=== PATIENT | female | born 1965 | race Caucasian/White ===

== ENCOUNTER → 2019-10-03 16:51 | Outpatient (CLI) | payer OTHER, SELFPAY ==
--- NOTE | ~2019-10-03 | XR_ITS ---
EXAMINATION: XR abdomen/kub 1V EXAM DATE: 10/03/2019 17:05 INDICATION: Gross hematuria. TECHNIQUE: Frontal projection(s) of the abdomen for interpretation. Comparison is made to prior exami nation from 02/15/2016. Correlation was made with CT abdomen pelvis 09/21/2019. FINDINGS: There is expected amount of colonic stool and gas. No small bowel dilation, nonobstructiv e bowel gas pattern. There are no suspicious calcifications identified. There is no organomegaly suspected. The bones are unremarkable. Essure closure devices. IMPRESSION: Unremarkable abdomen x-ray exam. Reviewed, dictated and finalized at location A. 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
== END ==
PROVIDERS: PCP Urology; Visit Provider Nurse Practitioner Adult Health
DX: R31.0 Gross hematuria (principal)
CPT/HCPCS: 74018

== ENCOUNTER 2019-11-07 00:13 | Day surgery (SDC) | payer OTHER, SELFPAY ==
[2019-11-04 08:44] VITALS: BMI 29.2
[2019-11-07 08:34] VITALS: BP 136/94; PULSE 68; RESP 16; TEMP 36.4; O2SAT 68
[2019-11-07] MEDS: LACTATED RINGERS 1,000 ML 150 ML IV CONT (08:44)
--- NOTE | 2019-11-07 09:09 | WPDANESEPPF ---
Anes - Initial Pre Proc Eval Procedure: Operation Date: 11/07/19 09:30 Proposed Procedures p Screening Colonoscopy - Kodi Andres MD Date/Time: 11/07/19 09:09 Surgeon: Kodi Andres MD Pre Op Diagnosis: Neoplasm Screening Patient Data Age: 54 Gender: F Height: 5 ft 3 in Weight: 76.5 kg Last Vital Signs Temp 97.6 F 11/07/19 08:34 Pulse 68 11/07/19 08:34 Resp 16 11/07/19 08:34 BP 136/94 H 11/07/19 08:34 Pulse Ox 68 L 11/07/19 08:34 Allergies Allergy/AdvReac Type Severity Reaction Status Date / Time No Known Allergies Allergy Verified 11/07/19 08:31 Home Medications Medication Instructions Recorded Confirmed Type atorvastatin 10 mg PO DAILY 09/22/19 11/07/19 History bupropion HCl 150 mg PO DAILY 09/22/19 11/04/19 History lkultbnhvc-vffnsqxcaaizn-iqmj 1 tablet PO DIRECTED PRN 09/22/19 11/07/19 History estradiol 1 mg PO DAILY 09/22/19 11/04/19 History hydrochlorothiazide 25 mg PO DAILY 09/22/19 11/04/19 History calcium carbonate [Calcium 500] 500 mg PO DAILY 11/04/19 11/04/19 History cholecalciferol (vitamin D3) 4,000 unit PO DAILY 11/04/19 11/04/19 History [Vitamin D3] magnesium 30 mg PO DAILY 11/04/19 11/04/19 History vitamin B complex-folic acid [B 1 tablet PO DAILY 11/04/19 11/07/19 History Complex 1 (with folic acid)] Patient hx anesthesia problems: none Family hx anesthesia problems: none [facility] Past Medical History Medical History (Updated 09/23/19 @ 09:02 by Sen Patton MD) Hyperlipidemia Hypertension Migraine KIRK (obstructive sleep apnea) Anes - Eval Final PreProcedure Day of Procedure 11/07/19 09:09 Patient weight: normal Heart: regular rate and rhythm Lungs: clear to auscultation Airway: Mallampati scale class II Neurological: alert and oriented Last oral intake: >/= 8 hours ASA classification: III Emergent: no Anesthetic plan: proceed Anesthesia type and monitoring: general GIVS and standard monitoring Informed Consent: The patient's anesthetic plan and its attendant risks and benefits were discussed with the patient/family/POA. Questions were solicited and answers provided to the satisfaction of the patient/family/POA.
--- NOTE | 2019-11-07 09:41 | P.CONGI_ITS ---
Assessment and Plan Assessment and plan (1) Encounter for screening for colorectal malignant neoplasm: Code(s): Z12.11 - Encounter for screening for malignant neoplasm of colon; Z12.12 - Encounter for screening for malignant neoplasm of rectum Status: Acute Assessment and Plan: Colonoscopy will be performed. GI Consult Note Consult date/time: 11/07/19 09:41 HPI: Carole Quiles is a 54 year old female Seen in evaluation at the request of Dr. Erich Jennings. Patient presents for neoplasia screening colonoscopy. Her current weight appetite bowel movements are normal. She denies abdominal pain. She denies blood in her stools. Her weight is remains stable. Past medical history is significant for hypertension and kidney stones. Family history is significant her father with with myocardial infarction. There is no history of colon or rectal disease within the family. [facility] Past Medical History Medical History Hyperlipidemia Hypertension Migraine KIRK (obstructive sleep apnea) Meds Home Medications and Allergies Home Medications Medication Instructions Recorded Confirmed Type atorvastatin 10 mg PO DAILY 09/22/19 11/07/19 History bupropion HCl 150 mg PO DAILY 09/22/19 11/04/19 History fpgyrzynlw-gadaixhzvzkxo-eqoq 1 tablet PO DIRECTED PRN 09/22/19 11/07/19 History estradiol 1 mg PO DAILY 09/22/19 11/04/19 History hydrochlorothiazide 25 mg PO DAILY 09/22/19 11/04/19 History calcium carbonate [Calcium 500] 500 mg PO DAILY 11/04/19 11/04/19 History cholecalciferol (vitamin D3) 4,000 unit PO DAILY 11/04/19 11/04/19 History [Vitamin D3] magnesium 30 mg PO DAILY 11/04/19 11/04/19 History vitamin B complex-folic acid [B 1 tablet PO DAILY 11/04/19 11/07/19 History Complex 1 (with folic acid)] Allergies Allergy/AdvReac Type Severity Reaction Status Date / Time No Known Allergies Allergy Verified 11/07/19 08:31 Vital Signs Vital Signs - 24 hr 11/07/19 08:34 Temperature 36.4 C Pulse Rate 68 Respiratory Rate 16 Blood Pressure 136/94 H Pulse Oximetry 68 L Exam Narrative: Exam Narrative: Physical exam reveals her to be alert. Vital signs stable. HEENT exam unremarkable. Lungs are clear to auscultation and percussion. Heart is without murmur or extra sounds. Abdominal exam bowel sounds are present soft nontender with no hepatosplenomegaly. Digital external rectal exam normal.
[2019-11-07 09:45] VITALS: BP 118/74; PULSE 72; RESP 16; O2SAT 98
[2019-11-07 09:55] VITALS: BP 116/64; PULSE 64; RESP 16; O2SAT 100
[2019-11-07 09:59] VITALS: BP 147/93; PULSE 67; RESP 16; O2SAT 99
== END 2019-11-07 10:10 | disposition home or self-care (01) ==
PROVIDERS: PCP Family Medicine Adolescent Medicine; Visit Provider Internal Medicine Gastroenterology
PROC: 0DJD8ZZ Inspection of Lower Intestinal Tract, Via Natural or Artificial Opening Endoscopic (ICD-10-PCS; CPT 45378; principal; 2019-11-07 09:30)
DX: Z12.11 Encounter for screening for malignant neoplasm of colon (principal); K57.30 Diverticulosis of large intestine without perforation or abscess without bleeding; K64.8 Other hemorrhoids; I10 Essential (primary) hypertension; E78.5 Hyperlipidemia, unspecified; G47.33 Obstructive sleep apnea (adult) (pediatric)
CPT/HCPCS: 45378; J2704; J7120

== ENCOUNTER → 2020-10-23 15:36 | Outpatient (CLI) | payer OTHER, SELFPAY ==
--- NOTE | ~2020-10-23 | MM_ITS ---
EXAMINATION: MM screening [facility] BI w [place] HISTORY: Screening mammogram TECHNIQUE: Craniocaudal and mediolateral oblique 3-D tomosynthesis images were obtained and synthetic 2-D images were generated. CAD analysis was submitted and interpreted. COMPARISON: 09/17/2019, 09/03/2018, 08/20/2017 BREAST PARENCHYMAL COMPOSITION: The breasts are almost entirely fatty. FINDINGS: There is no evidence of suspicious mass, calcification, or architectural distortion to sugg est malignancy in either breast. There has been no suspicious interval change. IMPRESSION: 1. No mammographic evidence of malignancy. 2. Recommend routine screening mammography in one year. BI-RADS Category 1: Negative Reviewed, dictated and finalized at location A. POLISHER
== END ==
PROVIDERS: PCP Family Medicine Adolescent Medicine; Visit Provider Advanced Practice Midwife
DX: Z12.31 Encounter for screening mammogram for malignant neoplasm of breast (principal)
CPT/HCPCS: 77063; 77067

== ENCOUNTER → 2021-10-25 15:53 | Outpatient (CLI) | payer OTHER, SELFPAY ==
--- NOTE | ~2021-10-25 | MM_ITS ---
EXAMINATION: MM screening [facility] w [place] HISTORY: Screening mammogram TECHNIQUE: Craniocaudal and mediolateral oblique 3-D tomosynthesis images were obtained and synthetic 2-D images were generated. CAD analysis was submitted and interpreted. COMPARISON: October 23, 2020, September 17, 2019 bilateral screening mammogram examinations 09/03/2018 bilateral diagnostic mammogram 08/20/2017 bilateral screening mammogram BREAST PARENCHYMAL COMPOSITION: The breasts are almost entirely fatty. FINDINGS: There is a 7.5 mm circumscribed low-density opacity in the posterior upper central left ange ast slightly medial to the mid sagittal plane. There is suggestion of a radiolucent hilus. This mass has been present on serial mammograms and is likely a benign intramammary lymph node. There is no mahesh dence of suspicious mass, calcification, or architectural distortion to suggest malignancy in either breast. There has been no suspicious interval change. IMPRESSION: 1. Benign finding; no mammographic evidence of malignancy 2. Recommend routine screening mammography in one year. BI-RADS Category 2: Benign finding(s). Reviewed, dictated and finalized at location A. 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
== END ==
PROVIDERS: PCP Family Medicine Adolescent Medicine; Visit Provider Nurse Practitioner Obstetrics & Gynecology
DX: Z12.31 Encounter for screening mammogram for malignant neoplasm of breast (principal)
CPT/HCPCS: 77063; 77067

== ENCOUNTER 2022-11-04 00:59 | Day surgery (SDC) | payer OTHER, SELFPAY ==
[2022-10-24 14:42] VITALS: BMI 27.8
--- NOTE | 2022-10-24 14:50 | PC.NURSE ---
Report to the Outpatient Waiting Room, entrance under the green pavilion located off [facility], at time 0900 on date 11/04/22. Planned Procedure Time: 1100. Time changes happen often and if your time is changed the preop area will call you the afternoon before. - You and your visitor will be asked to self-screen and do not enter if you have any COVID symptoms. - Only one visitor is requested with a max of two and NO children visitors are allowed at this time. - The patient visitor may be requested to leave or wait in car when not with patient due to distancing restrictions. - A mask is optional within the hospital at this time. Patients may have clear liquids (water, carbonated beverages, clear teas, apple juice) until 3 hours prior to surgery with a maximum of 20 ounces. - No food from midnight until time of surgery Take the following medications with a SIP of water the morning of surgery: NONE DO NOT STOP ANY OF YOUR OTHER PRESCRIPTION MEDICATIONS PRIOR TO SURGERY EXCEPT THE FOLLOWING Medications to discontinue per physician: VITAMINS/SUPPLEMENTS Date to take last dose: 10/31/22 Please no make-up, nail zimbabwean, hairspray, perfume, deodorant, or body powder the day of surgery. No jewelry (including any body piercings) or valuables the day of surgery, leave them at home. Please take a shower or bath the night before, or the morning of, surgery with an antibacterial soap. Wear comfortable, loose fitting clothing. - Jewelry must be removed prior to entering the operating room. Rings and piercings that are not removed may be cut off. - The hospital will not accept responsibility for valuables. - Please leave all valuables, including medications, at home the day of surgery. If you are going home after surgery, a licensed dedicated regional driver must drive you home. - NO public transportation without another adult if you receive anesthesia. - We recommend that an adult stay with you for 24 hours following discharge. - We also recommend that you do not drive, make important decision, drink alcoholic beverages, or take any drugs that were not prescribed by your health care provider for at least 24 hours after your discharge time. Follow any additional instructions given to you from your surgeon. If you or anyone in your household have experienced Covid symptoms in the past week, please notify your surgeon or the nurse liaison at the phone number below for possible testing. Telephone instructions given to PT - LYNNE LEWIS and asked if any additional questions and then verbalized understanding. Patient advised to call surgeon office or pre surgery nurse liaison [phone] if any additional questions.
--- NOTE | 2022-11-03 14:45 | WPDANESEPPF ---
Anes - Initial Pre Proc Eval Procedure: Operation Date: 11/04/22 11:00 Proposed Procedures p Hysteroscopy, Possible Biopsy of Endometrium and/or Polypectomy - Olesya Neville MD Date/Time: 11/03/22 14:45 Surgeon: Olesya Neville MD Pre Op Diagnosis: post menopausal bleeding Patient Data Age: 57 Gender: F Height: 1.61 m Weight: 72.6 kg Allergies Allergy/AdvReac Type Severity Reaction Status Date / Time No Known Allergies Allergy Verified 11/04/22 10:11 Home Medications Medication Instructions Recorded Confirmed Type estradiol 1 mg tablet 1 mg PO DAILY 09/22/19 10/24/22 History calcium carbonate 500 mg calcium 500 mg PO DAILY 11/04/19 10/24/22 History (1,250 mg) tablet (Calcium 500) cholecalciferol (vitamin D3) 100 4,000 unit PO DAILY 11/04/19 10/24/22 History mcg (4,000 unit) capsule (Vitamin D3) magnesium 30 mg tablet 30 mg PO DAILY 11/04/19 10/24/22 History vitamin B complex-folic acid 0.4 1 tablet PO DAILY 11/04/19 10/24/22 History mg tablet (B Complex 1 (with folic acid)) atorvastatin 10 mg tablet 10 mg PO DAILY #90 tabs 10/11/21 10/24/22 Rx nitrofurantoin macrocrystal 50 mg 50 mg PO DAILY PRN UTI 12/13/21 10/24/22 History capsule progesterone micronized 100 mg 100 mg PO DAILY 12/13/21 10/24/22 History capsule candesartan 16 mg tablet 16 mg PO DAILY #90 tabs 01/21/22 10/24/22 Rx naproxen 500 mg tablet 500 mg PO BID #180 tabs 08/11/22 10/24/22 Rx phentermine 37.5 mg tablet 37.5 mg PO DAILY #90 tabs 08/26/22 10/24/22 Rx multivitamin 1 tablet PO DAILY 10/24/22 10/24/22 History Patient hx anesthesia problems: none Family hx anesthesia problems: none Results Review: All pre-operative results and documents have been reviewed as part of the pre-operative evaluation. [facility] Past Medical History Medical History (Updated 11/03/22 @ 14:46 by Genaro Blevins MD) BMI 27.0-27.9,adult BMI 28.0-28.9,adult Encounter for preventive health examination Encounter for routine adult health examination without abnormal findings Frequent UTI Hypertension Migraine Normal colonoscopy 11/17 Repeat 11/27 KIRK (obstructive sleep apnea) Pure hypercholesterolemia, unspecified Surgical History Surgical History History of lithotripsy 2020 right renal calculus History of suburethral sling procedure 2013 Family History Family History Father Acute myocardial infarction Social History Social History Years smoked: 10 Smoking status: Former smoker Tobacco type: cigarettes Second hand tobacco smoke exposure: No Smoking end date: 08/31/12 Alcohol intake: current Drinks per week: 4 Substance use: never Substance use type: does not use Lack of Transportation: No Lack of Food: Never True Current Housing: I Have Housing Concerned About Future Housing: No Difficulty Paying Gas/Electric Bills: No Difficulty Paying for Meds: No Currently Unemployed: No Education: Master's Degree or Higher Difficulty w/ Childcare or Family Care: No Living arrangements: with family Occupation/Education: occupation Gender identity (if verbalized by the patient): Female Sexual Orientation (if Verbalized by the Patient): Straight or Heterosexual Spiritual care concerns: No Agree to blood products: Yes Anes - Eval Final PreProcedure Day of Procedure 11/03/22 14:45 Patient weight: overweight Heart: regular rate and rhythm Lungs: clear to auscultation Airway: Mallampati scale class II Neurological: alert and oriented Last oral intake: >/= 8 hours ASA classification: II Emergent: no Anesthetic plan: proceed Anesthesia type and monitoring: general GIVS and standard monitoring Results Review: All pre-operative results and documents have been reviewed as part of the pre-operative evaluation.
[2022-11-04] MEDS: ACETAMINOPHEN 500 MG TABLET 1000 MG PO (10:13)
[2022-11-04 10:18] VITALS: BP 155/90; PULSE 81; RESP 16; TEMP 36.6; O2SAT 100
[2022-11-04] MEDS: LACTATED RINGERS 1,000 ML 30 ML IV CONT (10:31)
--- NOTE | 2022-11-04 11:04 | WPDHPUPDATE1 ---
History and Physical Update Update Date/Time: 11/04/22 11:04 History and Physical has been reviewed, including an updated exam of the patient. There are NO changes in the patient's condition. Risks, benefits, and alternatives have been discussed and questions answered. Patient agrees to proceed with procedure.
--- NOTE | 2022-11-04 11:04 | PM.IMHP ---
H&P: HPI History of Present Illness Date/Time: 11/04/22 11:04 Chief Complaint: postmenopausal bleed Narrative: this patient is a 57-year-old female with postmenopausal bleeding and possible endometrial lesion. We agreed to perform hysteroscopy D&C. She understands the risks, benefits. She understands injuries may occur that resulted in hospitalization, more surgery and severe illness. She understands there is risk of hemorrhage infection. She denies any nausea, vomiting, fever, chills. She denies any chest pain or shortness of breath. Review of Systems Review of Systems: All systems reviewed & are unremarkable except as noted in HPI and below Constitutional: Constitutional: Denies chills, Denies fatigue, Denies fever(s) and Denies weakness Eyes: Eyes: Denies blurry vision, Denies change in vision, Denies loss of peripheral vision, Denies loss of vision, Denies other visual disturbances and Denies eye pain ENT: Denies vertigo, Denies dizziness, Denies hearing loss, Denies mouth pain, Denies nasal obstruction, Denies neck mass and Denies neck pain Cardiovascular: Cardiovascular: Denies chest pain, Denies diaphoresis, Denies syncope, Denies leg edema and Denies dyspnea Respiratory: Respiratory: Denies chest congestion, Denies cough, Denies hemoptysis, Denies dyspnea and Denies wheezing Gastrointestinal: Gastrointestinal: Denies abdominal pain, Denies constipation, Denies diarrhea, Denies nausea and Denies vomiting Genitourinary: Genitourinary: Denies hematuria, Denies change in libido, Denies nocturia, Denies genital lesions, Denies flank pain and Denies urinary urgency Musculoskeletal: Musculoskeletal: Denies abnormal gait, Denies back pain, Denies myalgias, Denies arthralgias, Denies joint swelling, Denies muscle weakness and Denies neck pain Integumentary/Breasts: Skin/Breast: Denies swelling, Denies breast pain, Denies breast mass, Denies dry skin, Denies nipple discharge, Denies unusual bruising and Denies jaundice Neurologic: Denies Neuro-related abnormal movements, Denies Abnormal speech present, Denies abnormal gait, Denies behavioral changes, Denies confusion, Denies vertigo, Denies dizziness, Denies syncope, Denies loss of vision, Denies memory loss, Denies convulsions and Denies weakness Psychiatric: Psychiatric: Denies abnormal sleep pattern, Denies behavioral changes, Denies change in libido, Denies confusion, Denies depression, Denies anhedonia and Denies memory loss Endocrine: Endocrine: Reports no additional endocrine complaints, Denies change in libido and Denies fatigue Hematologic/Lymphatic: Hematologic/Lymphatic: Reports no additional hematologic/lymphatic complaints Allergic/Immunologic: Allergic/Immunologic: Reports no additional allergic/immunologic complaints and Denies wheezing [facility] Past Medical History Medical History (Updated 11/04/22 @ 11:06 by Olesya Neville MD) BMI 27.0-27.9,adult BMI 28.0-28.9,adult Encounter for preventive health examination Encounter for routine adult health examination without abnormal findings Frequent UTI Hypertension Migraine Normal colonoscopy 11/17 Repeat 11/27 KIRK (obstructive sleep apnea) Pure hypercholesterolemia, unspecified Surgical History Surgical History History of lithotripsy 2020 right renal calculus History of suburethral sling procedure 2013 Family History Family History Father Acute myocardial infarction Social History Social History Years smoked: 10 Smoking status: Former smoker Tobacco type: cigarettes Second hand tobacco smoke exposure: No Smoking end date: 08/31/12 Alcohol intake: current Drinks per week: 4 Substance use: never Substance use type: does not use Lack of Transportation: No Lack of Food: Never True Current Housing: I Have Housing C
[2022-11-04] MEDS: LIDOCAINE HCL 1% LOCAL INJ 20 ML VIAL 10 ML INFILTRATE (11:24)
[2022-11-04] MEDS: KETOROLAC 30 MG/ML VIAL (*BKC) IV PUSH (11:27)
[2022-11-04 11:42] VITALS: BP 113/78; PULSE 73; RESP 16; O2SAT 99
--- NOTE | 2022-11-04 11:50 | W.PM.PROC2 ---
Procedure Note - Detailed Date of Procedure 11/04/22 Pre-op Diagnosis post menopausal bleeding Post-op Diagnosis Same Procedure Performed Hysteroscopy D&C Surgeon Olesya Neville MD Anesthesia MAC Indications abnormal uterine bleeding Findings Normal endometrial cavity, thin endometrium, normal-appearing endocervical canal with some possible polypoid tissue observed distally, normal vulva , vagina and cervix. Description of Procedure the patient was taken the operating room. She was prepped and draped in the dorsal lithotomy position after induction of mac anesthesia. A speculum was placed in the vagina. The cervix was grasped with a tenaculum. The cervix was dilated about 1 cm. The hysteroscope was inserted. The intrauterine cavity and endocervix were evaluated. Hysteroscope was withdrawn. A medium-size curette was used to curettage all the surfaces were within the endometrial cavity. the sample was collected on Telfa and sent to pathology. The hysteroscope was reinserted and the above findings were noted. Patient tolerated the procedure well. The speculum and tenaculum were removed. She was taken recovery room in stable condition. Sponge lap and needle counts were correct x2. Estimated Blood Loss 40 Drains No Packing No Pathology Yes Complications No immediate complications Condition Stable Disposition PACU
[2022-11-04 12:00] VITALS: BP 113/78; PULSE 66; RESP 16
[2022-11-04 12:15] VITALS: BP 118/79; PULSE 65; RESP 16
[2022-11-04 12:45] VITALS: BP 138/69; PULSE 62; RESP 16
== END 2022-11-04 12:40 | disposition home or self-care (01) ==
PROVIDERS: PCP Internal Medicine; Visit Provider Obstetrics & Gynecology
PROC: 0U5B8ZZ Destruction of Endometrium, Via Natural or Artificial Opening Endoscopic (ICD-10-PCS; CPT 58563; principal; 2022-11-04 11:00)
DX: N95.0 Postmenopausal bleeding (principal); I10 Essential (primary) hypertension; E78.00 Pure hypercholesterolemia, unspecified; G47.33 Obstructive sleep apnea (adult) (pediatric); Z87.891 Personal history of nicotine dependence
CPT/HCPCS: 58558; 88305; A9270; J1885; J2250; J2704; J3010; J7120

== ENCOUNTER → 2022-11-26 16:03 | Outpatient (CLI) | payer OTHER, SELFPAY ==
--- NOTE | ~2022-11-26 | MM_ITS ---
EXAMINATION: MM screening [facility] BI w [place] HISTORY: Screening TECHNIQUE: Craniocaudal and mediolateral oblique 3-D tomosynthesis images were obtained and synthetic 2-D images were generated. CAD analysis was submitted and interpreted. COMPARISON: Comparison to multiple prior studies sequentially, with oldest reviewed study dated 07/31. BREAST PARENCHYMAL COMPOSITION: There are scattered areas of fibroglandular density. FINDINGS: There is no evidence of suspicious mass, calcification, or architectural distortion to sugg est malignancy in either breast. There has been no suspicious interval change. IMPRESSION: 1. No mammographic evidence of malignancy. 2. Recommend routine screening mammography in one year. BI-RADS Category 1: Negative Reviewed, dictated and finalized at location A.
== END ==
PROVIDERS: PCP Internal Medicine; Visit Provider Nurse Practitioner Obstetrics & Gynecology
DX: Z12.31 Encounter for screening mammogram for malignant neoplasm of breast (principal)
CPT/HCPCS: 77063; 77067

== ENCOUNTER 2023-12-26 09:45 | Outpatient (CLI) | payer OTHER, SELFPAY ==
--- NOTE | ~2023-12-26 | MM_ITS ---
EXAMINATION: MM screening [facility] w [place] HISTORY: Screening mammogram TECHNIQUE: Craniocaudal and mediolateral oblique 3-D tomosynthesis images were obtained and synthetic 2-D images were generated. CAD analysis was submitted and interpreted. COMPARISON: 11/26/2022, 10/25/2021 bilateral screening mammogram examinations BREAST PARENCHYMAL COMPOSITION: There are scattered areas of fibroglandular density. FINDINGS: There is no evidence of suspicious mass, calcification, or architectural distortion to sugg est malignancy in either breast. There has been no suspicious interval change. IMPRESSION: 1. No mammographic evidence of malignancy. 2. Recommend routine screening mammography in one year. BI-RADS Category 1: Negative Reviewed, dictated and finalized at location A.
== END 2023-12-26 09:46 ==
LOC: MICIMG 09:46
PROVIDERS: PCP Nurse Practitioner Obstetrics & Gynecology; Visit Provider Nurse Practitioner Obstetrics & Gynecology
DX: Z12.31 Encounter for screening mammogram for malignant neoplasm of breast (principal)
CPT/HCPCS: 77063; 77067

== ENCOUNTER 2024-07-06 12:01 | Outpatient (CLI) | payer OTHER, SELFPAY ==
--- NOTE | ~2024-07-06 | XR_ITS ---
XR cervical spine 4-5V Ordering provider: Keegan Miranda MD History: . M54.2 - Cervicalgia . Comparison: None. FINDINGS: VERTEBRAL BODIES: Normal height and alignment. No visible fracture or subluxation. The dens is intact . DISK SPACES: Narrowing of the disc C4-C5, C5-C6 and C6-C7. Multilevel facet joint disease. Multilevel uncovertebral joint osteoarthritic changes. PARASPINOUS SOFT TISSUES: No prevertebral soft tissue swelling. IMPRESSION: No acute osseous abnormality cervical spine. Reviewed, dictated and finalized at location A. 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
== END 2024-07-06 12:02 | disposition home or self-care (01) ==
LOC: ANHIMG 12:06
PROVIDERS: PCP Nurse Practitioner Obstetrics & Gynecology; Visit Provider Internal Medicine
DX: M54.2 Cervicalgia (principal)
CPT/HCPCS: 72050

== ENCOUNTER 2024-09-05 12:45 | Outpatient (CLI) | payer OTHER, SELFPAY ==
--- NOTE | 2024-09-05 13:53 | ECG_ITS ---
Test Date: 2024-09-05 14:02:59 Measurements Intervals [place] Rate: 72 P: 36 WY: 117 QRS: -13 QRSD: 97 T: 6 QT: 380 QTc: 418 Interpretive Statements SINUS RHYTHM WITH SHORT W[place] INTERVAL INCOMPLETE RIGHT BUNDLE BRANCH BLOCK WARNING: DATA QUALITY MAY AFFECT INTERPRETATION No previous ECG available for comparison Electronically Signed On 09-07-2024 17:02:10 EXCHANGE CONSULTANT by Adilia Cobos M.D.
[2024-09-05 14:15] LABS: Basophils Absolute Auto 0.1 K/mm3 (0.0-0.1); Basophils Percent Auto 0.7 % (0.2-1.2); Eosinophils Absolute Auto 0.1 K/mm3 (0-0.3); Eosinophils Percent Auto 1.2 % (0-4.4); Hematocrit 36.1 % (37.0-47.0); Hemoglobin 11.9 g/dL (12.0-15.0); Immature Granulocyte Absolute 0.02 K/mm3 (0.00-0.031); Immature Granulocyte Percent A 0.3 % (0-0.5); Lymphocytes Absolute Auto 2.04 K/mm3 (0.9-3.2); Lymphocytes Percent Auto 27.9 % (18.3-44.2); Mean Platelet Volume 9.3 fl (7.4-10.4); Monocytes Absolute Auto 0.6 K/mm3 (0.1-0.6); Monocytes Percent Auto 8.2 % (2.6-8.5); Neutrophils Absolute Auto 4.5 K/mm3 (1.3-6.7); Neutrophils Percent Auto 61.7 % (45.5-73.1); Platelet Count Result 338 k/mm3 (150-375); Red Blood Count 3.84 M/mm3 (4.2-5.4); Red Cell Distribution Width 13.2 % (11.5-14.5); White Blood Count 7.3 K/mm3 (4.5-10.0)
[2024-09-05 14:24] LABS: Alanine Aminotransferase 23 U/L (6-35); Albumin Level 4.5 g/dL (3.5-5.1); Alkaline Phosphatase 63 U/L (38-126); Anion Gap 6 mmol/L (4-12); Aspartate Amino Transferase 30 U/L (14-36); Bilirubin,Total 0.5 mg/dL (0.2-1.3); Blood Urea Nitrogen 16 mg/dL (7-17); Calcium 9.5 mg/dL (8.4-10.2); Carbon Dioxide 28 mmol/L (22-30); Chloride 104 mmol/L (98-107); Estimated Glomerular Filt Rate > 60; Glucose 90 mg/dL (65-110); Potassium 4.1 mmol/L (3.4-5.0); Sodium 138 mmol/L (137-145)
[2024-09-05 14:28] LABS: INR 0.9; Prothrombin Time 12.6 Seconds (11.1-14.7)
[2024-09-05 14:29] LABS: Partial Thromboplastin Time 26.3 Seconds (22.3-36.8)
== END 2024-09-05 12:46 | disposition home or self-care (01) ==
PROVIDERS: PCP Internal Medicine; Visit Provider Urology
DX: Z01.818 Encounter for other preprocedural examination (principal); I12.9 Hypertensive chronic kidney disease with stage 1 through stage 4 chronic kidney disease, or unspecified chronic kidney disease; N18.4 Chronic kidney disease, stage 4 (severe)
CPT/HCPCS: 36415; 80053; 85025; 85610; 85730; 86850; 86900; 86901; 93005

== ENCOUNTER 2024-09-12 00:17 | Day surgery (SDC) | payer OTHER, SELFPAY ==
[2024-09-05 12:54] VITALS: BMI 23.5
--- NOTE | 2024-09-05 13:16 | PC.NURSE ---
Report to the Outpatient Waiting Room, entrance under the green pavilion located off [facility], at time _6AM on date _09/12/24 . Planned Procedure Time: _7:30 AM .? Time changes happen often and if your time is changed the preop area will call you the afternoon before. - You and your visitor will be asked to self-screen and do not enter if you have any COVID symptoms. Please call surgeon if you need to reschedule. - A mask is optional within the hospital at this time. Patients may have clear liquids (water, carbonated beverages, clear teas, apple juice) until 3 hours prior to surgery(4:30 AM)with a maximum of 20 ounces. - No food from midnight until time of surgery and no smoking. This includes no chewing gum, candy or mints. - Infants may have breast milk until 4 hours before surgery, formula 6 hours prior to surgery. - Children will be allowed to drink immediately following surgery.? If applicable, please bring a bottle or sippy cup to assist with drinking. Juice, water, soda, and popsicles are readily available.? For infants on formula, please bring formula the day of surgery.? Pacifiers are allowed. Take only the following medications with a SIP of water on the morning of surgery: ____NONE DO NOT STOP ANY OF YOUR OTHER PRESCRIPTION MEDICATIONS PRIOR TO SURGERY EXCEPT THE FOLLOWING Medications to discontinue per physician _PT STATES HOLD NAPROXEN AND ALL VITAMINS AND SUPPLEMENTS 7 DAYS PRE OP PER DR PEREZ LAST DOSE 09/04/24. HOLD SEMAGLUTIDE 10 DAYS PRE OP PER ANESTHESIA LAST DOSE 09/01/24 Please no make-up, nail v[place] citizen, hairspray, perfume, deodorant, or body powder the day of surgery.? No jewelry (including any body piercings) or valuables the day of surgery, leave them at home.? Please take a shower or bath the night before, or the morning of, surgery with an antibacterial soap.? Wear comfortable, loose fitting clothing.? Children are encouraged to wear pajamas. - Jewelry must be removed prior to entering the operating room.? Rings and piercings that are not removed may be cut off. - The hospital will not accept responsibility for valuables.? - Please leave all valuables, including medications, at home the day of surgery. If you are going home after surgery, a licensed o[employer] hazmat company driver must drive you home.? - NO public transportation without another adult if you receive anesthesia. - We recommend that an adult stay with you for 24 hours following discharge. - We also recommend that you do not drive, make important decision, drink alcoholic beverages, or take any drugs that were not prescribed by your health care provider for at least 24 hours after your discharge time. Follow any additional instructions given to you from your surgeon. VERBAL AND WRITTEN instructions given to ___PATIENT AND SPOUSE ADALBERTO and asked if any additional questions and then verbalized understanding. Patient advised to call surgeon office or pre surgery nurse liaison [phone] if any additional questions.
[2024-09-05 13:41] VITALS: BP 116/85; PULSE 75; RESP 18; TEMP 37; O2SAT 100
--- NOTE | 2024-09-08 16:13 | P.HP_ITS ---
H&P: HPI History of Present Illness Date/Time: 09/08/24 16:13 Chief Complaint: Uterine prolapse Narrative: 58 year female admitted for robotic supracervical hysterectomy salpingo- oophorectomy secondary to uterine prolapse. She has been seeing Dr. Streeter she will also undergo sacral colpopexy. She has had a previous sling and would like to have this taken care of by him as well. Risks and benefits reviewed in full details. She had all questions answered and asked to proceed Review of Systems Review of Systems: All systems reviewed & are unremarkable except as noted in HPI and below Constitutional: Constitutional: Denies chills, Denies fatigue, Denies fever(s) and Denies weakness Eyes: Eyes: Denies blurry vision, Denies change in vision, Denies loss of peripheral vision, Denies loss of vision, Denies other visual disturbances and Denies eye pain ENT: Denies vertigo, Denies dizziness, Denies hearing loss, Denies mouth pain, Denies nasal obstruction, Denies neck mass and Denies neck pain Cardiovascular: Cardiovascular: Denies chest pain, Denies diaphoresis, Denies syncope, Denies leg edema and Denies dyspnea Respiratory: Respiratory: Denies chest congestion, Denies cough, Denies hemoptysis, Denies dyspnea and Denies wheezing Gastrointestinal: Gastrointestinal: Denies abdominal pain, Denies constipation, Denies diarrhea, Denies nausea and Denies vomiting Genitourinary: Genitourinary: Denies hematuria, Denies change in libido, Denies nocturia, Denies genital lesions, Denies flank pain and Denies urinary urgency Musculoskeletal: Musculoskeletal: Denies abnormal gait, Denies back pain, Denies myalgias, Denies arthralgias, Denies joint swelling, Denies muscle weakness and Denies neck pain Integumentary/Breasts: Skin/Breast: Denies swelling, Denies breast pain, Denies breast mass, Denies dry skin, Denies nipple discharge, Denies unusual bruising and Denies jaundice Neurologic: Denies Neuro-related abnormal movements, Denies Abnormal speech present, Denies abnormal gait, Denies behavioral changes, Denies confusion, Denies vertigo, Denies dizziness, Denies syncope, Denies loss of vision, Denies memory loss, Denies convulsions and Denies weakness Psychiatric: Psychiatric: Denies abnormal sleep pattern, Denies behavioral changes, Denies change in libido, Denies confusion, Denies depression, Denies anhedonia and Denies memory loss Endocrine: Endocrine: Reports no additional endocrine complaints, Denies change in libido and Denies fatigue Hematologic/Lymphatic: Hematologic/Lymphatic: Reports no additional hematologic/lymphatic complaints Allergic/Immunologic: Allergic/Immunologic: Reports no additional allergic/immunologic complaints and Denies wheezing PMFSH Past Medical History Medical History Neck Pain FHx: lung cancer BMI 23.0-23.9, adult Pre-diabetes Encounter for routine adult health examination with abnormal findings Post menopausal problems Right wrist pain BMI 26.0-26.9,adult Encounter for routine adult health examination without abnormal findings Frequent UTI Encounter for preventive health examination BMI 28.0-28.9,adult BMI 27.0-27.9,adult Hypersomnia Normal colonoscopy 11/17 Repeat 11/27 Pure hypercholesterolemia, unspecified Migraine KIRK (obstructive sleep apnea) Hypertension Surgical History Surgical History History of suburethral sling procedure 2014 History of lithotripsy 2020 right renal calculus Family History Family History Father Acute myocardial infarction Social History Social History Years smoked: 10 Smoking status: Former smoker Tobacco type: cigarettes Second hand tobacco smoke exposure: No Smoking end date: 08/31/17 Alcohol intake: current Drinks per week: 4 Alcohol use details: WINE Substance use: never Substance use type: does not use Lack of Transportation: No Lack of Food: Never True Current Housing: I Have Housing Concerned About Future Housing: No Difficulty Paying Gas/Electric Bills: No Difficulty Paying for Meds: No Currently Unemployed: No Education: Master's Degree or Higher Difficulty w/ Childcare or Family Care: No Living arrangements: with family Occupation/Education: occupation Gender identity (if verbalized by the patient): Female Sexual Orientation (if Verbalized by the Patient): Straight or Heterosexual Spiritual care concerns: No Agree to blood products: Yes Meds Home Medications and Allergies Home Medications ?Medication ?Instructions ?Recorded ?Confirmed ?Type calcium carbonate (Calcium 500) 500 mg PO DAILY 11/04/19 09/05/24 History cholecalciferol (vitamin D3) 100 4,000 unit PO DAILY 11/04/19 09/05/24 History mcg (4,000 unit) capsule (Vitamin D3) magnesium 30 mg tablet 30 mg PO DAILY 11/04/19 09/05/24 History atorvastatin 10 mg tablet 10 mg PO DAILY #90 tabs 10/11/21 09/05/24 Rx multivitamin 1 tablet PO DAILY 10/24/22 09/05/24 History candesartan 8 mg tablet 4 mg PO DAILY 03/21/24 09/05/24 History semaglutide (weight loss) 1 mg/0.5 1 mg (0.5 mL) subcut WEEKLY #2 mL 05/31/24 09/05/24 Rx mL subcutaneous pen injector (Sandrine) cyclobenzaprine 10 mg tablet 10 mg PO TID PRN muscle spasm #30 07/06/24 09/05/24 Rx tabs tramadol 50 mg tablet 50 mg PO Q6H PRN neck pain #50 tabs 07/06/24 09/05/24 Rx naproxen 500 mg tablet See Rx Instructions .Route 08/01/24 09/05/24 Rx .COMPLEX #180 tabs atorvastatin 20 mg tablet 20 mg PO QPM 09/05/24 09/05/24 History candesartan 16 mg tablet 16 mg PO DAILY 09/05/24 09/05/24 History Allergies Allergy/AdvReac Type Severity Reaction Status Date / Time No Known Allergies Allergy Verified 09/05/24 12:54 Exam Const: General: cooperative, healthy appearing and comfortable Nutritional Appearance: average body habitus Orientation/consciousness: oriented to person, oriented to place and oriented to time Resp: Effort & Inspection: normal respiratory effort Cardio: Rate: regular rate Rhythm: regular rhythm Heart sounds: S1 normal heart sound present and S2 normal heart sound present GI: Inspection: normal to inspection : External Female Exam: normal external appearance Speculum Exam - Vagina: normal appearance of the vagina Speculum Exam - Cervix: normal appearance of the cervix (Second-degree prolapse) Bimanual exam- vagina & uterus: Uterine tenderness Bimanual Exam- Adnexa, other: normal adnexae Assessment and Plan Assessment and plan (1) Uterine prolapse: Code(s): N81.4 - Uterovaginal prolapse, unspecified Status: Acute Plan Proceed with robotic supracervical hysterectomy bilateral salpingo-oophorectomy
--- NOTE | 2024-09-09 10:34 | PM.IMHP ---
H&P: HPI History of Present Illness Date/Time: 09/09/24 10:34 Chief Complaint: uterine prolapse Narrative: symptomatic pelvic organ prolapse. A previous sling procedure. No stress incontinence Review of Systems Review of Systems: All systems reviewed & are unremarkable except as noted in HPI and below PMFSH Past Medical History Medical History Neck Pain FHx: lung cancer BMI 23.0-23.9, adult Pre-diabetes Encounter for routine adult health examination with abnormal findings Post menopausal problems Right wrist pain BMI 26.0-26.9,adult Encounter for routine adult health examination without abnormal findings Frequent UTI Encounter for preventive health examination BMI 28.0-28.9,adult BMI 27.0-27.9,adult Hypersomnia Normal colonoscopy 11/17 Repeat 11/27 Pure hypercholesterolemia, unspecified Migraine KIRK (obstructive sleep apnea) Hypertension Surgical History Surgical History History of suburethral sling procedure 2013 History of lithotripsy 2020 right renal calculus Family History Family History Father Acute myocardial infarction Social History Social History Years smoked: 10 Smoking status: Former smoker Tobacco type: cigarettes Second hand tobacco smoke exposure: No Smoking end date: 08/31/17 Alcohol intake: current Drinks per week: 4 Alcohol use details: WINE Substance use: never Substance use type: does not use Lack of Transportation: No Lack of Food: Never True Current Housing: I Have Housing Concerned About Future Housing: No Difficulty Paying Gas/Electric Bills: No Difficulty Paying for Meds: No Currently Unemployed: No Education: Master's Degree or Higher Difficulty w/ Childcare or Family Care: No Living arrangements: with family Occupation/Education: occupation Gender identity (if verbalized by the patient): Female Sexual Orientation (if Verbalized by the Patient): Straight or Heterosexual Spiritual care concerns: No Agree to blood products: Yes Meds Home Medications and Allergies Home Medications ?Medication ?Instructions ?Recorded ?Confirmed ?Type calcium carbonate (Calcium 500) 500 mg PO DAILY 11/04/19 09/05/24 History cholecalciferol (vitamin D3) 100 4,000 unit PO DAILY 11/04/19 09/05/24 History mcg (4,000 unit) capsule (Vitamin D3) magnesium 30 mg tablet 30 mg PO DAILY 11/04/19 09/05/24 History atorvastatin 10 mg tablet 10 mg PO DAILY #90 tabs 10/11/21 09/05/24 Rx multivitamin 1 tablet PO DAILY 10/24/22 09/05/24 History candesartan 8 mg tablet 4 mg PO DAILY 03/21/24 09/05/24 History semaglutide (weight loss) 1 mg/0.5 1 mg (0.5 mL) subcut WEEKLY #2 mL 05/31/24 09/05/24 Rx mL subcutaneous pen injector (Sandrine) cyclobenzaprine 10 mg tablet 10 mg PO TID PRN muscle spasm #30 07/06/24 09/05/24 Rx tabs tramadol 50 mg tablet 50 mg PO Q6H PRN neck pain #50 tabs 07/06/24 09/05/24 Rx naproxen 500 mg tablet See Rx Instructions .Route 08/01/24 09/05/24 Rx .COMPLEX #180 tabs atorvastatin 20 mg tablet 20 mg PO QPM 09/05/24 09/05/24 History candesartan 16 mg tablet 16 mg PO DAILY 09/05/24 09/05/24 History Allergies Allergy/AdvReac Type Severity Reaction Status Date / Time No Known Allergies Allergy Verified 09/05/24 12:54 Exam Narrative: apex at +4 Assessment and Plan Assessment and plan (1) Uterine prolapse: Code(s): N81.4 - Uterovaginal prolapse, unspecified Status: Acute Assessment and Plan: plan for robotic sacral colpopexy
[2024-09-12] VITALS (15 sets, daily range): BP systolic 90–113; BP diastolic 54–79; PULSE 58–80; RESP 10–20; TEMP 36.1–37.3; O2SAT 94–100
[2024-09-12] MEDS: LACTATED RINGERS 1,000 ML 30 ML IV CONT ×3 (06:25→11:12)
[2024-09-12] MEDS: ACETAMINOPHEN 500 MG TABLET 1000 MG PO (06:30)
[2024-09-12] MEDS: KETOROLAC 15 MG/ML VIAL (*BKC) IV PUSH ×3 (06:30→20:22)
--- NOTE | 2024-09-12 06:55 | WPDHPUPDATE1 ---
History and Physical Update Update Date/Time: 09/12/24 06:55 History and Physical has been reviewed, including an updated exam of the patient. There are NO changes in the patient's condition. Risks, benefits, and alternatives have been discussed and questions answered. Patient agrees to proceed with procedure.
--- NOTE | 2024-09-12 07:13 | P.PNAN_ITS ---
Anes - Initial Pre Proc Eval Procedure: Operation Date: 09/12/24 07:30 Proposed Procedures p Robotic Sacrocolpopexy, Urethral Sling - Pollo Streeter MD s Robotic Assisted Supracervical Hysterectomy with Bilateral Salpingo Oophorectomy - Hebert Tabor MD Date/Time: 09/12/24 07:13 Surgeon: Pollo Streeter MD Pre Op Diagnosis: uterine prolapse, cystocele Patient Data Age: 58 Gender: F Height: 1.63 m Weight: 62 kg Last Vital Signs Temp 96.9 F L 09/12/24 06:12 Pulse 70 09/12/24 06:12 Resp 16 09/12/24 06:12 BP 110/79 09/12/24 06:12 Pulse Ox 100 09/12/24 06:12 O2 Del Method Room Air 09/12/24 06:12 Allergies Allergy/AdvReac Type Severity Reaction Status Date / Time No Known Allergies Allergy Verified 09/12/24 06:34 Home Medications ?Medication ?Instructions ?Recorded ?Confirmed ?Type calcium carbonate (Calcium 500) 500 mg PO DAILY 11/04/19 09/12/24 History cholecalciferol (vitamin D3) 100 4,000 unit PO DAILY 11/04/19 09/12/24 History mcg (4,000 unit) capsule (Vitamin D3) magnesium 30 mg tablet 30 mg PO DAILY 11/04/19 09/12/24 History multivitamin 1 tablet PO DAILY 10/24/22 09/12/24 History semaglutide (weight loss) 1 mg/0.5 1 mg (0.5 mL) subcut WEEKLY #2 mL 05/31/24 09/12/24 Rx mL subcutaneous pen injector (Wegovy) cyclobenzaprine 10 mg tablet 10 mg PO TID PRN muscle spasm #30 07/06/24 09/05/24 Rx tabs naproxen 500 mg tablet See Rx Instructions .Route 08/01/24 09/12/24 Rx .COMPLEX #180 tabs atorvastatin 20 mg tablet 20 mg PO QPM 09/05/24 09/12/24 History candesartan 16 mg tablet 16 mg PO DAILY 09/05/24 09/12/24 History Patient hx anesthesia problems: none Family hx anesthesia problems: none Results Review: All pre-operative results and documents have been reviewed as part of the pre- operative evaluation. PMFSH Past Medical History Medical History Neck Pain FHx: lung cancer BMI 23.0-23.9, adult Pre-diabetes Encounter for routine adult health examination with abnormal findings Post menopausal problems Right wrist pain BMI 26.0-26.9,adult Encounter for routine adult health examination without abnormal findings Frequent UTI Encounter for preventive health examination BMI 28.0-28.9,adult BMI 27.0-27.9,adult Hypersomnia Normal colonoscopy 11/17 Repeat 11/27 Pure hypercholesterolemia, unspecified Migraine KIRK (obstructive sleep apnea) Hypertension Surgical History Surgical History History of suburethral sling procedure 2013 History of lithotripsy 2020 right renal calculus Family History Family History Father Acute myocardial infarction Social History Social History Years smoked: 10 Smoking status: Former smoker Tobacco type: cigarettes Second hand tobacco smoke exposure: No Smoking end date: 08/31/12 Alcohol intake: current Drinks per week: 4 Substance use: never Substance use type: does not use Lack of Transportation: No Lack of Food: Never True Current Housing: I Have Housing Concerned About Future Housing: No Difficulty Paying Gas/Electric Bills: No Difficulty Paying for Meds: No Currently Unemployed: No Education: Master's Degree or Higher Difficulty w/ Childcare or Family Care: No Living arrangements: with family Occupation/Education: occupation Gender identity (if verbalized by the patient): Female Sexual Orientation (if Verbalized by the Patient): Straight or Heterosexual Spiritual care concerns: No Agree to blood products: Yes Anes - Eval Final PreProcedure Day of Procedure 09/12/24 07:13 Patient weight: normal Heart: regular rate and rhythm Lungs: clear to auscultation Airway: Mallampati scale class II and special considerations (Upper perm bridge. ) Neurological: alert and oriented Last oral intake: >/= 8 hours ASA classification: III Emergent: no Anesthetic plan: proceed Anesthesia type and monitoring: general ETT and standard monitoring Results Review: All pre-operative results and documents have been reviewed as part of the pre- operative evaluation. HTN, hyperplipidemia, KIRK but no longer on CPAP since wt loss. Informed Consent: The patient's anesthetic plan and its attendant risks and benefits were discussed with the patient/family/POA. Questions were solicited and answers provided to the satisfaction of the patient/family/POA.
--- NOTE | 2024-09-12 07:14 | WPDHPUPDATE1 ---
History and Physical Update Update Date/Time: 09/12/24 07:14 History and Physical has been reviewed, including an updated exam of the patient. There are NO changes in the patient's condition. Risks, benefits, and alternatives have been discussed and questions answered. Patient agrees to proceed with procedure.
[2024-09-12] MEDS: ceFAZolin 2 GM/D5W 50 ML 2 GM/50 ML BAG IVPB (07:29)
[2024-09-12] MEDS: metroNIDAZOLE 500 MG/ISO 100ML 500 MG/100 ML BAG 100 MG IVPB ×2 (07:42→15:37)
[2024-09-12] MEDS: BUPIVACAINE/EPINEPHRINE 0.5% 30 ML VIAL INFILTRATE (07:55)
--- NOTE | 2024-09-12 08:24 | P.OP_ITS ---
Procedure Note - Detailed Date of Procedure 09/12/24 Pre-op Diagnosis uterine prolapse, cystocele Post-op Diagnosis Same Procedure Performed Robotic supracervical hysterectomy bilateral salpingo-oophorectomy Surgeon Hebert Tabor MD Anesthesia General Indications 58-year-old female with uterine prolapse admitted for supracervical hysterectomy bilateral salpingo-oophorectomy with sacral colpopexy by Dr. Ruiz Findings Small uterus prolapsed. Small ovaries and tubes. Description of Procedure Patient is prepped draped sterile placed in dorsal lithotomy position. Under excellent general trach anesthesia weighted speculum placed in posterior fornix vagina. Anterior lip of the cervix grasped with single-tooth tenaculum. The Sood's cannula inserted attached single-tooth to be used later for uterine a blation. Next the 16 Hebrew catheter was placed in the bladder drained clear urine. The weighted speculum was removed and the gloves were changed. Dr. Streeter proceeded to dock the robot. Please see his operative report. Attention was turned to senior genetic counselor. The left round ligament was grasped, burned, cut. Anterior bladder flap was formed sharply dissecting the peritoneum and pushing the bladder caudally away from the cervix uterus the opposite round ligament was clamped, burned, cut. Next the left infundibulopelvic structure was skeletonized to remove left ovary tube. This was clamped, burned, cut and brought to level of previous cut round ligament. In similar fashion removing the right ovary, infundibulopelvic structure was skeletonized clamped burned cut and brought to level of previously cut round ligament. The cardinal broad ligaments on left scant serous skeletonized clamping burning cutting until the large uterine vessels could be seen on the left these were large and tortuous and individually clamped, burned, cut. In similar fashion on the right the cardinal broad ligaments were serially skeletonized clamping burning cutting and bringing these level of the uterine vessels. These were individually clamped, burned,. Blanching of the uterus was noted the supracervical incision made this was placed in Endo-Catch blood loss was 5cc to this point Dr. Ruiz took over there please see his operative report. There were no complications to this point Estimated Blood Loss 5 Drains No Packing No Pathology Yes Complications No immediate complications Condition Stable Disposition PACU
--- NOTE | 2024-09-12 08:27 | PM.DS ---
DS: Admitting Diagnosis Discharge Date 09/13/24 Admitting Diagnosis Uterine prolapse DS: Discharge Diagnosis Discharge Diagnosis (1) Uterine prolapse: Code(s): N81.4 - Uterovaginal prolapse, unspecified Status: Acute DS: Summary Hospital Course Reason for hospitalization: Patient was admitted for supracervical Hyst bilateral salpingo-oophorectomy and sacral colpopexy Hospital Course: Patient's hospital course unremarkable. She remained afebrile. She was up, voiding without difficulty, eating regular diet, ambulating, and generally without complaints. Time Spent with Patient Time attestation: Total time spent providing and/or coordinating discharge services: Exam Const: General: cooperative, healthy appearing and comfortable Nutritional Appearance: average body habitus Orientation/consciousness: oriented to person, oriented to place and oriented to time HENMT: Head: normal to inspection Resp: Effort & Inspection: normal respiratory effort Cardio: Rate: regular rate Rhythm: regular rhythm Heart sounds: S1 normal heart sound present and S2 normal heart sound present GI: Inspection: normal to inspection and incision (Clean dry and intact) Discharge Plan Discharge Patient Disposition: Home, Self-Care Discharge Instructions: No lifting >20lb, exercise for 6 weeks No tub bath or pool for 2 weeks no [place] 6 weeks Patient Language: [place] Stand Alone Forms: General Discharge Instructions Follow-up/Referrals: Pollo Streeter MD [Physician] - (6 weeks) Discharge Medications: New hydrocodone-acetaminophen 5-325 mg tablet 1 tablet PO Q6H PRN (Reason: pain) Qty: 20 0RF docusate sodium [Colace] 100 mg capsule 100 mg PO BID Qty: 40 0RF Continued cyclobenzaprine 10 mg tablet 10 mg PO TID PRN (Reason: muscle spasm) Qty: 30 0RF calcium carbonate [Calcium 500] 500 mg calcium (1,250 mg) Tablet 500 mg PO DAILY Vitamin D3 4,000 unit Capsule 4,000 unit PO DAILY candesartan 16 mg tablet 16 mg PO DAILY atorvastatin 20 mg tablet 20 mg PO QPM No Action magnesium 30 mg Tablet 30 mg PO DAILY multivitamin Tablet 1 tablet PO DAILY Wegovy 1 mg/0.5 mL pen injector 1 mg subcut WEEKLY Qty: 2 4RF Rx Instructions: Please D/C the Wegovy 2.4. Thank you naproxen 500 mg tablet See Rx Instructions .ROUTE .COMPLEX Qty: 180 1RF Dose Instruction: TAKE 1 TABLET TWICE A DAY Rx Instructions: TAKE 1 TABLET TWICE A DAY
--- NOTE | 2024-09-12 09:53 | W.PM.PROC2 ---
Procedure Note - Detailed Date of Procedure 09/12/24 Pre-op Diagnosis uterine prolapse, cystocele Post-op Diagnosis Same Procedure Performed Robotic assisted laparoscopic sacral colpopexy Cystoscopy Surgeon Pollo Streeter MD Anesthesia General Indications This is a woman with uterine prolapse. she has no stress incontinence by history or urodynamics. She has had a previous stress incontinence procedure. She desires surgical correction. She is here for the above. She understands risks of bleeding, infection, diskitis, damage to surrounding organs, bowel injury, bowel obstruction, mesh related complications including exposure and extrusion, postoperative voiding dysfunction including incontinence and retention, need for ancillary procedures, dyspareunia, recurrence of prolapse, and other perioperative intraoperative postoperative complications. She agrees to proceed. Findings See below Description of Procedure She was correctly identified. Informed consent obtained. She from the operating room. She was given general anesthesia. She was given appropriate perioperative antibiotics. She was placed a low lithotomy position. Pressure points were padded. A time-out performed. I marked out the skin 3 fingerbreadths cephalad to the umbilicus. I anesthetized the skin. I incised the skin. I dissected down to the fascia. I grasped the fascia with Gregory clamps. I entered the fascia sharply in a Hinton type technique. I placed sutures for later fascial closure. I placed a midline trocar. I examined the abdomen. There is no sign of any injury. Under direct vision I placed 2 additional trocars in the right upper quadrant and 2 additional trocars the left upper quadrant. She was placed in steep Trendelenburg. The robot was docked. Her transportation director completed their portion of the procedure. Please see that operative report for details. I then sat at the console. The Sizer in the vagina created plane on the anterior and posterior vaginal wall. I took great care not to injure the vagina, bladder, or rectum. I introduced the mesh into the abdomen. I sewed the anterior leaflet of mesh on the anterior vaginal wall. I sewed the posterior leaflet of mesh on the posterior vaginal wall. This was done with several sutures of 2 0 [place]-Sp. I reflected the colon laterally. I opened the posterior peritoneum over the sacral promontory. I carried this into the cul-de-sac. I freed up the edges for later retroperitonealization. I located the anterior longitudinal ligament the sacrum. I cleaned off all fatty tissues. I then tensioned my mesh appropriately. I did a vaginal exam the bedside. I assured prolapse reduction without undue tension. I then sewed the proximal leaflet of mesh onto the anterior longitudinal ligament of the sacrum with 4 sutures of 2 0 [place]-Sp. I then used a 2 0 Monocryl to completely and meticulously retroperitonealized all mesh. I allowed the colon to go back to its normal anatomic location. There is no sign of any impingement. The specimen was then removed. All ports removed. Fascia was tied down. Skin was closed with Monocryl and surgical glue. I then performed cystoscopy. There was no tumors or surgical artifact. Both ureters were seen to excrete clear yellow urine. There is no surgical artifact in the bladder or urethra. I cut the excess sling material. Close incision with glue. She was awakened and transferred to PACU in stable condition. Implants Sacral colpopexy mesh Estimated Blood Loss 5 Packing No Pathology None sent Complications No immediate complications Condition Stable Disposition PACU
[2024-09-12] MEDS: fentaNYL CITRATE INJ (*CRX) 100 MCG/2 ML VIAL 25 MCG IV PUSH ×5 (10:24→11:17)
--- NOTE | 2024-09-12 11:38 | PC.NURSE ---
This patient, Carole Quiles, was received from PACU on 09/12/24 at 1138. Patient/family oriented to unit policies and routines.
[2024-09-12] MEDS: KCL 20 MEQ/D5/0.45% SOD CHL 1,000 ML 100 ML IV CONT ×2 (11:59→23:03)
[2024-09-12] MEDS: DOCUSATE SODIUM 100 MG CAPSULE PO (14:55)
[2024-09-12] MEDS: ceFAZolin 1 GM/NS 50 ML 1 GM/50 ML BAG IVPB ×2 (14:56→23:02)
[2024-09-12] MEDS: SIMETHICONE 80 MG TAB.CHEW PO ×2 (15:37→20:22)
[2024-09-12] MEDS: HYDROcodone/acetaminophen (*CRX) 5-325 MG TABLET 1 TAB PO ×2 (15:46→23:03)
[2024-09-12] MEDS: ATORVASTATIN 20 MG TABLET PO (18:40)
[2024-09-13] MEDS: metroNIDAZOLE 500 MG/ISO 100ML 500 MG/100 ML BAG 100 MG IVPB ×2 (00:29→08:19)
[2024-09-13 00:30] VITALS: BP 100/58
[2024-09-13] MEDS: KETOROLAC 15 MG/ML VIAL (*BKC) IV PUSH (03:55)
--- NOTE | 2024-09-13 07:08 | P.PNOB_ITS ---
BRAKE REPAIR SUPERVISOR - A/P Assessment and plan (1) Uterine prolapse: Code(s): N81.4 - Uterovaginal prolapse, unspecified Status: Acute Plan home Postoperative Procedures: Procedures Operation Date: 09/12/24 07:30 Actual Procedure Side Surgeon p Robotic Sacrocolpopexy Pollo Streeter MD s Robotic Assisted Supracervical Hysterectomy with Bilateral Salpingo Oophorectomy Bilateral Hebert Tabor MD Time Spent With Patient Time: Total time spent is greater than 50% in coordination of care (as documented) at patient's floor/unit and/or counseling patient: Time with patient: less than 15 minutes BRAKE REPAIR SUPERVISOR- PN:Subj Post-Op Subjective Date/time seen: 09/13/24 07:08 Subjective: patient reports feeling better, patient has no complaints, patient desires discharge, pain is well controlled and patient is tolerating oral intake Exam Const: General: cooperative, healthy appearing and comfortable Nutritional Appearance: average body habitus Orientation/consciousness: oriented to person, oriented to place and oriented to time Resp: Effort & Inspection: normal respiratory effort Cardio: Rate: regular rate Rhythm: regular rhythm Heart sounds: S1 normal heart sound present and S2 normal heart sound present GI: Inspection: normal to inspection and incision (cdi) BRAKE REPAIR SUPERVISOR - PN: Obj Data Vital Signs Vital Signs: Vital Signs - 24 hr 09/12/24 09:58 09/12/24 10:10 09/12/24 10:13 Temperature 96.9 F L Pulse Rate 58 L 70 73 Respiratory Rate 14 10 L 10 L Blood Pressure 106/68 107/73 107/73 Pulse Oximetry 100 100 100 Oxygen Delivery Simple Face Mask Simple Face Mask Simple Face Mask Oxygen Flow Rate 8 8 8 09/12/24 10:25 09/12/24 10:34 09/12/24 10:40 Temperature Pulse Rate 60 72 Respiratory Rate 12 10 L Blood Pressure 113/66 97/69 L Pulse Oximetry 100 100 98 Oxygen Delivery Simple Face Mask Room Air Room Air Oxygen Flow Rate 8 09/12/24 10:55 09/12/24 11:10 09/12/24 11:25 Temperature Pulse Rate 60 65 65 Respiratory Rate 10 L 14 12 Blood Pressure 105/76 101/71 97/70 L Pulse Oximetry 94 97 94 Oxygen Delivery Room Air Room Air Room Air Oxygen Flow Rate 09/12/24 11:45 09/12/24 15:45 09/12/24 18:50 Temperature 99.1 F 99.0 F 98.4 F Pulse Rate 69 76 77 Respiratory Rate 16 16 20 Blood Pressure 109/72 101/72 90/61 L Pulse Oximetry 97 98 97 Oxygen Delivery Oxygen Flow Rate 09/12/24 18:50 09/12/24 19:00 09/12/24 23:04 Temperature 98.0 F Pulse Rate 80 Respiratory Rate 20 Blood Pressure 107/75 90/54 L Pulse Oximetry 98 Oxygen Delivery Room Air Oxygen Flow Rate 09/12/24 23:04 09/13/24 00:30 09/13/24 03:56 Temperature Pulse Rate Respiratory Rate Blood Pressure 100/58 L Pulse Oximetry Oxygen Delivery Room Air Room Air Oxygen Flow Rate Intake/Output Intake/Output: Intake & Output 09/10/24 09/11/24 09/12/24 09/13/24 23:59 23:59 23:59 23:59 Intake Total 2550 Output Total 1480 725 Balance 1070 -725 Meds/Results Medications: Active Medications Generic Name Dose Route Start Last Admin Trade Name Freq PRN Reason Stop Dose Admin Acetaminophen 650 mg 09/12/24 11:33 Acetaminophen 325 Mg Tablet PO Q4H PRN Mild Pain (1-3) or Fever Hydrocodone Bitart/Acetaminophen 1 tab 09/12/24 11:33 09/12/24 23:03 Hydrocodone/Acetaminophen (*Crx) 5-325 Mg Tablet PO 1 tab Q4H PRN Administration Pain Rated 4-5 Atorvastatin Calcium 20 mg 09/12/24 18:00 09/12/24 18:40 Atorvastatin 20 Mg Tablet PO 20 mg QPM FREYA Administration Candesartan Cilexetil 16 mg 09/12/24 11:33 09/12/24 12:34 Candesartan Cilexetil 16 Mg Tablet PO Not Given DAILY FREYA Cephalexin HCl 500 mg 09/13/24 13:00 Cephalexin 500 Mg Capsule PO QID FREYA Cyclobenzaprine HCl 10 mg 09/12/24 11:33 Cyclobenzaprine Hcl 10 Mg Tablet PO TID PRN muscle spasm Diphenhydramine HCl 25 mg 09/12/24 11:33 Diphenhydramine Hcl Inj 50 Mg/Ml Vial IV PUSH Q6H PRN Itching Docusate Sodium 100 mg 09/12/24 11:33 09/12/24 14:55 Docusate Sodium 100 Mg Capsule PO 100 mg DAILY FREYA Administration Enoxaparin Sodium 30 mg 09/13/24 09:00 Enoxaparin 30 Mg/0.3 Ml Syringe SUB-Q DAILY FREYA Potassium Chloride/Dextrose/Sod Cl 1,000 mls @ 100 mls/hr 09/12/24 11:33 09/12/24 23:03 Kcl 20 Meq/D5/0.45% Sod Chl IV CONT 100 mls/hr .Q10H FREYA Administration Cefazolin Sodium 1 gm in 50 mls @ 100 mls/hr 09/12/24 15:00 09/12/24 23:02 Ancef 1 Gm/Ns 50 Ml IVPB 09/13/24 07:29 100 mls/hr Q8H FREYA Administration Metronidazole 500 mg in 100 mls @ 100 mls/hr 09/12/24 16:00 09/13/24 00:29 Flagyl 500 Mg/Iso Soln 100 Ml IVPB 100 mls/hr Q8H FREYA Administration Ketorolac Tromethamine 15 mg 09/12/24 11:33 09/13/24 03:55 Ketorolac 15 Mg/Ml Vial (*Bkc) IV PUSH 15 mg Q8H PRN Administration Pain Rated 5 or Less Morphine Sulfate 2 mg 09/12/24 11:33 Morphine Sulfate (*Crx) 2 Mg/Ml Inj IV PUSH Q2H PRN Pain Rated 6 or Greater Ondansetron HCl 4 mg 09/12/24 11:33 Ondansetron Inj 4 Mg/2 Ml Vial IV PUSH Q6H PRN Nausea And Vomiting Simethicone 80 mg 09/12/24 15:14 09/12/24 20:22 Simethicone 80 Mg Tab.Chew PO 80 mg Q2HR PRN Administration Gas Discomfort Zolpidem Tartrate 5 mg 09/12/24 11:33 Zolpidem Tartrate (*Crx) 5 Mg Tablet PO HS PRN Insomnia
[2024-09-13] MEDS: ceFAZolin 1 GM/NS 50 ML 1 GM/50 ML BAG IVPB (07:10)
--- NOTE | 2024-09-13 07:51 | WPDANESPN ---
Anes - Prog Note Post-Op Date/Time: 09/13/24 07:51 Cardiovascular status: normal Respiratory status: normal Airway patency: baseline Mental status: baseline Post-Op hydration status: normal Vital Signs: Last Vital Signs Temp 36.7 C 09/12/24 23:04 Pulse 80 09/12/24 23:04 Resp 20 09/12/24 23:04 BP 100/58 L 09/13/24 00:30 Pulse Ox 98 09/12/24 23:04 O2 Del Method Room Air 09/13/24 03:56 O2 Flow Rate 8 09/12/24 10:25 Pain Score (VAS): 2/10 I/O: Intake & Output 09/12/24 09/12/24 09/13/24 15:59 23:59 07:59 Intake Total 1200 1250 Output Total 880 600 725 Balance 320 650 -725 Post-procedural complaints: none Patient Feedback: Patient satisfied with anesthetic care.
[2024-09-13 07:55] VITALS: BP 97/69; PULSE 68; RESP 18; TEMP 37.2; O2SAT 97
[2024-09-13] MEDS: DOCUSATE SODIUM 100 MG CAPSULE PO (08:18)
[2024-09-13] MEDS: HYDROcodone/acetaminophen (*CRX) 5-325 MG TABLET 1 TAB PO (08:18)
[2024-09-13] MEDS: ENOXAPARIN 30 MG/0.3 ML SYRINGE SUB-Q (08:19)
--- OUTSIDE RECORDS SUMMARY | 2024-09-19 01:44 | XMS_ITS | Clinical Summary ---
Author Organization [facility] Address [address] [place] [address]. [place], [place] [id number] [place], [place] [id number] Care Team Providers Care Road Sign Installer Name Role Phone Keegan Miranda MD Primary Care Provider [phone] Social History Tobacco Use Types Packs/Day Years Used Date Smoking Tobacco: Never Assessed Comments Unknown Sex and Gender Information Value Date Recorded Sex Assigned at Not on file Legal Sex Female 6:50 PM CDT Gender Identity Not on file Sexual Orientation Not on file Plan of Treatment Health Maintenance Due Date Last Done Comments Colorectal Cancer Screening Colonoscopy (10 Years) 1967 Annual Physical 1970 Hepatitis C 1985 DTaP, Tdap and Td Vaccines ( 1 - Tdap) 1986 Hepatitis B Vaccines (1 of 3 - 19+ 3-dose series) 1986 Cervical Cancer Screening Pa p with HPV Testing (Age 30 to 64) Every 5 Years 1997 Mammogram Screening 2007 Zoster Vaccines (1 of 2) 2017 COVID-19 Vaccine (2023-2 5 season) 2024 10/25/2020, 10/05/2020 Influenza Adult (#1) 2024 Cervical Cancer Screening Pa p Smear (Age 30 to 64) Every 3 Years 09/30/2026 09/30/2023 Cervical Cancer Screening wi th HPV 09/30/2026 Meningococcal Vaccine Aged Out No rashi selwyn eligible based on patient's age to complete this topic Pneumococcal Vaccine: Pediatrics (0 to 5 Years) and At-Risk Patients (6 to 64 Years) Aged Out No longer eligible b ased on patient's age to complete this topic RSV Immunizations Under 20 Months Aged Out No longer eligible b ased on patient's age to complete this topic Insurance Care Teams Road Sign Installer Relationship Specialty Start Date End Date Keegan Miranda MD [address] [place] [address] PCP - General INTERNAL MEDICINE 02/19/24
--- OUTSIDE RECORDS SUMMARY | 2024-09-19 01:44 | XMS_ITS | Encounter Summary ---
Author Organization [facility] Address [address] [place] [address]. [place], [place] [id number] [place] [id number] Care Team Providers Care Political Scientist Name Role Phone Keegan Tineo MD Primary Care Provider [phone] Reason for Referral * Imaging (Routine) - Closed Specialty Diagnoses / Procedures Referred By Aryac t Referred To Contact RADIOLOGY Diagnoses Essential (primary) hypertension Abnormal finding of blood chemistry, unspecified Family history of malignant neoplasm of trachea, bronchus and lung Procedures CT HEART DIAG CALCIUM SCORE Keegan Tineo MD [address] [place] [address] Phone: tel: fax: Referral ID Status Reason Start Date Expiration Date Visits Re quested Visits Authorized [id number] Closed 02/08/2024 02/08/2025 1 1 Reason for Visit * Imaging (Routine) - Closed Specialty Diagnoses / Procedures Referred By Contac t Referred To Contact RADIOLOGY Diagnoses Essential (primary) hypertension Abnormal finding of blood chemistry, unspecified Family history of malignant neoplasm of trachea, bronchus and lung Procedures CT HEART DIAG CALCIUM SCORE Keegan Tineo MD [address] [place] [address] Phone: tel: fax: Referral ID Status Reason Start Date Expiration Date Visits Re quested Visits Authorized [id number] Closed 02/08/2024 02/08/2025 1 1 Encounter Details Date Type Department Care Team (Latest Contact Info) Description 02/19/2024 11:21 AM CDT - 02/19/2024 11:59 PM CDT Hospital Encounter [facility] [address] [place] [address] Keegan Tineo MD [address] [place] [address] Discharge Disposition: Home or Self Care (Routine Discharge) Social History Tobacco Use Types Packs/Day Years Used Date Smoking Tobacco: Never Assessed Comments Unknown Sex and Gender Information Value Date Recorded Sex Assigned at Not on file Legal Sex Female 6:50 PM CDT Gender Identity Not on file Sexual Orientation Not on file documented as of this encounter Plan of Treatment Not on file documented as of this encounter Procedures Procedure Name Priority Date/Time Associated Diagnosis Comments CT HEART DIAG CALCIUM SCORE Routine 02/19/2024 11:39 AM CDT Essential (primary) hypertension Abnormal finding of blood chemistry, unspecified Family history of malignant neoplasm of trachea, bronchus and lung documented in this encounter Results * CT HEART DIAG CALCIUM SCORE (02/19/2024 11:39 AM CDT) Anatomical Region Laterality Modality Computed Tomogra phy 02/19/2024 4:55 PM CDT Impressions 02/19/2024 4:55 PM CDT IMPRESSION: Total Cardiac Calcium Score: 0 - a negative examination. ??No identifiable plaque. ??This implies a very low, generally less than 5% risk of coronary artery disease. Ordered By: KEEGAN TINEO Interpreted By: Arya Strickland, 02/19/2024 4:55 PM Narrative 02/19/2024 4:55 PM CDT EXAMINATION: CT HEART DIAG CALCIUM SCORE INDICATIONS: Essential (primary) hypertension, Abnormal finding of blood chemistry, unspecified, Family history of malignant neoplasm of trachea, bronchus and lung TECHNIQUE: ??Multislice helical CT images of the proximal coronary arteries with a computer generated calcification score. Automated exposure control was utilized for dose reduction. FINDINGS: Calcium scoring: Right Coronary: 0 ? Left Main: 0 ? Left Anterior Descendin ?Left Circumflex: 0 ? Total Score: 0 ? Extra coronary findings: Heart size is normal. No pericardial effusion. The aorta is normal in caliber. The central airways are patent without endobronchial lesion. No mediastinal or bulky hilar adenopathy. The visualized lungs are clear without consolidation, effusion, or suspicious pulmonary nodule. No suspicious visceral lesion, adenopathy, or ascites within visualized upper abdomen. No acute or aggressive osseous abnormality. Calcium score guidelines: Total Score* Calcium Plaque [place] ??*Risk ?*Probability of significant CAD 0 ?No Plaque ?Very Low ? Very unlikely 1-10 ?Minimal Plaque ? Low ?Unlikely 11-100 ?Mild Plaque ?Moderate ? Low likelihood of significant ? stenosis <50% ? 101-400 ? Moderate Plaque ?Moderately High ?Moderate likelihood of ? significant stenosis (>50%) Over 400 ?Extensive Plaque ? High ?High likelihood of ?significant stenosis (>50%) The amount of coronary artery calcification correlates with the severity of coronary atherosclerosis and the probability of future significant event. Calcification is not site specific for stenosis and does not identify non-calcified atherosclerotic plaque, but rather indicates the extent of atherosclerosis in the coronary arteries overall. The score may be used as an indicator for risk factor modification or additional cardiac testing. Significant change in calcium score over time may be indicative of subsequent disease development or useful as a benchmark to assess preventative programs. Procedure Note Arya Strickland MD - 02/19/2024 EXAMINATION: CT HEART DIAG CALCIUM SCORE INDICATIONS: Essential (primary) hypertension, Abnormal finding of bloodchemistry, unspecified, Family history of malignant neoplasm of trachea,bronchus and lung TECHNIQUE: Multislice helical CT images of the proximal coronary arterieswith a computer generated calcification score. Automated exposure controlwas utilized for dose reduction. FINDINGS: Calcium scoring: Right Coronary: 0 Left Main: 0 Left Anterior Descendin Left Circumflex: 0 Total Score: 0 Extra coronary findings: Heart size is normal. No pericardial effusion. The aorta is normal in caliber. The central airways are patent without endobronchial lesion. No mediastinal or bulky hilar adenopathy. The visualized lungs are clear without consolidation, effusion, orsuspicious pulmonary nodule. No suspicious visceral lesion, adenopathy, or ascites within visualizedupper abdomen. No acute or aggressive osseous abnormality. Calcium score guidelines: Total Score* Calcium Plaque [place] *Risk *Probability ofsignificant CAD 0 No Plaque Very LowVery unlikely 1-10 Minimal Plaque LowUnlikely 11-100 Mild Plaque ModerateLow likelihood of significant stenosis <50% 101-400 Moderate Plaque Moderately HighModerate likelihood of significant stenosis (>50%) Over 400 Extensive Plaque HighHigh likelihood of significant stenosis (>50%) The amount of coronary artery calcification correlates with the severityof coronary atherosclerosis and the probability of future significantevent. Calcification is not site specific for stenosis and does not identify non- calcifiedatherosclerotic plaque, but rather indicates the extent of atherosclerosisin the coronary arteries overall. The score may be used as an indicator for risk factor modification oradditional cardiac testing. Significant change in calcium score over timemay be indicative of subsequent disease development or useful as a benchmark to assess preventativeprograms. IMPRESSION: Total Cardiac Calcium Score: 0 - a negative examination. No identifiableplaque. This implies a very low, generally less than 5% risk of coronaryartery disease. Ordered By: KEEGAN TINEO Interpreted By: Arya Strickland, 02/19/2024 4:55 PM Keegan Tineo MD CT Final Result documented in this encounter Visit Diagnoses Diagnosis Essential (primary) hypertension Unspecified essential hypertension Abnormal finding of blood chemistry, unspecified Family history of malignant neoplasm of trachea, bronchus and lung Family history of malignant neoplasm of trachea, bronchus, and lung documented in this encounter Care Teams Political Scientist Relationship Specialty Start Date End Date Keegan Tineo MD [address] [place] [id number] PCP - General INTERNAL MEDICINE 02/19/24 documented as of this encounter
--- OUTSIDE RECORDS SUMMARY | 2024-09-19 01:44 | XMS_ITS | Data Portability ---
Author Organization [facility] Street Address [address] [place] [address] [place] [address] Care Team Providers Care Slagger Name Role Phone NYASIA GAMINO Primary Care Provider LEONIDES TINEO Primary Care Provider Assessment Encounter Date Assessment Date Assessment LastModified by Organization Details LastModified Time 09/29/2023 09/29/2023 Annual gynecological exam performed. Patient will come back in a year unless there are new symptoms. [email or web address] Not available 09/29/2023 18:14:16 Plan of Treatment Reminders Order Date Submit Date Provider Last Modified By Organization Details Last Modified Time Details Appointments None recorded. Lab None recorded. Referral None recorded. Procedures None recorded. Surgeries None recorded. Imaging MAMMO, screening, bilateral [email or web address] [facility], [address], [place], [address], 17:39:02 Medication Orders None recorded. Patient TargetsNo targets recorded. Patient InstructionsNo instructions recorded. Reason for Referral None Reported. Results Created Date Observation Date Name Description Value Unit Range Abnormal Flag Note LastModifiedBy Organization Detail LastModifiedTime 10/07/19 23 10/07/2022 FSH, LH, ESTRA DIOL estradiol 49.6 pg/mL This assay was perfo rmed using [employer] ratio n reage nts and test kits. Value s obtai daryl with other assay metho ds or kits canno t be used inter person eably . Femal e Estra diol Range s: Folli cular phase 12.4- 233 pg/mL Ovula tion phase 41.0- 398 pg/mL Lutea l phase 22.3- 341 pg/mL Postm enopa usal< 5-138 pg/mL Healt hy Pregn ant Women 1st Trime ster1 54-32 43 pg/mL 2nd Trime ster1 561-2 1280 pg/mL 3rd Trime ster8 525-> 90065 pg/mL Not Available [facility] (Lab) [address] [facility], [place], [address], 10/08/2022 04:01:40 10/07/19 23 10/07/2022 FSH, LH, ESTRA DIOL FSH 45.7 mIU/m L This assay was perfo rmed using [employer] reage nts and test kits. Value s obtai daryl with other assay metho ds or kits canno t be used inter person eably . Femal es Folli cular : 3.5-1 2.5 mIU/m L Ovula tion: 4.7-2 1.5 mIU/m L Lutea l: 1.7-7 .7 mIU/m L Postm enopa use: 25.8- 134.8 mIU/m L Not Available [facility] (Lab) [address] [place], [address], 10/08/2022 04:01:40 10/07/19 23 10/07/2022 FSH, LH, ESTRA DIOL LH 25.4 mIU/m L This assay was perfo rmed using [employer] reage nts and test kits. Value s obtai daryl with other assay metho ds or kits canno t be used inter person eably . Femal es Mid-F ollic ular: 2.4-1 2.6 mIU/m L Mid-C ycle: 14.0- 95.6 mIU/m L Mid-L uteal : 1.0-1 1.4 mIU/m L Postm enopa use: 7.7-5 8.5 mIU/m L Not Available [facility] (Lab) [address] [facility], [place], [address], 10/08/2022 04:01:40 10/07/19 23 10/07/2022 TSH, REFLE X FREE T4 TSH 2.29 uIU/m L 0.30-5 .33 Not Available [facility] (Lab) [address] [facility], [place], [address], 10/08/2022 04:01:41 10/07/19 23 10/07/2022 SURGI JOELLE PATHO LOGY surgical pathology SEE RESULT S BELOW CASE REPOR T: Surgi joelle Patho logy Repor t Case: [id number] Autho kody edmonds Provi karen: Richard Lazar Colle cted: 10/07 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 Elect tony brothers by Vanessa Garay MD on 023 at 1:42 PM ----- ----- ----- ----- ----- ----- ----- ----- ----- ----- ----- ----- ----- ----- ----- ----- ----- ---- CLINI JOELLE INFOR MATIO N: N39.9 MICRO SCOPI C DESCR IPTIO N: A micro scopi c exami natio n was perfo rmed. GROSS DESCR IPTIO N: A. Endom etriu m. The speci men is label ed with the patie nt's name, demog sophia chiu and EMB . Recei jaida in forma gina is a 2.0 x 2.0 x 0.[address] of mucus and red-t an tissu e. The entir e speci men is submi tted in one casse tte. Gross ed by Nellie vital Not Available [facility] (Lab) [address], [place], [address], 10/09/2022 07:30:49 10/07/19 23 10/07/2022 CULTU RE: URINE result report SEE RESULT S BELOW Test: Cultu re: Urine Speci men Sourc e: Urine Voide d Speci men Type: Urine Speci men Date: 023 4:28 PM Resul t Date: 023 6:26 AM Resul t Statu s: Final resul t Abnor mal: No Resul ting Lab: [facility] [address] [facility] [address] Tel: CULTU RE ----- ----- ----- --- No growt h in 1 day (dete ction level of 10,00 0 colon ies / ml.) Not Available [facility] (Lab) [address], [place], [address], 10/09/2022 07:30:50 10/07/19 23 10/07/2022 urina lysis , dipst ick Leukocytes trace Not Available [facility] [address], [place], [address], 10/07/2022 16:24:03 10/07/19 23 10/07/2022 urina lysis , dipst ick Nitrite normal Not Available [address], [place], [address], 10/07/2022 16:24:03 10/07/19 23 10/07/2022 urina lysis , dipst ick Urobilinogen normal Not Available Jhon kline [address], [place], [address], 10/07/2022 16:24:03 02/07/20 23 10/07/2022 urina lysis , dipst ick Protein trace Not Available [address], [place], [address], 10/07/2022 16:24:03 10/07/19 23 10/07/2022 urina lysis , dipst ick pH [address], [place], [address], 10/07/2022 16:24:03 10/07/19 23 10/07/2022 urina lysis , dipst ick Blood +++ Not Available [address], [place], [address], 10/07/2022 16:24:03 10/07/19 23 10/07/2022 urina lysis , dipst ick Specific Sells 1.015 Not Available [facility] [address], [place], [address], 10/07/2022 16:24:03 10/07/19 23 10/07/2022 urina lysis , dipst ick Ketone normal Not Available [address], [place], [address], 10/07/2022 16:24:03 10/07/19 23 10/07/2022 urina lysis , dipst ick Bilirubin normal Not Available Jerald lizarraga [address], [place], [address], 10/07/2022 16:24:03 10/07/19 23 10/07/2022 urina lysis , dipst ick Glucose normal Not Available [address], [place], [address], 10/07/2022 16:24:03 10/07/19 23 10/07/2022 urina lysis , dipst ick Appearance normal Not Available Nancy coelho [address], [place], [address], 10/07/2022 16:24:03 10/07/19 23 10/07/2022 urina lysis , dipst ick Color normal Not Available [address], [place], [address], 10/07/2022 16:24:03 10/07/19 23 10/07/2022 pregn maya test, urine HCG negati ve Not Available Street [address], [place], [address], 10/07/2022 16:23:04 09/30/19 24 09/30/2023 IMAGE GUIDE D PAP AND HPV REGAR DLESS image guided Pap, HPV regardless of Pap result SEE RESULT S BELOW CASE REPOR T: Cytol ogy Gynec ologi joelle Repor t Case: [id number] Autho kody edmonds Provi karen: Richard Lazar Colle cted: 09/30 1328 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 FINAL DIAGN OSIS: Negat cadence for Intra epith elial Lesio n or Benjie lim (NIL) . Kaylyn quiros felicita d by Kavon Benites, CT on 024 at 5:59 PM ----- ----- ----- ----- ----- ----- ----- ----- ----- ----- ----- ----- ----- ----- ----- ----- ----- ---- HPV RESUL TS: HPV mRNA E6/E7 : No HPV mRNA Detec steffany NOTE: This high risk HPV mRNA assay detec ts fourt een high- risk HPV types (16, 18, 31, 33, 35, 39, 45, 51, 52, 56, 58, 59, 66, 68) witho ut diffe renti ation . COMME NT: This speci men was revie wed by a Cytot echno logis t and/o r Patho logis t (as indic ated in this repor t) after evalu ation using the Thinp rep Imagi ng Syste m. CLINI JOELLE INFOR MATIO N: Menst rual Statu s: LMP (if appli cable ): Clini joelle Histo ry/Pr eviou s Pap: Type of Neopl graeme (if appli cable ): Signi fican t Clini joelle Findi ngs: Other Histo ry: Hormo judit (if appli cable ): PAP EDUCA MARIE L NOTE: The Pap Test is a scree mandi test with an inher ent false negat cadence rate. Liqui d-bas ed sampl ing may decre ase, but will not elimi bri, false negat cadence resul ts. A negat cadence resul t does not precl ude the prese nce and/o r devel opmen t of disea se, since the prese nce of abnor mal cells in the sampl e depen ds on the locat ion of the lesio n and sampl ing techn ique. Elias nued regul ar scree mandi is the best metho d of cance r preve ntion . If repor steffany cytol ogic findi ng do not corre late with physi joelle and/o r histo rical findi ngs, furth er inves tigat ion is recom flip d, as keshiai luis fernández nted. Not Available [facility] (Lab) [address], [place], [address], 10/02/2023 19:03:52 10/08/19 23 10/08/2022 US, pelvi s No observ ation record ed. [email or web address], [place], [address], 10/08/2022 16:14:50 10/08/19 23 10/08/2022 US, trans vagin al No observ ation record ed. [email or web address], [place], [address], 10/08/2022 16:14:40 10/08/19 23 10/08/2022 US, pelvi s No observ ation record ed. [email or web address], [place], [address], 10/09/2022 22:31:17 11/29/19 23 11/26/2022 MAMMO , scree mandi, bilat eral No observ ation record ed. [facility] [address], [place], [address], 11/28/2022 20:19:17 12/26/19 24 12/26/2023 MAMMO , scree mandi, bilat eral No observ ation record ed. [facility] [address], [place], [address], 01/13/2024 08:18:48 07/06/20 24 07/06/2024 XR, cervi joelle spine No observ ation record ed. [place] [address], [place], [address], 08/17/2024 18:20:46 Result Notes None recorded. Problems Name Problem SNOMED Code Status Onset Date Resolution Date Notes Provider Name and Address Organization Details Recorded Time Blood leukocyt e number above referenc e range 908068468 Completed 201808/22/2020 Elevated white blood cell count, unspecif ied;Prac anali ID: [id number] Kirsten Cotto [facility], [place] - [facility] 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 0 09:56:03 Overweig ht [id number] Completed 201308/22/2020 Overweig ht;Recor ded Elsewher e: No Locat ion: [facility] S ource: EHR Caterer'S Aide vernell: N Tony ce ID: [id number] Baldo lable Time: 04:15:00 PM Kirsten sharma [facility] 0 09:55:52 Screenin g for malignan t neoplasm of rectum Completed 201608/22/2020 Encounte r for screenin g for malignan t neoplasm of rectum;R ecorded Elsewher e: No Locat ion: [facility] S ource: EHR Caterer'S Aide vernell: N Lexiti ce ID: [id number] Baldo lable Time: 04:30:00 PM Kirsten Cuencatz zachary [facility] 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 0 09:56:00 Herpes simplex 18148025 Active 2013 Herpes simplex virus infectio n;Record ed Elsewher e: No Locat ion: [facility] S ource: EHR Caterer'S Aide vernell: N Practi ce ID: [id number] Baldo lable Time: 05:15:00 PM Not Available [facility] 0 18:28:35 Finding of general energy [id number] Completed 201408/22/2020 Fatigue; Recorded Elsewher e: No Locat ion: [facility] S ource: EHR Caterer'S Aide vernell: N Practi ce ID: 0001 Baldo lable Time: 10:15:00 AM Kirsten sharma, [facility] 0 09:55:38 Speciali zed medical examinat ion Completed 201208/22/2020 Routine gynecolo gical examinat ion;Prac anali ID: 0001 Kirsten sharma, [facility] 0 09:56:08 Body mass index 25-29 - overweig ht [id number] Completed 201408/22/2020 Body mass index (BMI) 28.0-28. 9, adult;Re corded Elsewher e: No Locat ion: [facility] S ource: EHR Caterer'S Aide vernell: N Practi ce ID: 0001 Baldo lable Time: 10:15:00 AM Kirsten sharma, [facility] 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 09:55:32 Problem Notes None recorded. Procedures Surgical History Date Name Laterality Status Provider Name and Address Organization Details Recorded Time 11/27/19 23 Date of Last Mammogram completed Sandra Bellamy [facility] 09/29/2023 18:22:43 11/05/19 23 HYSTEROSCOPY, SURGICAL, WITH BIOPSY OF ENDOMETRIUM AND/OR POLYPECTOMY (SURG) completed Alberta Snider [facility] 11/05/2022 15:48:32 10/07/19 23 Endometrial Biopsy [facility] [address], [place], [address], [facility] 10/07/2022 16:10:55 10/07/19 23 endometrial biopsy completed Kirsten Cotto [facility] 10/07/2022 15:58:29 09/16/19 23 Date of Last Pap Smear completed Kirsten Cotto [facility] 10/07/2022 15:39:44 10/28/19 14 Hysteroscopy completed [facility] [address], [place], [address], [facility] 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 08/21/2020 16:04:42 08/31/19 12 Endometrial Ablation completed [facility]larissa Cort[facility] [address], [place], [address], [facility] 10/07/2022 15:53:48 Hysteroscopy completed Rachna Patterson [facility] 10/23/2022 14:18:40 Imaging Results Imaging Date Name Status LastModified by Organization Details LastModified Time 10/08/2022 US, pelvis completed [email or web address], [place], [address], 10/08/2022 16:14:50 10/08/2022 US, transvaginal completed [email or web address] [facility] [address], [place], [address], 10/08/2022 16:14:40 10/08/2022 US, pelvis completed [email or web address], [place], [address], 10/09/2022 22:31:17 11/26/2022 MAMMO, screening, bilateral completed [facility] [address], [place], [address], 11/28/2022 20:19:17 12/26/2023 MAMMO, screening, bilateral completed [facility] [address], [place], [address], 01/13/2024 08:18:48 07/06/2024 XR, cervical spine completed [place] [address], [place], [address], 08/17/2024 18:20:46 Procedure Notes None recorded. Medical Equipment None Reported. Allergies No known drug allergies Medications Name Sig Start Date Stop Date Status Note LastModified by Organization Details LastModified Time nitrofura ntoin macrocrys myah 50 mg capsule Take 1 tablet PO postcoit ally prn active Not Available Not Available No t Available atorvasta tin 20 mg tablet active Not Available Not Available Not Available atorvasta tin 10 mg tablet take 1 tablet by oral route every day 09/16 completed Not Available Not Available Not Available azithromy darien 250 mg tablet TAKE 2 TABLETS BY MOUTH TODAY, THEN TAKE 1 TABLET DAILY FOR 4 DAYS 09/29 completed Not Available Not Available Not Available phentermi ne 37.5 mg tablet TAKE 1 TABLET BY MOUTH EVERY DAY AFTER BREAKFAS T 09/29 completed Not Available Not Available Not Available sulfameth oxazole 800 mg-trimet hoprim 160 mg tablet TK 1 T PO BID 08/22 completed Not Available Not Available Not Available tramadol 50 mg tablet TK 1 T PO Q 6 H PRN 08/22 completed Not Available Not Available Not Available Macrobid 100 mg capsule take 1 capsule by oral route every 12 hours with food 08/22 completed Prescrib ed Elsewher e: No [facility] odify By: alberto Beal ter DateTime : 08/10/20 19 04:00:00 PM Not Available Not Available Not Available estradiol 1 mg tablet take 1 tablet by oral route every day 09/29 completed Not Available Not Available Not Available candesart an 16 mg tablet TAKE 1 TABLET BY MOUTH EVERY DAY active Not Available Not Available No t Available hydrochlo rothiazid e 12.5 mg capsule take 2 capsule by oral route every day 09/11 completed Prescrib ed Elsewher e: Yes Loca tion: [facility] odify By: yolanda Romero untmartina DateTime : 06/24/20 13 08:30:00 AM Not Available Not Available Not Available Macrodant in 100 mg capsule take 1 capsule after intercou rse 08/10 completed Prescrib ed Elsewher e: No [facility] odify By: alberto Beal ter DateTime : 08/04/20 18 04:30:00 PM Not Available Not Available Not Available hydrochlo rothiazid e 25 mg tablet active Not Available Not Available Not Available Vitamin D2 1,250 mcg (50,000 unit) capsule take 1 capsule (50478UE ITS) by oral route every week 07/23 completed Prescrib ed Elsewher e: No Locat ion: [facility] odify By: billy moncada DateTime : 05/21/20 16 12:06:03 PM Not Available Not Available Not Available naproxen 500 mg tablet active Not Available Not Available Not Available progester one micronize d 100 mg capsule TAKE 1 CAPSULE BY MOUTH DAILY 09/29 completed Not Available Not Available Not Available amoxicill in 875 mg-potass ium clavulana te 125 mg tablet TK 1 T PO BID FOR 7 DAYS 08/22 completed Not Available Not Available Not Available oxycodone 5 mg tablet 09/11 completed Not Available Not Available Not Available bupropion HCl XL 150 mg 24 hr tablet, extended release take 1 tablet by oral route every day 09/16 completed Not Available Not Available Not Available AndroGel 1 % 12.5 mg/1.25 gram per pump actuation transderm al gel apply (5G) by topical route every day to clean dry skin of shoulder and upper arm and/or abdomen 07/11 completed Prescrib ed Elsewher e: No Locat ion: [facility] odify By: yury vera DateTime : 09/01/19 15 11:13:04 AM Not Available Not Available Not Available Vitamin D active Not Available Not Sherry ilable Not Available multivita min active Not Available Not Available Not Available Brisdelle 7.5 mg capsule TAKE 1 CAPSULE BY ORAL ROUTE EVERY DAY AT BEDTIME 07/23 completed Prescrib ed Elsewher e: No Locat ion: [facility] odify By: smcozzyy Nazario moncada DateTime : 06/13/20 16 09:52:12 AM Not Available Not Available Not Available Addyi 100 mg tablet Take 1 tablet every day by oral route for 30 days. 2023 active Not Available Not Available Not Avai lable Clenpiq 10 mg-3.5 gram-12 gram/160 mL oral solution USE DIRECTED 09/11 completed Not Available Not Available Not Available COVID-19 test specimen collectio n TEST DIRECTED TODAY 09/11 completed Not Available Not Available Not Available Wegovy 1.7 mg/0.75 mL subcutane ous pen injector PLEASE SEE ATTACHED FOR DETAILED DIRECTIO NS active Not Available Not Available No t Available Wegovy 1 mg/0.5 mL subcutane ous pen injector INJECT 1 MG UNDER THE SKIN WEEKLY FOR 3RD MONTH DOSE ADMINIST ER WEEKS 9 THROUGH 12 OF THERAPY active Not Available Not Available No t Available Vitals Date Recorded Body height Body mass index (BMI) Body weight Systolic blood pressure Diastolic blood pressure Provider Name and Address Organization Details Last Updated DateTime 10/23/2022 162.56 cm 27.5 kg/m2 85535.78 g 128 mm[Hg] 86 mm[Hg] [facility] 3 14:18:33 Date Recorded Body height Body mass index (BMI) Body weight Systolic blood pressure Diastolic blood pressure Provider Name and Address Organization Details Last Updated DateTime 11/11/2022 162.56 cm 27.5 kg/m2 99852.78 g 122 mm[Hg] 82 mm[Hg] [facility] 3 15:27:23 Date Recorded Body height Systolic blood pressure Diastolic blood pressure Provider Name and Address Organization Details Last Updated DateTime 12/26/2022 162.56 cm 130 mm[Hg] 88 mm[Hg] [facility] 12/26/2022 16:11:38 Date Recorded Body height Body mass index (BMI) Body weight Systolic blood pressure Diastolic blood pressure Provider Name and Address Organization Details Last Updated DateTime 09/29/2023 162.56 cm 26.1 kg/m2 79206.04 g 101 mm[Hg] 72 mm[Hg] Sandra Bellamy [facility] 4 18:19:11 Social History Question Answer Notes LastModified by Organizat ion Details LastModified Time Tobacco Smoking Status Former Sm[facility] 12/26/2022 16:03:10 Do You Have An Advance Directive? Yes Information not available 09/11/2021 What Is Your Level Of Alcohol Consumption? Occasional [email or web address] Information not available 08/22/2020 How Many Years Have You Consumed Alcohol? 25 Information not available 09/11/2021 Are You Blind Or Do You Have Difficulty Seeing? No Information not available 09/11/2021 What Is Your Level Of Caffeine Consumption? Moderate Information not available 09/11/2021 How Much Tobacco Do You Chew? None Information not available 09/11/2021 In The 14 Days Before Symptom Onset, Have You Had Close Contact With A Laboratory-confir med COVID-19 While That Case Was Ill? No Information not available 09/11/2021 In The 14 Days Before Symptom Onset, Have You Had Close Contact With A Person Who Is Under Investigation For COVID-19 While That Person Was Ill? No Information not available 09/11/2021 Have You Been To An Area Known To Be High Risk For COVID-19? No Information not available 09/11/2021 Are You Deaf Or Do You Have Serious Difficulty Hearing? No Information not available 09/11/2021 What Type Of Diet Are You Following? SPECIFIC Information not available 09/11/2021 Do You Or Have You Ever Used E-cigarettes Or Vape? Never Used Electronic Cigarettes [email or web address] Information not available 12/26/2022 What Is The Highest Grade Or Level Of School You Have Completed Or The Highest Degree You Have Received? 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 Yes Information not available 09/11/2021 What Was The Date Of Your Most Recent Tobacco Screening? 10/07/2022 [email or web address] Information not available 12/26/2022 Do You Use Protection During Sex? No Information not available 09/11/2021 Do You Use Your Seat Belt Or Car Seat Routinely? Yes Information not available 09/11/2021 Do You Have Smoke And Carbon Monoxide Detectors In Your Home? Yes Information not available 09/11/2021 Do You Or Have You Ever Used Smokeless Tobacco? Never Used Smokeless Tobacco Information not available 12/26/2022 How Much Tobacco Do You Smoke? No [email or web address] Information not available 08/22/2020 Do You Feel Stressed (tense, Restless, Nervous, Or Anxious, Or Unable To Sleep At Night)? [id number] Information not available 09/11/2021 Do You Use Any Illicit Or Recreational Drugs? No Information not available 09/11/2021 Do You Use Sunscreen Routinely? No Information not available 09/11/2021 Have You Used IV Drugs? No Information not available 09/11/2021 Sex: Unknown Functional Status Question Answer Note LastModified by Organizat ion Details LastModified Time Do you have difficulty walking or climbing stairs? No [email or web address] Information not available 12/26/2022 Are you able to walk? YESWOREST Information not available 09/11/2021 Are you able to care for yourself? Yes [email or web address] Information not available 12/26/2022 Do you have difficulty dressing or bathing? No [email or web address] Information not available 12/26/2022 What is your exercise level? Occasional [email or web address] Information not available 08/22/2020 Mental Status None recorded. Family History Relationship Description Onset Age of this Age Resolved Age Notes LastModified by Organization Details LastModified Time Paternal Grandfather Heart disease [email or web address] Not available 08/21 16:06:07 Paternal Grandmother Diabetes mellitus Not available 08/21 16:06:18 Maternal Grandfather Malignant tumor of lung [email or web address] Not available 08/21 16:06:51 Maternal Aunt Malignant tumor of lung [email or web address] Not available 08/21 16:06:51 Maternal Grandmother Malignant tumor of pancreas [email or web address] Not available 2023 18:08:25 Father Myocardial infarction [email or web address] Not available 08/01 16:07:57 Mother Malignant tumor of lung [email or web address] Not available 08/21 16:10:51 Medical History Condition Response Other N Blood Transfusion N Dermatologic Disorders N Gestational Diabetes N Anxiety Disorder N Autoimmune disease N Arthritis N Polyps N Infertility N Acid Reflux (GERD) N Cancer N Varicosities N Stroke N Neurologic/Epilepsy N Fibromyalgia N Headaches N Kidney Disease N Heart Problems N Kidney or Bladder Problems Y Eating Disorder N Art (IVF or FET) N Hepatitis/Liver Disease N No Past Medical History N Urinary Tract Infection N Asthma N Trauma/Violence N Thrombophilias N Allergies (Food, seasonal, environmental ) N Breast Cancer N Drug/Latex Allergies/Reactions N Lung Disease N Defects or Inherited Disease N Breast Problem N Hematologic disorders N Anesthesia Complications N History of STI Y Deep Vein Thrombosis N Polycystic ovary syndrome N History of abnormal pap N Endometriosis N High Cholesterol Y Thyroid Problems N GI Problems N Anemia N Psychiatric Illness N Ovarian Cancer N Diabetes N Pulmonary (TB, Asthma) N Eczema N Abuse/Domestic Violence N Depression/ depression N Heart Disease N Pre-Eclampsia N Hypertension Y Osteoporosis N Gynecological History Statement/Question Response Date of Last Mammogram 11/26/2022 Date of LMP N Was last menstrual period normal N STIs/STDs Y HPV Vaccine N Current Control Method Ablation Age at First Child 27 If Post Menopausal, Age at Menopause 50 Sexually Active? Y Menses Monthly N Age of first menstrual cycle 14 Date of Last Pap Smear 09/16/2022 Sexual Problems? N LMP Unknown Y Obstetrics History GPAL:G 3 P 2 0 1 2 Type Value Full Term 2 Spontaneous 1 Living 2 Total 3 Past Encounters Encounter ID Performer Location Encounter Start Date Encounter Closed Date Diagnosis/Indication Diagnosis SNOMED-CT Code Diagnosis ICD10 Code Diagnosis Note [id number] Stefani Rizo [facility] [address] [address] 08/22/2020 09:31:42 08/22/2020 10:29:39 Hormone replacement therapy 704075879 Z79.890 Menopausal syndrome 1237 68524 N95.9 Gynecologi c examination 36585180 Z01.419 [id number] Klarissa Cortez [facility] [address] [address] 09/11/2021 16:50:19 09/12/2021 16:00:34 Gynecologic examination 97651089 Z01.419 Take Calcium with Vitamin D 12-1500mg daily. Do monthly self breast exams. It is advised to get annual flu shot in the fall and she could obtain at [facility] or [facility] clinic. If you haven't received the Tdap vaccine in the last 10 years you should obtain one as well. Have mammogram yearly, bone density every 2-3 years and colonoscop y every 5-10 years depending on findings and history. Engage in daily exercise of low impact aerobic exercise 45-60 minutes 4-5 times weekly. Avoid tobacco and illicit drugs as well as using moderation with alcohol intake less than 1-2 8 oz beverages daily. This lifestyle behavior pattern will lead to less health conditions and longer life span. If BMI greater than 25 weight watchers or dietary consult advised. Questions have been answered. Patient appears to understand instructio ns, but if you have any further questions call or respond to this email Genetic screen discussedC olon screening UTD x PCP managedPap /hpv sentSTD screening declined Screening mammography 24 391172 Z12.31 Hormone re placement therapy 842320160 Z79.890 Doing well on HRT.Review ed r/b's again with understand ing verbalized .Wishes to continue.R F x 1yr sent Menopausal syndrome 1237 41140 N95.9 RF sent x 1yr Recurrent urinary tract infection 429332081 N39.0 Uses postcoital ly prn [id number] Klarissa Cortez , [facility] [address] [address] 09/16/2022 16:58:37 09/16/2022 17:43:28 Gynecologic examination 29802576 Z01.419 Z11.51 Take Calcium with Vitamin D 12-1500mg daily. Do monthly self breast exams. It is advised to get annual flu shot in the fall and she could obtain at [facility] or [facility] clinic. If you haven't received the Tdap vaccine in the last 10 years you should obtain one as well. Have mammogram yearly, bone density every 2-3 years and colonoscop y every 5-10 years depending on findings and history. Engage in daily exercise of low impact aerobic exercise 45-60 minutes 4-5 times weekly. Avoid tobacco and illicit drugs as well as using moderation with alcohol intake less than 1-2 8 oz beverages daily. This lifestyle behavior pattern will lead to less health conditions and longer life span. If BMI greater than 25 weight watchers or dietary consult advised. Questions have been answered. Patient appears to understand instructio ns, but if you have any further questions call or respond to this email Pap/hpv sent STD Screen declined Genetic Screen discussed Colon Screen UTD PCP Dexa Screen PCP Routine Labs PCPMammo ordered Reduced libido 9709447 R 68.82 Low libidoDisc ussed trial of Testim jelly.Will obtain baseline total testostero ne level & can f/u x 3mosWill have this medication phoned into [facility]C all if you have not heard from them within 7-10 business daysCounse led on medication R/B's, Most common side effects, & use. All questions were answered to patient satisfacti on. Screening mammography 24 721560 Z12.31 Menopausal syndrome 1237 05920 N95.9 Happy on this therapy.No issues or complaints .RF sent x 1yr [id number] Klarissa Cortez [facility] [address],[place] [address] 10/07/2022 15:20:11 10/07/2022 16:16:19 Postmenopausal bleeding 83840988 N95.0 Update USEMBx sentLabs orderedMD consult scheduled & can review US during that visit. Hx of endometria l ablation x 1, Essure & per pt ( hysterosco py to drain a pocket of blood in the uterus. with Dr. Bishop 2014). Takes HRT E/P therapy for at least 5yrs without any issues. Time spent in visit is a total of 30 mins with at least 50% of visit consisting of counseling and review of plan of care not including time spent on procedure EMBx. Patient is to contact office or go to nearest ED/Urgent care if fever >/= 100.1, pain, excessive bleeding, unusual drainage or swelling in area of concern; or experienci ng worsening sx's or new onset of concerning sx's. Understand ing verbalized . All questions answered to patient satisfacti on. Time spent in visit is a total of 30 mins with at least 50% of visit consisting of counseling and review of plan of care. [id number] [address]elsa Benite[address],[place] [address] 10/08/2022 14:28:48 10/08/2022 15:11:49 Postmenopausal bleeding 80335817 N95.0 [id number] Christopher Neville MD [address],[place] [address] 10/13/2022 14:24:52 10/13/2022 16:40:16 Postmenopausal bleeding 00529089 N95.0 57-year-ol d female with the episode of heavy vaginal bleeding. Heavy bright red vaginal bleeding that is postmenopa usal. She is on hormone replacemen t therapy we reviewed her ultrasound today. We shared some images and I explained the findings. She has history of an ablation that resulted in hematometr a that was resolved with hysterosco py. She had isolated episode of several days of bright red bleeding recently. Endometria l biopsy was performed. Ultrasound was performed. There was some viable endometriu m at the top of the uterus. There was some fluid within that segment. This is likely where the bleeding came from. She I talked about, along with her , postmenopa usal bleeding, evaluation , treatment, etiology, natural history. We spent 40 minutes face-to-fa ce. More than 50% was counseling . We agreed to decrease her estrogen to 0.5 mg daily. She will break her tablets in half. She will follow up with more bleeding. [id number] Christopher Neville MD [address] [address] 10/23/2022 13:55:07 10/23/2022 15:10:43 Abnormal uterine bleeding [id number] 9100 N93.9 this patient is a 57-year-ol d female with abnormal uterine bleeding / postmenopa usal bleeding. Her bleeding continues. Bibi continues to have episodes of bright red bleeding. We reviewed ultrasound results, we reviewed her treatment. We tried to treat with elevated progestero ne versus estrogen. She continued to bleed. We discussed diagnostic treatment options. We agreed to increase estrogen to 2 mg for now. We then agreed to hysterosco py D&C to try to diagnose the source of this bleeding. Spent over 20 minutes face-to-fa ce. More than 50% was couns counseling [id number] Christopher Neville MD [address] [address] 11/11/2022 15:07:33 11/12/2022 14:11:26 Postmenopausal bleeding 16476567 N95.0 57-year-ol d female who presents for follow-up on postmenopa usal bleeding. Patient has had some bleeding since the hysterosco py D&C. 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 We talked about various options including endometria l ablation, hysterecto my, various hormonal med options. We agreed continue with 2 mg of estrogen, discontinu e progestero ne for 2 weeks, if we do not get any results from this plan will consider other treatment options in a few weeks. We spent over 20 minutes face-to-fa ce. More than 50% was counseling . [id number] Christopher Neville MD [address] [address] 12/26/2022 16:02:46 12/28/2022 21:05:46 Abnormal uterine bleeding 6196357220 9100 N93.9 this patient is a 57-year-ol d female with abnormal uterine bleeding / postmenopa usal bleeding. Her bleeding continues. Bibi continues to have episodes of bright red bleeding. We reviewed ultrasound results, we reviewed her treatment. We tried to treat with elevated progestero ne versus estrogen. She continued to bleed. We discussed diagnostic treatment options. We agreed to increase estrogen to 2 mg for now. We then agreed to hysterosco py D&C to try to diagnose the source of this bleeding. Spent over 20 minutes face-to-fa ce. More than 50% was couns counseling [id number] [facility] [address] [address] 09/29/2023 18:07:28 10/07/2023 12:16:36 Gynecologic examination 22043064 Z01.419 Z11.51 Take Calcium with Vitamin D 12-1500mg daily. Do monthly self breast exams. It is advised to get annual flu shot in the fall and she could obtain at [facility] or [facility] care clinic. If you haven't received the Tdap vaccine in the last 10 years you should obtain one as well. Have mammogram yearly, bone density every 2-3 years and colonoscop y every 5-10 years depending on findings and history. Engage in daily exercise of low impact aerobic exercise 45-60 minutes 4-5 times weekly. Avoid tobacco and illicit drugs as well as using moderation with alcohol intake less than 1-2 8 oz beverages daily. This lifestyle behavior pattern will lead to less health conditions and longer life span. If BMI greater than 25 weight watchers or dietary consult advised. Questions have been answered. 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 Reduced libido 0625740 R 68.82 Failed trial of testim jelly Consider trial of addyiWill reach out if interested [employer] As[employer]er of Addyi:Your risk of severe low blood pressure and fainting (loss of consciousn ess) is increased if you take ADDYI and: drink alcohol close in time to when you take your ADDYI dose. Wait at least 2 hours after drinking 1 or 2 standard alcoholic drinks before taking ADDYI at bedtime. Examples of 1 standard alcoholic drink include: one 12-ounce regular beer, 5 ounces of wine, 1.5 ounces of distilled spirits or shot If you drink 3 or more standard alcoholic drinks in the evening, skip your ADDYI dose at bedtime. After you have taken your ADDYI at bedtime, do not drink alcohol until the following day. take certain prescripti on medicines, over-the-c ounter medicines, or herbal supplement s. Do not take or start taking any prescripti on medicines, over-the-c ounter medicines, or herbal supplement s while taking ADDYI until you have talked with your doctor. Your doctor will tell you if it is safe to take other medicines or herbal supplement s while you are taking ADDYI. have liver problems. Do not take ADDYI if you have liver problems. If you take ADDYI and you feel lightheade d or dizzy, lie down right away. Get emergency medical help or ask someone to get emergency medical help for you if the symptoms do not go away or if you feel like you could faint (lose consciousn ess). If you faint (lose consciousn ess), tell your doctor as soon as you can. What should I avoid while taking ADDYI? Do not drink alcohol close to the time you take your ADDYI dose because this increases your risk of severe low blood pressure and fainting (loss of consciousn ess). Do not drive, operate machinery, or do things that require clear thinking until at least 6 hours after you take ADDYI and until you know how ADDYI affects you. Do not drink grapefruit juice if you take ADDYI. Drinking grapefruit juice during your treatment with ADDYI increases your risk of severe low blood pressure and fainting (loss of consciousn ess). You should not take the herbal supplement s Kenia? s Wort, ginkgo, or resveratro l or certain over-the-c ounter medicines such as cimetidine until you talk to your doctor. Taking ADDYI with these herbal supplement s and over-the-c ounter medicines may increase your risk of low blood pressure, fainting (loss of consciousn ess), and sleepiness . What are the possible side effects of ADDYI? ADDYI can cause serious side effects, including: Sleepiness is a common side effect of ADDYI and can be serious. Taking ADDYI can increase your risk of sleepiness if taken during waking hours, if you drink alcohol, or take certain medicines or herbal supplement s. Low blood pressure and fainting (loss of consciousn ess) can happen when you take ADDYI even if you do not drink alcohol or take other medicines or herbal supplement s. Your risk of low blood pressure and fainting (loss of consciousn ess) is increased if ADDYI is taken during waking hours, if you drink alcohol within 2 hours of taking ADDYI, or if you take certain medicines or herbal supplement s. The most common side effects of ADDYI include: Dizziness Difficulty falling asleep or staying asleep Nausea Dry mouth Tiredness Health Concerns Section Related Observation LastModified by Organization Detai ls LastModified Time None Recorded Concern Status LastModified by Organization Details LastModified Time None Recorded Advance Directives Directive Y: Payers Encounter Date Sequence Insurance Name Policy Number Policy [employer] Covered Member ID [employer] Member ID Guarantor Name 10/23/2022 1 [facility] [id number] Sammy Quiles [id number] Carole Quiles 11/11/2022 1 [facility] [id number] Sammy Quiles [id number] Carole Quiles 12/26/2022 1 [facility] [id number] Sammy Quiles [id number] Carole Quiles 09/29/2023 1 [facility] [id number] Sammy Quiles [id number] Carole Quiles Notes Date Note Type Note Provider Name and Address Organization Details Recorded Time 10/23/2022 text/html this patient is a 57-year-old female with abnormal uterine bleeding / postmenopausal bleeding. Her bleeding continues. Bibi continues to have episodes of bright red bleeding. We reviewed ultrasound results, we reviewed her treatment. We tried to treat with elevated progesterone versus estrogen. She continued to bleed. We discussed diagnostic treatment options. We agreed to increase estrogen to 2 mg for now. We then agreed to hysteroscopy D&C to try to diagnose the source of this bleeding. Spent over 20 minutes [id number]. More than 50% was couns counseling Christopher Neville MD [address], [place], [address], [facility] 10/23/2022 14:49:21 11/11/2022 text/html 57-year-old renetta coelho who presents for follow-up on postmenopausal bleeding. Patient has had some bleeding since the hysteroscopy D&C. 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 We talked about various options including endometrial ablation, hysterectomy, various hormonal med options. We agreed continue with 2 mg of estrogen, discontinue progesterone for 2 weeks, if we do not get any results from this plan will consider other treatment options in a few weeks. We spent over 20 minutes [id number]. More than 50% was counseling. Christopher Neville MD [address], [place], [address], [facility] 11/11/2022 23:32:33 12/26/2022 text/html 57-year-old renetta coelho who presents follow-up on abnormal uterine bleeding. We have tried various hormonal attempts to stop her bleeding. She has been using hormonal replacement therapy for some time. She has been on estrogen progesterone. She was evaluated with a hysteroscopy D&C. We spent over 40 minutes [id number]. More than 50% was counseling. We have been trying various combinations of estrogen progesterone, progesterone, estrogen by itself. She continues to bleed. I talked about definitive surgical treatment. We agreed that we will discontinue hormones and try this for 8 weeks to 12 weeks. She will follow-up in 3 months Christopher Neville MD [address], [place], [address], [facility] 12/27/2022 22:49:10 09/29/2023 text/html [employer] [place] [facility] Post-MenopausalRepor steffany bypatient.Menopausal Symptoms:no menopausal symptoms; normal vaginal lubrication Vaginal Bleeding:history of menopause having occurred; no history of post menopausal bleeding Urinary Symptoms:no hematuria; no incontinence; no nocturia; no urinary frequency Vulva:no genital lesion; no vulvar atrophy Vagina:normal vaginal discharge; no vaginal atrophy Breast:no breast lump; no nipple discharge; no breast pain Sexual Complaints:no sexual complaints;decreased libido Psychological Symptoms:no depression; no anxiety Preventive Measures:encourage regular mammograms starting age 40; encourage self breast examination; encourage regular exercise; encourage no tobacco use; needs to schedule mammogram; history of recent colonoscopy Klarissa Cortez [facility] [address], [place], [address], [facility] 10/06/2023 16:04:50 OBGyn Episode Ob Episode Information Episode Created Date Number of Fetuses Patient Bloodtype Patient rh Status Prepregnancy Weight lbs Domestic Partner Domestic Partner Phone Father Name Bearing Maker Status 08/21/20 20 1 CLOSED Fetus Data First Name Last Name Admitted to NICU Weight (g) Sex Living Outcome Pediatric Complications Fetus ID Race Codes Race Delivery Type , Spontane ous [id number] Armani Calculation Initial Armani Date Initial Exam Date Initial Exam Provider Initial Ultrasound Date Last Menstrual Period Date Ultra Sound Weeks Gestation 0 Eighteen To Twenty Week Armani Update Ultra Sound Date Fundal Height At Umbil Quickening Date Ultra Sound Latest Weeks Gestation Final Armani Confirmed By Final Armani Confirmed Date Final Armani Date Ultra Sound Latest Days Gestation 0 0 Menstrual History Last Menstrual Date Menses Monthly On Bcp Conception Prior Menses Frequency Hcg Plus Date Menarche Onset Age Delivery Information Delivery Date Delivery Type Labor Anesthesia Weeks Gestation Incision Type Labor Labor Length Hrs Delivered By Post Complications Tubal Sterilization Discharge Date Comments 2004 miscarria ge Discharge Information Feeding Method Contraceptive Method Maternal HG B and HCT Levels Ob Episode Information Episode Created Date Number of Fetuses Patient Bloodtype Patient rh Status Prepregnancy Weight lbs Domestic Partner Domestic Partner Phone Father Name Bearing Maker Status 08/21/20 20 1 CLOSED Fetus Data First Name Last Name Admitted to NICU Weight (g) Sex Living Outcome Pediatric Complications Fetus ID Race Codes Race Delivery Type 4223.84 [id number] M Full Term 6716 Vaginal Delivery Armani Calculation Initial Armani Date Initial Exam Date Initial Exam Provider Initial Ultrasound Date Last Menstrual Period Date Ultra Sound Weeks Gestation 0 Eighteen To Twenty Week Armani Update Ultra Sound Date Fundal Height At Umbil Quickening Date Ultra Sound Latest Weeks Gestation Final Armani Confirmed By Final Armani Confirmed Date Final Armani Date Ultra Sound Latest Days Gestation 0 0 Menstrual History Last Menstrual Date Menses Monthly On Bcp Conception Prior Menses Frequency Hcg Plus Date Menarche Onset Age Delivery Information Delivery Date Delivery Type Labor Anesthesia Weeks Gestation Incision Type Labor Labor Length Hrs Delivered By Post Complications Tubal Sterilization Discharge Date Comments 4 42 Discharge Information Feeding Method Contraceptive Method Maternal HG B and HCT Levels Ob Episode Information Episode Created Date Number of Fetuses Patient Bloodtype Patient rh Status Prepregnancy Weight lbs Domestic Partner Domestic Partner Phone Father Name Bearing Maker Status 08/21/20 20 1 CLOSED Fetus Data First Name Last Name Admitted to NICU Weight (g) Sex Living Outcome Pediatric Complications Fetus ID Race Codes Race Delivery Type 3798.83 3 F Full Term [id number] Forcep Assisted Vaginal Delivery Armani Calculation Initial Armani Date Initial Exam Date Initial Exam Provider Initial Ultrasound Date Last Menstrual Period Date Ultra Sound Weeks Gestation 0 Eighteen To Twenty Week Armani Update Ultra Sound Date Fundal Height At Umbil Quickening Date Ultra Sound Latest Weeks Gestation Final Armani Confirmed By Final Armani Confirmed Date Final Armani Date Ultra Sound Latest Days Gestation 0 0 Menstrual History Last Menstrual Date Menses Monthly On Bcp Conception Prior Menses Frequency Hcg Plus Date Menarche Onset Age Delivery Information Delivery Date Delivery Type Labor Anesthesia Weeks Gestation Incision Type Labor Labor Length Hrs Delivered By Post Complications Tubal Sterilization Discharge Date Comments 6 40 Discharge Information Feeding Method Contraceptive Method Maternal HG B and HCT Levels
--- OUTSIDE RECORDS SUMMARY | 2024-09-19 01:44 | XMS_ITS | Encounter Summary ---
Author Organization [facility] Address [address] [place] [address]. [place], [place] [address] [place] [id number] Care Team Providers Care Operations Manager/Coordinator Name Role Phone Keegan Miranda MD Primary Care Provider [phone] Encounter Details Date Type Department Care Team (Latest Contact Info) Description 02/19/2024 Travel Social History Tobacco Use Types Packs/Day Years Used Date Smoking Tobacco: Never Assessed Comments Unknown Sex and Gender Information Value Date Recorded Sex Assigned at Not on file Legal Sex Female 6:50 PM CDT Gender Identity Not on file Sexual Orientation Not on file documented as of this encounter Plan of Treatment Not on file documented as of this encounter Visit Diagnoses Not on filedocumented in this encounter Care Teams Operations Manager/Coordinator Relationship Specialty Start Date End Date Keegan Miranda MD [address] [place] [address] PCP - General INTERNAL MEDICINE 02/19/24 documented as of this encounter
--- OUTSIDE RECORDS SUMMARY | 2024-09-19 01:44 | XMS_ITS | Encounter Summary ---
Author Organization [facility] Address [address] [place] [address]. [place], [place] [id number] [place] [address] Care Team Providers Care Electrician Yard Name Role Phone Unavailable Primary Care Provider Unavailabl e Encounter Details Date Type Department Care Team (Late st Contact Info) Description 10/25/2012 Abstract [facility] Emergency Room [address] [place] [id number] Magdy Frost, DO [address] [place] [address] Social History Tobacco Use Types Packs/Day Years Used Date Smoking Tobacco: Never Assessed Comments Unknown Sex and Gender Information Value Date Recorded Sex Assigned at Not on file Legal Sex Female 6:50 PM CDT Gender Identity Not on file Sexual Orientation Not on file documented as of this encounter Plan of Treatment Not on file documented as of this encounter Visit Diagnoses Diagnosis Headache documented in this encounter
--- OUTSIDE RECORDS SUMMARY | 2024-09-19 01:45 | XMS_ITS | Encounter Summary ---
Author Organization [facility] [facility] Address [address] [place] [address] Care Team Providers Care Chief Drafter Name Role Phone Erich Andrew MD Primary Care Prov ider All Hernandez MD Unavailable Reason for Visit * Auth/Cert Specialty Diagnoses / Procedures Referred By Contac t Referred To Contact Diagnoses Carpal tunnel syndrome on right Carpal tunnel syndrome on right [G56.01] Procedures SC REVISE MEDIAN N/CARPAL TUNNEL SURG RELEASE RIGHT CARPAL TUNNEL Referral ID Status Reason Start Date Expiration Date Visits Re quested Visits Authorized [id number] 1 1 Encounter Details Date Type Department Care Team (Late st Contact Info) Description 06/12/2021 9:32 AM CDT Anesthesia Event [address] [address] Derrek Chandra, [address] [place] [address] Geneva Paredes MD [address] [place] [address] Anesthesia Record Procedure Summary Procedure Name Responsible Anesthesiologist Anesthesia Start Time Anesthesia Stop Time RELEASE RIGHT CARPAL TUNNEL (Right: Wrist) Derrek Chandra, 06/12/21 0932 06/12/21 1017 Events Date Time Event Comment 06/12/2021 0931 0931 In Room 0932 An Start 0932 An Start Data 0934 An Induction The patient was reevaluated immediately before moderate or deep sedation use and before anesthesia induction. 0936 An LMA 0938 Anesthesia Ready 0949 Proc Start 1007 Proc Fin 1012 Out of Room 1016 Airway Removed 1016 an stop data 1017 Handoff to RN I completed my handoff to the receiving nurse during which we: 1. Patient identified 2. Responsible provider identified 3. Pertinent medical history reviewed 4. Procedure type and surgical course discussed 5. Intraoperative anesthetic management and any significant issues discussed 6. Expectations and concerns for postop period discussed 7. Questions solicited from receiving nurse 8. Patient disposition at the time of handoff: PACU 1017 An Stop Meds Name Total midazolam injection 2 mg/2 mL 2 mg fentaNYL 50 mcg/mL PF 100 mcg lidocaine (cardiac) syringe 2 % 40 mg propofol 150 mg ondansetron PF 4 mg dexamethasone 4 mg/mL 8 mg ceFAZolin (ANCEF) 2,000 mg/20 mL in ster ile water (premix) 2,000 mg 2,000 mg ketorolac 30 mg Lactated Ringer's (LR) infusion 700 mL * Agents Name O2% N2O O2 N2O Air Sevoflurane Inspired Sevoflurane * Blood No blood administrations on file. Lines, Drains, and Airways Type Details Placement Removal Peripheral IV Placement Date: 06/12/21; Placement Time: 0815; Catheter Size: 20 G; Orientation: Anterior, Left; Location: Forearm; Technique: Anatomical landmarks; Inserted by: JUANCARLOS Hurt; Insertion Attempts: 1; Patient Tolerance: Tolerated well; Removal Date: 06/12/21; Removal Time: 1130; Removal Reason: Discharge 06/12/21 0815 by Theresa Coello RN 06/12/21 1130 by Kassy Yanez RN Supraglottic Airway Placement Date: 06/12/21; Placement Time: 0936 (created via procedure documentation); Mask Ventilation: 0; Size: 4; Insertion Attempts: 1; Removal Date: 06/12/21; Removal Time: 1016 06/12/21 0936 by Carole Swanson CRNA 06/12/21 1016 by Carole Swanson CRNA RETIRED Surgical Site 06/12/21; 0951; Ri ght; Wrist; 08/02/24 (Retired LDA, Removed/Completed by [facility] with LDA Utility); 1213 (Retired LDA, Removed/Completed by [facility] with LDA Utility) 06/12/21 0951 by Philomena Garrett RN 08/02/24 1213 by Discharge Provider, Automatic documented in this encounter Social History Tobacco Use Types Packs/Day Years Used Date Smoking Tobacco: Former Cigarettes 0.5 2016 Smokeless Tobacco: Former Alcohol Use Standard Drinks/Week Comments Yes 0 (1 standard drink = 0.6 oz pur e alcohol) AUDIT-C Answer Date Recorded Q1: How often do you have a drink containing alc ohol? 2-4 times a month 06/12/2021 Q2: How many drinks containi ng alcohol do you have on a typical day when you are drinking? 1 or 2 06/12/2021 Q3: How often do you have si x or more drinks on one occasion? 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 Gender Identity Not on file Sexual Orientation Not on file documented as of this encounter OR Notes * Anesthesia Postprocedure Evaluation - Derrek Chandra DO - 06/12/2021 10:47 AM CDT Patient: Carole Quiles Procedure Summary Date: 06/12/21 Room / Location: [facility] / [facility] Anesthesia Start: 931 Anesthesia Stop: 1016 Procedure: RELEASE RIGHT CARPAL TUNNEL (Right Wrist) Diagnosis: Carpal tunnel syndrome on right (Carpal tunnel syndrome on right [G56.01]) Surgeons: Jennifer Avila MD Responsible Provider: Derrek Chandra DO Anesthesia Type: general ASA Status: 2 Anesthesia Type: general Last vitals BP 119/99 (BP Location: Left arm, Patient Position: HOB 30 degrees) Pulse 61 Temp 37.2 ??C (98.9 ??F) (Temporal) Resp 16 SpO2 98% Anesthesia Post Evaluation Patient location during evaluation: PACU Patient participation: complete - patient participated Level of consciousness: fully awake Pain management: adequate Airway patency: adequate Evidence of recall: no Cardiovascular status: acceptable Respiratory status: acceptable Hydration status: acceptable Pt is: normothermic Nausea/Vomiting status: none No complications documented. * Anesthesia Procedure Notes - Carole Swanson CRNA - 06/12/2021 9:46 AM CDT Associated Order(s): Airway Airway Patient location: OR Urgency: elective Date/time: 06/12/2021 9:36 AM Indications for airway management: anesthesia Difficult airway: no Staff: Placed by: JAVA DEVELOPER ARCHITECT: Carole Swanson CRNA Emergent airway documentation: Risks and benefits discussed: yes Consent obtained: yes Consent given by: patient Airway prep: Preoxygenated: yes Patient position: sniffing MILS maintained throughout: yes Mask difficulty assessment: 0 - not attempted Spontaneous ventilation during airway: absent Sedation level during airway: deep Final airway details: Final airway type: supraglottic airway Final supraglottic airway: classic SGA size: 4 Number of attempts: 1no * Anesthesia Preprocedure Evaluation - Derrek Chandra DO - 06/12/2021 8:06 AM CDT Images from the original note were not included. Anesthesia Evaluation Carole Quiles is a 55 y.o. female Procedure(s): RELEASE RIGHT CARPAL TUNNEL Pre-Op Diagnosis Codes: * Carpal tunnel syndrome on right [G56.01] Labs reviewed and WNL TTE 07/31/2020 Normal left ventricular systolic function. No focal wall motion abnormalities. Normal left ventricular size. Normal left ventricular diastolic function. Ejection fraction is measured at 62 %. There is mild enlargement of left atrium. Normal atrial septum. Saline contrast study performed without evidence of right to left shunt. Peak gradient of 15.0 mmHg. Mean gradient of 9.0 mmHg. Valve area of 1.63 cm2. Aortic cusps appear mildly sclerotic. ECG 07/04/2020 NSR RSR' in V1 HISTORY Past Medical History Information obtained from: patient and chart. Neurological Comments: CTS Cardiovascular + Hypertension + Current valvular disease (Mildly sclerotic aortic cusps) - Respiratory Respiratory system: negative Hepatic / Heme Hepatic/Heme system: negative Gastrointestinal GI system: negative Renal / + Nephrolithiasis Musculoskeletal/Pain Musculoskeletal/Pain system: negative Endocrine / Other Endocrine/Other system: negative Functional Capacity Functional capacity: 4-6 METs Review of Systems Pertinent negatives: SOB; chest pain and heartburn Patient Active Problem List Diagnosis ??? Migraine headache ??? Stenosis of intervertebral foramina ??? Cervicalgia ??? Aortic valve stenosis, mild ??? Carpal tunnel syndrome on right Past Medical History: Diagnosis Date ??? Headache ??? Heart murmur ??? Hyperlipidemia ??? Hypertension hctz ??? Kidney stones ??? Wears partial dentures NON REMOVABLE UPPER FRONT 3 TEETH. Past Surgical History: Procedure Laterality Date ??? ABLATION UTERINE ??? COLONOSCOPY ??? KIDNEY STONE SURGERY ??? SC DILATION/CURETTAGE,DIAGNOSTIC Dilation And Curettage - (Added by SASHA Conv) ??? SC LAP,SLING OPERATION Laparoscopic Sling Operation For Stress Incontinence - (Added by SASHA Conv) OB History No obstetric history on file. No Known Allergies Med List Status: Nurse Complete Set By: Tyler Guzmán RN at 05/31/2021 1:24 PM Taking? Last Dose Start Date End Date Provider atorvastatin (LIPITOR) 10 mg tablet 06/09/2021 -- -- Ananda Montoya MD biotin 5 mg capsule 06/05/2021 -- -- ProviderAnanda MD butalbitaL-acetaminophen 50-325 mg tablet More than a month -- -- Ananda Montoya MD calcium-magnesium 300-300 mg tablet 06/05/2021 -- -- Ananda Montoya MD cholecalciferol (VITAMIN D-3) 5,000 unit capsule 06/05/2021 -- -- Ananda Montoya MD cyanocobalamin (Vitamin B-12) 100 mcg tablet 06/05/2021 -- -- Ananda Montoya MD estradioL (ESTRACE) 1 mg tablet 06/09/2021 -- -- Ananda Montoya MD hydroCHLOROthiazide (HYDRODIURIL) 25 mg tablet 06/09/2021 -- -- Ananda Montoya MD kncmzyjm-gzi-gqjw-FA-lutein 8 mg iron-400 mcg-300 mcg tablet 06/05/2021 -- -- Ananda Montoya MD naproxen (Naprosyn) 500 mg tablet Past Week -- -- Ananda Montoya MD omega 3-abu-uot-fish oil (Fish Oil) 100-160-1,000 mg capsule 06/05/2021 -- -- Ananda Montoya MD progesterone (PROMETRIUM) 100 mg capsule 06/09/2021 -- -- Ananda Montoya MD Current Facility-Administered Medications: ??? ceFAZolin (ANCEF) 2,000 mg/20 mL in sterile water (premix) 2,000 mg, 2,000 mg, intravenous, Once ??? Lactated Ringer's (LR) infusion, 30 mL/hr, intravenous, Continuous, Last Rate: 30 mL/hr at 06/12/21 0820, 30 mL/hr at 06/12/21 0820 ??? sodium chloride 0.9% flush 0.5-20 mL, 0.5-20 mL, intra-catheter, PRN Social History Tobacco Use Smoking Status Former Smoker ??? Packs/day: 0.50 ??? Years: 10.00 ??? Pack years: 5.00 ??? Types: Cigarettes ??? Quit date: 2016 ??? Years since quittin.7 Smokeless Tobacco Former User Substance and Sexual Activity Alcohol Use Yes Substance and Sexual Activity Drug Use Defer Family History Problem Relation Age of Onset ??? Heart disease Other Heart Disease - (Added by TW Conv) ??? Cancer Other Cancer - (Added by TW Conv) ??? Hypothyroidism Daughter Family history of hypothyroidism - (Added by TW Conv) ??? Lung cancer Mother ??? Heart attack Father There were no vitals filed for this visit. PT: No results found for requested labs within last 720 hours. INR: No results found for requested labs within last 720 hours. APTT: No results found for requested labs within last 720 hours. Hgb A1C: No results found for requested labs within last 720 hours. CBC RBC: No results found for requested labs within last 720 hours. RDW: No results found for requested labs within last 720 hours. MCHC: No results found for requested labs within last 720 hours. MCH: No results found for requested labs within last 720 hours. MCV: No results found for requested labs within last 720 hours. Hct: No results found for requested labs within last 720 hours. Hgb: No results found for requested labs within last 720 hours. WBC: No results found for requested labs within last 720 hours. MPV: No results found for requested labs within last 720 hours. Platelets: No results found for requested labs within last 720 hours. RDW CV: No results found for requested labs within last 720 hours. RDW Sd: No results found for requested labs within last 720 hours. BMP Glucose: No results found for requested labs within last 720 hours. Calcium: No results found for requested labs within last 720 hours. Sodium: No results found for requested labs within last 720 hours. Potassium: No results found for requested labs within last 720 hours. CO2: No results found for requested labs within last 720 hours. Chloride: No results found for requested labs within last 720 hours. BUN: No results found for requested labs within last 720 hours. Creatinine: No results found for requested labs within last 720 hours. STOP-Bang Total Score: 1 DOS Physical Exam Medical history, medications, and allergies reviewed. Attestation: I endorse the findings of the anesthesia pre-evaluation assessment dated: 06/12/2021. Airway Exam: Mallampati: I Cervical ROM: FROM TM distance: normal Jaw ROM: full Cardiovascular Exam: Rate: regular Rhythm: regular Pulmonary Exam: LCTA, bilat EENT Exam: trachea midline Dental Exam: Appears intact Current state: Patient's current state is cooperative. Anesthesia Plan ASA 2 My patient is approved for the Anesthesia Controlled Medication protocol when under care of a JAVA DEVELOPER ARCHITECT Planned anesthesia: General Team communication plan: LMA Induction: Induction: intravenous. Postoperative Plan: Postoperative administration opioids intended. No postoperative mechanical ventilation intended. Informed Consent: Discussed plan with JAVA DEVELOPER ARCHITECT. Anesthesia plan and risks discussed with patient. Consent and Attending signature: I and/or my designee have discussed the anesthesia plan, benefits, possible alternatives, parental presence at time of induction (if indicated), and clinically relevant risks that may include dental injury, unintentional awareness, and/or other complications. The patient and/or parent/legal guardian understand, and agree to proceed. All questions answered. documented in this encounter Plan of Treatment Not on file documented as of this encounter Procedures Procedure Name Priority Date/Time Associated Diagnosis Comments SC AN PROCEDURE PLACEHOLDER Routine 06/12/2021 9:36 AM CDT SC AN ELECTIVE SUPRAGLOTTIC AIRWAY Routine 06/12/2021 9:36 AM CDT documented in this encounter Results * SC AN ELECTIVE SUPRAGLOTTIC AIRWAY, SC AN PROCEDURE PLACEHOLDER (06/12/2021 9:36 AM CDT) Narrative Carole Swanson CRNA - 06/12/2021 9:36 AM CDT Carole Swanson CRNA ? 06/12/2021 ??9:46 AM Airway Patient location: OR Urgency: elective Date/time: 06/12/2021 9:36 AM Indications for airway management: anesthesia Difficult airway: no Staff: Placed by: JAVA DEVELOPER ARCHITECT: aCrole Swanson CRNA Emergent airway documentation: Risks and benefits discussed: yes Consent obtained: yes Consent given by: patient Airway prep: Preoxygenated: yes Patient position: sniffing MILS maintained throughout: yes Mask difficulty assessment: 0 - not attempted Spontaneous ventilation during airway: absent Sedation level during airway: deep Final airway details: Final airway type: supraglottic airway Final supraglottic airway: classic SGA size: 4 Number of attempts: 1no Derrek Chandra DO ANESTHESIA ORDERABLE S Final Result documented in this encounter Visit Diagnoses Not on filedocumented in this encounter Administered Medications Inactive Administered Medications - up to 3 most recent administrations Medication Order MAR Action Action Date Dose Rate Site ceFAZolin (ANCEF) 2,000 mg/20 mL in sterile water (premix) 2,000 mg 2,000 mg, intravenous, at 400 mL/hr, Administer over 3 Minutes, Once, On Thu06/12/21 at 0845, For 1 dose, Pre-Op, Administer within 60 minutes of incision., Indications: Prophylaxis, SurgicalIndications:Prophylaxis , Surgical Given 06/12/2021 9:38 AM CDT 2,000 mg dexAMETHasone (DECADRON) 4 mg/mL injection intravenous, Administer over 2 Minutes, As needed, Starting on Thu06/12/21 at 0939, Anesthesia Intra-op Given 06/12/2021 9:39 AM CDT 8 mg fentaNYL (SUBLIMAZE) preservative free injection intravenous, As needed, Starting on Thu06/12/21 at 0934, Anesthesia Intra-op Given 06/12/2021 9:34 AM CDT 100 mcg ketorolac (TORADOL) injection intravenous, As needed, Starting on Thu06/12/21 at 1009, Anesthesia Intra-op Given 06/12/2021 10:09 AM CDT 30 mg Lactated Ringer's (LR) infusion 30 mL/hr, intravenous, Continuous, Starting on Thu06/12/21 at 0845, Pre-Op Restarted 06/12/2021 9:32 AM CDT New Bag 06/12/2021 8:20 AM CDT 30 mL/hr 30 mL/hr lidocaine (cardiac) (XYLOCAINE) preservative free injection intravenous, As needed, Starting on Thu06/12/21 at 0934, Anesthesia Intra-op, Indications: Ventricular ArrhythmiasIndications:Ventricular Arrhythmias Given 06/12/2021 9:34 AM CDT 40 mg midazolam (VERSED) 1 mg/mL injection intravenous, As needed, Starting on Thu06/12/21 at 0931, Anesthesia Intra-op Given 06/12/2021 9:31 AM CDT 2 mg ondansetron (ZOFRAN) injection intravenous, Administer over 2 Minutes, As needed, Starting on Thu06/12/21 at 0939, Anesthesia Intra-op Given 06/12/2021 9:39 AM CDT 4 mg propofoL (DIPRIVAN) 10 mg/mL IV intravenous, As needed, Starting on Thu06/12/21 at 0934, Anesthesia Intra-op Given 06/12/2021 9:34 AM CDT 150 mg documented in this encounter Care Teams Chief Drafter Relationship Specialty Start Date End Date Erich Andrew MD [address] [place] [address] PCP - General Family Medicine 01/05/20 01/16/22 All Hernandez MD [address] [facility] [address] [place] [address] Consulting Physician Cardiology 05/20/21 documented as of this encounter
--- OUTSIDE RECORDS SUMMARY | 2024-09-19 01:45 | XMS_ITS | Encounter Summary ---
Author Organization [facility] Address [address] [place] [address] Phone Care Team Providers Care Fabrication Operator Name Role Phone All Hernandez MD Unavailable Klarissa Cortez CASINO ACCOUNTANT Unavailable [phone] Keegan Miranda MD Primary Care Provider [phone] Reason for Visit * Reason Comments New Patient * Consultation (Routine) - Closed Specialty Diagnoses / Procedures Referred By Contbill olivares Referred To Contact Surgical Oncology Diagnoses Abnormal mammogram Klarissa Cortez, CASINO ACCOUNTANT [address] [facility] [address] [place] [address] Phone: tel: fax: [facility] (All Locations) Referral ID Status Reason Start Date Expiration Date V isits Requested Visits Authorized [id number] Closed Specialty Services Required 11/12/2021 12/12/2022 99 99 Encounter Details Date Type Department Care Team (Late st Contact Info) Description 01/17/2022 12:30 PM CDT Office Visit [facility] Surgery [address] 5th [place] [address] [place] [address] Amy Vora NP [address] [place] [address] Mass of breast, unspecified laterality (Primary Dx); Abnormal mammogram Social History Tobacco Use Types Packs/Day Years Used Date Smoking Tobacco: Former Cigarettes 0.5 10 2016 Smokeless Tobacco: Former Alcohol Use Standard [...] on file Legal Sex Female 8:33 AM PROPERTY ACCOUNTANT Gender Identity Not on file Sexual Orientation Not on file documented as of this encounter Last Filed Vital Signs Vital Sign Reading Time Taken Comments Blood Pressure - - Pulse - - Temperature - - Respiratory Rate - - Oxygen Saturation - - Inhaled Oxygen Concentration - - Weight 70.3 kg (155 lb) 01/17/2022 12:45 PM CDT Height 162.6 cm (5' 4 ) 01/17/2022 12:45 PM CDT Body Mass Index 26.61 01/17/2022 12:45 PM CDT documented in this encounter Progress Notes * Amy Vora, ABDOULAYE - 01/17/2022 12:30 PM CDT NAME: Carole Quiles : 1965 DATE: 01/17/2022 REFERRING MD: Klarissa Valenzuela* CHIEF COMPLAINT: Evaluation of mass noted on recent mammogram. HISTORY OF PRESENT ILLNESS: Carole Quiles is a 56 y.o. woman referred by Klarissa Valenzuela* who requested that I evaluate her for her recent screening mammogram which was notable for a small mass in the left breast. The patient states that she was undergoing her routine mammogram and is concerned regarding the notation of a mass in the left breast. Her imaging was given a BI- RADS category 2, benign. She presents today for a second opinion regarding this. The patient states that she herself had not noticed any abnormal masses in either breast. She denies any change in the appearance of her breasts or the skin of her breasts. She denies nipple discharge bilaterally. She has no other systemic complaints and otherwise feels well today. This is a pleasant 56 y.o. woman who underwent menarche at 14 years of age. She has had 3 pregnancies and 2 live births, the first of which was at age 27. She did breastfeed her children. She underwent natural menopause at age 53. She has been taking hormone replacement therapy for five years. She took oral contraception for 20 years in the past. She denies history of breast biopsies or breast surgeries. She denies family history of breast cancer. Past Medical History: Diagnosis Date ??? Headache ??? Heart murmur ??? Hyperlipidemia ??? Hypertension hctz ??? Kidney stones ??? Wears partial dentures NON REMOVABLE UPPER FRONT 3 TEETH. Past Surgical History: Procedure Laterality Date ??? ABLATION UTERINE ??? COLONOSCOPY ??? KIDNEY STONE SURGERY ??? [place] DILATION/CURETTAGE,DIAGNOSTIC Dilation And Curettage - (Added by [employer]) ??? [place] LAP,SLING OPERATION Laparoscopic Sling Operation For Stress Incontinence - (Added by [employer]) HOME MEDICATIONS : atorvastatin (LIPITOR) 10 mg tablet biotin 5 mg capsule butalbitaL-acetaminophen 50-325 mg tablet calcium-magnesium 300-300 mg tablet candesartan (ATACAND) 16 mg tablet cholecalciferol (VITAMIN D-3) 5,000 unit capsule cyanocobalamin (Vitamin B-12) 100 mcg tablet estradioL (ESTRACE) 1 mg tablet hydroCHLOROthiazide (HYDRODIURIL) 25 mg tablet qylearms-nif-avpw-FA-lutein 8 mg iron-400 mcg-300 mcg tablet naproxen (NAPROSYN) 500 mg tablet nitrofurantoin (MACRODANTIN) 50 mg capsule omega 4-elu-iai-fish oil (Fish Oil) 100-160-1,000 mg capsule oxyCODONE (ROXICODONE) 5 mg immediate release tablet phentermine (ADIPEX-P) 37.5 mg tablet phentermine (ADIPEX-P) 37.5 mg tablet progesterone (PROMETRIUM) 100 mg capsule No Known Allergies Social History Socioeconomic History ??? Marital status: Spouse name: Not on file ??? Number of children: Not on file ??? Years of education: Not on file ??? Highest education level: Not on file Occupational History ??? Not on file Tobacco Use ??? Smoking status: Former Smoker Packs/day: 0.50 Years: 10.00 Pack years: 5.00 Types: Cigarettes Quit date: 2016 Years since quittin.3 ??? Smokeless tobacco: Former User Vaping Use ??? Vaping Use: Never used Substance and Sexual Activity ??? Alcohol use: Yes ??? Drug use: Defer ??? Sexual activity: Defer Other Topics Concern ??? 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 Heart disease Other Heart Disease - (Added by [employer]) ??? Cancer Other Cancer - (Added by [employer]) ??? Hypothyroidism Daughter Family history of hypothyroidism - (Added by [employer]) ??? Lung cancer Mother ??? Heart attack Father The patient's review of systems were reviewed as per the chart today and no other findings were noted. The patient's past medical history, social history, and family history are listed on their questionnaire and has been reviewed and can be found in the chart. PHYSICAL EXAMINATION: GENERAL: She is a well-developed, well-nourished woman in no acute distress. HEENT: Within normal limits. NECK: Neck is supple without lymphadenopathy or thyromegaly. LUNGS: Respirations non-labored HEART: Regular. ABDOMEN: Soft without organomegaly. EXTREMITIES: Warm without edema. NEUROLOGICAL: She is alert and oriented x 3. BREAST EXAMINATION: Bilateral breast examination reveals normal ptotic breasts bilaterally. The right breast is without any dominant masses, skin changes, nipple discharge, or axillary adenopathy. The left breast is without any dominant masses, skin changes, nipple discharge, or axillary adenopathy. IMAGING: I personally reviewed the patient's breast imaging. On 10/25/2021 the patient underwent a bilateral screening mammogram at [facility]. The breasts are almost entirely fatty. Noted was a 7.5 mm circumscribed low-density opacity in the posterior upper central left breast slightly medial to the mid sagittal plane. There is suggestion of a radiolucent hilus. This mass has been present on serial mammograms and is likely a benign intramammary lymph node. There is no evidence of suspicious mass, calcification, or architectural distortion to suggest malignancy in either breast. There has been no suspicious interval change. She is given a BI-RADS category two, benign and recommended to resume routine screening mammograms in one year. A formal [facility]iology consult was performed with the following review and interpretation of the patient's outside imaging: EXAMINATION: REVIEW AND INTERPRETATION OF OUTSIDE IMAGING ?? FACILITY PERFORMING OUTSIDE IMAGING: [facility] ?? EXAM(S) REVIEWED: 1. BILATERAL SCREENING MAMMOGRAM WITH TOMOSYNTHESIS, 8 images, 10/25/2021 ?? DATE OF INTERPRETATION: 12/31/2021 ?? PHYSICIAN REQUESTING REVIEW: SEEMA Lynch, who is seeing the patient in the Breast Surgery Clinic. ?? HISTORY: 56-year-old female presented to an outside facility for screening mammogram, which was given a BI-RADS 2, with recommendation for routine screening mammogram. Patient's physician would like her to have a 2nd opinion.. ?? COMPARISON: Screening mammogram 10/23/2020, with additional mammograms dating to 08/18/2016 ?? BREAST PARENCHYMAL COMPOSITION: There are scattered areas of fibroglandular density. ?? FINDINGS: Well-circumscribed mass within the central LEFT breast at posterior depth is mammographically stable since at least 2019, compatible with benign etiology. No new suspicious grouped calcifications, mass, or architectural distortion suggestive of malignancy is detected in EITHER breast. IMPRESSION: 1. There is no suspicious mass, distortion, or microcalcification in either breast. There has been no significant interval change from the previous study. ?? OVERALL FINAL ASSESSMENT: BI-RADS Category 2: Benign. ?? RECOMMENDATION: Annual screening mammography. ?? NOTE: The findings, conclusions and recommendations within this report do not replace the initial findings, conclusions and recommendations made at the facility where the study was performed based upon the imaging and clinical condition at that time. Review of the prior report and correlation with the clinical history are necessary. The provided images may or may not represent the [place] source data set and thus may contain changes which may lower the sensitivity of the second opinion interpretation. ? Dictated by: Negra Gonzalez MD ?? The radiology attending physician has personally reviewed this study, and had reviewed and/or edited this written report and agrees with it. ?? Electronically signed by: Danuta Lopez M.D. IMPRESSION/RECOMMENDATION: Carole Quiles is a 56 y.o. woman who presents today for a consultation regarding her left mammogram. I reviewed the clinical and imaging findings with her today. I reassured her that based on my clinical examination and review of her recent diagnostic imaging, there are no abnormalities that require biopsy or further intervention. Our radiologists have formally reviewed her imaging and agree the category two benign designation. The mass is well circumscribed and has been stable since at least her 2019 mammogram. I recommended that she simply resume her annual screening mammograms, which will be due in October. She has been on hormone replacement therapy and we discussed that there is some association with this and increased risk of breast cancer. We discussed that it is a personal decision and I would just recommend that she weigh the risks and benefits carefully. I also encouraged her to resume breast self examinations on a monthly basis and alert her provider of any abnormalities. I explained that she may follow up in our office on an as needed basis. I answered all of her questions thoroughly and she does seem pleased with this plan of approach. I encouraged her to contact me in the future if any new questions or concerns arise. Amy Vora NP Portions of this note were dictated using [employer] Fluency Direct speech recognition software. Please excuse any medical transcription radiology errors. documented in this encounter Plan of Treatment Not on file documented as of this encounter Visit Diagnoses Diagnosis Mass of breast, unspecified laterality- Primary Abnormal mammogram Abnormal mammogram, unspecified documented in this encounter Historical Medications * This list may reflect changes made after this encounter. Medication Sig Dispense Quantity Refills Last Filled Start D ate End Date candesartan (ATACAND) 16 mg tablet 01/07/2022 nitrofurantoin (MACRODANTIN) 50 mg capsule phentermine (ADIPEX-P) 37.5 mg tablet 01/08/2022 07/06/2024 phentermine (ADIPEX-P) 37.5 mg tablet 07/06/2024 added in this encounter Orders Outpatient Referral Count Last Ordered Date Fir st Ordered Date AMB REFERRAL TO SURGICAL ONCOLOGY 1 022 documented in this encounter Care Teams Fabrication Operator Relationship Specialty Start Date End Date Keegan Miranda MD [address] [place] [address] PCP - General Internal Medicine 01/17/22 All Hernandez MD [address] [place] [address] Consulting Physician Cardiology 05/20/21 Klarissa Cortez NP [address] [facility] [address] [place] [address] Nurse Practitioner Nurse Practitioner 11/12/21 documented as of this encounter
--- OUTSIDE RECORDS SUMMARY | 2024-09-19 01:45 | XMS_ITS | Encounter Summary ---
Author Organization [facility] Address [address] [place] [address] Care Team Providers Care Welding Machine Operator Helper Gas Name Role Phone Eder Sifuentes MD Unavailable Klarissa Cortez NP Unavailable [phone] Keegan Miranda MD Primary Care Provider [phone] Reason for Visit * Cardiology (Routine) - Closed Specialty Diagnoses / Procedures Referred By Contac t Referred To Contact Diagnoses Nonrheumatic aortic valve stenosis Procedures Transthoracic Echo (TTE) Complete W Doppler/CF Eder Sifuentes MD [address] [address] Phone: tel: fax: [facility] Cardiology [address] [facility] [address] [place] [address] Phone: tel: fax: Referral ID Status Reason Start Date Expiration Date Visits Re quested Visits Authorized [id number] Closed 07/06/2024 08/05/2025 1 1 Encounter Details Date Type Department Care Team (Latest Contact Info) Description 09/02/2024 8:15 AM SUPERVISOR CONTACT AND SERVICE CLERKS Ancillary Procedure [facility] Cardiology [address] [place] [address] Nonrheumatic aortic valve stenosis Social History Tobacco Use Types Packs/Day Years Used Date Smoking Tobacco: Former Cigarettes 0.5 10 2 2016 Smokeless Tobacco: Former Alcohol Use Standard [...] on file Legal Sex Female 8:33 AM SUPERVISOR CONTACT AND SERVICE CLERKS Gender Identity Not on file Sexual Orientation Not on file documented as of this encounter Plan of Treatment Not on file documented as of this encounter Procedures Procedure Name Priority Date/Time Associated Diagnosis Comments TRANSTHORACIC ECHO (TTE) COMPLETE W DOPPLER/CF WO CONTRAST Routine 09/02/2024 8:32 AM SUPERVISOR CONTACT AND SERVICE CLERKS Nonrheumatic aortic valve stenosis documented in this encounter Results * TRANSTHORACIC ECHO (TTE) COMPLETE W DOPPLER/CF WO CONTRAST (09/02/2024 8:32 AM SUPERVISOR CONTACT AND SERVICE CLERKS) Anatomical Region Laterality Modality Ultrasound 09/02/2024 7:59 AM SUPERVISOR CONTACT AND SERVICE CLERKS Narrative 09/02/2024 9:52 AM SUPERVISOR CONTACT AND SERVICE CLERKS [facility] Cardiology [address] [facility] [address] [id number] [address] [facility] [address], [place] [address] P:[phone] P:[phone] Echocardiographic Report Patient Name: CAROLE LEWIS E : 1965 Study Date: 09/02/2024 7:59:27 AM Gender: F Tech: Location: [place] Ref Provider: EDER SIFUENTES ?Height(Cm): 163 BSA: 1.65 Weight(Kg): 60.3 Heart Rate: 70 BP: 122 / 84 Quality: Good Order Provider: EDER SIFUENTES ?? PROCEDURES: Echocardiographic Report: Transthoracic echocardiogram with complete 2D, M-Mode, and color Doppler examination. With Strain Analysis. ?? INDICATIONS: I35.0 Nonrheumatic aortic (valve) stenosis. ?? MEASUREMENTS: 2D/MM ?Value ? Range ?Doppler ?Value ? Range EF Mod BP ?60 % ?[ 54 - 74 ] ?VERITO Vmax ? 1.69 cm2 ?[ 2.00 - 4.00 ] EF Teich MM ?63 % ?[ 54 - 74 ] ?AV Mean PG ? 8 mmHg LVIDd 2D ? 5.05 cm ? [ 3.80 - 5.20 ] ?AV Peak Guilherme ?1.99 m/s ?[ 1.00 - 1.70 ] LVIDd MM ? 4.58 cm ? [ 3.80 - 5.20 ] ?AV Peak PG ? 16 mmHg LVIDs 2D ? 3.20 cm ? [ 2.20 - 3.50 ] ?AV VTI ? 34.88 cm LVIDs MM ? 3.03 cm ? [ 2.20 - 3.50 ] ?LVOT Diam ?2.01 cm ? [ 1.70 - 2.10 ] LVPWd 2D ? 0.74 cm ? [ 0.60 - 0.90 ] ?LVOT Peak Guilherme ?1.06 m/s ?[ 0.70 - 1.10 ] LVPWd MM ? 0.63 cm ? [ 0.60 - 0.90 ] ?LVOT VTI ? 22.96 cm IVSd 2D ?0.92 cm ? [ 0.60 - 0.90 ] ?MV E Peak Guilherme ?0.94 m/s ?[ 0.60 - 1.30 ] IVSd MM ?0.78 cm ? [ 0.60 - 0.90 ] ?MV A Peak Guilherme ?0.94 m/s ?[ 1.00 - 1.20 ] LA Dimension MM ?3.26 cm ? [ 2.70 - 3.80 ] ?MV Decel Time ?122 msec ?[ 104 - 258 ] AoR Diam MM ?3.06 cm ? [ 2.70 - 3.70 ] ?PV Peak Guilherme ?0.95 m/s ?[ 0.40 - 0.80 ] LA Volume Index ?21 cc/m2 ?[ 16 - 34 ] ?TR Peak Guilherme ?2.19 m/s ?[ 1.00 - 2.80 ] ACS MM ? 1.76 cm ?TR Peak PG ? 19 mmHg RVSP ? 27.00 mmHg ?[ 10.00 - 36.00 ] E` ? 0.13 m/s E/E` ? 7 2D/MM ?Value ? Range ?Doppler ?Value ? Range - ?? FINDINGS: Interpretation Site: Exam was interpreted at [facility]. Left Ventricle: Normal left ventricular size. Mild concentric left ventricular hypertrophy. Normal global left ventricular systolic function. Impaired diastolic relaxation Grade I. Ejection fraction is measured at 60 %. Global Longitudinal Strain is -18 %. Right Ventricle: Normal right ventricular size. Normal right ventricular systolic function. Left Atrium: The left atrium is normal in size. Right Atrium: The right atrium is normal in size. Atrial Septum: Normal atrial septum. Mitral Valve: Trivial regurgitation of the mitral valve. Aortic Valve: Mild aortic stenosis. Peak Velocity of 1.99 m/s. Mean gradient of 7.0 mmHg. Valve area of 1.7 cm2. Aortic cusps appear mildly sclerotic. Trileaflet aortic valve. No aortic regurgitation. Tricuspid Valve: Estimated peak RVSP is 21 mmHg. Mild tricuspid regurgitation. Pulmonic Valve: Pulmonic valve not well visualized. Trivial regurgitation in the pulmonic valve. Pericardium: Normal pericardium with no significant pericardial effusion. Aorta: Normal aortic root. IVC: Normal size and normal respiratory collapse consistent with normal right atrial pressure (<5 mmHg). ?? CONCLUSIONS: Normal left ventricular size. Mild concentric left ventricular hypertrophy. Normal global left ventricular systolic function. Impaired diastolic relaxation Grade I. Ejection fraction is measured at 60 %. Global Longitudinal Strain is -18 %. Normal right ventricular size. Normal right ventricular systolic function. Mild aortic stenosis. Peak Velocity of 1.99 m/s. Mean gradient of 7.0 mmHg. Valve area of 1.7 cm2. Aortic cusps appear mildly sclerotic. Trileaflet aortic valve. No aortic regurgitation. Estimated peak RVSP is 21 mmHg. Mild tricuspid regurgitation. Electronically Signed By: Adilia Cobos MD 09/02/2024 9:51:44 AM SUPERVISOR CONTACT AND SERVICE CLERKS Procedure Note Adilia Cobos MD - 09/02/2024 [facility] Cardiology [address] [facility] [address] [place] [address] [address] [facility] [address], [place] [address] P:[phone] P:[phone] Echocardiographic Report Patient Name: CAROLE LEWIS E : 1965 Study Date: 09/02/2024 7:59:27 AM Gender: F Tech: Location: [facility] Provider: EDER SIFUENTES Height(Cm): 163 BSA: 1.65 Weight(Kg): 60.3 Heart Rate: 70 BP: 122 / 84 Quality: Good Order Provider: EDER SIFUENTES PROCEDURES: Echocardiographic Report: Transthoracic echocardiogram with complete 2D, M-Mode, and color Dopplerexamination. With Strain Analysis. INDICATIONS: I35.0 Nonrheumatic aortic (valve) stenosis. MEASUREMENTS: 2D/MM Value Range Doppler ValueRange EF Mod BP 60 % [ 54 - 74 ] VERITO Vmax 1.69cm2 [ 2.00 - 4.00 ] EF Teich MM 63 % [ 54 - 74 ] AV Mean PG 8mmHg LVIDd 2D 5.05 cm [ 3.80 - 5.20 ] AV Peak Guilherme 1.99m/s [ 1.00 - 1.70 ] LVIDd MM 4.58 cm [ 3.80 - 5.20 ] AV Peak PG 16mmHg LVIDs 2D 3.20 cm [ 2.20 - 3.50 ] AV VTI 34.88cm LVIDs MM 3.03 cm [ 2.20 - 3.50 ] LVOT Diam 2.01 cm[ 1.70 - 2.10 ] LVPWd 2D 0.74 cm [ 0.60 - 0.90 ] LVOT Peak Guilherme 1.06m/s [ 0.70 - 1.10 ] LVPWd MM 0.63 cm [ 0.60 - 0.90 ] LVOT VTI 22.96cm IVSd 2D 0.92 cm [ 0.60 - 0.90 ] MV E Peak Guilherme 0.94m/s [ 0.60 - 1.30 ] IVSd MM 0.78 cm [ 0.60 - 0.90 ] MV A Peak Guilherme 0.94m/s [ 1.00 - 1.20 ] LA Dimension MM 3.26 cm [ 2.70 - 3.80 ] MV Decel Time 122msec [ 104 - 258 ] AoR Diam MM 3.06 cm [ 2.70 - 3.70 ] PV Peak Guilherme 0.95m/s [ 0.40 - 0.80 ] LA Volume Index 21 cc/m2 [ 16 - 34 ] TR Peak Guilherme 2.19m/s [ 1.00 - 2.80 ] ACS MM 1.76 cm TR Peak PG 19mmHg RVSP 27.00 mmHg [ 10.00 - 36.00 ] E` 0.13 m/s E/E` 7 2D/MM Value Range Doppler ValueRange - FINDINGS: Interpretation Site: Exam was interpreted at [facility]. Left Ventricle: Normal left ventricular size. Mild concentric left ventricularhypertrophy. Normal global left ventricular systolic function. Impaired diastolic relaxation Grade I.Ejection fraction is measured at 60 %. Global Longitudinal Strain is -18 %. Right Ventricle: Normal right ventricular size. Normal right ventricular systolicfunction. Left Atrium: The left atrium is normal in size. Right Atrium: The right atrium is normal in size. Atrial Septum: Normal atrial septum. Mitral Valve: Trivial regurgitation of the mitral valve. Aortic Valve: Mild aortic stenosis. Peak Velocity of 1.99 m/s. Mean gradient of 7.0mmHg. Valve area of 1.7 cm2. Aortic cusps appear mildly sclerotic. Trileaflet aortic valve. Noaortic regurgitation. Tricuspid Valve: Estimated peak RVSP is 21 mmHg. Mild tricuspid regurgitation. Pulmonic Valve: Pulmonic valve not well visualized. Trivial regurgitation in the pulmonicvalve. Pericardium: Normal pericardium with no significant pericardial effusion. Aorta: Normal aortic root. IVC: Normal size and normal respiratory collapse consistent with normal rightatrial pressure (<5 mmHg). CONCLUSIONS: Normal left ventricular size. Mild concentric left ventricularhypertrophy. Normal global left ventricular systolic function. Impaired diastolic relaxation Grade I.Ejection fraction is measured at 60 %. Global Longitudinal Strain is -18 %. Normal right ventricular size. Normal right ventricular systolicfunction. Mild aortic stenosis. Peak Velocity of 1.99 m/s. Mean gradient of 7.0mmHg. Valve area of 1.7 cm2. Aortic cusps appear mildly sclerotic. Trileaflet aortic valve. Noaortic regurgitation. Estimated peak RVSP is 21 mmHg. Mild tricuspid regurgitation. Electronically Signed By: Adilia Cobos MD 09/02/2024 9:51:44 AM SUPERVISOR CONTACT AND SERVICE CLERKS us Eder Sifuentes MD CV ECHO PROCEDURES Final Result documented in this encounter Visit Diagnoses Diagnosis Nonrheumatic aortic valve stenosis documented in this encounter Care Teams Welding Machine Operator Helper Gas Relationship Specialty Start Date End Date Keegan Miranda MD [address] [facility] [address] [place] [address] PCP - General Internal Medicine 01/17/22 Eder Sifuentes MD [address] [address] Consulting Physician Cardiology 05/20/21 Klarissa Cortez NP [address] [facility] [address] [place] [address] Nurse Practitioner Nurse Practitioner 11/12/21 documented as of this encounter
--- OUTSIDE RECORDS SUMMARY | 2024-09-19 01:45 | XMS_ITS | Encounter Summary ---
Author Organization [facility] Address [address] [address] Care Team Providers Care Sausage Mixer Name Role Phone All Hernandez MD Unavailable Klarissa Cortez NP Unavailable [phone] Keegan Miranda MD Primary Care Provider [phone] Reason for Referral * Procedure (Routine) - Closed Specialty Diagnoses / Procedures Referred By Contac t Referred To Contact Diagnoses Right wrist pain Procedures Medium Joint (Ankle, Elbow, Shoulder (AC), Wrist) Injection: R ulnocarpal Jennifer Avila MD Phone: tel: fax: [facility] Referral ID Status Reason Start Date Expiration Date Visits Re quested Visits Authorized [id number] Closed 10/13/2022 11/12/2023 1 1 OW INSTALLATION SUBCONTRACTOR * Diagnostic Imaging (Routine) - Closed Specialty Diagnoses / Procedures Referred By Contac t Referred To Contact Diagnoses Right wrist pain Procedures XR Wrist Right 3 or More Views Jennifer Avila MD Phone: tel: fax: [address] [address] Referral ID Status Reason Start Date Expiration Date Visits Re quested Visits Authorized [id number] Closed 10/08/2022 11/07/2023 1 1 OW INSTALLATION SUBCONTRACTOR Reason for Visit * Reason Comments Pain Encounter Details Date Type Department Care Team (Late st Contact Info) Description 10/13/2022 11:45 AM WINDOW INSTALLATION SUBCONTRACTOR Office Visit [facility] Hand Surgery [address] [facility] [address] [place] [address] Jennifer Avila MD [address] [place] [address] Right wrist pain (Primary Dx) Social History Tobacco Use Types Packs/Day Years [...] on file Legal Sex Female 8:33 AM WINDOW INSTALLATION SUBCONTRACTOR Gender Identity Not on file Sexual Orientation Not on file documented as of this encounter Progress Notes * Jennifer Avila MD - 10/13/2022 11:45 AM CSTAssociated Order(s): Medium Joint (Ankle, Elbow, Shoulder (AC), Wrist) Injection: R ulnocarpal Post-Procedure Diagnose(s): Right wrist pain Images from the original note were not included. FOLLOW UP VISIT Subjective CHIEF COMPLAINT She had concerns including Pain of the Right Wrist. HISTORY OF PRESENT ILLNESS The patient is a 57-year-old rydax-goon-rddkgrzg female who presents today for follow-up a new issue of right wrist pain. She describes pain over the ulnar aspect of the right wrist which has been present for several weeks. She states her pain is a 3/10 and worsens with attempts at weight-bearing and ulnar deviation of the wrist. She is tried anti-inflammatory medications which have failed to relieve her symptoms. She has been wearing her wrist brace as needed. She is not tried any corticosteroid injections for this problem. She denies any trauma to the wrist. She also denies any paresthesiasin her right upper extremity. MEDICATIONS She has a current medication list which includes the following prescription(s): atorvastatin, biotin, butalbital-acetaminophen, calcium-magnesium, candesartan, cholecalciferol, cyanocobalamin, estradiol, hydrochlorothiazide, qqhgwesw-umf-rgte-fa-lutein, naproxen, nitrofurantoin, fish oil, oxycodone, phentermine, phentermine, and progesterone. REVIEW OF SYSTEMS Constitutional: Negative for fever and chills. HENT: Negative for neck pain. Eyes: Negative for change in vision. Respiratory: Negative for cough and shortness of breath. Cardiovascular: Negative for chest pain or pressure. Hematologic: negative for easy bruising Musculoskeletal: negative for muscle and joint pain GI: negative for constipation Integumentary: negative for skin wound or rash Neurologic: negative for paresthesias Objective PHYSICAL EXAM There were no vitals taken for this visit. General: Well appearing in no acute distress Chest: Normal work of breathing HEENT: Normocephalic, atraumatic Neuro: alert and oriented to person, place and time Focused exam of the upper extremities. Hands are symmetric in appearance. Radial pulses are 2+ and equal bilaterally. The fingers are warm and well perfused. There is symmetric range of motion of theMP and IP joints of the fingers and thumb. She is able to make a full fist and touch the fingertipsdown to the palm. The patient has tenderness to palpation over the ulnar fovea and pain with ulnar deviation of the wrist. She is no tenderness to palpation over cyst dorsal compartment and a negative ECU synergy test. Sensation is intact to light touch along the median, radial and ulnar nerve distribution. REVIEW OF X-RAYS/STUDIES/LABS X-rays of the right wrist dated today were reviewed by me and demonstrate no fractures, dislocations or malalignment. Joint spaces are well maintained without signs of significant osteoarthritis. Assessment/Plan Carole was seen today for pain. Diagnoses and all orders for this visit: Right wrist pain - XR Wrist Right 3 or More Views; Future PLAN This is a 56-year-old tlkyk-yqsi-bqrtgvrn female who presents today for follow- up of a right TFCC pain. I reviewed with the patient the relevant anatomy in the diagnosis. We discussed forms of non operative management including rest, ice, anti-inflammatory medication, activity modification and corticosteroid injection. We discussed the risks and benefits of a corticosteroid injection including but not limited to pain, infection, bleeding, risk to neurovascular structures, incomplete resolution of symptoms, increased blood sugar, and future surgery. The patient wished to go a ulnar carpal corticosteroid injection today. This was provided by me. She will also be wearing her wrist brace. She will return to see me on an as-needed basis. PROCEDURE NOTE: After a discussion of the indications and risks, the site was confirmed with a formal timeout. Using aseptic technique the right wrist was prepped and topically anesthetized with Ethyl Chloride. Approximately 1cc of a combination of Kenalog 40 milligram per cc and Lidocaine 1% without epinephrine was instilled into the ulnar carpal space. A sterile dressing was applied and the patient tolerated it well. No adverse reactions were observed Medium Joint (Ankle, Elbow, Shoulder (AC), Wrist) Injection: R ulnocarpal Performed by: Jennifer Avila MD Authorized by: Jennifer Avila MD Medium Joint Injection/Aspiration: Consent Given by: Patient Site marked: the procedure site was marked Timeout: prior to procedure the correct patient, procedure, and site was verified Verbal consent obtained?: Yes Written consent obtained?: Yes Supporting Documentation: Indications: Pain and diagnostic evaluation Procedure Details: Location: Wrist Site: R ulnocarpal Ultrasound guidance: No Jennifer Avila MD OW INSTALLATION SUBCONTRACTOR documented in this encounter Miscellaneous Notes * Addendum Note - Dav Mayo MA - 10/13/2022 11:45 AM CSTAddended by: DAV MAYO on: 10/16/2022 09:03 AM Modules accepted: Orders OW INSTALLATION SUBCONTRACTOR * Addendum Note - Dav Mayo MA - 10/13/2022 11:45 AM CSTAddended by: DAV MAYO on: 11/12/2022 02:29 PM Modules accepted: Orders documented in this encounter Plan of Treatment Not on file documented as of this encounter Procedures Procedure Name Priority Date/Time Associated Diagnosis Comments [place] ARTHROCENTESIS ASPIR&/INJ INTERM JT/BURS W/O US Routine 10/13/2022 11:45 AM WINDOW INSTALLATION SUBCONTRACTOR Right wrist pain documented in this encounter Results * KS ARTHROCENTESIS ASPIR&/INJ INTERM JT/BURS W/O US (10/13/2022 11:45 AM WINDOW INSTALLATION SUBCONTRACTOR) Narrative Jennifer Avila MD - 10/13/2022 11:45 AM WINDOW INSTALLATION SUBCONTRACTOR Jennifer Avila MD ? 10/14/2022 ??7:06 AM Medium Joint (Ankle, Elbow, Shoulder (AC), Wrist) Injection: R ulnocarpal Performed by: Jennifer Avila MD Authorized by: Jennifer Avila MD Medium Joint Injection/Aspiration: ??Consent Given by: ??Patient ??Site marked: the procedure site was marked ?Timeout: prior to procedure the correct patient, procedure, and site was verified ?Verbal consent obtained?: Yes ?Written consent obtained?: Yes ?? Supporting Documentation: ??Indications: ??Pain and diagnostic evaluation Procedure Details: ??Location: ??Wrist ??Site: ??R ulnocarpal ??Ultrasound guidance: No ?? us Jennifer Avila MD IN CLINIC/BEDSIDE ORDERAB LES Final Result * XR Wrist Right 3 or More Views (10/13/2022 11:34 AM WINDOW INSTALLATION SUBCONTRACTOR) Anatomical Region Laterality Modality Upper Extremities, Wrist Right Compute d Radiography 10/13/2022 2:05 PM WINDOW INSTALLATION SUBCONTRACTOR Narrative 10/13/2022 2:06 PM WINDOW INSTALLATION SUBCONTRACTOR EXAM DESCRIPTION: XR WRIST RIGHT 3 OR MORE VIEWS REASON FOR STUDY: Right wrist pain Ulna side pain x 1 months, no injury, ??hx of carpal tunnel surgery ? FINDINGS: Three views submitted with comparison 04/29/2021. There are no fractures. ??Alignment is normal. ??There is minimal basal thumb joint osteoarthritis. ??There is no dorsal wrist soft tissue swelling. IMPRESSION: Minimal right basal thumb joint osteoarthritis. THIS IS AN ELECTRONICALLY VERIFIED FINAL REPORT 10/13/2022 2:06 PM - Electronically signed by ??Tyler Dumont M.D. MF: [id number] D: ??10/13/2022 2:06 PM T: ??10/13/2022 2:06 PM Report ID: [id number] Reading Location: ??[id number] Procedure Note Tyler Dumont MD - 10/13/2022 EXAM DESCRIPTION: XR WRIST RIGHT 3 OR MORE VIEWS REASON FOR STUDY: Right wrist pain Ulna side pain x 1 months, no injury, hx of carpal tunnel surgery FINDINGS: Three views submitted with comparison 04/29/2021. There are no fractures. Alignment is normal. There is minimal basalthumb joint osteoarthritis. There is no dorsal wrist soft tissue swelling. IMPRESSION: Minimal right basal thumb joint osteoarthritis. THIS IS AN ELECTRONICALLY VERIFIED FINAL REPORT 10/13/2022 2:06 PM - Electronically signed by Tyler Dumont M.D. MF: [id number] Report ID: [id number] Reading Location: [id number] Jennifer Avila MD IMG XR PROCEDURES Final R esult documented in this encounter Visit Diagnoses Diagnosis Right wrist pain- Primary Pain in joint, forearm Right wrist pain Pain in joint, forearm documented in this encounter Administered Medications Inactive Administered Medications - up to 3 most recent administrations Medication Order MAR Action Action Date Dose Rate Site lidocaine (XYLOCAINE) 10 mg/mL (1 %) injection 100 mg 100 mg (10 mL), other, Once, On Thu11/12/22 at 1500, For 1 dose, Indications: Administration of Local AnesthesiaIndications:Administr ation of Local Anesthesia Given by Other 11/12/2022 2:29 PM CDT 100 mg triamcinolone (KENALOG) 40 mg/mL injection 40 mg 40 mg, intra-articular, Once, On Thu11/12/22 at 1500, For 1 doseIndications:Right wrist pain Given by Other 11/12/2022 2:28 PM CDT 40 mg documented in this encounter Orders Medications Ordered That Alan ht Not Have Been Administered Count Last Ordered Date First Ordered Date lidocaine (XYLOCAINE) 10 mg/ mL (1 %) injection 100 mg 1 10/16/2022 triamcinolone (KENALOG) 10 m g/mL injection 40 mg 1 10/16/2022 documented in this encounter Care Teams Sausage Mixer Relationship Specialty Start Date End Date Keegan Miranda MD [address] [place] [address] PCP - General Internal Medicine 01/17/22 All Hernandez MD [address] [place] [address] Consulting Physician Cardiology 05/20/21 Klarissa Cortez NP [address] [place] [address] Nurse Practitioner Nurse Practitioner 11/12/21 documented as of this encounter
--- OUTSIDE RECORDS SUMMARY | 2024-09-19 01:45 | XMS_ITS | Encounter Summary ---
Author Organization [facility] Address [address] [facility] [address] [place] [address] Care Team Providers Care Belt Buckle Maker Name Role Phone Erich Andrew MD Primary Care Prov ider All Hernandez MD Unavailable Reason for Visit * Reason Comments Post-op Encounter Details Date Type Department Care Team (Late st Contact Info) Description 06/27/2021 2:15 PM CDT Office Visit [facility] Hand Surgery [address] [facility] [address] [place] [address] [place] [address] [place] [address] [address] [place] [address] Post-operative state (Primary Dx) Social History Tobacco Use Types Packs/Day Years Used Date Smoking Tobacco: Former Cigarettes 0.5 10 2 007 2016 Smokeless Tobacco: Former Alcohol Use Standard [...] on file 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 Patient ID: Carole Quiles is a 55 y.o. female. Visit Date: 06/27/2021 Chief Complaint: Chief Complaint Patient presents with Right Hand - Post-op HPI: Patient is a 55-year-old female presents today for scheduled postoperative follow-up after right open carpal tunnel release on 06/12/2021. She states that she has had complete resolution of her numbness and tingling since her surgery. Physical Exam: General: A&O x 3, NAD, Well appearing Eyes: EOMs intact. PERRL. Integument: skin is warm and dry. Neuro: CN II-XII grossly intact. Pt gait is stable, balance WNL. Sensation intact. Cardiovascular: 2+ capillary refill to all upper digits bilaterally. Patient's incision is healing well. There is no surrounding edema, erythema or drainage noted. Sutures are intact. she is neurovascularly intact to tips of upper extremity digits. she has good digital ROM. she can make a fist, and flex/extend at the wrist without difficulty. X-rays/Imaging: Assessment/Plan There are no diagnoses linked to this encounter. Treatment / Plan: Patient was also seen and examined today by Dr. Avila. I removed the patient's sutures and placed Steri-Strips. I placed her in a gel flex splint. I did advise her that it can take upwards of 6 months for complete resolution of her symptoms. We recommend no lifting of greater than 5 to 10 pounds for one more week, and then she may return to her regular activities. she needs no further scheduled follow-up at this time. However, I have asked her to call with any further questions or concerns. Procedures ISRA Franz I saw and evaluated the patient agree with the above assessment plan. documented in this encounter Plan of Treatment Not on file documented as of this encounter Visit Diagnoses Diagnosis Post-operative state- Primary Other postprocedural status documented in this encounter Care Teams Belt Buckle Maker Relationship Specialty Start Date End Date Erich Andrew MD [address] [place] [address] PCP - General Family Medicine 01/05/20 01/16/22 All Hernandez MD [address] [address] Consulting Physician Cardiology 05/20/21 documented as of this encounter
--- OUTSIDE RECORDS SUMMARY | 2024-09-19 01:45 | XMS_ITS | Encounter Summary ---
Author Organization [facility] Address [address] [facility] [address] [place] [address] Care Team Providers Care Commissioner Of Officials Name Role Phone All Hernandez MD Unavailable Klarissa Cortez CERTIFIED HOME HEALTH AIDE Unavailable [phone]- [phone] Keegan Miranda MD Primary Care Provider [phone] Encounter Details Date Type Department Care Team (Late st Contact Info) Description 03/05/[address] 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 Gender Identity Not on file Sexual Orientation Not on file documented as of this encounter Plan of Treatment Not on file documented as of this encounter Procedures Procedure Name Priority Date/Time Associated Diagnosis Comments LIPID PANEL Routine 03/03/2023 11:40 AM CDT documented in this encounter Results * Lipid panel (03/03/2023 11:40 AM CDT) Blood Historical Provider LAB BLOOD ORDERABLES Kaley l Result documented in this encounter Visit Diagnoses Not on filedocumented in this encounter Care Teams Commissioner Of Officials Relationship Specialty Start Date End Date Keegan Miranda MD [address] [place] [address] PCP - General Internal Medicine 01/17/22 All Hernandez MD [address] [facility] [address] [place] [address] Consulting Physician Cardiology 05/20/21 Klarissa Cortez NP [address] [facility] [address] [place] [address] Nurse Practitioner Nurse Practitioner 11/12/21 documented as of this encounter
--- OUTSIDE RECORDS SUMMARY | 2024-09-19 01:45 | XMS_ITS | Encounter Summary ---
Author Organization [facility] Address [address] [place] [address] Phone Care Team Providers Care Sheet Metal Operator Name Role Phone Erich Andrew MD Primary Care Prov ider All Hernandez MD Unavailable Klarissa Cortez JUNIOR PARALEGAL Unavailable [phone] Encounter Details Date Type Department Care Team (Late st Contact Info) Description 11/27/2021 Telephone [facility] Oncology [address] [facility] [address] [place] [address] [place] [address] Vanda Avila [facility] Social History Tobacco Use Types Packs/Day Years [...] on file 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 I will coordinate the appointment change then. documented in this encounter Plan of Treatment Not on file documented as of this encounter Visit Diagnoses Not on filedocumented in this encounter Care Teams Sheet Metal Operator Relationship Specialty Start Date End Date Erich Andrew MD [address] [place] [address] PCP - General Family Medicine 01/05/20 01/16/22 All Hernandez MD [address] [address] Consulting Physician Cardiology 05/20/21 Klarissa Cortez NP [address] [address] Nurse Practitioner Nurse Practitioner 11/12/21 documented as of this encounter
--- OUTSIDE RECORDS SUMMARY | 2024-09-19 01:45 | XMS_ITS | Referral Summary ---
Author Organization [facility] Address [address] [place] [phone] Care Team Providers Care Patent Counsel Name Role Phone Eder Sifuentes MD Unavailable Klarissa Cortez NP Unavailable + [phone] Keegan Miranda MD Primary Care Provider [phone] Encounters Date Type Department Care Team Description 09/02/2024 8:15 AM LEAF STRIPPER Ancillary Procedure [facility] Card[facility] [address] [place] [phone] Nonrheumatic aortic valve stenosis 07/06/2024 11:00 AM LEAF STRIPPER Office Visit [facility] [address] [place] [phone] Eder Sifuentes MD Nonrheumatic aortic valve stenosis (Primary Dx); Essential hypertension; Family history of ischemic heart disease from Last 3 Months Allergies No known active allergies Medications hydroCHLOROthia zide (HYDRODIURIL) 25 mg tablet Take 1 tablet (25 mg total) by mouth daily Active naproxen (NAPROSYN) 500 mg tablet Take 1 tablet (500 mg total) by mouth as needed Active butalbitaL-acet aminophen 50-325 mg tablet Take 1 tablet by mouth daily Active cholecalciferol (VITAMIN D-3) 5,000 unit capsule Take 1 capsule (5,000 Units total) by mouth daily Active cyanocobalamin (Vitamin B-12) 100 mcg tabletIndicatio ns:Prevention of Vitamin B12 Deficiency Take 1 tablet (100 mcg total) by mouth daily Active omega 0-swg-ooq-fish oil (Fish Oil) 100-160-1,000 mg capsule Take 1 tablet by mouth daily Active calcium-magnesi um 300-300 mg tablet Take 1 tablet by mouth daily Active catrvlrg-igr-rg xo-VV-jmtiuh 8 mg iron-400 mcg-300 mcg tablet Take by mouth daily Active nitrofurantoin (MACRODANTIN) 50 mg capsule Active candesartan (ATACAND) 16 mg tablet 01/07/2022 Active atorvastatin (LIPITOR) 20 mg tablet TAKE 1 TABLET NIGHTLY 30 tablet 05/26/2024 Active Active Problems Problem Noted Date Diagnosed Date Mass of breast 01/18/2022 Carpal tunnel syndrome on right 05/20/2021 Overview (05/20/2021): Added automatically from request for surgery [id number] Aortic valve stenosis, mild 10/08/2020 Migraine headache 06/25/2016 Stenosis of intervertebral foramina 06/25/2016 Cervicalgia 06/24/2016 Social History Tobacco Use Types Packs/Day Years Used Date Smoking Tobacco: Former Cigarettes 0.5 10 2016 Smokeless Tobacco: Former Tobacco Cessation:Counseling Given: Not Answered Alcohol Use Standard Drinks/Week Comments Yes 0 [...] on file Legal Sex Female 8:33 AM LEAF STRIPPER Gender Identity Not on file Sexual Orientation Not on file Last Filed Vital Signs Vital Sign Reading Time Taken Comments Blood Pressure 122/82 07/06/2024 11:36 AM LEAF STRIPPER Pulse 96 07/06/2024 11:36 AM LEAF STRIPPER Temperature 36.3 ??C (97.3 ??F) 06/12/2021 1 1:01 AM CDT Respiratory Rate 16 06/12/2021 11:3 0 AM CDT Oxygen Saturation 96% 07/06/2024 11: 36 AM LEAF STRIPPER Inhaled Oxygen Concentration - - Weight 60.7 kg (133 lb 12.8 oz) 024 11:36 AM LEAF STRIPPER Height 162.6 cm (5' 4 ) 07/06/2024 11:3 6 AM LEAF STRIPPER Body Mass Index 22.97 07/06/2024 11:36 AM LEAF STRIPPER Plan of Treatment Not on file Procedures Procedure Name Priority Date/Time Associated Diagnosis Comments TRANSTHORACIC ECHO (TTE) COMPLETE W DOPPLER/CF WO CONTRAST Routine 09/02/2024 8:32 AM LEAF STRIPPER Nonrheumatic aortic valve stenosis POCT LIPID PANEL Routine 07/06/2024 2:13 PM LEAF STRIPPER Essential hypertension from Last 3 Months Results * TRANSTHORACIC ECHO (TTE) COMPLETE W DOPPLER/CF WO CONTRAST (09/02/2024 8:32 AM LEAF STRIPPER) Anatomical Region Laterality Modality Ultrasound 09/02/2024 7:59 AM LEAF STRIPPER Narrative 09/02/2024 9:52 AM LEAF STRIPPER [facility] [address] [facility] [address] [address] [address] [facility] [address], [place] [address] P:[phone] P:[phone] Echocardiographic Report Patient Name: CAROLE LEWIS E : 1965 Study Date: 09/02/2024 7:59:27 AM Gender: F Tech: Location: [facility] Provider: EDER SIFUENTES ?Height(Cm): 163 BSA: 1.65 [...] FINDINGS: Interpretation Site: Exam was interpreted at [facility]. Left Ventricle: Normal left ventricular size. Mild [...] By: Adilia Cobos MD 09/02/2024 9:51:44 AM LEAF STRIPPER Procedure Note Adilia Cobos MD - 09/02/2024 [facility] [address] [address] [address], [place] [address] P:[phone] P:[phone] Echocardiographic Report Patient Name: CAROLE LEWIS E : 1965 Study Date: 09/02/2024 7:59:27 AM Gender: F Tech: Location: [facility] Provider: EDER SIFUENTES Height(Cm): 163 BSA: [...] FINDINGS: Interpretation Site: Exam was interpreted at [facility]. Left Ventricle: Normal left ventricular size. Mild [...] By: Adilia Cobos MD 09/02/2024 9:51:44 AM LEAF STRIPPER us Eder Sifuentes MD CV ECHO PROCEDURES Final Result * POCT lipid panel (07/06/2024 2:13 PM LEAF STRIPPER) Cholesterol, POC 171 mg/dL Comment:GLU = 78 HDL, POC 79 mg/dL Triglycerides, POC 89 mg/dL LDL Cholesterol POC 74 mg/dL Chol/HDL Ratio, POC 0.9 Non-HDL Cholesterol, POC 92 mg/dL Cholesterol Total, POC 171 mg/dL Capillary blood 07/06/2024 2 :13 PM LEAF STRIPPER Eder Sifuentes MD POINT OF CARE TEST ORDERABLES Fi nal Result from Last 3 Months Insurance [facility] HMO/PPO Address: [address] [address] [place] [address] [facility] PPO Care Teams Patent Counsel Relationship Specialty Start Date End Date Keegan Miranda MD [address] [place] [address] PCP - General Internal Medicine 01/17/22 Eder Sifuentes MD [address] [place], [place] [phone] Consulting Physician Cardiology 05/20/21 Klarissa Cortez NP [address] [place] [address] Nurse Practitioner Nurse Practitioner 11/12/21
--- OUTSIDE RECORDS SUMMARY | 2024-09-19 01:45 | XMS_ITS | Encounter Summary ---
Author Organization [facility] Address [address] [place] [address] Phone Care Team Providers Care Solderer Electronic Name Role Phone Erich Andrew MD Primary Care Prov ider All Hernandez MD Unavailable Klarissa Cortez NP Unavailable [phone] Encounter Details Date Type Department Care Team (Late st Contact Info) Description 12/30/2021 Orders Only [facility] Surgery [address] [facility] 5th [place] [address] [place] [phone] Amy Vora, ABDOULAYE [address] [place] [address] Social History Tobacco Use Types Packs/Day Years Used Date Smoking Tobacco: Former Cigarettes 0.5 10 2 007 - 2016 Smokeless Tobacco: Former Alcohol Use Standard [...] on file Legal Sex Female 8:33 AM 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 ??There is no suspicious mass, distortion, or microcalcification in either breast. There has been no significant interval change from the previous study. OVERALL FINAL ASSESSMENT: BI-RADS Category 2: Benign. RECOMMENDATION: Annual screening mammography. NOTE: The findings, conclusions and recommendations within this report do not replace the initial findings, conclusions and recommendations made at the facility where the study was performed based upon the imaging and clinical condition at that time. ??Review of the prior report and correlation with the clinical history are necessary. The provided images may or may not represent the [place] source data set and thus may contain changes which may lower the sensitivity of the second opinion interpretation. Dictated by: Negra Gonzalez MD The radiology attending physician has personally reviewed this study, and had reviewed and/or edited this written report and agrees with it. Electronically signed by: Danuta Lopez M.D. Narrative 12/31/2021 11:20 AM CDT EXAMINATION: REVIEW AND INTERPRETATION OF OUTSIDE IMAGING FACILITY PERFORMING OUTSIDE IMAGING: [facility] EXAM(S) REVIEWED: 1. ??BILATERAL SCREENING MAMMOGRAM WITH TOMOSYNTHESIS, 8 images, 10/25/2021 DATE OF INTERPRETATION: 12/31/2021 PHYSICIAN REQUESTING REVIEW: SEEMA Lynch, who is seeing the patient in the [facility] Surgery [facility]. HISTORY: 56-year-old female presented to an outside facility for screening mammogram, which was given a BI-RADS 2, with recommendation for routine screening mammogram. ??Patient's physician would like her to have a 2nd opinion.. COMPARISON: Screening mammogram 10/23/2020, with additional mammograms dating to 08/18/2016 BREAST PARENCHYMAL COMPOSITION: There are scattered areas of fibroglandular density. FINDINGS: Well-circumscribed mass within the central LEFT breast at posterior depth is mammographically stable since at least 2019, compatible with benign etiology. No new suspicious grouped calcifications, mass, or architectural distortion suggestive of malignancy is detected in EITHER breast. Procedure Note Danuta Lopez MD - 12/31/2021 EXAMINATION: REVIEW AND INTERPRETATION OF OUTSIDE IMAGING FACILITY PERFORMING OUTSIDE IMAGING: [facility] EXAM(S) REVIEWED: 1. BILATERAL SCREENING MAMMOGRAM WITH TOMOSYNTHESIS, 8 images, 10/25/2021 DATE OF INTERPRETATION: 12/31/2021 PHYSICIAN REQUESTING REVIEW: SEEMA Lynch, who is seeing the patient in the Breast Surgery Clinic. HISTORY: 56-year-old female presented to an outside facility for screening mammogram, which was given a BI-RADS 2, with recommendation for routine screening mammogram. Patient's physician would like her to have a 2nd opinion.. COMPARISON: Screening mammogram 10/23/2020, with additional mammograms dating to 08/18/2016 BREAST PARENCHYMAL COMPOSITION: There are scattered areas of fibroglandular density. FINDINGS: Well-circumscribed mass within the central LEFT breast at posterior depth is mammographically stable since at least 2019, compatible with benign etiology. No new suspicious grouped calcifications, mass, or architectural distortion suggestive of malignancy is detected in EITHER breast. IMPRESSION: 1. There is no suspicious mass, distortion, or microcalcification in either breast. There has been no significant interval change from the previous study. OVERALL FINAL ASSESSMENT: BI-RADS Category 2: Benign. RECOMMENDATION: Annual screening mammography. NOTE: The findings, conclusions and recommendations within this report do not replace the initial findings, conclusions and recommendations made at the facility where the study was performed based upon the imaging and clinical condition at that time. Review of the prior report and correlation with the clinical history are necessary. The provided images may or may not represent the [place] source data set and thus may contain changes which may lower the sensitivity of the second opinion interpretation. Dictated by: Negra Gonzalez MD The radiology attending physician has personally reviewed this study, and had reviewed and/or edited this written report and agrees with it. Electronically signed by: Danuta Lopez M.D. Amy Vora BLOW MOLDER IMG MAMMO PROCEDURES Fin al Result documented in this encounter Visit Diagnoses Not on filedocumented in this encounter Care Teams Solderer Electronic Relationship Specialty Start Date End Date Erich Andrew MD [address] [place] [address] PCP - General Family Medicine 01/05/20 01/16/22 All Hernandez MD [address] [place] [address] Consulting Physician Cardiology 05/20/21 Klarissa Cortez NP [address] [place] [address] Nurse Practitioner Nurse Practitioner 11/12/21 documented as of this encounter
--- OUTSIDE RECORDS SUMMARY | 2024-09-19 01:45 | XMS_ITS | Encounter Summary ---
Author Organization [facility] Address [address] [place] [address] Care Team Providers Care Building Estimator Name Role Phone Erich Andrew MD Primary Care Prov ider All Hernandez MD Unavailable Reason for Visit * Auth/Cert Specialty Diagnoses / Procedures Referred By Josephine t Referred To Contact Diagnoses Carpal tunnel syndrome on right Carpal tunnel syndrome on right [G56.01] Procedures MI REVISE MEDIAN N/CARPAL TUNNEL SURG RELEASE RIGHT CARPAL TUNNEL Referral ID Status Reason Start Date Expiration Date Visits Re quested Visits Authorized [id number] 1 1 Encounter Details Date Type Department Care Team (Late st Contact Info) Description 06/12/2021 9:45 AM CDT - 06/12/2021 10:45 AM CDT Surgery [facility] OR [address] [place] [id number] Jennifer Avila MD [address] [place] [id number] RELEASE RIGHT CARPAL TUNNEL Surgery Details Date/Time Status Location OR Service Patient Class Case Class Case Type Trauma Case? 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 Gender Identity Not on file Sexual Orientation Not on file documented as of this encounter Last Filed Vital Signs Vital Sign Reading Time Taken Comments Blood Pressure 135/88 06/12/2021 10:45 AM CDT Pulse 63 06/12/2021 10:45 AM CDT Temperature 37.2 ??C (98.9 ??F) 06/12/2021 10:14 AM C DT Respiratory Rate 18 06/12/2021 10:45 AM CDT Oxygen Saturation 95% 06/12/2021 10:45 AM CDT Inhaled Oxygen Concentration - - Weight - - Height - - Body Mass Index - - documented in this encounter Discharge Instructions * Discharge Instructions* Jennifer Avila MD - 06/12/2021 9:16 AM CDT Elevate your hand above the level of your heart to prevent pain and swelling. Work on making a fullfist and fully opening all digits but avoid heavy lifting/pulling/pushing while your stitches are in place. Keep your dressing on clean and dry until your follow-up appointment. You may take Tylenol and ibuprofen as needed for pain. You were given a prescriptions for oxycodone. Do NOT drive if you have taken this medication. documented in this encounter Medications at Time of Discharge butalbitaL-acetam inophen 50-325 mg tablet Take 1 tablet by mouth daily calcium-magnesium 300-300 mg tablet Take 1 tablet by mouth daily cholecalciferol (VITAMIN D-3) 5,000 unit capsule Take 1 capsule (5,000 Units total) by mouth daily cyanocobalamin (Vitamin B-12) 100 mcg tabletIndications :Prevention of Vitamin B12 Deficiency Take 1 tablet (100 mcg total) by mouth daily hydroCHLOROthiazi de (HYDRODIURIL) 25 mg tablet Take 1 tablet (25 mg total) by mouth daily itpikyhn-qzh-upzj -FA-lutein 8 mg iron-400 mcg-300 mcg tablet Take by mouth daily naproxen (NAPROSYN) 500 mg tablet Take 1 tablet (500 mg total) by mouth as needed omega 7-ymd-kud-fish oil (Fish Oil) 100-160-1,000 mg capsule Take 1 tablet by mouth daily atorvastatin (LIPITOR) 10 mg tablet Take 10 mg by mouth daily 03/26/2022 biotin 5 mg capsule Take 1 capsule (1 tablet total) by mouth daily 07/06/2024 estradioL (ESTRACE) 1 mg tablet Take 1 mg by mouth nightly 07/06/2024 oxyCODONE (ROXICODONE) 5 mg immediate release tabletIndications :Pain Take 1 tablet (5 mg total) by mouth every 4 (four) hours as needed for pain 10 tablet 06/12/2021 07/06/2024 progesterone (PROMETRIUM) 100 mg capsule Take 100 mg by mouth nightly 07/06/2024 documented as of this encounter Ordered Prescriptions Prescription Sig Dispense Quantity Refills Last Filled Start Date End Date oxyCODONE (ROXICODONE) 5 mg immediate release tabletIndications: Pain Take 1 tablet (5 mg total) by mouth every 4 (four) hours as needed for pain 10 tablet 06/12/2021 07/06/2024 documented in this encounter Discharge Disposition Disposition Code Departure Means Destination Discharge to home or self care documented in this encounter H&P Notes * Jennifer Avila MD - 06/12/2021 8:20 AM CDT I have reviewed the H&P, examined the patient, and endorse the findings as written. Plan of Care : Based on the above findings, I consider Carole Quiles to be an acceptable risk for : Procedure(s): RELEASE RIGHT CARPAL TUNNEL The patient is a 54-year-old ehumx-przc-dufocfzf female who presents today for a right open carpal tunnel release for right carpal tunnel syndrome. She tried and failed non operative management including bracing. We discussed the risks and benefits of the procedure including but not limited to pain, infection, bleeding, risk to neurovascular structures, tendon injury, incomplete resolution of symptoms and future surgery. Patient understood these risks and wished to proceed. On exam today of herright upper extremity there is 5/5 apb and abduction strength. She has a negative Froment's and Wartenberg sign. She is able make a full composite fist and fully open all digits. She has no thenar or interossei atrophy. Her digits are warm and well perfused. Her sensation is intact to light touch in the radial ulnar distribution but decreased light touch the median nerve distribution. She has a positive Tinel's and a positive Durkan sign. Again the risks and benefits of a right open carpal tunnel release were discussed with the patient as described above. We also reviewed the normal postoperative course of 2 weeks of no heavy lifting but active range of motion of the digits. The patient understood this and wished to proceed. The right wrist was marked and consent was obtained. Source Note - Jennifer Avila MD - 05/17/2021 8:30 AM CDT Images from the original note were not included. Follow up VISIT Subjective CHIEF COMPLAINT She had concerns including Pain of the Right Wrist; Pain, Numbness, and Follow- up of the Right Hand; and Pain, Numbness, and Follow-up of the Left Hand. HISTORY OF PRESENT ILLINESS The patient is a 55-year-old degen-hcst-dzwbwoye female who presents today for evaluation of bilateral hand pain numbness and tingling right greater than left. She states that this has been present for the last year but has gotten progressively worse over the last 3-4 months. She describes a burning, aching pain which is moderate in nature. She notes writing, curling her hair, sleeping and fine motor activities make this worse and shaking her arm out makes this better. She has tried bracing which has failed to relieve her symptoms. She has also tried some anti-inflammatory medications which failed to relieve her symptoms. She denies any history of corticosteroid injections into her carpal tu nnels. PAST MEDICAL HISTORY She has a past medical history of Heart murmur and Hyperlipidemia. PAST SURGICAL HISTORY She has a past surgical history that includes pr dilation/curettage,diagnostic and pr lap,sling operation. MEDICATIONS She has a current medication list which includes the following prescription(s): atorvastatin, butalbital-acetaminophen, calcium-magnesium, cholecalciferol, cyanocobalamin, estradiol, hydrochlorothiazide, naproxen, fish oil, and progesterone. ALLERGIES She has No Known Allergies. SOCIAL HISTORY The patient denies any history of tobacco use. She drinks alcohol socially. 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 FAMILY HISTORY Family History Problem Relation Age of Onset ??? Heart disease Other Heart Disease - (Added by TW Conv) ??? Cancer Other Cancer - (Added by TW Conv) ??? Hypothyroidism Daughter Family history of hypothyroidism - (Added by TW Conv) ??? Lung cancer Mother ??? Heart attack Father REVIEW OF SYSTEMS Constitutional: Negative for fever and chills. HENT: Negative for neck pain. Eyes: Negative for change in vision. Respiratory: Negative for cough and shortness of breath. Cardiovascular: Negative for chest pain or pressure. Hematologic: negative for easy bruising Musculoskeletal: negative for muscle and joint pain GI: negative for constipation Integumentary: negative for skin wound or rash Neurologic: positive for paresthesias Objective PHYSICAL EXAM There were no vitals taken for this visit. General: ??Well appearing in no acute distress Chest: ??Normal work of breathing HEENT: Normocephalic, atraumatic Neuro: alert and oriented to person, place and time Focused exam of the upper extremities. ??Hands are symmetric in appearance. ??There is??5/5??apb strength??on the right and??5/5??apb strength on the left??and??5/5??abduction strength bilaterally. There is a??negative??Froment's and negative?Wartenberg signs??bilaterally. ??There is??no??evidence of interossei atrophy bilaterally.?There??is??no??thenar atrophy bilaterally.?Radial pulses are 2+ and equal bilaterally. ??The fingers are warm and well perfused.?She??is able to makea full fist and touch the fingertips down to the palm. ??Sensation is intact to light touch along the radial and ulnar nerve distributions??bilateral.?She has decreased sensation to light touch in the median nerve distribution??bilaterally.?On her??left hand??her 2 point discrimination isintact to 5 mm on all digits.?On??the??right side her??2 point discrimination is??intact to 6mm on the thumb,??index and middle fingers??and 5 mm on the ring and small finger.?She??has a?positive Tinel's and a??positive??Durkan sign at the??bilateral wrists.??She has a??negative Tinel's and elbow compression test bilaterally. There is no ulnar nerve subluxation with range of motion of the elbow.? REVIEW OF X-RAYS/STUDIES/LABS X-rays of the left hand dated today were reviewed by me and demonstrate no fractures, dislocations or malalignment. There is no evidence of bony erosion. There is some mild joint space narrowing at the 1st CMC joint consistent with osteoarthritis. There is also some mild joint space narrowing at the IP joints. X-rays of the right hand dated today were reviewed by me and demonstrate no fractures, dislocationsor malalignment. There is no evidence of bony erosion. There is some mild joint space narrowing at the 1st CMC joint consistent with osteoarthritis. There is also some mild joint space narrowing at the IP joints. The nerve conduction study and EMG test dated 04/23/2021 was reviewed by me and demonstrates a right median peak sensory latency which is not recordable and a right median motor latency of 6.5. Her left median motor latency is 4.2ms and her left median peak sensory latency is 4.2ms. There is no abnormality on EMG testing. This is consistent with severe carpal tunnel on the right and mild carpal tunnel on the left Assessment/Plan Carole was seen today for pain, pain, numbness, follow-up, pain, numbness and follow-up. Diagnoses and all orders for this visit: Pain in both hands - XR Hand Right 3 or More Views; Future - XR Hand Left 3 or More Views; Future Plan This is a 55-year-old alvmo-frzm-yxhyzzhz female who presents today with bilateral hand pain numbness and tingling consistent with bilateral carpal tunnel syndrome. I reviewed with the patient the relevant anatomy in the diagnosis. We discussed forms of non operative management including rest, ice, anti-inflammatory medication, activity modification, bracing andcorticosteroid injection. At this point the patient has tried and failed a cock-up wrist splints atnight. She is not interested in undergoing a corticosteroid injection and would like to have this problem definitively fixed. We discussed the role of a right open carpal tunnel release. We reviewed the risks and benefits of this procedure including but not limited to pain, infection, bleeding, risk to neurovascular structures, tendon injury, incomplete resolution of symptoms and future surgery. We also discussed the normal postoperative course of 2 weeks of no heavy lifting while sutures are in place but active range of motion of the digits. The patient wished to have this procedure done with the help of our anesthesia colleagues. She does not wish to do this under local anesthesia. She understands that she will need to have COVID testing prior to surgery per hospital policy as well as adriver 18 years or older to accompany her on the day of surgery. This will be scheduled at the earliest mutual convenience. Jennifer Avila MD documented in this encounter Miscellaneous Notes * Op Note - Jennifer Avila MD - 06/12/2021 9:45 AM CDT PREOPERATIVE DIAGNOSIS right carpal tunnel syndrome. ?? POSTOPERATIVE DIAGNOSIS: Same. ?? PROCEDURE PERFORMED: right carpal tunnel release. ?? SURGEON: Jennifer Avila MD ?? TYPE OF ANESTHESIA GIVEN: Local, General. ?? TOURNIQUET: 250 mmHg 7 minutes ?? DISPOSITION: To PACU. ?? COMPLICATIONS: None. ?? EBL: 2cc ?? INDICATIONS FOR PROCEDURE: The patient is a 55-year-old fagyg-idth-ozvneqvh female with history of rightcarpal tunnel syndrome with persistent symptoms despite nonoperative management. Risks and benefits of carpal tunnel release were discussed with the patient and they elected to proceed with surgery. ?? PROCEDURE: The patient was taken to the OR and placed in a supine position. She was given general anesthesia by our anesthesia colleauges and 2 grams of Ancef for perioperative prophylaxis. After positioning, the right upper extremity tourniquet was placed and the right upper extremity was prepped and draped in sterile fashion. After a formal time out confirming the correct patient, side and siteof surgery, the Right upper extremity tourniquet was inflated. Next, a 2.5 centimeter incision was placed on the volar aspect of the wrist right between the thenar and hypothenar eminences. Through this incision skin and subcutaneous tissue was carefully dissected. Transverse carpal ligament was siena ntified and longitudinally split all the way towards the forearm fascia. Distal division ended at the sentinel fat pad, and median nerve was noted in continuity and decompressed nicely. There were nomasses noted in the carpal tunnel. The right upper extremity was deflated and skin was closed using5 0 Prolene sutures, ,the incision site was infiltrated with local anesthetic (10 cc of 1% lidocaine and 0.25% marcaine in 50/50 mixture) and the patient's upper extremity was placed in a soft dressing. At the conclusion of the case, all counts were correct. ?? Post operatively : The patient will elevate her hand above the level of her heart to prevent pain and swelling. She will work on making a full fist and fully opening all digits but avoid heavy lifting while sutures are in place. She will keep her dressing on clean and dry. She will take Tylenol andibuprofen as needed for pain and a prescription for oxycodone was sent to her pharmacy as well. * Pre-Procedure Instructions - Adiel Guzmán RN - 05/31/2021 1:34 PM CDT Surgery Reminder Checklist: Please arrive to [facility] for scheduled surgery on 06/12/2021 ARRIVE AT 0745 AM. If the surgeons office tells you to arrive at a different time, please follow their instructions. Please use Entrance A also known as [facility], then follow the signs for OutpatientSurgery. DO NOT eat OR DRINK after midnight (this includes gum, mints, hard candy, and chewable antacids). TAKE THE FOLLOWING MEDICATIONS MORNING OF SURGERY: ATORVASTATIN (you may take your medications with enough water to safely swallow them) DO NOT drink alcohol, smoke cigarettes/vapes/e-cigarettes/marijuana, or take illicit/illegal drugs of any kind at least 24 hours prior to surgery. NO ASPIRIN CONTAINING PRODUCTS, IBUPROFEN, ALEVE, MULTIVITAMINS, HERBAL SUPPLEMENTS, FISH OIL, or VITAMIN E. (LAST DOSE: 06/04/2021) May take TYLENOL (ACETAMINOPHEN) as needed for pain. [place] your teeth morning of procedure. Use mouth wash if available. Do not swallow any liquids whencleansing your mouth. Shower with Antibacterial soap EITHER EVENING BEFORE OR MORNING OF SURGERY. Example: Dial or Safeguard. After showering, do not apply any lotions, colognes, oils, deodorant, powder, or make-up. BRING ANY CURRENT OR NEW PRESCRIPTIONS IN THE BOTTLES OR PICTURES OF THE LABELS TO THE HOSPITAL FORE REVIEW. Expect to remove wigs, dentures/partials, contact lenses, piercings, hearing aides, and prostheses before surgery. Do not wear jewelry to the hospital on the day of surgery. Bring glasses and hearing aides (with cases for both), inhalers, and CPAP/BiPAP machine day of surgery. If you will be admitted to the hospital after surgery, feel free to bring a toiletry bag. Arrange for a friend or family member to pick you up from the hospital, drive you home, and assist you if necessary. You will not be allowed to drive home. NO non-medical transport services (buses, taxis, etc) allowed. A responsible adult must be with you for 24 hours after your procedure. Call your surgeon if you develop a rash, fever, cold, or any other signs/symptoms of infection prior to surgery. COVID-19 SWAB: You must be swabbed for COVID-19 on Thursday06/09/2021.. Specimen collection site is located at [address] [place] [address]. Operating hours are 0800 am to 4 pm. You will be required to quarantine at home immediately after being swabbed until the day of surgery. This includes no errands or mingling with others that live outside your household. This is to ensure that you do not get any new possible COVID exposure prior to entering the hospital. Your procedure can be cancelled if you do not follow these guidelines. Any questions/concerns, please call the Admission Testing Center at [phone]. THANK YOU, ADIEL RN documented in this encounter Plan of Treatment Not on file documented as of this encounter Procedures Procedure Name Priority Date/Time Associated Diagnosis Comments RELEASE CARPAL TUNNEL 06/12/2021 9:16 AM CDT Carpal tunnel syndrome on right Case Notes RT OPEN CTR/CHOICE Special Needs HEISS ECG 12-LEAD STAT 06/12/2021 9:12 AM CDT EGFR STAT 06/12/2021 8:28 AM CDT BASIC METABOLIC PANEL STAT 06/12/2021 8:28 AM CDT documented in this encounter Results * ECG 12 lead (06/12/2021 9:12 AM CDT) Ventricular Rate EKG/Min 69 BPM [facility] Atrial Rate 69 BPM [facility] MI-Interval (MSEC) 128 ms [facility] QRS-Interval (MSEC) 84 ms [facility] QT-Interval (MSEC) 410 ms [facility] QTc 439 ms [facility] P Volant 38 degrees [facility] R Volant 9 degrees [facility] T Volant 7 degrees [facility] Diagnosis Normal sinus rhythm Normal ECG When compared with ECG of 20-NOV-2011 08:59, Nonspecific T wave abnormality now evident in Anterior leads [facility] 06/12/2021 9:12 AM CDT 06/12/2021 5:06 PM CDT us Geneva Paredes MD ECG ORDERABLES Final Result [facility] * eGFR (06/12/2021 8:28 AM CDT) [facility] eGFR 104 mL/min/1.7 3 m2 [facility] Comment: Interpretive Data Reference Interval Normal ?>/= 90 mL/min/1.73m2 Mildly decreased* ? 60 - 89 mL/min/1.73m2 Mildly to moderately decreased ?45 - 59 mL/min/1.73m2 Moderately to severely decreased ??30 - 44 mL/min/1.73m2 Severely decreased ?15 - 29 mL/min/1.73m2 Kidney Failure ?< 15 ??mL/min/1.73m2 *Relative to young adult level Estimated glomerular filtration rate is determined by the CKD-EPI equation recommended by the National Kidney Foundation (KDIGO 2012 Clinical Practice Guideline for the Evaluation and Management of Chronic Kidney Disease. Kidney Intnl Suppl Aug 2012;3:1). The CKD-EPI equation should not be used for patients with unstable renal function and has not been validated in children and those over 70. Current interpretive data was last reviewed 2020 Blood 06/12/2021 8:28 AM CDT 06/12/2021 8:34 AM CDT Geneva Paredes MD LAB BLOOD ORDERABLES Final Result [facility] [address] [facility] [place] [address] * Basic metabolic panel (06/12/2021 8:28 AM CDT) [facility] Sodium 143 135 - 145 mmol/L [facility] Potassium, pl 3.8 3.3 - 4.9 mmol/L [facility] Chloride 106 97 - 110 mmol/L [facility] CO2 25 22 - 32 mmol/L [facility] Anion gap 12 2 - 15 mmol/L [facility] BUN 17 8 - 25 mg/dL [facility] Creatinine 0.60 0.60 - 1.10 mg/dL [facility] Glucose 107 70 - 199 mg/dL [facility] Comment: Interpretive Data Fasting glucose >/= 126 mg/dl is diagnostic for diabetes. ?? Fasting is defined as no caloric intake for at least 8 hours. Fasting glucose between 100 mg/dl to 125 mg/dl is diagnostic of prediabetes. In a patient with classic symptoms of hyperglycemia or hyperglycemic crisis, a random glucose >/= 200 mg/dl is diagnostic for diabetes. In the absence of unequivocal hyperglycemia, results should be confirmed by repeat testing. The classification and Diagnosis of Diabetes Diabetes Care 2017;40 (Suppl. 1):S11. Current interpretive data was last revised 2017. Calcium 9.8 8.5 - 10.3 mg/dL [facility] Blood 06/12/2021 8:28 AM CDT 06/12/2021 8:34 AM CDT Geneva Paredes MD LAB BLOOD ORDERABLES Final Result [facility] [address] [facility] [place] [address] documented in this encounter Visit Diagnoses Diagnosis Carpal tunnel syndrome on right- Primary Carpal tunnel syndrome Carpal tunnel syndrome on right Carpal tunnel syndrome documented in this encounter Admitting Diagnoses Diagnosis Carpal tunnel syndrome on right Carpal tunnel syndrome documented in this encounter Administered Medications Inactive Administered Medications - up to 3 most recent administrations Medication Order MAR Action Action Date Dose Rate Site acetaminophen (TYLENOL) tablet 975 mg 975 mg (rounded from 1,000 mg), oral, Once, On Thu06/12/21 at 0845, For 1 dose, Pre-Op, Indications: Pre-Emptive AnalgesiaIndications:Pre-Emptive Analgesia Given 06/12/2021 8:59 AM CDT 975 mg famotidine (PEPCID) tablet 20 mg 20 mg, oral, Once, On Thu06/12/21 at 0845, For 1 dose, Pre-Op, Indications: gastroesophageal reflux diseaseIndications:gastroesophagea l reflux disease Given 06/12/2021 8:59 AM CDT 20 mg fentaNYL (SUBLIMAZE) 50 mcg/mL preservative free injection - ADS Override Pull Starting on Thu06/12/21 at 1020, For 1 dose, Created by cabinet override fentaNYL (SUBLIMAZE) preservative free injection 50 mcg 50 mcg, intravenous, Every 10 min PRN, breakthrough pain, Starting on Thu06/12/21 at 1020, For 4 doses, Phase I, Administer for uncontrolled or increasing pain while in PACU only. Then proceed to PACU 1st line analgesic., Indications: PainIndications:Pain Given 06/12/2021 10:20 AM CDT 50 mcg HYDROmorphone (DILAUDID) 2 mg/mL injection - ADS Override Pull Starting on Thu06/12/21 at 1020, For 1 dose, Created by cabinet override HYDROmorphone (DILAUDID) injection 0.4 mg 0.4 mg, intravenous, Administer over 2 Minutes, Every 10 min PRN, 2nd line for pain, Starting on Thu06/12/21 at 1020, For 4 doses, Phase I, May administer 10 mintes after 2nd dose of 1st line analgesic agent for uncontrolled or increasing pain. Revert to 1st line dose if POSS of 3. Notify Anesthesiologist if total PACU dose reaches 2 mg and pain score 5/10 or more., Indications: PainIndications:Pain Given 06/12/2021 10:32 AM CDT 0.4 mg Given 06/12/2021 10:20 AM CDT 0.4 mg Lactated Ringer's (LR) infusion 30 mL/hr, intravenous, Continuous, Starting on Thu06/12/21 at 0845, Pre-Op Restarted 06/12/2021 9:32 AM CDT New Bag 06/12/2021 8:20 AM CDT 30 mL/hr 30 mL/hr lidocaine 1% and bupivacaine preservative free (MARCAINE) 0.25% As needed, Starting on Thu06/12/21 at 0945, Intra-Op Given 06/12/2021 9:45 AM CDT 5 mL sodium chloride 0.9% flush 0.5-20 mL 0.5-20 mL, intra-catheter, As needed, line care, Starting on Thu06/12/21 at 0802, Pre-Op, Flush volume based on line type and size. Flush before and after each use. documented in this encounter Historical Medications * This list may reflect changes made after this encounter. nywhdiot-gwb-fbab -FA-lutein 8 mg iron-400 mcg-300 mcg tablet Take by mouth daily biotin 5 mg capsule Take 1 capsule (1 tablet total) by mouth daily 07/06/2024 added in this encounter Active and Recently Administered Medications Times are shown in CDT. Scheduled Medication Order 06/10/2021 06/11/2021 06/12/2021 acetaminophen (TYLENOL) tablet 975 mg (COMPLETED) 975 mg (rounded from 1,000 mg), oral, Once, On Thu06/12/21 at 0845, For 1 dose, Pre-Op, Indications: Pre-Emptive Analgesia 0859 (Given - Provid er: Theresa Pretty RN) ceFAZolin (ANCEF) 2,000 mg/20 mL in sterile water (premix) 2,000 mg (COMPLETED) 2,000 mg, intravenous, at 400 mL/hr, Administer over 3 Minutes, Once, On Thu06/12/21 at 0845, For 1 dose, Pre-Op, Administer within 60 minutes of incision., Indications: Prophylaxis, Surgical 0938 (Given - Provid er: Carole Swanson CRNA) famotidine (PEPCID) tablet 20 mg (COMPLETED) 20 mg, oral, Once, On Thu06/12/21 at 0845, For 1 dose, Pre-Op, Indications: gastroesophageal reflux disease 0859 (Given - Provid er: Theresa Pretty RN) Continuous Medication Order 06/10/2021 06/11/2021 06/12/2021 Lactated Ringer's (LR) infusion 30 mL/hr, intravenous, Continuous, Starting on Thu06/12/21 at 0845, Pre-Op 0820 (New Bag - Prov ider: Theresa Pretty RN)0931 (Paused - Provider: Carole Swanson CRNA - Comment: Switch to gravity)0932 (Restarted - Provider: Carole Swanson CRNA)1007 (Anesthesia Volume Adjustment - Provider: Carole Swanson CRNA)1130 (Stopped - Provider: Kassy Yanez RN) Lactated Ringer's (LR) infusion 125 mL/hr, intravenous, Continuous, Starting on Thu06/12/21 at 1100, Phase I 1100 (Due) PRN Medication Order 06/10/2021 06/11/2021 06/12/2021 diphenhydrAMINE (BENADRYL) injection 12.5 mg 12.5 mg, intravenous, Every 15 min PRN, itching, Starting on Thu06/12/21 at 1020, For 2 doses, Phase I, Max cumulative dose 50 mg., Indications: Itching fentaNYL (SUBLIMAZE) preservative free injection 25 mcg 25 mcg, intravenous, Every 10 min PRN, For uncontrolled pain use in the pacu only, Starting on Thu06/12/21 at 1020, For 4 doses, Phase I, Then proceed to PACU 1st line analgesic., Indications: Pain fentaNYL (SUBLIMAZE) preservative free injection 50 mcg 50 mcg, intravenous, Every 10 min PRN, breakthrough pain, Starting on Thu06/12/21 at 1020, For 4 doses, Phase I, Administer for uncontrolled or increasing pain while in PACU only. Then proceed to PACU 1st line analgesic., Indications: Pain 1020 (Given - Provid er: Nawaf Medeiros RN) hydrALAZINE (APRESOLINE) injection 5 mg 5 mg, intravenous, Administer over 2 Minutes, Every 15 min PRN, high blood pressure, Starting on Thu06/12/21 at 1020, Phase I, Max cumulative dose 20 mg. Dose if systolic BP greater than 180 AND heart rate less than 70., Indications: hypertension HYDROmorphone (DILAUDID) injection 0.2 mg 0.2 mg, intravenous, Administer over 2 Minutes, Every 10 min PRN, 1st line for pain, Starting on Thu06/12/21 at 1020, For 4 doses, Phase I, Switch to 2nd line analgesic order if pain is uncontrolled or increasing after 2 doses. Notify Anesthesiologist if total PACU dose reaches 2 mg and pain score 5/10 or more., Indications: Pain HYDROmorphone (DILAUDID) injection 0.4 mg 0.4 mg, intravenous, Administer over 2 Minutes, Every 10 min PRN, 2nd line for pain, Starting on Thu06/12/21 at 1020, For 4 doses, Phase I, May administer 10 mintes after 2nd dose of 1st line analgesic agent for uncontrolled or increasing pain. Revert to 1st line dose if POSS of 3. Notify Anesthesiologist if total PACU dose reaches 2 mg and pain score 5/10 or more., Indications: Pain 1020 (Given - Provid er: Nawaf Medeiros, RN)1032 (Given - Provider: Nawaf Medeiros, RN) labetaloL (NORMODYNE,TRANDATE) injection 5 mg 5 mg, intravenous, at 30 mL/hr, Administer over 2 Minutes, Every 10 min PRN, high blood pressure, Starting on Thu06/12/21 at 1020, Phase I, Max cumulative dose 20 mg. Dose if systolic blood pressure greater than 180 AND HR greater than 70. lidocaine 1% and bupivacaine preservative free (MARCAINE) 0.25% (CANCELED) As needed, Starting on Thu06/12/21 at 0945, Intra-Op 0945 (Given - Provid er: Jennifer Avila MD) meperidine (DEMEROL) preservative free injection 25 mg 25 mg, intravenous, Administer over 5 Minutes, Every 10 min PRN, shivering, Starting on Thu06/12/21 at 1020, For 1 dose, Phase I, Max cumulative dose 25 mg., Indications: Shivering metoclopramide (REGLAN) injection 10 mg 10 mg, intravenous, Administer over 1 Minutes, Once as needed, nausea, vomiting, Starting on Thu06/12/21 at 1020, For 1 dose, Phase I, If nausea/vomiting not relieved by ondansetron within 30 minutes or if ondansetron has been given within the last 6 hours. naloxone (NARCAN) 0.4 mg/mL injection 0.04-0.4 mg 0.04-0.4 mg, intravenous, Once as needed, other, excessive sedation/respiratory depression, Starting on Thu06/12/21 at 1020, For 1 dose, Phase I, Dilute 0.4 mg with 9 mL NS (final concentration 0.04 mg/mL). For respiratory depression (respiratory rate less than 6), administer 0.4 mg IVP over 30 seconds. For excessive sedation administer 0.04 mg (1 mL) every 1 minute until desired level of alertness. For IV, administer over 30 seconds., Indications: Opioid Toxicity ondansetron (ZOFRAN) injection 4 mg 4 mg, intravenous, Administer over 2 Minutes, Once as needed, nausea, vomiting, Starting on Thu06/12/21 at 1020, For 1 dose, Phase I, Proceed to metoclopramide if ondansetron has been given within the last 6 hours. sodium chloride 0.9% flush 0.5-20 mL 0.5-20 mL, intra-catheter, As needed, line care, Starting on Thu06/12/21 at 0802, Pre-Op, Flush volume based on line type and size. Flush before and after each use. documented in this encounter Orders Medications Ordered That Alan ht Not Have Been Administered Count Last Ordered Date First Ordered Date ceFAZolin (ANCEF) 2,000 mg/2 0 mL in sterile water (premix) 2,000 mg 1 06/12/2021 diphenhydrAMINE (BENADRYL) i njection 12.5 mg 1 06/12/2021 fentaNYL (SUBLIMAZE) preserv ative free injection 25 mcg 1 06/12/2021 hydrALAZINE (APRESOLINE) injection 5 mg 1 1 HYDROmorphone (DILAUDID) injection 0.2 mg 1 06/12/2021 labetaloL (NORMODYNE,TRANDAT E) injection 5 mg 1 06/12/2021 Lactated Ringer's (LR) infusion 1 meperidine (DEMEROL) preserv ative free injection 25 mg 1 06/12/2021 metoclopramide (REGLAN) injection 10 mg 1 1 naloxone (NARCAN) 0.4 mg/mL injection 0.04-0.4 mg 1 06/12/2021 ondansetron (ZOFRAN) injection 4 mg 1 06/12 sodium chloride 0.9% flush 0.5-20 mL 1 05/31 Diet Count Last Ordered Date First Orde red Date ADULT DISCHARGE DIET 1 06/12/2021 Nursing Count Last Ordered Date First Orde red Date DISCHARGE CALL PROVIDER 1 06/12/2021 DISCHARGE DRESSING 1 06/12/2021 DISCHARGE INSTRUCTIONS 2 06/12/2021 Discharge Count Last Ordered Date First Orde red Date DISCHARGE PATIENT 1 06/12/2021 documented in this encounter Care Teams Building Estimator Relationship Specialty Start Date End Date Erich Andrew MD [address] [place] [address] PCP - General Family Medicine 01/05/20 01/16/22 All Hernandez MD [address] [facility] [address] [place] [address] Consulting Physician Cardiology 05/20/21 documented as of this encounter
--- OUTSIDE RECORDS SUMMARY | 2024-09-19 01:45 | XMS_ITS | Encounter Summary ---
Author Organization [facility] Address [address] [address] Care Team Providers Care Radiopharmacist Name Role Phone All Hernandez MD Unavailable Klarissa Cortez NP Unavailable [phone] Keegan Miranda MD Primary Care Provider [phone] Reason for Referral * Procedure (Routine) - Closed Specialty Diagnoses / Procedures Referred By Contac t Referred To Contact Diagnoses Trigger finger of right thumb Procedures Hand / Upper Extremity Arthrocentesis: R thumb A1 Jennifer Avila MD Phone: tel: fax: [facility] Referral ID Status Reason Start Date Expiration Date Visits Re quested Visits Authorized [id number] Closed 02/10/2022 03/12/2023 1 1 Reason for Visit * Reason Comments Trigger Finger Encounter Details Date Type Department Care Team (Late st Contact Info) Description 02/10/2022 10:00 AM CDT Office Visit [facility] Hand Surgery [address] [place] [phone] Jennifer Avila MD [facility] [place] [address] Trigger finger of right thumb (Primary Dx) Social History Tobacco Use Types [...] on file 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 FOLLOW UP VISIT Subjective CHIEF COMPLAINT She had concerns including Trigger Finger of the Right Thumb. HISTORY OF PRESENT ILLNESS The patient is a 56-year-old aokqu-jgae-mtoerhlr female who presents today for a new issue of rightthumb pain and triggering. She states that this been present for the past few weeks. She notes thatthe thumb is particularly painful and triggers multiple times particularly in the morning. She denies any other trigger digit. She denies any paresthesias in her right upper extremity. She has not tried any icing anti-inflammatory medications or corticosteroid injections for this problem. MEDICATIONS She has a current medication list which includes the following prescription(s): atorvastatin, biotin, butalbital-acetaminophen, calcium-magnesium, candesartan, cholecalciferol, cyanocobalamin, estradiol, hydrochlorothiazide, elkdvxog-mkf-orwf-fa-lutein, naproxen, nitrofurantoin, fish oil, oxycodone, phentermine, phentermine, [...] are warm and well perfused. There is a nodule palpated at the right thumb A1 sheba with palpable triggering. There is symmetric range of motion of the MP and IP joints of the fingers and thumb. She is able to make a full fist and touch the fingertips down to the palm.Sensation is intact to light touch along the median, radial and ulnar nerve distribution. REVIEW OF X-RAYS/STUDIES/LABS none Assessment/Plan There are no diagnoses linked to this encounter. Hand / Upper Extremity Arthrocentesis: R thumb A1 Performed by: Jennifer Avila MD Authorized by: Jennifer Avila MD Hand/Upper Extremity Injection: Consent Given by: Patient Site marked: the procedure site was marked Timeout: prior to procedure the correct patient, procedure, and site was verified Verbal consent obtained?: Yes Written consent obtained?: Yes Supporting Documentation: Indications: Pain Procedure Details: Condition: trigger finger Location: Thumb Site: R thumb A1 Prep: patient was prepped and draped in usual sterile fashion Prep: patient was prepped using a clean technique Ultrasound guidance: No Medications: 40 mg triamcinolone 40 mg/mL; 1 mL lidocaine 10 mg/mL (1 %) Patient tolerance: Patient tolerated the procedure well with no immediate complications PLAN This is a 56-year-old xjpjh-hvkj-bqlbakyq female who presents today with a right trigger thumb. I reviewed with the patient the relevant anatomy in the diagnosis. We discussed forms of non operative management including rest, ice, anti-inflammatory medication, activity modification and corticosteroid injection. We discussed the risks and benefits of a corticosteroid injection including but not limited to pain, infection, bleeding, risk to neurovascular structures, incomplete resolution of symptoms, increased blood sugar, and future surgery. We also discussed the surgical option of an A1 sheba release. The patient wished to proceed with a corticosteroid injection today. This was provided by me. She will return to see me in 4 weeks time for repeat evaluation. PROCEDURE NOTE: After a discussion of the indications and risks, the site was confirmed with a formal timeout. Using aseptic technique the right thumb was prepped and the base of the digit was topically anesthetized with Ethyl Chloride. Approximately 1 cc of a combination of Kenalog 40 milligram per cc and Lidocaine 1% without epinephrine was instilled in the flexor sheath by myself. A sterile dressing was applied and the patient tolerated it well. No adverse reactions were observed. Jennifer Avila MD documented in this encounter Plan of Treatment Not on file documented as of this encounter Procedures Procedure Name Priority Date/Time Associated Diagnosis Comments NC INJECTION 1 TENDON SHEATH/LIGAMENT APONEUROSIS Routine 02/10/2022 10:00 AM CDT Trigger finger of right thumb documented in this encounter Results * NC INJECTION 1 TENDON SHEATH/LIGAMENT APONEUROSIS (02/10/2022 10:00 AM CDT) Narrative Jennifer Avila MD - 02/10/2022 10:00 AM CDT Jennifer Avila MD ? 02/10/2022 10:37 AM Hand / Upper Extremity Arthrocentesis: R thumb A1 Performed by: Jennifer Avila MD Authorized by: Jennifer Avila MD Hand/Upper Extremity Injection: ??Consent Given by: ??Patient ??Site marked: the procedure site was marked ?Timeout: prior to procedure the correct patient, procedure, and site was verified ?Verbal consent obtained?: Yes ?Written consent obtained?: Yes ?? Supporting Documentation: ??Indications: ??Pain Procedure Details: ??Condition: trigger finger ?Location: ??Thumb ??Site: ??R thumb A1 ??Prep: patient was prepped and draped in usual sterile fashion ?Prep: patient was prepped using a clean technique ?Ultrasound guidance: No ?Medications: ??40 mg triamcinolone 40 mg/mL; 1 mL lidocaine 10 mg/mL (1 %) ??Patient tolerance: ??Patient tolerated the procedure well with no immediate complications us Jennifer Avila MD IN CLINIC/BEDSIDE ORDERAB LES Final Result documented in this encounter Visit Diagnoses Diagnosis Trigger finger of right thumb- Primary documented in this encounter Administered Medications Inactive Administered Medications - up to 3 most recent administrations Medication Order MAR Action Action Date Dose Rate Site lidocaine (XYLOCAINE) 10 mg/mL (1 %) injection 1 mL 1 mL, One-Time Injection, Starting on Thu02/10/22 at 1023, For 1 dose, Indications: Administration of Local AnesthesiaIndications:Administrati on of Local Anesthesia Given 02/10/2022 10:23 AM CDT 1 mL triamcinolone (KENALOG) 40 mg/mL injection 40 mg 40 mg, intra-articular, One-Time Injection, Starting on Thu02/10/22 at 1023, For 1 doseIndications:Trigger finger of right thumb Given 02/10/2022 10:23 AM CDT 40 mg documented in this encounter Care Teams Radiopharmacist Relationship Specialty Start Date End Date Keegan Miranda MD [address] [place] [address] PCP - General Internal Medicine 01/17/22 All Hernandez MD [address] [place] [address] Consulting Physician Cardiology 05/20/21 Klarissa Cortez NP [address] [place] [place] [address] Nurse Practitioner Nurse Practitioner 11/12/21 documented as of this encounter
--- OUTSIDE RECORDS SUMMARY | 2024-09-19 01:45 | XMS_ITS | Encounter Summary ---
Author Organization [facility] Address [address] [place] [address] Care Team Providers Care Tobacco Weigher Name Role Phone Erich Andrew MD Primary Care Prov ider All Hernandez MD Unavailable Reason for Visit * Auth/Cert Specialty Diagnoses / Procedures Referred By Contac t Referred To Contact Diagnoses Carpal tunnel syndrome on right Carpal tunnel syndrome on right [G56.01] Procedures DC REVISE MEDIAN N/CARPAL TUNNEL SURG RELEASE RIGHT CARPAL TUNNEL Referral ID Status Reason Start Date Expiration Date Visits Re quested Visits Authorized [id number] 1 1 Encounter Details Date Type Department Care Team (Latest Contact Info) Description 06/12/2021 7:59 AM CDT - 06/12/2021 11:43 AM CDT Hospital Encounter [address] [address] Jennifer Avila MD [address] [place] [id number] Discharge Disposition: Discharge to home or self care Social History Tobacco Use Types Packs/Day Years Used Date Smoking Tobacco: Former Cigarettes 0.5 10 2 - 2016 Smokeless Tobacco: Former Alcohol Use [...] on file 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 Gender Identity Not on file Sexual Orientation Not on file documented as of this encounter Last Filed Vital Signs Vital Sign Reading Time Taken Comments Blood Pressure 129/88 06/12/2021 11:30 AM CDT Pulse 55 06/12/2021 11:30 AM CDT Temperature 36.3 ??C (97.3 ??F) 06/12/2021 11:01 AM C DT Respiratory Rate 16 06/12/2021 11:30 AM CDT Oxygen Saturation 98% 06/12/2021 11:30 AM CDT Inhaled Oxygen Concentration - - [...] tablet (25 mg total) by mouth daily szqxdsgf-rpm-abvt -FA-lutein 8 mg iron-400 mcg-300 mcg tablet Take by mouth daily naproxen (NAPROSYN) 500 mg tablet Take 1 tablet (500 mg total) by mouth as needed omega 3-yjr-fza-fish oil (Fish Oil) 100-160-1,000 mg capsule Take [...] documented in this encounter H&P Notes * eJnnifer Avila MD - 06/12/2021 8:20 AM CDT I have reviewed the H&P, examined the patient, and endorse the findings as written. Plan of Care : Based on the above findings, I consider Carole Bonnie Quiles to be an acceptable risk for : Procedure(s): RELEASE RIGHT CARPAL TUNNEL The patient is a 54-year-old xuzil-hevt-cuusoiah female who presents today for a right [...] PRESENT ILLINESS The patient is a 55-year-old iivii-ynpi-hhvnsskl female who presents today for evaluation of [...] history of corticosteroid injections into her carpal t unnels. PAST MEDICAL HISTORY She has a past [...] Views; Future Plan This is a 55-year-old owdcd-jjut-syskswno female who presents today with bilateral hand [...] FOR PROCEDURE: The patient is a 55-year-old mkkfp-nnoi-degyajtt female with history of rightcarpal tunnel syndrome [...] pharmacy as well. * Pre-Procedure Instructions - Tyler Guzmán RN - 05/31/2021 1:34 PM CDT Surgery Reminder Checklist: Please arrive to [facility] for scheduled surgery on [...] take TYLENOL (ACETAMINOPHEN) as needed for pain. Beulah your teeth morning of procedure. Use mouth [...] Thursday06/09/2021.. Specimen collection site is located at [address] [place] [address]. Operating hours are 0800 am to 4 [...] please call the Admission Testing Center at [phone]. THANK YOU, TYLER BAUER documented in this encounter Plan of Treatment [...] ECG 12 lead (06/12/2021 9:12 AM CDT) Pathologist [facility] Ventricular Rate EKG/Min 69 BPM [facility] Atrial Rate 69 BPM [facility] DC-Interval (MSEC) 128 ms [facility] QRS-Interval (MSEC) 84 ms [facility] QT-Interval (MSEC) 410 ms [facility] QTc 439 ms [facility] P [place] 38 degrees [facility] R [place] 9 degrees [facility] T [place] 7 degrees [facility] Diagnosis Normal sinus rhythm Normal ECG When compared with ECG of 20-NOV-2011 08:59, Nonspecific T wave abnormality now evident in Anterior leads [facility] 06/12/2021 9:12 AM CDT 06/12/2021 5:06 PM CDT us Geneva Paredes MD ECG ORDERABLES Final Result [facility] * eGFR (06/12/2021 8:28 AM CDT) eGFR 104 mL/min/1.7 3 m2 [facility] Comment: Interpretive Data Reference Interval Normal ?>/= [...] Paredes MD LAB BLOOD ORDERABLES Final Result [facility] [id number] [facility] Department [place] [address] * Basic metabolic panel (06/12/2021 8:28 AM CDT) Sodium 143 135 - 145 mmol/L [facility] Potassium, pl 3.8 3.3 - 4.9 mmol/L [facility] Chloride 106 97 - 110 mmol/L [facility] CO2 25 22 - 32 mmol/L [facility] Anion gap 12 2 - 15 mmol/L [facility] BUN 17 8 - 25 mg/dL [facility] Creatinine 0.60 0.60 - 1.10 mg/dL [facility] Glucose 107 70 - 199 mg/dL [facility] Comment: Interpretive Data Fasting glucose >/= [...] Calcium 9.8 8.5 - 10.3 mg/dL [facility] Blood 06/12/2021 8:28 AM CDT 06/12/2021 8:34 AM CDT us Geneva Praedes MD LAB BLOOD ORDERABLES Final Result [facility] [address] [facility] Department [place] [address] documented in this encounter Visit Diagnoses Diagnosis Carpal tunnel syndrome on right- Primary Carpal tunnel syndrome documented in this encounter [...] at 1020, For 1 dose, Created by ro override fentaNYL (SUBLIMAZE) preservative free injection 50 [...] 8:20 AM CDT 30 mL/hr 30 mL/hr sodium chloride 0.9% flush 0.5-20 mL 0.5-20 mL, intra-catheter, As needed, line care, Starting on Thu06/12/21 at 0802, Pre-Op, Flush volume based on line type and size. Flush before and after each use. documented in this encounter Historical Medications * This list may reflect changes made after this encounter. xcvawrol-vha-sbcw -FA-lutein 8 mg iron-400 mcg-300 mcg tablet [...] 1020 (Given - Provid er: Nawaf Medeiros RN)1032 (Given - Provider: Nawaf Medeiros RN) labetaloL (NORMODYNE,TRANDATE) injection 5 mg 5 [...] 1 06/12/2021 Lactated Ringer's (LR) infusion 1 lidocaine 1% and bupivacaine preservative free (MARCAINE) 0.25% 1 06/12/2021 meperidine (DEMEROL) preserv ative free injection 25 [...] 06/12/2021 documented in this encounter Care Teams Tobacco Weigher Relationship Specialty Start Date End Date Erich Andrew MD [address] [place] [address] PCP - General Family Medicine 01/05/20 01/16/22 All Hernandez MD [address] [facility] [address] [place] [address] Consulting Physician Cardiology 05/20/21 documented as of this encounter
--- OUTSIDE RECORDS SUMMARY | 2024-09-19 01:45 | XMS_ITS | Encounter Summary ---
Author Organization [facility] Address [address] [facility] [place] [address] Care Team Providers Care Vice President Education Name Role Phone All Hernandez MD Unavailable Klarissa Cortez NP Unavailable [phone] Keegan Miranda MD Primary Care Provider [phone] Reason for Visit * Reason Comments Hypertension 1 year follow up. Encounter Details Date Type Department Care Team (Late st Contact Info) Description 03/04/2023 11:45 AM CDT Office Visit [facility] Cardiology [address] [facility] [address] [place] [address] All Hernandez MD [address] [address] Mild aortic stenosis (Primary Dx); Essential hypertension; Family history of ischemic heart disease; Hypercholesteremia Social History Tobacco Use Types Packs/Day Years Used Date Smoking Tobacco: Former Cigarettes 0.5 - 2016 Smokeless Tobacco: Former Tobacco Cessation:Counseling Given: [...] on file 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 Gender Identity Not on file Sexual Orientation Not on file documented as of this encounter Last Filed Vital Signs Vital Sign Reading Time Taken Comments Blood Pressure 126/84 03/04/2023 11:53 AM CDT Pulse 98 03/04/2023 11:53 AM CDT Temperature - - Respiratory Rate - - Oxygen Saturation 98% 03/04/2023 11:53 AM CDT Inhaled Oxygen Concentration - - Weight 71.2 kg (157 lb) 03/04/2023 11:53 AM CDT Height 162.6 cm (5' 4 ) 03/04/2023 11:53 AM CDT Body Mass Index 26.95 03/04/2023 11:53 AM CDT documented in this encounter Progress Notes * All Hernandez MD - 03/04/2023 11:45 AM CDT [facility] 03/04/2023 CHIEF COMPLAINT Chief Complaint Patient presents with Hypertension 1 year follow up. HPI Carole Quiles is a 57 y.o. female with hypertension, dyslipidemia, obesity, family history of coronary disease 07/04/2020 initial evaluation-patient is here for cardiovascular evaluation. Patient gives family history of coronary disease in multiple family members including her father and the family from her father's side. She states that her father had fatal MD at age 54. Patient is a portion that age, and is concerned about her cardiovascular health. Patient has history of hypertension and dyslipidemia, and is on monotherapy with hydrochlorothiazide and on atorvastatin for dyslipidemia. She is at her blood pressure is usually well controlled. She denies any major cardiovascular symptoms at present include chest pain, shortness of breath, palpitation, dizziness or syncope. She is overweight, and is trying to eat healthy. Patient gives longstanding history of heart murmur since childhood. She has not had any cardiac workup done in the past as per patient 04/03/2021-patient is here for the routine follow-up visit. She recently had coronary calcium CT score which was 0. Echocardiogram performed in the setting of systolic murmur showed mild aortic stenosis. She denies any major cardiovascular symptoms at present. 03/26/2022-patient is here for the follow-up visit. She has been doing well from cardiovascular standpoint since last office visit. She has no cardiovascular symptoms at present. He is physically active. Reports compliance with current medical regimen. 03/04/2023-patient is here for the follow-up visit. She is essentially asymptomatic from cardiovascular standpoint. Denies chest pain, shortness of breath, palpitation, dizziness or syncope. Reports compliance with statin. MEDICAL HISTORY she has a past medical history of Headache, Heart murmur, Hyperlipidemia, Hypertension, Kidney stones, and Wears partial dentures. She has no past medical history of Awareness under anesthesia, Delayed emergence from general anesthesia, GERD (gastroesophageal reflux disease), Hard to intubate, Malignant hyperthermia, Motion sickness, PONV (postoperative nausea and vomiting), Pseudocholinesterase deficiency, or Sleep apnea. Obesity she has a past surgical history that includes pr dilation & curettage dx&/ther nonobstetric; pr laparoscopy sling operation stress incont; ablation; Kidney stone surgery; and Colonoscopy. she No Known Allergies Current Outpatient Medications Medication Sig Dispense Refill atorvastatin (LIPITOR) 20 mg tablet Take 1 tablet (20 mg total) by mouth nightly 90 tablet 3 biotin 5 mg capsule Take 1 capsule (1 tablet total) by mouth daily butalbitaL-acetaminophen 50-325 mg tablet Take 1 tablet by mouth daily calcium-magnesium 300-300 mg tablet Take 1 tablet by mouth daily candesartan (ATACAND) 16 mg tablet cholecalciferol (VITAMIN D-3) 5,000 unit capsule Take 1 capsule (5,000 Units total) by mouth daily cyanocobalamin (Vitamin B-12) 100 mcg tablet Take 1 tablet (100 mcg total) by mouth daily hydroCHLOROthiazide (HYDRODIURIL) 25 mg tablet Take 1 tablet (25 mg total) by mouth daily rqanqzum-ddh-oqvo-FA-lutein 8 mg iron-400 mcg-300 mcg tablet Take by mouth daily naproxen (NAPROSYN) 500 mg tablet Take 1 tablet (500 mg total) by mouth as needed nitrofurantoin (MACRODANTIN) 50 mg capsule omega 0-kac-tof-fish oil (Fish Oil) 100-160-1,000 mg capsule Take 1 tablet by mouth daily oxyCODONE (ROXICODONE) 5 mg immediate release tablet Take 1 tablet (5 mg total) by mouth every 4 (four) hours as needed for pain 10 tablet 0 phentermine (ADIPEX-P) 37.5 mg tablet phentermine (ADIPEX-P) 37.5 mg tablet estradioL (ESTRACE) 1 mg tablet Take 1 mg by mouth nightly (Patient not taking: Reported on 03/04/2023) progesterone (PROMETRIUM) 100 mg capsule Take 100 mg by mouth nightly (Patient not taking: Reportedon 03/04/2023) No current facility-administered medications for this visit. she family history includes Cancer in an other family member; Heart attack in her father; Heart disease in an other family member; Hypothyroidism in her daughter; Lung cancer in her mother. she reports that she has quit smoking. Her smoking use included cigarettes. She has a 5.00 pack-year smoking history. She has quit using smokeless tobacco. She reports current alcohol use. Drug use questions deferred to the physician. 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 Lives with and daughter. REVIEW OF SYSTEMS General ROS: negative for - Fever, chills, fatigue Psychological ROS: negative for - anxiety, depression Ophthalmic ROS: negative for - loss of vision ENT ROS: negative for - sore throat, epistaxis, headaches, nasal congestion Allergy and Immunology ROS: negative for - hives, postnasal drip Hematological and Lymphatic ROS: negative for - overt bleeding problems, bruising Respiratory ROS: negative for - cough, hemoptysis, wheezing Cardiovascular ROS: negative for - chest pain, dyspnea Gastrointestinal ROS: negative for - abdominal pain Endocrine ROS: negative for - hot flashes, polydipsia/polyuria Musculoskeletal ROS: negative for - joint pain, muscle pain Neurological ROS: negative for - gait disturbance, weakness Dermatological ROS: negative for pruritus, rash LABS AND OTHER DIAGNOSTIC TESTS REVIEWED No results found for: WBC, HGB, HCT, MCV, PLT No lab exists for component: LABALBU No results found for: WBC, HGB, HCT, MCV, PLT No results found for: CHOL No results found for: HDL No results found for: LDL] No results found for: TRIG EKG-sinus rhythm, normal intervals, no significant ST-T abnormalities. 07/04/2020 Lipids-total cholesterol 175, HDL more than 100, triglycerides 68, LDL 61. 07/04/[address] calcium scan-Agatston CAC score 0. 07/25/2020-[facility]-Normal left ventricular systolic function. No focal wall motion abnormalities. Normal left ventricular size. Normal left ventricular diastolic function. Ejection fraction is measured at 62 %. Mild enlargement of left atrium. Normal atrial septum. Saline contrast study performed without evidence of right to left shunt. Peak gradient of 15.0 mmHg. Mean gradient of 9.0 mmHg. Valve area of 1.63 cm2. Aortic cusps appear mildly sclerotic. 07/31/2020-Dr. Cuenca Lipids-total cholesterol 222, HDL 98, triglycerides 157, LDL 93. 03/26/2022 Echo-Normal left ventricular size. Mild left ventricular hypertrophy. Normal global left ventricular systolic function. Impaired diastolic relaxation Grade I. Ejection fraction approximately 65 %. Normal appearance of the mitral valve. No significant MR. Aortic valve appears mildly calcified. Mild aortic stenosis. V max 1.90 m/s. Mean gradient 7 mmHg. Valve area of 1.76 cm2. RVSP 20 mmHg. Trivialregurgitation in the tricuspid valve. Normal sinus rhythm. 08/13/2022 PHYSICAL EXAM Vitals BP 126/84 (BP Location: Left arm, Patient Position: Sitting) Pulse 98 Ht 162.6 cm (5' 4 ) Wt 71.2 kg (157 lb) SpO2 98% BMI 26.95 kg/m?? General appearance - alert, no distress, oriented to time, place, person Mental status - affect appropriate to mood Eyes - extraocular eye movements intact, no pallor Ears - external ears appear normal, hearing grossly normal Nose - normal and patent, no discharge Mouth - mucous membranes moist, tongue normal Neck - supple, no JVD Chest - clear to auscultation Heart - normal rate, regular rhythm, normal S1, S2, soft systolic murmur at base Abdomen - soft, nontender, nondistended, bowel sounds present Neurological - alert, oriented, normal speech, no gross motor deficits Musculoskeletal - no major deformity, no amputations Extremities - no pedal edema, no clubbing or cyanosis Skin - no rashes (on the exposed areas), no cyanosis ASSESSMENT Diagnoses and all orders for this visit: Mild aortic stenosis (Primary) Essential hypertension Family history of ischemic heart disease - CRP (cardiac risk); Future - Lipid panel; Future Hypercholesteremia - CRP (cardiac risk); Future - Lipid panel; Future PLAN/RECOMMENDATIONS 57 y.o. mild aortic stenosis (VERITO 1.7 from 08/13/2022 echo), hypertension, hypercholesterolemia, family history of coronary disease. - stable cardiovascular status. No active cardiovascular symptoms at present. - patient has family history of CAD in multiple family members. Her coronary risk factors include hypertension, dyslipidemia, mild obesity, family history. She does not have any major cardiovascular symptoms at present. Previous coronary calcium score 0. Patient was reassured about the results. Continue atorvastatin. Repeat lipid panel. Check HS CRP. -last echocardiogram reportedly showed mild aortic valve stenosis. Will do periodic, surveillance echocardiograms. Follow-up echocardiogram in July 2024 or sooner if necessary. May consider WALLACE in future to rule out bicuspid aortic valve if surface echocardiogram inadequate. - counseling was done for heart healthy diet, aerobic exercise at least 5 times a week, Medication compliance. More than 50% of the time was spent on counseling. - RTC 16-18 months or sooner if needed. All Hernandez MD 03/04/23 Voice recognition software was used to complete this document, therefore, residential instructor variances may occur. documented in this encounter Plan of Treatment Not on file documented as of this encounter Visit Diagnoses Diagnosis Mild aortic stenosis- Primary Aortic valve disorders Essential hypertension Unspecified essential hypertension Family history of ischemic heart disease Hypercholesteremia Pure hypercholesterolemia documented in this encounter Care Teams Vice President Education Relationship Specialty Start Date End Date Keegan Miranda MD [address] [facility] [address] [address] [place] [address] PCP - General Internal Medicine 01/17/22 All Hernandez MD [address] [address] Consulting Physician Cardiology 05/20/21 Klarissa Cortez NP [address] [address] (work) Nurse Practitioner Nurse Practitioner 11/12/21 documented as of this encounter
--- OUTSIDE RECORDS SUMMARY | 2024-09-19 01:45 | XMS_ITS | Encounter Summary ---
Author Organization [facility] Address [address] [place] [address] Phone Care Team Providers Care Field Checker Name Role Phone Erich Andrew MD Primary Care Prov ider All Hernandez MD Unavailable Klarissa Cortez [employer] Unavailable [phone]- [phone] Encounter Details Date Type Department Care Team (Late st Contact Info) Description 01/16/2022 Telephone [facility] Surgery [address] [facility] 5th [place] [address] [place] [address] Niles Parra Social History Tobacco Use Types Packs/Day Years [...] on file 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 documented in this encounter Plan of Treatment Not on file documented as of this encounter Visit Diagnoses Not on filedocumented in this encounter Care Teams Field Checker Relationship Specialty Start Date End Date Erich Andrew MD [address] [place] [address] PCP - General Family Medicine 01/05/20 01/16/22 All Hernandez MD [address] [address] Consulting Physician Cardiology 05/20/21 Klarissa Cortez NP [address] [address] Nurse Practitioner Nurse Practitioner 11/12/21 documented as of this encounter
--- OUTSIDE RECORDS SUMMARY | 2024-09-19 01:45 | XMS_ITS | Encounter Summary ---
Author Organization [facility] Address [address] [facility] [address] [place] [address] Care Team Providers Care Slab Worker Name Role Phone Erich Andrew MD Primary Care Prov ider All Hernandez MD Unavailable Encounter Details Date Type Department Care Team (Late st Contact Info) Description 06/08/2021 Orders Only [facility] Testing Site - [address] [place] [address] Jennifer Avila MD [address] [facility] [address] [address] Pre-procedure lab exam (Primary Dx) Social History Tobacco Use Types Packs/Day Years Used Date Smoking Tobacco: Former Cigarettes 0.5 06 01 007 2016 Smokeless Tobacco: Former Alcohol Use Standard Drinks/Week Comments Yes 0 (1 standard drink = 0.6 oz pur e alcohol) AUDIT-C Answer Date Recorded Q1: How often do you have a drink containing alc ohol? 2-4 times a month 05/31/2021 Q2: How many drinks containi ng alcohol do you have on a typical day when you are drinking? 1 or 2 05/31/2021 Q3: How often do you have si x or more drinks on one occasion? 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 Date of Px/chemo/treatment/placement/transfer 06/12/2021 ?? Testing site patient will be sent to: [facility] [place] ?? Date testing requested: 06/09/2021 ?? Testing: COVID-19 RNA ?? Is this the first COVID-19 test for this patient? Does the patient currently work in a healthcare facility with direct patient contact? No ?? Is the patient a resident of a congregate care or living setting? No ?? Is the patient ? No ?? Please select the performing region: [facility] documented in this encounter Miscellaneous Notes * Addendum Note - Britni Aden - 06/08/2021 11:09 AM CDTAddended by: BRITNI ADEN on: 06/09/2021 01:45 PM Modules accepted: Orders documented in this encounter Plan of Treatment Not on file documented as of this encounter Results * COVID-19 Coronavirus RNA Nasopharyngeal (06/09/2021 9:45 AM CDT) COVID-19 RNA Not Detected [facility] Comment: Interpretive Data Synonyms for this test include: PCR and NAAT . ??Testing performed by the [facility] Infectious Disease [facility]. The 2019-Novel Coronavirus Assay (COVID-19) Real Time RT-PCR assay is for in vitro diagnostic use under FDA emergency use authorization only. A negative RT-PCR result does not preclude infection with COVID-19 and should not be used as the sole basis for treatment or other patient management decisions. ??Additional sample types have been validated according to CLIA regulations. ?? Current Interpretive Data was last revised on October 04, 2020. First COVID-19 test? No [facility] Employeed in healthcare? No [facility] status? No [facility] Group care resident? No [facility] Hospitalized? No [facility] Is patient in ICU? No [facility] Symptomatic as defined by CDC? No [facility] Nasopharyngeal 06/09/2021 9: 45 AM CDT 06/09/2021 2:06 PM CDT Narrative [facility] - 06/09/2021 7:52 PM CDT What is the reason for testing?->Screening prior to scheduled procedure or surgery (batch) us Jennifer Avila MD LAB MICROBIOLOGY - GENERA L ORDERABLES Final Result [facility] [place] [address] documented in this encounter Visit Diagnoses Diagnosis Pre-procedure lab exam- Primary Pre-procedural laboratory examination Pre-procedure lab exam Pre-procedural laboratory examination documented in this encounter Care Teams Slab Worker Relationship Specialty Start Date End Date Erich Andrew MD [address] [place] [address] PCP - General Family Medicine 01/05/20 01/16/22 All Hernandez MD [address] [facility] [address] [place] [address] Consulting Physician Cardiology 05/20/21 documented as of this encounter
--- OUTSIDE RECORDS SUMMARY | 2024-09-19 01:45 | XMS_ITS | Encounter Summary ---
Author Organization [facility] Address [address] [address] Care Team Providers Care Manager Agriculture Name Role Phone All Hernandez MD Unavailable Klarissa Cortez NP Unavailable [phone] Keegan Miranda MD Primary Care Provider Reason for Visit * Reason Comments Follow-up Encounter Details Date Type Department Care Team (Late st Contact Info) Description 03/17/2022 9:15 AM CDT Office Visit [facility] Hand Surgery [facility] [address] [address] Jennifer Avila MD [address] [place] [address] [address] Trigger finger of right thumb (Primary [...] on file 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 FOLLOW UP VISIT Subjective CHIEF COMPLAINT She had concerns including Follow-up of the Left Thumb. HISTORY OF PRESENT ILLNESS The patient is a 56-year-old ygsnj-eueq-bqnheoig female who presents today for follow-up of her right trigger thumb. At her last visit with me she did undergo a corticosteroid injection and notes that approximately 1 week later the triggering in the right thumb completely resolved. She denies any paresthesias in her right upper extremity. She is extremely happy with the results. MEDICATIONS She has a current medication list which includes the following prescription(s): atorvastatin, biotin, butalbital-acetaminophen, calcium-magnesium, candesartan, cholecalciferol, cyanocobalamin, estradiol, hydrochlorothiazide, dnvyroby-gua-nfkz-fa-lutein, naproxen, nitrofurantoin, fish oil, oxycodone, phentermine, phentermine, [...] palpated at the right thumb A1 sheba without palpable triggering. There is symmetric range of motion of the MP and IP joints of the fingers and thumb. She is able to make a full fist and touch the fingertips down to the palm. Sensation is intact to light touch along the median, radial and ulnar nerve distribution. REVIEW OF X-RAYS/STUDIES/LABS none Assessment/Plan There are no diagnoses linked to this encounter. PLAN This is a 56-year-old uxupp-mlks-vgcijgqz female who presents today for follow- up of a right trigger thumb. I reviewed with [...] symptoms, increased blood sugar, and future surgery. At this point the patient's trigger thumb has completely resolved with a corticosteroid injection. She will follow up with me on an as-needed basis. Jennifer Avila MD documented in this encounter Plan of Treatment Not on file documented as of this encounter Visit Diagnoses Diagnosis Trigger finger of right thumb- Primary documented in this encounter Care Teams Manager Agriculture Relationship Specialty Start Date End Date Keegan Miranda MD [address] [facility] [address] [place] [address] PCP - General Internal Medicine 01/17/22 All Hernandez MD [address] [facility] [address] [place] [address] Consulting Physician Cardiology 05/20/21 Klarissa Cortez NP [address] [facility] [address] [place] [address] Nurse Practitioner Nurse Practitioner 11/12/21 documented as of this encounter
--- OUTSIDE RECORDS SUMMARY | 2024-09-19 01:45 | XMS_ITS | Encounter Summary ---
Author Organization [facility] Address [address] [place] [address] Care Team Providers Care Rn Nursery Name Role Phone Erich Andrew MD Primary Care Prov ider All Hernandez MD Unavailable Reason for Visit * Diagnostic Imaging (Routine) - Closed Specialty Diagnoses / Procedures Referred By Contac t Referred To Contact Procedures Breast Imaging Screening Outside Reference Amy Vora NP Phone: tel: fax: Referral ID Status Reason Start Date Expiration Date Visits Re quested Visits Authorized [id number] Closed 12/30/2021 01/29/2023 1 1 Encounter Details Date Type Department Care Team (Latest Contact Info) Description 10/25/2021 - 10/25/2021 11:59 PM EGG BREAKER Hospital Encounter [facility] Radiology [facility] [address] [place] [address] Discharge Disposition: Discharge to home or self [...] on file 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 Gender Identity Not on file Sexual Orientation Not on file documented as of this encounter Medications at Time of Discharge [...] tablet (25 mg total) by mouth daily ajsbgfps-baf-lhcg -FA-lutein 8 mg iron-400 mcg-300 mcg tablet Take by mouth daily naproxen (NAPROSYN) 500 mg tablet Take 1 tablet (500 mg total) by mouth as needed omega 0-tnv-ins-fish oil (Fish Oil) 100-160-1,000 mg capsule Take [...] nightly 07/06/2024 documented as of this encounter Discharge Disposition Disposition Code Departure Means Destination Discharge to home or self care documented in this encounter Plan of Treatment Not on file documented as of this encounter Procedures Procedure Name Priority Date/Time Associated Diagnosis Comments BREAST IMAGING MG SCREENING OUTSIDE REFERENCE Routine 10/25/2021 12:00 AM EGG BREAKER documented in this encounter Results * Breast Imaging Screening Outside Reference (10/25/2021 12:00 AM EGG BREAKER) Impressions [facility] - 12/30/2021 1:30 PM CDT These images are for Reference purposes only and have not been reviewed by [facility] Radiology. ??There will be no report generated by a [facility] Radiologist. Narrative [facility] - 12/30/2021 1:30 PM CDT EXAMINATION: ??Images For Reference Purposes Only us Amy Vora WEB WORKER IMG MAMMO PROCEDURES Fin al Result [facility] documented in this encounter Visit Diagnoses Not on filedocumented in this encounter Care Teams Rn Nursery Relationship Specialty Start Date End Date Erich Andrew MD [address] [place] [address] PCP - General Family Medicine 01/05/20 01/16/22 All Hernandez MD [address] [facility] [address] [place] [address] Consulting Physician Cardiology 05/20/21 documented as of this encounter
--- OUTSIDE RECORDS SUMMARY | 2024-09-19 01:45 | XMS_ITS | Clinical Summary ---
Author Organization [facility] [place] Address [facility] [place] [address] Care Team Providers Care Menagerie Caretaker Name Role Phone Eder Sifuentes MD Unavailable Klarissa Cortez NP Unavailable [phone] Keegan Miranda MD Primary Care Provider [phone] Allergies No known active allergies Medications hydroCHLOROthia [...] mcg total) by mouth daily Active omega 6-gjy-mxv-fish oil (Fish Oil) 100-160-1,000 mg capsule Take 1 tablet by mouth daily Active calcium-magnesi um 300-300 mg tablet Take 1 tablet by mouth daily Active mswgnool-yiy-mu qx-TO-yqhguq 8 mg iron-400 mcg-300 mcg tablet Take by mouth daily Active nitrofurantoin (MACRODANTIN) 50 mg capsule Active candesartan (ATACAND) 16 mg tablet 01/07/2022 Active atorvastatin (LIPITOR) 20 mg tablet TAKE 1 TABLET NIGHTLY 30 tablet 05/26/2024 Active Active Problems Problem Noted Date Diagnosed Date Mass of breast 01/18/2022 Carpal tunnel syndrome on right 05/20/2021 Overview (05/20/2021): Added automatically from request for surgery [id number] Aortic valve stenosis, mild 10/08/2020 Migraine headache 06/25/2016 Stenosis of intervertebral foramina 06/25/2016 Cervicalgia 06/24/2016 Encounters Date Type Department Care Team Description 09/02/2024 8:15 AM PRODUCT SAFETY PROFESSIONAL Ancillary Procedure [facility] Cardiology [address] [place] [address] Nonrheumatic aortic valve stenosis 07/06/2024 11:00 AM PRODUCT SAFETY PROFESSIONAL Office Visit [facility] Cardiology [address] [place] [phone] Eder Sifuentes MD Nonrheumatic aortic valve stenosis (Primary Dx); Essential hypertension; Family history of ischemic heart disease from Last 3 Months Surgical History Surgery Date Site/Laterality Comments SC DILATION & CURETTAGE DX&/ THER NONOBSTETRIC Dilation And Curettage - (Added by Conv) SC LAPAROSCOPY SLING OPERATI ON STRESS INCONT Laparoscopic Sling Operation For Stress Incontinence - (Added by Conv) ABLATION UTERINE KIDNEY STONE SURGERY COLONOSCOPY Medical History Medical History Date Comments Heart murmur Hyperlipidemia Hypertension hctz Headache Wears partial dentures NON REMOV ABLE UPPER FRONT 3 TEETH. Kidney stones Family History Medical History Relation Name Comments Hypothyroidism Daughter Family histor y of hypothyroidism - (Added by TW Conv) Heart attack Father Lung cancer Mother Heart disease Other 1 Heart Disease - (Added by TW Conv) Cancer Other 2 Cancer - (Added by TW Conv) Relation Name Status Comments Daughter Father Mother Other 1 Other 2 Social History Tobacco Use Types Packs/Day Years Used Date Smoking Tobacco: Former Cigarettes 0.5 10 2 007 - 2016 Smokeless Tobacco: Former Tobacco Cessation:Counseling [...] on file Legal Sex Female 8:33 AM PRODUCT SAFETY PROFESSIONAL Gender Identity Not on file Sexual Orientation Not on file Obstetrics History Last Filed Vital Signs Vital Sign Reading Time Taken Comments Blood Pressure 122/82 07/06/2024 11:36 AM PRODUCT SAFETY PROFESSIONAL Pulse 96 07/06/2024 11:36 AM PRODUCT SAFETY PROFESSIONAL Temperature 36.3 ??C (97.3 ??F) 06/12/2021 1 1:01 AM CDT Respiratory Rate 16 06/12/2021 11:3 0 AM CDT Oxygen Saturation 96% 07/06/2024 11: 36 AM PRODUCT SAFETY PROFESSIONAL Inhaled Oxygen Concentration - - Weight 60.7 kg (133 lb 12.8 oz) 024 11:36 AM PRODUCT SAFETY PROFESSIONAL Height 162.6 cm (5' 4 ) 07/06/2024 11:3 6 AM PRODUCT SAFETY PROFESSIONAL Body Mass Index 22.97 07/06/2024 11:36 AM PRODUCT SAFETY PROFESSIONAL Plan of Treatment Health Maintenance Due Date Last Done Comments Breast Cancer Screening-Mammogram 1965 Cervical Cancer Screening 1965 Colon Cancer Screening-Colonoscopy 1965 Depression Screening 1965 Hepatitis C Screening 1967 DTaP/Tdap/Td Vaccine (1 - Tdap) 1978 Hepatitis B Screening 1985 Regular Well Visit/Exam 18-64 1985 Zoster Vaccine (1 of 2) 2017 Covid-19 Vaccine (3 - 2023-2 5 season) 2024 10/25/2020, 10/05/2020 Influenza Vaccine (#1) 2024 Pneumococcal vaccine <65 Aged Out No longer eligible based on patient's age to complete this topic Procedures Procedure Name Priority Date/Time Associated Diagnosis Comments TRANSTHORACIC ECHO (TTE) COMPLETE W DOPPLER/CF WO CONTRAST Routine 09/02/2024 8:32 AM PRODUCT SAFETY PROFESSIONAL Nonrheumatic aortic valve stenosis POCT LIPID PANEL Routine 07/06/2024 2:13 PM PRODUCT SAFETY PROFESSIONAL Essential hypertension from Last 3 Months Results * TRANSTHORACIC ECHO (TTE) COMPLETE W DOPPLER/CF WO CONTRAST (09/02/2024 8:32 AM PRODUCT SAFETY PROFESSIONAL) Anatomical Region Laterality Modality Ultrasound 09/02/2024 7:59 AM PRODUCT SAFETY PROFESSIONAL Narrative 09/02/2024 9:52 [address] [facility] Medical Group Cardiology [address] [facility] [address], [place] [address] [address] [facility] [address], [place] [address] P:[phone] P:[phone] Echocardiographic Report Patient Name: CAROLE LEWIS E : 1965 Study Date: 09/02/2024 7:59:27 AM Gender: F Tech: Location: [facility] Provider: EDER SIFUENTES ?Height(Cm): 163 BSA: 1.65 [...] FINDINGS: Interpretation Site: [facility] Left Ventricle: Normal left ventricular size. Mild [...] By: Adilia Cobos MD 09/02/2024 9:51:44 AM PRODUCT SAFETY PROFESSIONAL Procedure Note Adilia Cobos MD - 09/02/2024 [facility] Medical Group Cardiology [address] [facility] [address] [address] [address] [facility] [address], [place], [place] [address] P:[phone] P:[phone] Echocardiographic Report Patient Name: CAROLE LEWIS E : 1965 Study Date: 09/02/2024 7:59:27 AM Gender: F Tech: Location: [place] Ref Provider: EDER SIFUENTES Height(Cm): 163 BSA: 1.65 [...] FINDINGS: Interpretation Site: [facility]. Left Ventricle: Normal left ventricular size. Mild [...] By: Adilia Cobos MD 09/02/2024 9:51:44 AM PRODUCT SAFETY PROFESSIONAL Eder Sifuentes MD CV ECHO PROCEDURES Final Result * POCT lipid panel (07/06/2024 2:13 PM PRODUCT SAFETY PROFESSIONAL) Cholesterol, POC 171 mg/dL Comment:GLU = 78 HDL, POC 79 mg/dL Triglycerides, POC 89 mg/dL LDL Cholesterol POC 74 mg/dL Chol/HDL Ratio, POC 0.9 Non-HDL Cholesterol, POC 92 mg/dL Cholesterol Total, POC 171 mg/dL Capillary blood 07/06/2024 2 :13 PM PRODUCT SAFETY PROFESSIONAL Eder Sifuentes MD POINT OF CARE TEST ORDERABLES Fi nal Result from Last 3 Months Insurance [facility] HMO/PPO Address: [facility] [id number] [place] [id number] [employer] [facility] PPO Care Teams Menagerie Caretaker Relationship Specialty Start Date End Date Keegan Miranda MD [address] [facility] [address] [place] [address] PCP - General Internal Medicine 01/17/22 Eder Sifuentes MD [address] [facility] [address] [place] [address] Consulting Physician Cardiology 05/20/21 Klarissa Cortez NP [address] [facility] [address] [place] [address] Nurse Practitioner Nurse Practitioner 11/12/21
--- OUTSIDE RECORDS SUMMARY | 2024-09-19 01:45 | XMS_ITS | Encounter Summary ---
Author Organization [facility] Address [address] [facility] [address] [place] [address] Care Team Providers Care Manager Orange Name Role Phone All Sifuentes MD Unavailable Klarissa Cortez NP Unavailable [phone] Keegan Miranda MD Primary Care Provider [phone] Reason for Visit * Cardiology (Routine) - Closed Specialty Diagnoses / Procedures Referred By Josephine olivares Referred To Contact Diagnoses Mild aortic stenosis Procedures Transthoracic Echo (TTE) Complete W Doppler/CF All Sifuentes MD [address] [address] Phone: tel: fax: [facility] Referral ID Status Reason Start Date Expiration Date Visits Re quested Visits Authorized [id number] Closed 08/06/2022 09/20/2022 1 1 Encounter Details Date Type Department Care Team (Latest Contact Info) Description 08/13/2022 1:00 PM DIAZO TECHNICIAN Ancillary Procedure [facility] Cardiology [address] [facility] [address] [place] [address] Mild aortic stenosis Social History Tobacco Use Types Packs/Day [...] on file Legal Sex Female 8:33 AM DIAZO TECHNICIAN Gender Identity Not on file Sexual Orientation Not on file documented as of this encounter Plan of Treatment Not on file documented as of this encounter Procedures Procedure Name Priority Date/Time Associated Diagnosis Comments TRANSTHORACIC ECHO (TTE) COMPLETE W DOPPLER/CF WO CONTRAST Routine 08/13/2022 1:49 PM DIAZO TECHNICIAN Mild aortic stenosis documented in this encounter Results * TRANSTHORACIC ECHO (TTE) COMPLETE W DOPPLER/CF WO CONTRAST (08/13/2022 1:49 PM DIAZO TECHNICIAN) Anatomical Region Laterality Modality Ultrasound 08/13/2022 11:5 9 AM DIAZO TECHNICIAN Narrative 08/13/2022 3:35 PM DIAZO TECHNICIAN [facility] Cardiology [address] [facility] [address], [place] [address] [address] [facility] [address] [address] P:[phone] P:[phone] Echocardiographic Report Patient Name: LYNNE LEWIS : 1965 Study Date: 08/13/2022 11:59:08 AM Gender: F Tech: Location: [place] Ref.Provider: ALL SIFUENTES Height(Cm): 163 BSA: 1.76 Weight(Kg): 71.21 Heart Rate: 80 BP: 112/76 Quality: Good Order Provider: ALL SIFUENTES Procedures: Echocardiographic Report: Transthoracic echocardiogram with complete 2D, M-Mode, and color Doppler examination. Indications: Aortic Stenosis. Measurements: 2D/M Mode ?Doppler ? Measurement ?Value ?Normal Range ? Measurement ?Value ?Normal Range ? EF Mod ? 69 ?VERITO ?1.76 ? [ 2.00 - 4.00 ] cm2 ? EF MM ?70 ? [ 55 - 70 ] % ?AV Mean PG ? 7 ?mmHg ? LVIDd MM ? 4.80 ? [ 3.90 - 5.30 ] cm ? AV Peak Guilherme ?1.97 ? m/s ? LVIDs MM ? 2.92 ? [ 2.30 - 3.90 ] cm ? AV Peak PG ? 16 ? mmHg ? LVPWd MM ? 0.98 ? [ 0.60 - 1.00 ] cm ? AV VTI ? 0.32 ? cm ? IVSd MM ?1.20 ? [ 0.60 - 0.90 ] cm ? LVOT Diam ?2.08 ? [ 1.70 - 2.10 ] cm ? LA Dimension MM ?4.20 ? [ 2.70 - 3.80 ] cm ? LVOT Peak Guilherme ?1.02 ? [ 0.70 - 1.10 ] m/s ? AoR Diam MM ?3.15 ? [ 2.60 - 3.70 ] cm ? LVOT VTI ? 0.20 ? cm ? LA Volume Index ?17.00 ?[ 16.00 - 28.00 ] cc/m2 ?MV E Peak Guilherme ?0.71 ? [ 0.60 - 1.30 ] m/s ? ACS MM ? 1.80 ? cm ? MV A Peak Guilherme ?0.99 ? [ 0.40 - 0.80 ] m/s ? MV Decel Time ?173 ?[ 150 - 200 ] msec ? PV Peak Guilherme ?0.89 ? [ 0.40 - 0.80 ] m/s ? TR Peak Guilherme ?1.74 ? [ 0.40 - 0.80 ] m/s ? TR Peak PG ? 12 ? mmHg ? RVSP ? 20.00 ?mmHg ? E' ? 0.13 ? E/E' ? 5 ? - Findings: Interpretation Site: Exam was interpreted at [facility]. Left Ventricle: Normal left ventricular size. Mild concentric left ventricular hypertrophy. Normal global left ventricular systolic function. Impaired diastolic relaxation Grade I. Ejection fraction is visually estimated at 65 %. Right Ventricle: Normal right ventricular size. Normal right ventricular systolic function. Left Atrium: The left atrium is normal in size. Right Atrium: The right atrium is normal in size. Atrial Septum: Normal atrial septum. Mitral Valve: Normal appearance of the mitral valve. Aortic Valve: Mild aortic stenosis. Peak Velocity of 1.90 m/s. Peak gradient of 16.0 mmHg. Mean gradient of 7.0 mmHg. Valve area of 1.76 cm2. Aortic cusps appear mildly calcified. Tricuspid Valve: Normal appearance of the tricuspid valve. Estimated peak RVSP is 20 mmHg. Trivial regurgitation in the tricuspid valve. Pulmonic Valve: Normal appearance of the pulmonic valve. Pericardium: Normal pericardium with no significant pericardial effusion. Aorta: Normal aortic root. IVC: Normal size and normal respiratory collapse consistent with normal right atrial pressure (<5 mmHg). Conclusions: Normal left ventricular size. Mild left ventricular hypertrophy. Normal global left ventricular systolic function. Impaired diastolic relaxation Grade I. Ejection fraction approximately 65 %. Normal appearance of the mitral valve. No significant MR. Aortic valve appears mildly calcified. Mild aortic stenosis. V max 1.90 m/s. Mean gradient 7 mmHg. Valve area of 1.76 cm2. RVSP 20 mmHg. Trivial regurgitation in the tricuspid valve. Normal sinus rhythm. Electronically Signed By: All Sifuentes MD, [facility] 2022-08-13 15:35:27 DIAZO TECHNICIAN CC: CC: Procedure Note All Sifuentes MD - 08/13/2022 [facility] Cardiology [address] [facility] [address], [place] [address] [address] [facility] [address], [place] [address] P:[phone] P:[phone] Echocardiographic Report Patient Name: LYNNE LEWISPatient ID: [id number] : [id number] Date: 08/13/2022 11:59:08 AM Gender: FAccession #: [id number] Tech: GMLocation: [place] Ref.Provider: KOUL, DEEPAKHeight(Cm): 163 BSA: 1.76Weight(Kg): 71.21 Heart Rate: 80BP: 112/76 Quality: GoodOrder Provider: ALL SIFUENTES Procedures: Echocardiographic Report: Transthoracic echocardiogram with complete 2D, M-Mode, and color Dopplerexamination. Indications: Aortic Stenosis. Measurements: 2D/M Mode Doppler Measurement Value Normal Range MeasurementValue Normal Range EF Mod 69 AVA1.76 [ 2.00 - 4.00 ] cm2 EF MM 70 [ 55 - 70 ] % AV Mean PG 7mmHg LVIDd MM 4.80 [ 3.90 - 5.30 ] cm AV Peak Vel1.97 m/s LVIDs MM 2.92 [ 2.30 - 3.90 ] cm AV Peak PG 16mmHg LVPWd MM 0.98 [ 0.60 - 1.00 ] cm AV VTI0.32 cm IVSd MM 1.20 [ 0.60 - 0.90 ] cm LVOT Diam2.08 [ 1.70 - 2.10 ] cm LA Dimension MM 4.20 [ 2.70 - 3.80 ] cm LVOT Peak Vel1.02 [ 0.70 - 1.10 ] m/s AoR Diam MM 3.15 [ 2.60 - 3.70 ] cm LVOT VTI0.20 cm LA Volume Index 17.00 [ 16.00 - 28.00 ] cc/m2 MV E Peak Vel0.71 [ 0.60 - 1.30 ] m/s ACS MM 1.80 cm MV A Peak Vel0.99 [ 0.40 - 0.80 ] m/s MV Decel Ecfa769 [ 150 - 200 ] msec PV Peak Vel0.89 [ 0.40 - 0.80 ] m/s TR Peak Vel1.74 [ 0.40 - 0.80 ] m/s TR Peak PG 12mmHg RVSP20.00 mmHg E'0.13 E/E' 5 - Findings: Interpretation Site: Exam was interpreted at [facility]. Left Ventricle: Normal left ventricular size. Mild concentric left ventricularhypertrophy. Normal global left ventricular systolic function. Impaired diastolic relaxation Grade I.Ejection fraction is visually estimated at 65 %. Right Ventricle: Normal right ventricular size. Normal right ventricular systolicfunction. Left Atrium: The left atrium is normal in size. Right Atrium: The right atrium is normal in size. Atrial Septum: Normal atrial septum. Mitral Valve: Normal appearance of the mitral valve. Aortic Valve: Mild aortic stenosis. Peak Velocity of 1.90 m/s. Peak gradient of 16.0mmHg. Mean gradient of 7.0 mmHg. Valve area of 1.76 cm2. Aortic cusps appear mildlycalcified. Tricuspid Valve: Normal appearance of the tricuspid valve. Estimated peak RVSP is 20 mmHg.Trivial regurgitation in the tricuspid valve. Pulmonic Valve: Normal appearance of the pulmonic valve. Pericardium: Normal pericardium with no significant pericardial effusion. Aorta: Normal aortic root. IVC: Normal size and normal respiratory collapse consistent with normal rightatrial pressure (<5 mmHg). Conclusions: Normal left ventricular size. Mild left ventricular hypertrophy. Normalglobal left ventricular systolic function. Impaired diastolic relaxation Grade I.Ejection fraction approximately 65 %. Normal appearance of the mitral valve. No significant MR. Aortic valve appears mildly calcified. Mild aortic stenosis. V max 1.90m/s. Mean gradient 7 mmHg. Valve area of 1.76 cm2. RVSP 20 mmHg. Trivial regurgitation in the tricuspid valve. Normal sinus rhythm. Electronically Signed By: All Sifuentes MD, [facility] 2022-08-13 15:35:27 DIAZO TECHNICIAN CC: CC: us All Sifuentes MD CV ECHO PROCEDURES Final Result documented in this encounter Visit Diagnoses Diagnosis Mild aortic stenosis Aortic valve disorders documented in this encounter Care Teams Manager Orange Relationship Specialty Start Date End Date Keegan Miranda MD [address] [place] [address] PCP - General Internal Medicine 01/17/22 All Sifuentes MD [address] [facility] [address] [place] [address] Consulting Physician Cardiology 05/20/21 Klarissa Cortez NP [address] [facility] [address] [place] [address] Nurse Practitioner Nurse Practitioner 11/12/21 documented as of this encounter
--- OUTSIDE RECORDS SUMMARY | 2024-09-19 01:45 | XMS_ITS | Encounter Summary ---
Author Organization [facility] Address [address] [place] [address] Care Team Providers Care Cage Manager Name Role Phone All Hernandez MD Unavailable Klarissa Cortez NP Unavailable [phone] Keegan Miranda MD Primary Care Provider [phone] Reason for Referral * Diagnostic Imaging (Routine) - Closed Specialty Diagnoses / Procedures Referred By Josephine olivares Referred To Contact Diagnoses Right wrist pain Procedures XR Wrist Right 3 or More Views Jennifer Avila MD Phone: tel: fax: [address] [phone] Referral ID Status Reason Start Date Expiration Date Visits Re quested Visits Authorized [id number] Closed 10/08/2022 11/07/2023 1 1 US PICKER Reason for Visit * Diagnostic Imaging (Routine) - Closed Specialty Diagnoses / Procedures Referred By Josephine loivares Referred To Contact Diagnoses Right wrist pain Procedures XR Wrist Right 3 or More Views Jennifer Avila MD Phone: tel: fax: [address] [phone] Referral ID Status Reason Start Date Expiration Date Visits Re quested Visits Authorized [id number] Closed 10/08/2022 11/07/2023 1 1 Encounter Details Date Type Department Care Team (Latest Contact Info) Description 10/13/2022 11:31 AM CITRUS PICKER - 10/13/2022 11:59 PM CITRUS PICKER Hospital Encounter [facility] 1 DIAG IMG [address] [place] [address] Right wrist pain Discharge Disposition: Discharge to home or self [...] on file Legal Sex Female 8:33 AM CITRUS PICKER Gender Identity Not on file Sexual Orientation Not on file documented as of this encounter Medications at Time of Discharge butalbitaL-acetam inophen 50-325 mg tablet Take 1 tablet by mouth daily calcium-magnesium 300-300 mg tablet Take 1 tablet by mouth daily candesartan (ATACAND) 16 mg tablet 01/07/2022 cholecalciferol (VITAMIN D-3) 5,000 unit capsule Take 1 capsule (5,000 Units total) by mouth daily cyanocobalamin (Vitamin B-12) 100 mcg tabletIndications :Prevention of Vitamin B12 Deficiency Take 1 tablet (100 mcg total) by mouth daily hydroCHLOROthiazi de (HYDRODIURIL) 25 mg tablet Take 1 tablet (25 mg total) by mouth daily acwzhgaa-bah-qiiq -FA-lutein 8 mg iron-400 mcg-300 mcg tablet Take by mouth daily naproxen (NAPROSYN) 500 mg tablet Take 1 tablet (500 mg total) by mouth as needed nitrofurantoin (MACRODANTIN) 50 mg capsule omega 9-szo-djv-fish oil (Fish Oil) 100-160-1,000 mg capsule Take 1 tablet by mouth daily atorvastatin (LIPITOR) 20 mg tablet Take 1 tablet (20 mg total) by mouth nightly 90 tablet 3 03/26/2022 03/05/2023 biotin 5 mg capsule Take 1 capsule (1 tablet total) by mouth daily 07/06/2024 estradioL (ESTRACE) 1 mg tablet Take 1 mg by mouth nightly 07/06/2024 oxyCODONE (ROXICODONE) 5 mg immediate release tabletIndications :Pain Take 1 tablet (5 mg total) by mouth every 4 (four) hours as needed for pain 10 tablet 06/12/2021 07/06/2024 phentermine (ADIPEX-P) 37.5 mg tablet 07/06/2024 phentermine (ADIPEX-P) 37.5 mg tablet 01/08/2022 07/06/2024 progesterone (PROMETRIUM) 100 mg capsule Take 100 mg by mouth nightly 07/06/2024 documented as of this encounter Discharge Disposition Disposition Code Departure Means Destination Discharge to home or self care documented in this encounter Plan of Treatment Not on file documented as of this encounter Procedures Procedure Name Priority Date/Time Associated Diagnosis Comments XR WRIST RIGHT 3 OR MORE VIEWS Schedule Routine, Read Routine (OP Routine) 10/13/2022 11:34 AM CITRUS PICKER Right wrist pain documented in this encounter Results * XR Wrist Right 3 or More Views (10/13/2022 11:34 AM CITRUS PICKER) Anatomical Region Laterality Modality Upper Extremities, Wrist Right Compute d Radiography 10/13/2022 2:05 PM CITRUS PICKER Narrative 10/13/2022 2:06 PM CITRUS PICKER EXAM DESCRIPTION: XR WRIST RIGHT 3 OR [...] PM T: ??10/13/2022 2:06 PM Report ID: [id number] [place] Location: ??[id number] Procedure Note Tyler Dumont MD - 10/13/2022 [...] Tyler Dumont M.D. MF: MAGDA Report ID: [id number] [place] Location: [id number] us Jennifer Avila MD IMG XR PROCEDURES Final R esult documented in this encounter Visit Diagnoses Diagnosis Right wrist pain Pain in joint, forearm documented in this encounter Care Teams Cage Manager Relationship Specialty Start Date End Date Keegan Miranda MD [address] [place] [address] PCP - General Internal Medicine 01/17/22 All Hernandez MD [address] [place] [address] Consulting Physician Cardiology 05/20/21 Klarissa Cortez NP [address] [place] [address] Nurse Practitioner Nurse Practitioner 11/12/21 documented as of this encounter
--- OUTSIDE RECORDS SUMMARY | 2024-09-19 01:45 | XMS_ITS | Encounter Summary ---
Author Organization [facility] Healthcare Address [address] [place] [address] Care Team Providers Care Liquor Bridge Operator Helper Name Role Phone All Sifuentes MD Unavailable Klarissa Cortez NP Unavailable [phone] Keegan Miranda MD Primary Care Provider Reason for Referral * Cardiology (Routine) - Closed Specialty Diagnoses / [facility]erred To Contact Diagnoses Nonrheumatic aortic valve stenosis Procedures Transthoracic Echo (TTE) Complete W Doppler/CF All Sifuentes MD [address] [address] Phone: tel: fax: [facility] Cardiology [address] [facility] [address] [place] [address] Phone: tel: fax: Referral ID Status Reason Start Date Expiration Date Visits Re quested Visits Authorized [id number] Closed 07/06/2024 08/05/2025 1 1 H SCIENCE TECHNICAL OFFICER Reason for Visit * Reason Comments Follow-up 16 mo f/u Mild aortic stenosis Encounter Details Date Type Department Care Team (Late st Contact Info) Description 07/06/2024 11:00 AM EARTH SCIENCE TECHNICAL OFFICER Office Visit [facility] Cardiology [address] [place] [address] All Sifuentes MD [address] [facility] [place] [address] Nonrheumatic aortic valve stenosis (Primary Dx); Essential hypertension; Family history of ischemic heart disease Social History Tobacco Use Types Packs/Day Years [...] on file Legal Sex Female 8:33 AM EARTH SCIENCE TECHNICAL OFFICER Gender Identity Not on file Sexual Orientation Not on file documented as of this encounter Last Filed Vital Signs Vital Sign Reading Time Taken Comments Blood Pressure 122/82 07/06/2024 11:36 AM EARTH SCIENCE TECHNICAL OFFICER Pulse 96 07/06/2024 11:36 AM EARTH SCIENCE TECHNICAL OFFICER Temperature - - Respiratory Rate - - Oxygen Saturation 96% 07/06/2024 11: 36 AM EARTH SCIENCE TECHNICAL OFFICER Inhaled Oxygen Concentration - - Weight 60.7 kg (133 lb 12.8 oz) 024 11:36 AM EARTH SCIENCE TECHNICAL OFFICER Height 162.6 cm (5' 4 ) 07/06/2024 11:3 6 AM EARTH SCIENCE TECHNICAL OFFICER Body Mass Index 22.97 07/06/2024 11:36 AM EARTH SCIENCE TECHNICAL OFFICER documented in this encounter Progress Notes * All Sifuentes MD - 07/06/2024 11:00 AM CST [facility] 07/06/2024 CHIEF COMPLAINT Chief Complaint Patient presents with Follow-up 16 mo f/u Mild aortic stenosis HPI Lynne Quiles is a 58 y.o. female with hypertension, dyslipidemia, obesity, family history of coronary disease 07/04/2020 initial evaluation-patient is here for cardiovascular evaluation. Patient gives family history of coronary disease in multiple family members including her father and the family from her father's side. She states that her father had fatal [place] at age 54. Patient is a portion [...] dizziness or syncope. Reports compliance with statin. 07/06/2024-on the follow-up visit today, patient denies any symptoms of chest pain, shortness breath, dizziness or syncope. She is physically active without any major limitations. 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 Compliant with statin. MEDICAL HISTORY she has a [...] Dispense Refill atorvastatin (LIPITOR) 20 mg tablet TAKE 1 TABLET NIGHTLY 30 tablet 0 butalbitaL-acetaminophen 50-325 mg tablet Take 1 tablet [...] tablet (25 mg total) by mouth daily iyxtgxyl-zzr-dsny-FA-lutein 8 mg iron-400 mcg-300 mcg tablet Take by mouth daily naproxen (NAPROSYN) 500 mg tablet Take 1 tablet (500 mg total) by mouth as needed nitrofurantoin (MACRODANTIN) 50 mg capsule omega 9-ysq-bog-fish oil (Fish Oil) 100-160-1,000 mg capsule Take 1 tablet by mouth daily No current facility-administered medications for this visit. [...] DIAGNOSTIC TESTS REVIEWED No results found for: WBC , HGB , HCT , MCV , PLT No lab exists for component: LABALBU No results found for: WBC , HGB , HCT , MCV , PLT No results found for: CHOL No results found for: HDL No results found for: LDL ] No results found for: TRIG EKG-sinus rhythm, normal intervals, no significant ST-T abnormalities. 07/04/2020 Lipids-total cholesterol 175, HDL more than 100, triglycerides 68, LDL 61. 07/04/[address] calcium scan-Agatston CAC score 0. 07/25/2020-[facility]-Normal left ventricular systolic [...] the tricuspid valve. Normal sinus rhythm. 08/13/2022 Coronary calcium score-0. 02/19/2024; [facility] Lipids-total cholesterol 192, HDL 84, triglycerides 324, LDL 59. 03/03/2023 PHYSICAL EXAM Vitals BP 122/82 (BP Location: Left arm, Patient Position: Sitting) Pulse 96 Ht 162.6 cm (5' 4 ) Wt 60.7 kg (133 lb 12.8 oz) SpO2 96% BMI 22.97 kg/m?? General appearance - alert, no distress, [...] normal rate, regular rhythm, normal S1, S2, systolic murmur at base Abdomen - soft, nontender Neurological - alert, oriented, normal speech, no gross motor deficits Musculoskeletal - no major deformity, no amputations Extremities - no pedal edema, no clubbing or cyanosis Skin - no rashes (on the exposed areas), no cyanosis ASSESSMENT Diagnoses and all orders for this visit: Nonrheumatic aortic valve stenosis (Primary) - Transthoracic Echo (TTE) Complete W Doppler/CF; Future Essential hypertension Family history of ischemic heart disease PLAN/RECOMMENDATIONS 58 y.o. mild aortic stenosis (VERITO 1.7 from 08/13/2022 echo), hypertension, hypercholesterolemia, family history of coronary disease. - stable cardiovascular status. No active cardiovascular symptoms at present. - patient has family history of CAD in multiple family members. Her coronary risk factors include hypertension, dyslipidemia, mild obesity, family history. She does not have any major cardiovascular symptoms at present. Recent coronary calcium score from 02/19/2024 is 0. Patient was reassured aboutthe results. Continue atorvastatin. -last echocardiogram reportedly showed mild aortic valve stenosis. Repeat echo with Doppler to check for progression of aortic stenosis. May consider WALLACE in future to rule out bicuspid aortic valve if surface echocardiogram inadequate. - counseling was done for heart healthy diet, aerobic exercise at least 5 times a week, Medication compliance. More than 50% of the time was spent on counseling. - RTC 12-18 months or sooner if needed. All Sifuentes MD 07/06/24 Voice recognition software was used to complete this document, therefore, candy cutter machine variances may occur. H SCIENCE TECHNICAL OFFICER documented in this encounter Miscellaneous Notes * Addendum Note - Colleen Obrien MA - 07/06/2024 11:00 AM CSTAddended by: COLLEEN OBRIEN on: 07/18/2024 02:15 PM Modules accepted: Orders H SCIENCE TECHNICAL OFFICER documented in this encounter Plan of Treatment Not on file documented as of this encounter Procedures Procedure Name Priority Date/Time Associated Diagnosis Comments POCT LIPID PANEL Routine 07/06/2024 2:13 PM EARTH SCIENCE TECHNICAL OFFICER Essential hypertension documented in this encounter Results * TRANSTHORACIC ECHO (TTE) COMPLETE W DOPPLER/CF WO CONTRAST (09/02/2024 8:32 AM EARTH SCIENCE TECHNICAL OFFICER) Anatomical Region Laterality Modality Ultrasound 09/02/2024 7:59 AM EARTH SCIENCE TECHNICAL OFFICER Narrative 09/02/2024 9:52 AM EARTH SCIENCE TECHNICAL OFFICER [facility] Cardiology [address] [facility] [address], [place] [address] [address] [facility] [address], [place] [address] P:[phone] P:[phone] Echocardiographic Report Patient Name: LYNNE QUILES E : 1965 Study Date: 09/02/2024 7:59:27 AM Gender: F Tech: Location: [facility] Provider: ALL SIFUENTES ?Height(Cm): 163 BSA: 1.65 Weight(Kg): 60.3 Heart Rate: 70 BP: 122 / 84 Quality: Good Order Provider: ALL SIFUENTES ?? PROCEDURES: Echocardiographic Report: Transthoracic echocardiogram [...] FINDINGS: Interpretation Site: Exam was interpreted at [facility]. Left Ventricle: Normal left ventricular size. [...] By: Adilia Cobos MD 09/02/2024 9:51:44 AM EARTH SCIENCE TECHNICAL OFFICER Procedure Note Adilia Cobos MD - 09/02/2024 [facility] Cardiology [address] [facility] [address], [place] [address] [address] [facility] [address], [address], [place] [address] P:[phone] P:[phone] Echocardiographic Report Patient Name: LYNNE QUILES E : 1965 Study Date: 09/02/2024 7:59:27 AM Gender: F Tech: Location: [place] Ref Provider: ALL SIFUENTES Height(Cm): 163 BSA: 1.65 Weight(Kg): 60.3 Heart Rate: 70 BP: 122 / 84 Quality: Good Order Provider: ALL SIFUENTES PROCEDURES: Echocardiographic Report: Transthoracic echocardiogram with [...] FINDINGS: Interpretation Site: Exam was interpreted at [facility]. Left Ventricle: Normal left ventricular size. [...] By: Adilia Cobos MD 09/02/2024 9:51:44 AM EARTH SCIENCE TECHNICAL OFFICER All Sifuentes MD CV ECHO PROCEDURES Final Result * POCT lipid panel (07/06/2024 2:13 PM EARTH SCIENCE TECHNICAL OFFICER) Cholesterol, POC 171 mg/dL Comment:GLU = 78 HDL, POC 79 mg/dL Triglycerides, POC 89 mg/dL LDL Cholesterol POC 74 mg/dL Chol/HDL Ratio, POC 0.9 Non-HDL Cholesterol, POC 92 mg/dL Cholesterol Total, POC 171 mg/dL Capillary blood 07/06/2024 2 :13 PM EARTH SCIENCE TECHNICAL OFFICER All Sifuentes MD POINT OF CARE TEST ORDERABLES Fi nal Result documented in this encounter Visit Diagnoses Diagnosis Nonrheumatic aortic valve stenosis- Primary Essential hypertension Unspecified essential hypertension Family history of ischemic heart disease Nonrheumatic aortic valve stenosis documented in this encounter Discontinued Medications Medication Sig Discontinue Reason Start Date End Da te biotin 5 mg capsule Take 1 capsule (1 tablet total) by mouth daily Therapy completed 07/06/2024 estradioL (ESTRACE) 1 mg tablet Take 1 mg by mouth nightly Therapy completed 07/06/2024 oxyCODONE (ROXICODONE) 5 mg immediate release tabletIndications:Pain Take 1 tablet (5 mg total) by mouth every 4 (four) hours as needed for pain Therapy completed 06/12/2021 07/06/2024 phentermine (ADIPEX-P) 37.5 mg tablet Therapy completed 07/06/2024 phentermine (ADIPEX-P) 37.5 mg tablet Therapy completed 01/08/2022 07/06/2024 progesterone (PROMETRIUM) 100 mg capsule Take 100 mg by mouth nightly Therapy completed 07/06/2024 documented as of this encounter Care Teams Liquor Bridge Operator Helper Relationship Specialty Start Date End Date Keegan Miranda MD [address] [place] [address] PCP - General Internal Medicine 01/17/22 All Sifuentes MD [address] [place] [address] Consulting Physician Cardiology 05/20/21 Klarissa Cortez NP [address] [facility] [address] [place] [address] Nurse Practitioner Nurse Practitioner 11/12/21 documented as of this encounter
--- OUTSIDE RECORDS SUMMARY | 2024-09-19 01:45 | XMS_ITS | Encounter Summary ---
Author Organization [facility] Address [address] [facility] [address] [place] [address] Care Team Providers Care Test Consultant Name Role Phone Eder Sifuentes MD Unavailable Klarissa Cortez NP Unavailable [phone] Keegan Miranda MD Primary Care Provider [phone] Reason for Referral * Cardiology (Routine) - Closed Specialty Diagnoses / Procedures Referred By Josephine olivares Referred To Contact Diagnoses Mild aortic stenosis Procedures Transthoracic Echo (TTE) Complete W Doppler/CF Eder Sifuentes MD [address] [address] Phone: tel: fax: [facility] Referral ID Status Reason Start Date Expiration Date Visits Re quested Visits Authorized [id number] Closed 08/06/2022 09/20/2022 1 1 Reason for Visit * Reason Comments Aortic Stenosis 1 year fu Encounter Details Date Type Department Care Team (Late st Contact Info) Description 03/26/2022 9:00 AM CDT Office Visit [facility] Cardiology [address] [address] [address] [place] [address] Eder Sifuentes MD [address] [facility] [address] [place] [place] [address] Mild aortic stenosis (Primary Dx); Essential hypertension; [...] on file Legal Sex Female 8:33 AM CHAIRMAN EMERITUS Gender Identity Not on file Sexual Orientation Not on file documented as of this encounter Last Filed Vital Signs Vital Sign Reading Time Taken Comments Blood Pressure 124/72 03/26/2022 9:08 AM CDT Pulse 83 03/26/2022 9:08 AM CDT Temperature - - Respiratory Rate - - Oxygen Saturation 97% 03/26/2022 9:08 AM CDT Inhaled Oxygen Concentration - - Weight 71.2 kg (157 lb) 03/26/2022 9:08 AM CDT Height 162.6 cm (5' 4 ) 03/26/2022 9:08 AM CDT Body Mass Index 26.95 03/26/2022 9:08 AM CDT documented in this encounter Ordered Prescriptions Prescription Sig Dispense Quantity Refills Last Filled Start Date End Date atorvastatin (LIPITOR) 20 mg tablet Take 1 tablet (20 mg total) by mouth nightly 90 tablet 3 03/26/2022 3 atorvastatin (LIPITOR) 20 mg tablet Take 2 tablets (40 mg total) by mouth nightly 90 tablet 3 03/26/2022 2 documented in this encounter Progress Notes * Eder Sifuentes MD - 03/26/2022 9:00 AM CDT [facility] 03/26/2022 CHIEF COMPLAINT Chief Complaint Patient presents with ??? Aortic Stenosis 1 year fu HPI Carole Lewis is a 56 y.o. female with hypertension, dyslipidemia, obesity, family history of coronary disease 07/04/2020 initial evaluation-patient is here for cardiovascular evaluation. Patient gives family history of coronary disease in multiple family members including her father and the family from her father's side. She states that her father had fatal [place] at age 54. Patient is a portion [...] active. Reports compliance with current medical regimen. MEDICAL HISTORY she has a past medical [...] a past surgical history that includes pr dilation/curettage,diagnostic; pr lap,sling operation; ablation; Kidney stone surgery; and Colonoscopy. she No Known Allergies Current Outpatient Medications Medication Sig Dispense Refill ??? biotin 5 mg capsule Take 5 mg by mouth daily ??? butalbitaL-acetaminophen 50-325 mg tablet Take 1 tablet by mouth daily ??? calcium-magnesium 300-300 mg tablet Take 1 tablet by mouth daily ??? candesartan (ATACAND) 16 mg tablet ??? cholecalciferol (VITAMIN D-3) 5,000 unit capsule Take 5,000 Units by mouth daily ??? cyanocobalamin (Vitamin B-12) 100 mcg tablet Take 100 mcg by mouth daily ??? estradioL (ESTRACE) 1 mg tablet Take 1 mg by mouth nightly ??? hydroCHLOROthiazide (HYDRODIURIL) 25 mg tablet Take 25 mg by mouth daily ??? nfzcenyx-mhh-hkrl-FA-lutein 8 mg iron-400 mcg-300 mcg tablet Take by mouth daily ??? naproxen (NAPROSYN) 500 mg tablet Take 500 mg by mouth as needed ??? nitrofurantoin (MACRODANTIN) 50 mg capsule ??? omega 0-auw-tqs-fish oil (Fish Oil) 100-160-1,000 mg capsule Take 1 tablet by mouth daily ??? oxyCODONE (ROXICODONE) 5 mg immediate release tablet Take 1 tablet (5 mg total) by mouth every 4 (four) hours as needed for pain 10 tablet 0 ??? phentermine (ADIPEX-P) 37.5 mg tablet ??? phentermine (ADIPEX-P) 37.5 mg tablet ??? progesterone (PROMETRIUM) 100 mg capsule Take 100 mg by mouth nightly ??? atorvastatin (LIPITOR) 20 mg tablet Take 1 tablet (20 mg total) by mouth nightly 90 tablet 3 No current facility-administered medications for this visit. [...] Coronary CT calcium scan-Agatston CAC score 0. 07/25/2020-[facility]-Normal left ventricular systolic [...] HDL 98, triglycerides 157, LDL 93. 03/26/2022 PHYSICAL EXAM Vitals BP 124/72 (BP Location: Right arm, Patient Position: Sitting) Pulse 83 Ht 162.6 cm (5' 4 ) Wt 71.2 kg (157 lb) SpO2 97% BMI 26.95 kg/m?? General appearance - alert, [...] for this visit: Mild aortic stenosis (Primary) - Transthoracic Echo (TTE) Complete W Doppler/CF; Future Essential hypertension Family history of ischemic heart disease Hypercholesteremia - POCT lipid panel Other orders - atorvastatin (LIPITOR) 20 mg tablet; Take 1 tablet (20 mg total) by mouth nightly PLAN/RECOMMENDATIONS 56 y.o. mild aortic stenosis (VERITO 1.63 from 07/31/2020 echo), hypertension, hypercholesterolemia, family history of coronary disease. - no active cardiovascular symptoms at present. - patient has family history of CAD in multiple family members. Her coronary risk factors include hypertension, dyslipidemia, obesity, family history. She does not have any major cardiovascular symptoms at present. Previous coronary calcium score 0. Patient was reassured about the results. -last echocardiogram reportedly showed mild aortic valve stenosis. Will do periodic, surveillance echocardiograms. Follow-up echocardiogram in July 2022 including determination of aortic valve morphology. May consider WALLACE in future to rule out bicuspid aortic valve if surface echocardiogram inadequate. - increase atorvastatin dose to 20 mg p.o. q.h.s.. Repeat lipid panel on follow- up visit. - Counseling was done for heart healthy diet, aerobic exercise at least 5 times a week, Medication compliance. More than 50% of the time was spent on counseling. - RTC 12 months or sooner if needed. Eder Sifuentes MD 03/26/22 Voice recognition software was used to complete this document, therefore, information management manager variances may occur. documented in this encounter Plan of Treatment Not on file documented as of this encounter Procedures Procedure Name Priority Date/Time Associated Diagnosis Comments POCT LIPID PANEL Routine 03/26/2022 9:19 AM CDT Hypercholesteremia documented in this encounter Results * TRANSTHORACIC ECHO (TTE) COMPLETE W DOPPLER/CF WO CONTRAST (08/13/2022 1:49 PM CHAIRMAN EMERITUS) Anatomical Region Laterality Modality Ultrasound 08/13/2022 11:5 9 AM CHAIRMAN EMERITUS Narrative 08/13/2022 3:35 PM CHAIRMAN EMERITUS [facility] Cardiology [address], [place] [address] [address], [place] [address] P:[phone] P:[phone] Echocardiographic Report Patient Name: CAROLE LEWIS : 1965 Study Date: 08/13/2022 11:59:08 AM Gender: F Tech: Location: [place] Ref.Provider: EDER SIFUENTES Height(Cm): 163 BSA: 1.76 Weight(Kg): 71.21 Heart Rate: 80 BP: 112/76 Quality: Good Order Provider: EDER SIFUENTES Procedures: Echocardiographic Report: Transthoracic echocardiogram with [...] Findings: Interpretation Site: Exam was interpreted at [facility]. Left Ventricle: Normal left ventricular size. [...] valve. Normal sinus rhythm. Electronically Signed By: Eder Sifuentes MD, [facility] 2022-08-13 15:35:27 CHAIRMAN EMERITUS CC: CC: Procedure Note Eder Sifuentes MD - 08/13/2022 [facility] Cardiology [address] [facility] [address], [place] [address] [address] [facility] [address], [place] [address] P:[phone] P:[phone] Echocardiographic Report Patient Name: CAROLE LEWISPatient ID: [id number] : [id number] Date: 08/13/2022 11:59:08 AM Gender: FAccession #: [id number] Tech: GMLocation: [place] Ref.Provider: EDER SIFUENTESHeight(Cm): 163 BSA: 1.76Weight(Kg): 71.21 Heart Rate: 80BP: 112/76 Quality: GoodOrder Provider: EDER SIFUENTES Procedures: Echocardiographic Report: Transthoracic echocardiogram with [...] 0.40 - 0.80 ] m/s MV Decel Fitt428 [ 150 - 200 ] msec PV Peak Vel0.89 [ 0.40 - 0.80 ] m/s TR Peak Vel1.74 [ 0.40 - 0.80 ] m/s TR Peak PG 12mmHg RVSP20.00 mmHg E'0.13 E/E' 5 - Findings: Interpretation Site: Exam was interpreted at [facility]. Left Ventricle: Normal left ventricular size. [...] valve. Normal sinus rhythm. Electronically Signed By: Eder Sifuentes MD, [facility] 2022-08-13 15:35:27 CHAIRMAN EMERITUS CC: CC: us Eder Sifuentes MD CV ECHO PROCEDURES Final Result * POCT lipid panel (03/26/2022 9:19 AM CDT) Cholesterol, POC 222 mg/dL HDL, POC 98 mg/dL Triglycerides, POC 157 mg/dL LDL Cholesterol POC 93 mg/dL Chol/HDL Ratio, POC 2.3 Non-HDL Cholesterol, POC 124 mg/dL Cholesterol Total, POC 222 mg/dL Capillary blood 03/26/2022 9 :19 AM CDT Eder Sifuentes MD POINT OF CARE TEST ORDERABLES Fi nal Result documented in this encounter Visit Diagnoses Diagnosis Mild aortic stenosis- Primary Aortic valve disorders Essential hypertension Unspecified essential hypertension Family history of ischemic heart disease Hypercholesteremia Pure hypercholesterolemia Mild aortic stenosis Aortic valve disorders documented in this encounter Discontinued Medications Medication Sig Discontinue Reason Start Date End Da te atorvastatin (LIPITOR) 10 mg tablet Take 10 mg by mouth daily 03/26/2022 atorvastatin (LIPITOR) 20 mg tablet Take 2 tablets (40 mg total) by mouth nightly 03/26/2022 03/26/2022 documented as of this encounter Care Teams Test Consultant Relationship Specialty Start Date End Date Keegan Miranda MD [address] [facility] [address] [place] [address] PCP - General Internal Medicine 01/17/22 Eder Sifuentes MD [address] [facility] [address] [place] [address] Consulting Physician Cardiology 05/20/21 Klarissa Cortez NP [address] [facility] [address] [place] [address] Nurse Practitioner Nurse Practitioner 11/12/21 documented as of this encounter
--- OUTSIDE RECORDS SUMMARY | 2024-09-19 01:45 | XMS_ITS | Encounter Summary ---
Author Organization [facility] Healthcare Address [address] [place] [address] Care Team Providers Care Finisher Machine Name Role Phone Erich Andrew MD Primary Care Prov ider All Hernandez MD Unavailable Encounter Details Date Type Department Care Team (Late st Contact Info) Description 06/09/2021 1:50 PM CDT Lab [place] [phone] Pre-procedure lab exam Social History Tobacco Use Types Packs/Day Years [...] one occasion? Less than monthly 06/12/2021 Comments Unknown Sex and Gender Information Value Date Recorded Sex Assigned at Not on file Legal Sex Female 8:33 AM HOSPITAL ATTENDANT Gender Identity Not on file Sexual Orientation Not on file documented as of this encounter Plan of Treatment Not on file documented as of this encounter Procedures Procedure Name Priority Date/Time Associated Diagnosis Comments COVID-19 CORONAVIRUS RNA Routine 06/09/2021 9:45 AM CDT Pre-procedure lab exam documented in this encounter Results * COVID-19 Coronavirus RNA Nasopharyngeal (06/09/2021 9:45 AM CDT) COVID-19 RNA Not Detected [facility] Comment: Interpretive Data Synonyms for this test include: PCR and NAAT . ??Testing performed by the [facility] Molecular Infectious Disease Laboratory. The 2018-Novel Coronavirus Assay (COVID-19) Real Time RT-PCR assay [...] October 04, 2020. First COVID-19 test? No [facility] Employeed in healthcare? No [facility] status? No [facility] Group care resident? No [facility] Hospitalized? No [facility] Is patient in ICU? No [facility] Symptomatic as defined by CDC? No [facility] Nasopharyngeal 06/09/2021 9: 45 AM CDT 06/09/2021 2:06 PM CDT Narrative [facility] - 06/09/2021 7:52 PM CDT What is the reason for testing?->Screening prior to scheduled procedure or surgery (batch) us Jennifer Avila MD LAB MICROBIOLOGY - GENERA L ORDERABLES Final Result [facility] [place] [address] documented in this encounter Visit Diagnoses Diagnosis Pre-procedure lab exam Pre-procedural laboratory examination documented in this encounter Care Teams Finisher Machine Relationship Specialty Start Date End Date Erich Andrew MD [address] [place] [address] PCP - General Family Medicine 01/05/20 01/16/22 All Hernandez MD [address] [facility] [address] [place] [address] Consulting Physician Cardiology 05/20/21 documented as of this encounter
--- OUTSIDE RECORDS SUMMARY | 2024-09-19 01:45 | XMS_ITS | Encounter Summary ---
Author Organization [facility] Healthcare Address [facility] [place] [address] Care Team Providers Care Division Leader Name Role Phone Erich Andrew MD Primary Care Prov ider All Hernandez MD Unavailable Klarissa Cortez NP Unavailable [phone] Encounter Details Date Type Department Care Team (Latest Contact Info) Description 12/30/2021 5:58 PM CDT - 12/30/2021 11:59 PM CDT Hospital Encounter 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 Gender Identity Not on file Sexual Orientation [...] tablet (25 mg total) by mouth daily nidnjouv-rtc-onvq -FA-lutein 8 mg iron-400 mcg-300 mcg tablet Take by mouth daily naproxen (NAPROSYN) 500 mg tablet Take 1 tablet (500 mg total) by mouth as needed omega 2-wfl-jak-fish oil (Fish Oil) 100-160-1,000 mg capsule Take [...] Priority Date/Time Associated Diagnosis Comments BREAST IMAGING OUTSIDE CONSULT Routine 12/30/2021 5:59 PM CDT documented in this encounter Results * Breast Imaging Outside [...] images may or may not represent the [place] source data set and thus may contain [...] OF OUTSIDE IMAGING FACILITY PERFORMING OUTSIDE IMAGING: [facility] EXAM(S) REVIEWED: 1. ??BILATERAL SCREENING MAMMOGRAM [...] OF OUTSIDE IMAGING FACILITY PERFORMING OUTSIDE IMAGING: [facility] EXAM(S) REVIEWED: 1. BILATERAL SCREENING MAMMOGRAM [...] images may or may not represent the [place] source data set and thus may contain changes which may lower the sensitivity of the second opinion interpretation. Dictated by: Negra Gonzalez MD The radiology attending physician has personally reviewed this study, and had reviewed and/or edited this written report and agrees with it. Electronically signed by: Danuta Lopez M.D. Amy Vora CLIENT SERVICE MANAGER IMG MAMMO PROCEDURES Fin al Result documented in this encounter Visit Diagnoses Not on filedocumented in this encounter Care Teams Division Leader Relationship Specialty Start Date End Date Erich Andrew MD [address] [place] [address] PCP - General Family Medicine 01/05/20 01/16/22 All Hernandez MD [address] [place] [address] Consulting Physician Cardiology 05/20/21 Klarissa Cortez NP [address] [facility] [address] [place] [address] Nurse Practitioner Nurse Practitioner 11/12/21 documented as of this encounter
--- OUTSIDE RECORDS SUMMARY | 2024-09-19 01:45 | XMS_ITS | Encounter Summary ---
Author Organization [facility] Healthcare Address [address] [place] [address] Care Team Providers Care Agriscience Teacher Name Role Phone All Hernandez MD Unavailable Klarissa Cortez NP Unavailable [phone] Keegan Miranda MD Primary Care Provider [phone] Encounter Details Date Type Department Care Team (Late st Contact Info) Description 05/26/2024 Telephone [facility] Cardiology [address] [facility] [address] [place] [address] All Hernandez MD [address] [id number] Social History Tobacco Use Types Packs/Day Years Used Date Smoking Tobacco: Former Cigarettes 0.5 10 2 007 - 2017 Smokeless Tobacco: Former Alcohol Use Standard Drinks/Week [...] on file 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 [facility] The pharmacy received a 30 day supply but she is wanting 90 day supply. Thank you. Contact: documented in this encounter Plan of Treatment Not on file documented as of this encounter Visit Diagnoses Not on filedocumented in this encounter Care Teams Agriscience Teacher Relationship Specialty Start Date End Date Keegan Miranda MD [address] [place] [address] PCP - General Internal Medicine 01/17/22 All Hernandez MD [facility] [address] [facility] [address] [place] [address] Consulting Physician Cardiology 05/20/21 Klarissa Cortez NP [address] [facility] [address] [place] [address] Nurse Practitioner Nurse Practitioner 11/12/21 documented as of this encounter
--- OUTSIDE RECORDS SUMMARY | 2024-09-19 01:46 | XMS_ITS | Encounter Summary ---
Author Organization [facility] Address [address] [facility] [address] [place] [address] Care Team Providers Care Creel Selector Name Role Phone Erich Andrew MD Primary Care Prov ider Encounter Details Date Type Department Care Team (Late st Contact Info) Description 08/01/2020 Telephone [facility] Cardiology [address] [facility] [address] [place] [address] All Hernandez MD [address] [id number] Social History Tobacco Use Types Packs/Day Years Used Date Smoking Tobacco: Former Cigarettes 0.5 10 Smokeless Tobacco: Former Alcohol Use Standard Drinks/Week Comments Yes 0 (1 standard drink = 0.6 oz pur e alcohol) Comments Unknown Sex and Gender Information Value Date Recorded Sex Assigned at Not on file 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 ??Based on these results, the chances of her having any major blockage are extremelyunlikely. ----- Message ----- From: Fernanda Obando RN Sent: 07/31/2020 ?? 3:09 PM ELECTRONIC COMMUNICATIONS TECHNICIAN To: All Hernandez MD Subject: Edit ? The scan below was edited by Fernanda Obando RN [[id number]] on 07/31/2020 at 3:09 PM; it is attached to the following: Abstract on 07/31/2020 with All Hernandez LM on VM with info, and CB# incase of any questions. TRONIC COMMUNICATIONS TECHNICIAN documented in this encounter Plan of Treatment Not on file documented as of this encounter Visit Diagnoses Not on filedocumented in this encounter Care Teams Creel Selector Relationship Specialty Start Date End Date Erich Andrew MD [address] [place] [address] PCP - General Family Medicine 01/05/20 01/16/22 documented as of this encounter
--- OUTSIDE RECORDS SUMMARY | 2024-09-19 01:46 | XMS_ITS | Encounter Summary ---
Author Organization [facility] Address [address] [facility] [address] [place] [address] Care Team Providers Care Head Charger Name Role Phone Erich Andrew MD Primary Care Prov ider Reason for Visit * Reason Comments Pain Encounter Details Date Type Department Care Team (Late st Contact Info) Description 03/19/2021 1:00 PM CDT Office Visit [facility] Hand Surgery [address] [facility] [address] [place] [address] Jillian Martinez PA [address] [place] [address] [address] [place], [place] [id number] Bilateral hand numbness (Primary Dx) Social History Tobacco Use Types Packs/Day Years Used Date Smoking Tobacco: Former Cigarettes 0.5 10 Smokeless Tobacco: Former Alcohol Use Standard Drinks/Week Comments Yes 0 (1 standard drink = 0.6 oz pur e alcohol) Comments Unknown Sex and Gender Information Value Date Recorded Sex Assigned at Not on file 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 female. Visit Date: 03/19/2021 Chief Complaint: Chief Complaint Patient presents with ??? Right Wrist - Pain HPI: Patient is a 55-year-old clkxh-etvy-rcbzdgug female presents today with complaints of bilateral hand pain with numbness and tingling. She states that she has had these symptoms for approximately 2 weeks and they seem to be getting worse. Her symptoms are intermittent, and occur throughout the day. She denies nocturnal symptoms. She has not tried splint wear. She denies recent injury. She denies weakness. She denies repetitive motion. Physical Exam: General: A&O x 3, NAD, Well appearing Eyes: EOMs intact. PERRL. Integument: skin is warm and dry. Neuro: CN II-XII grossly intact. Pt gait is stable, balance WNL. Sensation intact. Cardiovascular: 2+ capillary refill to all upper digits bilaterally. On examination both hands, there is no obvious edema or erythema. There is no thenar weakness or atrophy. Provocative testing for carpal tunnel is positive for compression testing on the right only. She has ability to fully flex and extend through the wrists bilaterally. She has full range of motion of bilateral MCP, IP and PIP joints. She is neurovascularly intact to tips of digits. X-rays/Imaging: Assessment/Plan Diagnoses and all orders for this visit: Bilateral hand numbness (Primary) - EMG/NCV -; Future Treatment / Plan: Today I discussed the diagnosis of carpal tunnel syndrome and its associated anatomy with the patient. We did discuss treatment modalities to include NSAIDs, splint wear, intrathecal injection and surgical release. I have recommended that we proceed with a nerve conduction study for further evaluation. I have also fit her today with bilateral wrist cock-up splints, and I have advised her to wear t hese with activity and bedtime if needed. She will follow up with either Dr. Avila or Dr. Sotoafter her nerve conduction study for review of results and discussion of surgery if indicated. She is in agreement with this plan, will call the office with any other questions or concerns. Procedures ISRA Franz documented in this encounter Plan of Treatment Not on file documented as of this encounter Visit Diagnoses Diagnosis Bilateral hand numbness- Primary Disturbance of skin sensation documented in this encounter Care Teams Head Charger Relationship Specialty Start Date End Date Erich Andrew MD [address] [place] [address] PCP - General Family Medicine 01/05/20 01/16/22 documented as of this encounter
--- OUTSIDE RECORDS SUMMARY | 2024-09-19 01:46 | XMS_ITS | Encounter Summary ---
Author Organization [facility] Address [address] [facility] [address] [place] [address] Care Team Providers Care Coal Shoveler Name Role Phone Erich Andrew MD Primary Care Prov ider Reason for Visit * Reason Comments Follow-up 6 mo follow up on AV S, HTN, dyslipdiemia, murmur Encounter Details Date Type Department Care Team (Late st Contact Info) Description 04/03/2021 10:15 AM CDT Office Visit [facility] Cardiology [address] [facility] [address] [place] [address] All Hernandez MD [id number] [address] Mild aortic stenosis (Primary Dx); [...] on file Legal Sex Female 8:33 AM ASSESSMENT RN Gender Identity Not on file Sexual Orientation Not on file documented as of this encounter Last Filed Vital Signs Vital Sign Reading Time Taken Comments Blood Pressure 130/88 04/03/2021 10:22 AM CDT Pulse 95 04/03/2021 10:22 AM CDT Temperature - - Respiratory Rate - - Oxygen Saturation 99% 04/03/2021 10:22 AM CDT Inhaled Oxygen Concentration - - Weight 68 kg (150 lb) 04/03/2021 10:22 AM CDT Height 162.6 cm (5' 4 ) 04/03/2021 10:22 AM CDT Body Mass Index 25.75 04/03/2021 10:22 AM CDT documented in this encounter Progress Notes * All Hernandez MD - 04/03/2021 10:15 AM CDT [facility] 04/03/2021 CHIEF COMPLAINT Chief Complaint Patient presents with ??? Follow-up 6 mo follow up on AVS, HTN, dyslipdiemia, murmur HPI Carole Quiles is a 55 y.o. female with hypertension, dyslipidemia, obesity, family history of coronary disease 07/04/2020 initial evaluation-patient is here for cardiovascular evaluation. Patient gives family history of coronary disease in multiple family members including her father and the family from her father's side. She states that her father had fatal IA at age 54. Patient is a portion [...] denies any major cardiovascular symptoms at present. MEDICAL HISTORY she has a past medical history of Heart murmur and Hyperlipidemia. Obesity she has a past surgical history that includes pr dilation/curettage,diagnostic and pr lap,sling operation. she No Known Allergies Current Outpatient Medications Medication Sig Dispense Refill ??? atorvastatin (LIPITOR) 10 mg tablet ??? butalbitaL-acetaminophen 50-325 mg tablet Take by mouth ??? calcium-magnesium 300-300 mg tablet Take by mouth ??? cholecalciferol (VITAMIN D-3) 5,000 unit capsule Take 5,000 Units by mouth daily ??? cyanocobalamin (Vitamin B-12) 100 mcg tablet Take 100 mcg by mouth daily ??? estradioL (ESTRACE) 1 mg tablet ??? hydroCHLOROthiazide (HYDRODIURIL) 25 mg tablet ??? naproxen (Naprosyn) 500 mg tablet as needed ??? omega 6-mol-qfj-fish oil (Fish Oil) 100-160-1,000 mg capsule Take by mouth ??? progesterone (PROMETRIUM) 100 mg capsule No current facility-administered medications for this visit. [...] deferred to the physician. 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 REVIEW OF SYSTEMS [...] Cardiovascular ROS: negative for - chest pain, dyspnea, leg swelling, palpitations, syncope, orthopnea/PND Gastrointestinal ROS: negative for - abdominal pain [...] Coronary CT calcium scan-Agatston CAC score 0. 07/25/2020-[facility]-Normal left ventricular systolic [...] Aortic cusps appear mildly sclerotic. 07/31/2020-Dr. Cuenca PHYSICAL EXAM Vitals BP 130/88 (BP Location: Right arm, Patient Position: Sitting) Pulse 95 Ht 162.6 cm (5' 4 ) Wt 68 kg (150 lb) SpO2 99% BMI 25.75 kg/m?? General appearance - alert, no distress, oriented to time, place, person Mental status - affect appropriate to mood Eyes - extraocular eye movements intact, no pallor Ears - external ears appear normal, hearing grossly normal Nose - normal and patent, no discharge Mouth - mucous membranes moist, tongue normal Neck - supple, carotids upstroke normal bilaterally, no bruits, no JVD Chest - clear to auscultation [...] Family history of ischemic heart disease PLAN/RECOMMENDATIONS 55 y.o. mild aortic stenosis (VERITO 1.63 from 07/31/2020 echo) hypertension, dyslipidemia, obesity, family history of coronary disease. - patient has family history of CAD in multiple family members. Her coronary risk factors include hypertension, dyslipidemia, obesity, family history. She does not have any major cardiovascular symptoms at present. Recent coronary calcium score 0. Patient was reassured about the results. - recent echocardiogram reportedly showed mild aortic valve stenosis. Will do periodic, surveillance echocardiograms. Follow-up echocardiogram in July 2022 including determination of aortic valvemorphology. - Counseling was done for heart healthy diet, aerobic exercise at least 5 times a week, Medication compliance. More than 50% of the time was spent on counseling. - RTC 12 months or sooner if needed. All Hernandez MD 04/03/21 Voice recognition software was used to complete this document, therefore, forestry biology specialist variances may occur. documented in this encounter Plan of Treatment Not on file documented as of this encounter Visit Diagnoses Diagnosis Mild aortic stenosis- Primary Aortic valve disorders Essential hypertension Unspecified essential hypertension Family history of ischemic heart disease documented in this encounter Care Teams Coal Shoveler Relationship Specialty Start Date End Date Erich Andrew MD [address] [place] [address] PCP - General Family Medicine 01/05/20 01/16/22 documented as of this encounter
--- OUTSIDE RECORDS SUMMARY | 2024-09-19 01:46 | XMS_ITS | Encounter Summary ---
Author Organization [facility] Address [address] [facility] [facility] [address] [place] [address] Care Team Providers Care Newspaper Clipper Name Role Phone Erich Andrew MD Primary Care Prov ider Encounter Details Date Type Department Care Team (Late st Contact Info) Description 08/21/[address] 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 Information from [facility] relayed in message, verified next appointment in Oct with CT. CB#left for any questions. ONNEL ADMINISTRATOR documented in this encounter Plan of Treatment Not on file documented as of this encounter Visit Diagnoses Not on filedocumented in this encounter Care Teams Newspaper Clipper Relationship Specialty Start Date End Date Erich Andrew MD [address] [place] [address] PCP - General Family Medicine 01/05/20 01/16/22 documented as of this encounter
--- OUTSIDE RECORDS SUMMARY | 2024-09-19 01:46 | XMS_ITS | Encounter Summary ---
Author Organization [facility] Address [address] [address] Care Team Providers Care Cmm Operator Name Role Phone Erich Andrew MD Primary Care Prov ider Reason for Referral * Diagnostic Imaging (Routine) - Closed Specialty Diagnoses / Procedures Referred By Josephine t Referred To Contact Diagnoses Bilateral hand numbness Synovitis and tenosynovitis Procedures XR Wrist Left 3 (Standard) Jillian Martinez PA [address] [facility] [address] [address] [place] [address] Phone: tel: fax: [address] [phone] Referral ID Status Reason Start Date Expiration Date Visits Re quested Visits Authorized [id number] Closed 04/29/2021 05/29/2022 1 1 * Diagnostic Imaging (Routine) - Closed Specialty Diagnoses / Procedures Referred By Josephine olivares Referred To Contact Diagnoses Bilateral hand numbness Synovitis and tenosynovitis Procedures XR Wrist Right 3 (Standard) Jillian Martinez PA [address] [facility] [address] [address] [place] [address] Phone: tel: fax: [address] [place] [address] Referral ID Status Reason Start Date Expiration Date Visits Re quested Visits Authorized [id number] Closed 04/29/2021 05/29/2022 1 1 Reason for Visit * Reason Comments Test Results Encounter Details Date Type Department Care Team (Late st Contact Info) Description 04/29/2021 9:15 AM CDT Office Visit [facility] Hand Surgery [address] [facility] [address] [place] [phone] Jillian Martinez PA [address] [facility] [address] [address] Bilateral hand numbness (Primary Dx); Synovitis and tenosynovitis Social History Tobacco Use Types Packs/Day Years Used Date Smoking Tobacco: Former Cigarettes 0.5 10 Smokeless Tobacco: Former Alcohol Use Standard Drinks/Week Comments Yes 0 (1 standard drink = 0.6 oz pur e alcohol) Comments Unknown Sex and Gender Information Value Date Recorded Sex Assigned at Not on file Legal Sex Female 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 Patient ID: Carole Quiles is a 55 y.o. female. Visit Date: 04/29/2021 Chief Complaint: Chief Complaint Patient presents with ??? Right Hand - Results HPI: Patient is a 55-year-old female presents today for follow-up of nerve conduction studies. Study done by Dr. ash on 04/23/2021 shows bilateral carpal tunnel syndrome. Peak sensory latency on the left was 3.3, and NR on the right. Peak motor-sensory was 4.2 on the left and 6.5 on the right. Physical Exam: General: A&O x 3, NAD, Well appearing Eyes: EOMs intact. PERRL. Integument: skin is warm and dry. Neuro: CN II-XII grossly intact. Pt gait is stable, balance WNL. Sensation intact. Cardiovascular: 2+ capillary refill to all upper digits bilaterally. There is no thenar wasting or weakness noted bilaterally. She does have mild to moderate tendernesswith palpation over the ulnar aspect of the right wrist at the level of the pisiform. X-rays/Imaging: Assessment/Plan Diagnoses and all orders for this visit: Bilateral hand numbness (Primary) - XR Wrist Right 3 (Standard); Future Synovitis and tenosynovitis - XR Wrist Right 3 (Standard); Future Treatment / Plan: I reviewed pt's NCV/EMG results with her today. We discussed the diagnosis of carpal tunnel syndrome, and treatment modalities to include carpal tunnel release. She states that she wishes to proceed with surgical release, and I will have her follow-up with 1 of our surgeons for discussion and scheduling of surgery. She will have wrist x-rays done prior to her next appointment. I have asked to call the office with any other questions or concerns. Procedures ISRA Franz documented in this encounter Plan of Treatment Not on file documented as of this encounter Results * XR Wrist Left 3 (Standard) (04/29/2021 9:43 AM CDT) Anatomical Region Laterality Modality Upper Extremities, Wrist Left Compute d Radiography 04/29/2021 2:53 PM CDT Narrative 04/29/2021 2:54 PM CDT EXAM DESCRIPTION: ?? XR WRIST LEFT 3 OR MORE VIEWS REASON FOR STUDY: ?? pain ??States carpal tunnel pain x 1 yr, has gotten worse over time. States right wrist is constant numb, can't sleep due to pain, wakes her. Left has pain, not as much as right side. ?? TECHNIQUE: ?? AP, Oblique, and Lateral Radiographs of the left wrist were obtained. COMPARISON: ?? None available FINDINGS: Bones appear intact, without evidence of fracture. ??No radiopaque foreign bodies are identified. ??No lytic or blastic lesions are seen. ??No focal soft tissue swelling is identified. IMPRESSION: ?? Essentially unremarkable radiographs of the left wrist. THIS IS AN ELECTRONICALLY VERIFIED FINAL REPORT 04/29/2021 2:54 PM - Electronically signed by Gino Lea M.D. AT: AT D: ??04/29/2021 2:54 PM T: ??04/29/2021 2:54 PM Report ID: [id number] Reading Location: ??[id number] Procedure Note Gino Lea MD - 04/29/2021 EXAM DESCRIPTION: XR WRIST LEFT 3 OR MORE VIEWS REASON FOR STUDY: pain States carpal tunnel pain x 1 yr, has gottenworse over time. States right wrist is constant numb, can't sleep due to pain,wakes her. Left has pain, not as much as right side. TECHNIQUE: AP, Oblique, and Lateral Radiographs of the left wrist were obtained. COMPARISON: None available FINDINGS: Bones appear intact, without evidence of fracture. No radiopaque foreign bodies are identified. No lytic or blastic lesions are seen. No focalsoft tissue swelling is identified. IMPRESSION: Essentially unremarkable radiographs of the left wrist. THIS IS AN ELECTRONICALLY VERIFIED FINAL REPORT 04/29/2021 2:54 PM - Electronically signed by Gino Lea M.D. AT: AT Report ID: [id number] Reading Location: [id number] Jillian DHALIWAL IMG XR PROCEDURES Final Result * XR Wrist Right 3 (Standard) (04/29/2021 9:43 AM CDT) Anatomical Region Laterality Modality Upper Extremities, Wrist Right Compute d Radiography 04/29/2021 2:51 PM CDT Narrative 04/29/2021 2:53 PM CDT EXAM DESCRIPTION: ?? XR WRIST RIGHT 3 OR MORE VIEWS REASON FOR STUDY: ?? pain ??States carpal tunnel pain x 1 yr, has gotten worse over time. States right wrist is constant numb, can't sleep due to pain, wakes her. Left has pain, not as much as right side. ?? TECHNIQUE: ?? AP, Oblique, and Lateral Radiographs of the right wrist were obtained. COMPARISON: ?? None available FINDINGS: Bones appear intact, without evidence of fracture. ??No radiopaque foreign bodies are identified. ??No focal soft tissue swelling is seen. IMPRESSION: ?? Essentially unremarkable radiographs of the right wrist. THIS IS AN ELECTRONICALLY VERIFIED FINAL REPORT 04/29/2021 2:53 PM - Electronically signed by Gino Lea M.D. AT: AT D: ??04/29/2021 2:53 PM T: ??04/29/2021 2:53 PM Report ID: [id number] Reading Location: ??[id number] Procedure Note Gino Lea MD - 04/29/2021 EXAM DESCRIPTION: XR WRIST RIGHT 3 OR MORE VIEWS REASON FOR STUDY: pain States carpal tunnel pain x 1 yr, has gottenworse over time. States right wrist is constant numb, can't sleep due to pain,wakes her. Left has pain, not as much as right side. TECHNIQUE: AP, Oblique, and Lateral Radiographs of the right wrist were obtained. COMPARISON: None available FINDINGS: Bones appear intact, without evidence of fracture. No radiopaque foreign bodies are identified. No focal soft tissue swelling is seen. IMPRESSION: Essentially unremarkable radiographs of the right wrist. THIS IS AN ELECTRONICALLY VERIFIED FINAL REPORT 04/29/2021 2:53 PM - Electronically signed by Gino Lea M.D. AT: AT Report ID: [id number] Reading Location: [place] [address] Jillian DHALIWAL IMG XR PROCEDURES Final Result documented in this encounter Visit Diagnoses Diagnosis Bilateral hand numbness- Primary Disturbance of skin sensation Synovitis and tenosynovitis Unspecified synovitis and tenosynovitis Bilateral hand numbness Disturbance of skin sensation Synovitis and tenosynovitis Unspecified synovitis and tenosynovitis documented in this encounter Care Teams Cmm Operator Relationship Specialty Start Date End Date Erich Andrew MD [address] [place] [address] PCP - General Family Medicine 01/05/20 01/16/22 documented as of this encounter
--- OUTSIDE RECORDS SUMMARY | 2024-09-19 01:46 | XMS_ITS | Encounter Summary ---
Author Organization [facility] Address [address] [facility] [address] [place] [address] Care Team Providers Care Steel Tester Name Role Phone Erich Andrew MD Primary Care Prov ider Reason for Visit * Cardiology (Routine) - Closed Specialty Diagnoses / Procedures Referred By Contac t Referred To Contact Diagnoses Murmur, heart Procedures TRANSTHORACIC ECHO (TTE) W BUBBLE STUDY Transthoracic Echo Complete W Doppler/CF Eder Sifuentes MD [id number] [address] Phone: tel: fax: [facility] Referral ID Status Reason Start Date Expiration Date Visits Re quested Visits Authorized [id number] Closed 07/23/2020 09/06/2020 1 1 Encounter Details Date Type Department Care Team (Late st Contact Info) Description 07/31/2020 2:00 PM HARBOR DEPARTMENT MANAGER Ancillary Procedure [facility] Cardiology [address] 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 Gender Identity Not on file Sexual Orientation Not on file documented as of this encounter Last Filed Vital Signs Vital Sign Reading Time Taken Comments Blood Pressure - - Pulse - - Temperature 36.9 ??C (98.4 ??F) 07/31/2020 2:05 PM CS T Respiratory Rate - - Oxygen Saturation - - Inhaled Oxygen Concentration - - Weight - - Height - - Body Mass Index - - documented in this encounter Plan of Treatment Not on file documented as of this encounter Procedures Procedure Name Priority Date/Time Associated Diagnosis Comments TRANSTHORACIC ECHO (TTE) COMPLETE W DOPPLER/CF WO CONTRAST W BUBBLE Routine 07/31/2020 3:01 PM HARBOR DEPARTMENT MANAGER Murmur, heart documented in this encounter Results * TRANSTHORACIC ECHO (TTE) COMPLETE W DOPPLER/CF WO CONTRAST W BUBBLE (07/31/2020 3:01 PM HARBOR DEPARTMENT MANAGER) Anatomical Region Laterality Modality Ultrasound 07/31/2020 2:03 PM HARBOR DEPARTMENT MANAGER Narrative 07/31/2020 5:32 PM HARBOR DEPARTMENT MANAGER [facility] Cardiology [address] [facility] [address], [place] [address] [address] [facility] [address], [place] [address] P:[phone] P:[phone] Echocardiographic Report ADDENDUM Patient Name: CAROLE LEWIS : 1965 Study Date: 07/31/2020 2:03:54 PM Gender: F Tech: Location: [place] Ref.Provider: YARI Height(Cm): 163 BSA: 1.84 Weight(Kg): 78.93 Heart Rate: 81 BP: 130/80 Quality: Good Order Provider: EDER SIFUENTES Procedures: Echocardiographic Report: Transthoracic echocardiogram with 2D, M-Mode, and color Doppler examination with saline contrast study. Indications: Murmur. Measurements: 2D/M Mode ?Doppler ? Measurement ?Value ?Normal Range ? Measurement ?Value ?Normal Range ? EF Mod ? 62 ?VERITO ?1.63 ? [ 2.00 - 4.00 ] cm2 ? EF MM ?61 ? [ 55 - 70 ] % ?AV Mean PG ? 9 ?mmHg ? LVIDd MM ? 4.87 ? [ 3.90 - 5.30 ] cm ? AV Peak Guilherme ?1.91 ? m/s ? LVIDs MM ? 3.27 ? [ 2.30 - 3.90 ] cm ? AV Peak PG ? 15 ? mmHg ? LVPWd MM ? 0.93 ? [ 0.60 - 1.00 ] cm ? AV VTI ? 0.35 ? cm ? IVSd MM ?1.27 ? [ 0.60 - 0.90 ] cm ? LVOT Diam ?2.00 ? [ 1.70 - 2.10 ] cm ? LA Dimension MM ?4.53 ? [ 2.70 - 3.80 ] cm ? LVOT Peak Guilherme ?0.99 ? [ 0.70 - 1.10 ] m/s ? AoR Diam MM ?3.33 ? [ 2.60 - 3.70 ] cm ? LVOT VTI ? 0.24 ? cm ? LA Volume Index ?22.00 ?[ 16.00 - 28.00 ] cc/m2 ?MV E Peak Guilherme ?0.81 ? [ 0.60 - 1.30 ] m/s ? ACS MM ? 1.60 ? cm ? MV A Peak Guilherme ?1.01 ? [ 0.40 - 0.80 ] m/s ? MV Decel Time ?223 ?[ 150 - 200 ] msec ? PV Peak Guilherme ?0.98 ? [ 0.40 - 0.80 ] m/s ? TR Peak Guilherme ?2.41 ? [ 0.40 - 0.80 ] m/s ? TR Peak PG ? 23 ? mmHg ? RVSP ? 31.00 ?mmHg ? E' ? 0.12 ? E/E' ? 7 ? Findings: Interpretation Site: Exam was interpreted at [facility]. Left Ventricle: Normal left ventricular systolic function. No focal wall motion abnormalities. Normal left ventricular size. Normal left ventricular diastolic function. Ejection fraction is measured at 62 %. Right Ventricle: Normal right ventricular size. Left Atrium: There is mild enlargement of left atrium. Right Atrium: The right atrium is normal in size. Atrial Septum: Normal atrial septum. Saline contrast study performed without evidence of right to left shunt. Mitral Valve: Normal appearance of the mitral valve. Trivial regurgitation of the mitral valve. Aortic Valve: Peak gradient of 15.0 mmHg. Mean gradient of 9.0 mmHg. Valve area of 1.63 cm2. Aortic cusps appear mildly sclerotic. Tricuspid Valve: Normal appearance of the tricuspid valve. Estimated peak RVSP is 31 mmHg. Trivial regurgitation in the tricuspid valve. Pulmonic Valve: Pulmonic valve not well visualized. Pericardium: Normal pericardium with no significant pericardial effusion. Aorta: Normal aortic root. IVC: Normal size and normal respiratory collapse consistent with normal right atrial pressure (<5 mmHg). Pulmonary Artery: Normal pulmonary artery size. Conclusions: Normal left ventricular systolic function. No focal [...] 1.63 cm2. Aortic cusps appear mildly sclerotic. Electronically Signed By: Tyler Cuenca MD, [facility] 2020-08-02 16:22:48 HARBOR DEPARTMENT MANAGER Procedure Note Tyler Cuenca MD - 08/02/2020 [facility] Cardiology [address] [facility] [address], [place] [address] [address] [facility] [address], [place] [address] P:[phone] P:[phone] Echocardiographic Report ADDENDUM Patient Name: CAROLE LEWISPatient ID: [id number] : [id number] Date: 07/31/2020 2:03:54 PM Gender: FAccession #: [id number] Tech: GMLocation: [place] Ref.Provider: Kiaraight(Cm): 163 BSA: 1.84Weight(Kg): 78.93 Heart Rate: 81BP: 130/80 Quality: GoodOrder Provider: EDER SIFUENTES Procedures: Echocardiographic Report: Transthoracic echocardiogram with 2D, M-Mode, and color Dopplerexamination with saline contrast study. Indications: Murmur. Measurements: 2D/M Mode Doppler Measurement Value Normal Range MeasurementValue Normal Range EF Mod 62 AVA1.63 [ 2.00 - 4.00 ] cm2 EF MM 61 [ 55 - 70 ] % AV Mean PG 9mmHg LVIDd MM 4.87 [ 3.90 - 5.30 ] cm AV Peak Vel1.91 m/s LVIDs MM 3.27 [ 2.30 - 3.90 ] cm AV Peak PG 15mmHg LVPWd MM 0.93 [ 0.60 - 1.00 ] cm AV VTI0.35 cm IVSd MM 1.27 [ 0.60 - 0.90 ] cm LVOT Diam2.00 [ 1.70 - 2.10 ] cm LA Dimension MM 4.53 [ 2.70 - 3.80 ] cm LVOT Peak Vel0.99 [ 0.70 - 1.10 ] m/s AoR Diam MM 3.33 [ 2.60 - 3.70 ] cm LVOT VTI0.24 cm LA Volume Index 22.00 [ 16.00 - 28.00 ] cc/m2 MV E Peak Vel0.81 [ 0.60 - 1.30 ] m/s ACS MM 1.60 cm MV A Peak Vel1.01 [ 0.40 - 0.80 ] m/s MV Decel [id number] [ 150 - 200 ] msec PV Peak Vel0.98 [ 0.40 - 0.80 ] m/s TR Peak Vel2.41 [ 0.40 - 0.80 ] m/s TR Peak PG 23mmHg RVSP31.00 mmHg E'0.12 E/E' 7 Findings: Interpretation Site: Exam was interpreted at [facility]. Left Ventricle: Normal left ventricular systolic function. No focal wall motionabnormalities. Normal left ventricular size. Normal left ventricular diastolic function.Ejection fraction is measured at 62 %. Right Ventricle: Normal right ventricular size. Left Atrium: There is mild enlargement of left atrium. Right Atrium: The right atrium is normal in size. Atrial Septum: Normal atrial septum. Saline contrast study performed without evidence ofright to left shunt. Mitral Valve: Normal appearance of the mitral valve. Trivial regurgitation of the mitralvalve. Aortic Valve: Peak gradient of 15.0 mmHg. Mean gradient of 9.0 mmHg. Valve area of 1.63cm2. Aortic cusps appear mildly sclerotic. Tricuspid Valve: Normal appearance of the tricuspid valve. Estimated peak RVSP is 31 mmHg.Trivial regurgitation in the tricuspid valve. Pulmonic Valve: Pulmonic valve not well visualized. Pericardium: Normal pericardium with no significant pericardial effusion. Aorta: Normal aortic root. IVC: Normal size and normal respiratory collapse consistent with normal rightatrial pressure (<5 mmHg). Pulmonary Artery: Normal pulmonary artery size. Conclusions: Normal left ventricular systolic function. No focal wall motionabnormalities. Normal left ventricular size. Normal left ventricular diastolic function.Ejection fraction is measured at 62 %. There is mild enlargement of left atrium. Normal atrial septum. Saline contrast study performed without evidence ofright to left shunt. Peak gradient of 15.0 mmHg. Mean gradient of 9.0 mmHg. Valve area of 1.63cm2. Aortic cusps appear mildly sclerotic. Electronically Signed By: Tyler Cuenca MD, [facility] 2020-08-02 16:22:48 HARBOR DEPARTMENT MANAGER us Eder Sifuentes MD CV ECHO PROCEDURES Edited Result - Final documented in this encounter Visit Diagnoses Diagnosis Murmur, heart Undiagnosed cardiac murmurs documented in this encounter Care Teams Steel Tester Relationship Specialty Start Date End Date Erich Andrew MD [address] [place] [address] PCP - General Family Medicine 01/05/20 01/16/22 documented as of this encounter
--- OUTSIDE RECORDS SUMMARY | 2024-09-19 01:46 | XMS_ITS | Encounter Summary ---
Author Organization [facility] Address [address] [facility] [address] [place] [address] Care Team Providers Care Culinary Worker Name Role Phone Erich Andrew MD Primary Care Prov ider All Hernandez MD Unavailable Encounter Details Date Type Department Care Team (Late st Contact Info) Description 05/20/2021 Orders Only [facility] Hand Surgery [address] [facility] [address] [place] [address] Jennifer Avila MD [address] [facility] [address] [address] Preop testing (Primary Dx) Social History Tobacco Use Types Packs/Day Years Used Date Smoking Tobacco: Former Cigarettes 0.5 10 Smokeless Tobacco: Former Alcohol Use Standard Drinks/Week Comments Yes 0 (1 standard drink = 0.6 oz pur e alcohol) Comments Unknown Sex and Gender Information Value Date Recorded Sex Assigned at Not on file 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
--- OUTSIDE RECORDS SUMMARY | 2024-09-19 01:46 | XMS_ITS | Encounter Summary ---
Author Organization [facility] Address [address] [facility] [address] [place] [address] Care Team Providers Care Ldr Rn Name Role Phone Erich Andrew MD Primary Care Prov ider Encounter Details Date Type Department Care Team (Late st Contact Info) Description 08/01/2020 Telephone [facility] Cardiology [address] [facility] [address] [place] [address] All Hernandez MD [address] [place] [id number] Social History Tobacco Use Types Packs/Day Years Used Date Smoking Tobacco: Former Cigarettes 0.5 10 Smokeless Tobacco: Former Alcohol Use Standard Drinks/Week Comments Yes 0 (1 standard drink = 0.6 oz pur e alcohol) Comments Unknown Sex and Gender Information Value Date Recorded Sex Assigned at Not on file Legal Sex Female 8:33 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 Hernandez. Answered all questions and verified FU appointment with patient. EVENT SPECIALIST * Telephone Encounter - Fernanda Obando RN - 08/01/2020 10:09 AM DEMO EVENT SPECIALIST ----- Message from All Hernandez MD sent at 08/01/2020 9:38 AM DEMO EVENT SPECIALIST ----- Please call patient let her know that her heart function is normal on the echocardiogram. She does have mild narrowing of the aortic valve (the valve on the left side of the heart, through which blood comes out of the heart and goes to the rest of the body). This narrowing of the aortic valve is the reason for her heart murmur. At this time, no intervention is necessary. Continue clinical and echocardiographic surveillance is recommended. EVENT SPECIALIST documented in this encounter Plan of Treatment Not on file documented as of this encounter Visit Diagnoses Not on filedocumented in this encounter Care Teams Ldr Rn Relationship Specialty Start Date End Date Erich Andrew MD [address] [place] [address] PCP - General Family Medicine 01/05/20 01/16/22 documented as of this encounter
--- OUTSIDE RECORDS SUMMARY | 2024-09-19 01:46 | XMS_ITS | Encounter Summary ---
Author Organization [facility] Address [address] [address] Care Team Providers Care Ice Skater Name Role Phone Erich Andrew MD Primary Care Prov ider Reason for Visit * Reason Comments Follow-up HTN Encounter Details Date Type Department Care Team (Late st Contact Info) Description 10/08/2020 2:30 PM FLORAL ASSOCIATE Office Visit [facility] Cardiology [address] [facility] [address] [place] [address] Geneva Tracy NP [address] [place] [address] [place] [address] Aortic valve stenosis, mild (Primary Dx); Family history of ischemic heart disease; Adult BMI 30.0-30.9 kg/sq m Social History Tobacco Use Types Packs/Day Years Used Date Smoking Tobacco: Former Cigarettes 0.5 10 Smokeless Tobacco: Former Alcohol Use Standard Drinks/Week Comments Yes 0 (1 standard drink = 0.6 oz pur e alcohol) Comments Unknown Sex and Gender Information Value Date Recorded Sex Assigned at Not on file Legal Sex Female 8:33 AM FLORAL ASSOCIATE Gender Identity Not on file Sexual Orientation Not on file documented as of this encounter Last Filed Vital Signs Vital Sign Reading Time Taken Comments Blood Pressure 130/98 10/08/2020 2:38 PM FLORAL ASSOCIATE Pulse 83 10/08/2020 2:38 PM FLORAL ASSOCIATE Temperature - - Respiratory Rate - - Oxygen Saturation 97% 10/08/2020 2:38 PM FLORAL ASSOCIATE Inhaled Oxygen Concentration - - Weight 79.8 kg (176 lb) 10/08/2020 2:38 PM FLORAL ASSOCIATE Height 162.6 cm (5' 4 ) 10/08/2020 2:38 PM FLORAL ASSOCIATE Body Mass Index 30.21 10/08/2020 2:38 PM FLORAL ASSOCIATE documented in this encounter Patient Instructions * Patient Instructions* Geneva Tracy NP - 10/08/2020 2:30 PM FLORAL ASSOCIATE Rosa Scott MANAGED CARE LIAISON - Nurse Practitioner with [facility] who has a weight loss program [address] [facility] [address] [place] [address] AL ASSOCIATE documented in this encounter Progress Notes * Geneva Tracy NP - 10/08/2020 2:30 PM CST Images from the original note were not included. [facility] Cardiology [address] [place] [address] Date of Visit: 10/08/2020 Patient ID: Carole Quiles [id number] Chief Complaint: Carole Quiles is a 55 y.o. female who is a newly established patient of Dr. Hernandez returning to the office for follow-up after she had an echocardiogram and coronary artery calcium scoring. History of Present Illness: Carole Quiles is a 55 y.o. femalewith hypertension, dyslipidemia, obesity, family history of coronary disease 07/04/2020 initial evaluation-patient is here for cardiovascular evaluation. Patient gives family history of coronary disease in multiple family members including her father and the family from her father's side. She states that her father had fatal MN at age 54. Patient is a portion [...] done in the past as per patient 10/08/2020 follow-up with MANAGED CARE LIAISON: She returns after having the echo in the coronary artery calcium scoring. She has no new complaints or concerns. She is relieved about her test results but expresses ongoing frustration she is not losing weight despite dietary changes and increased physical activity. Records that I personally reviewed on the day of this visit include: (the interpretation is outlined in the HPI above) 12/19/[address] Hernandez, 07/31/2020 echocardiogram report and CAC scoring report I have also reviewed: allergies, current medications, past family history, past medical history, past social history, past surgical history and problem list Review of Systems Constitution: Negative for diaphoresis, fever, malaise/fatigue, weight gain and weight loss. HENT: Negative for hearing loss. Eyes: Negative for visual disturbance. Cardiovascular: Negative for chest pain, claudication, dyspnea on exertion, leg swelling, orthopnea, palpitations, paroxysmal nocturnal dyspnea and syncope. Respiratory: Negative for cough, hemoptysis, shortness of breath, snoring and wheezing. Hematologic/Lymphatic: Does not bruise/bleed easily. Skin: Negative for poor wound healing and rash. Musculoskeletal: Negative for joint pain and myalgias. Gastrointestinal: Negative for heartburn, nausea and vomiting. Genitourinary: Negative for hematuria. Neurological: Negative for dizziness, headaches and light-headedness. Psychiatric/Behavioral: Negative for depression. The patient is not nervous/anxious. Vital Signs: BP 130/98 (BP Location: Left arm, Patient Position: Sitting) Pulse 83 Ht 162.6 cm (5' 4 ) Wt 79.8 kg (176 lb) SpO2 97% BMI 30.21 kg/m?? Physical Exam Constitutional: She is oriented to person, place, and time. She appears well- developed and well-nourished. No distress. HENT: Head: Normocephalic and atraumatic. Nose: Nose normal. Wearing a mask Eyes: Pupils are equal, round, and reactive to light. Conjunctivae and EOM are normal. No scleral icterus. Neck: Normal range of motion. No JVD present. No tracheal deviation present. Cardiovascular: Normal rate, regular rhythm and normal heart sounds. No murmur heard. Pulmonary/Chest: Effort normal and breath sounds normal. No respiratory distress. Abdominal: Soft. Bowel sounds are normal. There is no abdominal tenderness. Musculoskeletal: Normal range of motion. General: No edema. Neurological: She is alert and oriented to person, place, and time. Skin: Skin is warm and dry. Psychiatric: She has a normal mood and affect. No Known Allergies Current Outpatient Medications: ??? atorvastatin (LIPITOR) 10 mg tablet, , Disp: , Rfl: ??? butalbitaL-acetaminophen 50-325 mg tablet, Take by mouth, Disp: , Rfl: ??? calcium-magnesium 300-300 mg tablet, Take by mouth, Disp: , Rfl: ??? cholecalciferol (VITAMIN D-3) 5,000 unit capsule, Take 5,000 Units by mouth daily, Disp: , Rfl: ??? cyanocobalamin (Vitamin B-12) 100 mcg tablet, Take 100 mcg by mouth daily, Disp: , Rfl: ??? estradioL (ESTRACE) 1 mg tablet, , Disp: , Rfl: ??? hydroCHLOROthiazide (HYDRODIURIL) 25 mg tablet, , Disp: , Rfl: ??? naproxen (Naprosyn) 500 mg tablet, as needed , Disp: , Rfl: ??? omega 4-ilb-rgl-fish oil (Fish Oil) 100-160-1,000 mg capsule, Take by mouth, Disp: , Rfl: ??? progesterone (PROMETRIUM) 100 mg capsule, , Disp: , Rfl: No results found for: POTASSIUM, BUNSER, CREATININE, CHOL, TRIG, LDL, LDLCALC, HDL Assessment: Diagnoses and all orders for this visit: Aortic valve stenosis, mild (Primary) Family history of ischemic heart disease Adult BMI 30.0-30.9 kg/sq m Plan/Recommendations: I reviewed the finding of mild aortic stenosis with her and explained how we will continue to monitor this on periodically echocardiograms. I reassured her it is not something that would cause any problem at this time. Coronary artery calcium scoring was performed to better risk stratify her considering her family history, hypertension, hyperlipidemia and obesity. It was very encouraging to see that her score was 0. Ongoing management of her hypertension, hyperlipidemia and healthy lifestyle is encouraged. She is frustrated by inability to lose weight. Her thyroid function has been checked by her recordist chief. And she is not aware of any indication of diabetes or pre diabetes on routine lab work. I encouraged her to minimize processed foods in her diet as much as possible, and try to make more of herdiet plant based. I gave her Rosa Ma's information if she would want to pursue weight loss evaluation with her. I also explained her that some primary care providers also have weight loss clinic she may be able to find one closer to the local area. She was appreciative of the information. Return to the office to see Dr. Hernandez in 6 months. Call us sooner with questions or concerns. GISELA Mcqueen- Nurse Practitioner with [facility] [place] [facility] This note is dictated and transcribed using [employer] Direct Software. Aligning Inspector variancesmay occur. Despite proofreading, typographical errors may occur. AL ASSOCIATE documented in this encounter Plan of Treatment Not on file documented as of this encounter Visit Diagnoses Diagnosis Aortic valve stenosis, mild- Primary Aortic valve disorders Family history of ischemic heart disease Adult BMI 30.0-30.9 kg/sq m Body Mass Index 30.0-30.9, adult documented in this encounter Discontinued Medications Medication Sig Discontinue Reason Start Date End Da te buPROPion XL (WELLBUTRIN XL) 150 mg 24 hr tablet Therapy completed 10/08/2020 documented as of this encounter Historical Medications * This list may reflect changes made after this encounter. calcium-magnesium 300-300 mg tablet Take 1 tablet by mouth daily omega 0-eji-smm-fish oil (Fish Oil) 100-160-1,000 mg capsule Take 1 tablet by mouth daily cyanocobalamin (Vitamin B-12) 100 mcg tabletIndications :Prevention of Vitamin B12 Deficiency Take 1 tablet (100 mcg total) by mouth daily cholecalciferol (VITAMIN D-3) 5,000 unit capsule Take 1 capsule (5,000 Units total) by mouth daily added in this encounter Care Teams Ice Skater Relationship Specialty Start Date End Date Erich Andrew MD [address] [place] [address] PCP - General Family Medicine 01/05/20 01/16/22 documented as of this encounter
--- OUTSIDE RECORDS SUMMARY | 2024-09-19 01:46 | XMS_ITS | Encounter Summary ---
Author Organization [facility] Address [address] [facility] [address] [place] [address] Care Team Providers Care Spindle Sander Name Role Phone Erich Andrew MD Primary Care Prov ider Encounter Details Date Type Department Care Team (Late st Contact Info) Description 10/08/2020 Telephone [facility] Cardiology [address] [place] [address] All Hernandez MD [address] [id number] Social History Tobacco Use Types Packs/Day Years Used Date Smoking Tobacco: Former Cigarettes 0.5 10 Smokeless Tobacco: Former Alcohol Use Standard Drinks/Week Comments Yes 0 (1 standard drink = 0.6 oz pur e alcohol) Comments Unknown Sex and Gender Information Value Date Recorded Sex Assigned at Not on file Legal Sex Female 8:33 AM POSTAL SUPERINTENDENT Gender Identity Not on file Sexual Orientation Not on file documented as of this encounter Miscellaneous Notes * Telephone Encounter - Gunnar Srinivasan MA - 10/08/2020 10:04 AM POSTAL SUPERINTENDENT LMOM asking pt if she could come in for her appt at 2:00 instead of 3:30 today, 10/08/20 AL SUPERINTENDENT documented in this encounter Plan of Treatment Not on file documented as of this encounter Visit Diagnoses Not on filedocumented in this encounter Care Teams Spindle Sander Relationship Specialty Start Date End Date Erich Andrew MD [address] [place] [address] PCP - General Family Medicine 01/05/20 01/16/22 documented as of this encounter
--- OUTSIDE RECORDS SUMMARY | 2024-09-19 01:46 | XMS_ITS | Encounter Summary ---
Author Organization [facility] Address [address] [facility] [address] [facility] [address] [place] [address] Care Team Providers Care Bevel Mill Operator Name Role Phone Erich Andrew MD Primary Care Prov ider Encounter Details Date Type Department Care Team (Late st Contact Info) Description 08/28/2020 Telephone [facility] Cardiology [address] [facility] [address] [place] [address] All Hernandez MD [address] [address] Social History Tobacco Use Types Packs/Day Years Used Date Smoking Tobacco: Former Cigarettes 0.5 10 Smokeless Tobacco: Former Alcohol Use Standard Drinks/Week Comments Yes 0 (1 standard drink = 0.6 oz pur e alcohol) Comments Unknown Sex and Gender Information Value Date Recorded Sex Assigned at Not on file Legal Sex Female 8:33 AM HEALTH ADMINISTRATOR Gender Identity Not on file Sexual Orientation Not on file documented as of this encounter Miscellaneous Notes * Telephone Encounter - Becca Henry MA - 08/28/2020 1:[address] Hernandez I called the patient to let her know that her coronary calcium score is ZERO which is great news. ??That means ??the chance of any significant plaque in her heart vessels are very low. Patient understood and has a appointment to be seen on 09.07.2020 with Geneva Tracy-ABDOULAYE TH ADMINISTRATOR documented in this encounter Plan of Treatment Not on file documented as of this encounter Visit Diagnoses Not on filedocumented in this encounter Care Teams Bevel Mill Operator Relationship Specialty Start Date End Date Erich Andrew MD [address] [place] [address] PCP - General Family Medicine 01/05/20 01/16/22 documented as of this encounter
--- OUTSIDE RECORDS SUMMARY | 2024-09-19 01:46 | XMS_ITS | Encounter Summary ---
Author Organization [facility] Address [address] [place] [address] Care Team Providers Care Continuous Improvement Coordinator Name Role Phone Erich Andrew MD Primary Care Prov ider Reason for Referral * Diagnostic Imaging (Routine) - Closed Specialty Diagnoses / Procedures Referred By Josephine olivares Referred To Contact Diagnoses Bilateral hand numbness Synovitis and tenosynovitis Procedures XR Wrist Left 3 (Standard) Jillian Martinez PA [address] [address] [address] [place] [address] [place] [address] Phone: tel: fax: [address] [phone] Referral ID Status Reason Start Date Expiration Date Visits Re quested Visits Authorized [id number] Closed 04/29/2021 05/29/2022 1 1 * Diagnostic Imaging (Routine) - Closed Specialty Diagnoses / Procedures Referred By Josephine olivares Referred To Contact Diagnoses Bilateral hand numbness Synovitis and tenosynovitis Procedures XR Wrist Right 3 (Standard) Jillian Martinez PA [address] [facility] [address] [place] [address] [place] [address] Phone: tel: fax: [address] [phone] Referral ID Status Reason Start Date Expiration Date Visits Re quested Visits Authorized [id number] Closed 04/29/2021 05/29/2022 1 1 Reason for Visit * Diagnostic Imaging (Routine) - Closed Specialty Diagnoses / Procedures Referred By Contac t Referred To Contact Diagnoses Bilateral hand numbness Synovitis and tenosynovitis Procedures XR Wrist Left 3 (Standard) Jillian Martinez PA [address] [address] Phone: tel: fax: [address] [phone] Referral ID Status Reason Start Date Expiration Date Visits Re quested Visits Authorized [id number] Closed 04/29/2021 05/29/2022 1 1 Encounter Details Date Type Department Care Team (Latest Contact Info) Description 04/29/2021 9:33 AM CDT - 04/29/2021 11:59 PM CDT Hospital Encounter [facility] M[facility] 1 DIAG IMG [address] [place] [address] Bilateral hand numbness; Synovitis and tenosynovitis Discharge Disposition: Discharge to home or self care Social History Tobacco Use Types Packs/Day Years Used Date Smoking Tobacco: Former Cigarettes 0.5 10 Smokeless Tobacco: Former Alcohol Use Standard Drinks/Week Comments Yes 0 (1 standard drink = 0.6 oz pur e alcohol) Comments Unknown Sex and Gender Information Value Date Recorded Sex Assigned at Not on file Legal Sex Female 8:33 AM ROD FILLER Gender Identity Not on file Sexual Orientation [...] tablet (25 mg total) by mouth daily naproxen (NAPROSYN) 500 mg tablet Take 1 tablet (500 mg total) by mouth as needed omega 4-muu-eql-fish oil (Fish Oil) 100-160-1,000 mg capsule Take 1 tablet by mouth daily atorvastatin (LIPITOR) 10 mg tablet Take 10 mg by mouth daily 03/26/2022 estradioL (ESTRACE) 1 mg tablet Take 1 mg by mouth nightly 07/06/2024 progesterone (PROMETRIUM) 100 mg capsule Take [...] VIEWS Schedule Routine, Read Routine (OP Routine) 04/29/2021 9:43 AM CDT Bilateral hand numbness Synovitis and tenosynovitis XR WRIST LEFT 3 OR MORE VIEWS Schedule Routine, Read Routine (OP Routine) 04/29/2021 9:43 AM CDT Bilateral hand numbness Synovitis and tenosynovitis documented in this encounter Results * XR Wrist Left [...] PM T: ??04/29/2021 2:54 PM Report ID: [id number] Reading Location: ??[id number] Procedure Note Gino Lea MD - 04/29/2021 [...] Gino Lea M.D. AT: AT Report ID: [id number] Reading Location: [id number] Jillian DHALIWAL IM XR PROCEDURES Final Result * XR Wrist [...] PM T: ??04/29/2021 2:53 PM Report ID: [id number] Reading Location: ??[id number] Procedure Note Gino Lea MD - 04/29/2021 [...] Gino Lea M.D. AT: AT Report ID: [id number] Reading Location: [id number] Jillian DHALIWAL IMG XR PROCEDURES Final Result documented in this encounter Visit Diagnoses Diagnosis Bilateral hand numbness Disturbance of skin sensation Synovitis and tenosynovitis Unspecified synovitis and tenosynovitis documented in this encounter Care Teams Continuous Improvement Coordinator Relationship Specialty Start Date End Date Erich Andrew MD [address] [place] [address] PCP - General Family Medicine 01/05/20 01/16/22 documented as of this encounter
--- OUTSIDE RECORDS SUMMARY | 2024-09-19 01:46 | XMS_ITS | Encounter Summary ---
Author Organization [facility] Address [address] [address] Care Team Providers Care Air Dispatcher Name Role Phone Erich Andrew MD Primary Care Prov ider Reason for Referral * Diagnostic Imaging (Routine) - Closed Specialty Diagnoses / Procedures Referred By Contac t Referred To Contact Diagnoses Pain in both hands Procedures XR Hand Left 3 or More Views Jennifer Avila MD Phone: tel: fax: [address] [phone] Referral ID Status Reason Start Date Expiration Date Visits Re quested Visits Authorized [id number] Closed 05/17/2021 06/16/2022 1 1 * Diagnostic Imaging (Routine) - Closed Specialty Diagnoses / Procedures Referred By Contac t Referred To Contact Diagnoses Pain in both hands Procedures XR Hand Right 3 or More Views Jennifer Avila MD Phone: tel: fax: [address] [phone] Referral ID Status Reason Start Date Expiration Date Visits Re quested Visits Authorized [id number] Closed 05/17/2021 06/16/2022 1 1 Reason for Visit * Reason Comments Pain Pain Numbness Follow-up Pain Numbness Follow-up Encounter Details Date Type Department Care Team (Late st Contact Info) Description 05/17/2021 8:30 AM CDT Office Visit [facility] Hand Surgery [facility] [place] [phone] Jennifer Avila MD [facility] [address] [place] [address] Pain in both hands (Primary Dx) Social History Tobacco Use Types Packs/Day Years Used Date Smoking Tobacco: Former Cigarettes 0.5 10 Smokeless Tobacco: Former Alcohol Use Standard Drinks/Week Comments Yes 0 (1 standard drink = 0.6 oz pur e alcohol) Comments Unknown Sex and Gender Information Value Date Recorded Sex Assigned at Not on file Legal Sex Female 8:33 AM 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 Follow up VISIT Subjective CHIEF COMPLAINT She had concerns including Pain of the Right Wrist; Pain, Numbness, and Follow- up of the Right Hand; and Pain, Numbness, and Follow-up of the Left Hand. HISTORY OF PRESENT ILLINESS The patient is a 55-year-old rmzmg-bmum-ciokdqsp female who presents today for evaluation of [...] Views; Future Plan This is a 55-year-old rnvee-pkvv-uwjpfhpf female who presents today with bilateral hand [...] as of this encounter Results * XR Hand Left 3 or More Views (05/17/2021 9:41 AM CDT) Anatomical Region Laterality Modality Upper Extremities, Hand Left Computed Radiography 05/17/2021 12:3 5 PM CDT Narrative 05/17/2021 12:37 PM CDT EXAM DESCRIPTION: ?? 1. ??XR HAND RIGHT 3 OR MORE VIEWS; 2. ??XR HAND LEFT 3 OR MORE VIEWS REASON FOR STUDY: ??pain ??Numbness and pain both hands severe x 3-4 mths, NKI ?? TECHNIQUE: ??Three views each hand submitted without comparison. FINDINGS: Right hand: There are no erosions. ??Alignment is normal. ??There are no fractures. ??There is mild basal thumb and polyarticular interphalangeal joint osteoarthritis. ?? There is no dorsal wrist soft tissue swelling. Left hand: There are no erosions. ??There are no fractures. ??Alignment is normal. ??There is mild basal thumb and polyarticular interphalangeal joint osteoarthritis. ?? There is no dorsal wrist soft tissue swelling. IMPRESSION: ?? 1. ??No radiographic evidence of inflammatory arthritis. 2. 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 THIS IS AN ELECTRONICALLY VERIFIED FINAL REPORT 05/17/2021 12:37 PM - Electronically signed by Tyler Dumont M.D. D: ??05/17/2021 12:37 PM T: Report ID: [id number] Reading Location: ??[id number] Procedure Note Tyler Dumont MD - 05/17/2021 EXAM DESCRIPTION: 1. XR HAND RIGHT 3 OR MORE VIEWS; 2. XR HAND LEFT 3 OR MORE VIEWS REASON FOR STUDY: pain Numbness and pain both hands severe x 3-4 mths,NKI TECHNIQUE: Three views each hand submitted without comparison. FINDINGS: Right hand: There are no erosions. Alignment is normal. There are no fractures.There is mild basal thumb and polyarticular interphalangeal jointosteoarthritis. There is no dorsal wrist soft tissue swelling. Left hand: There are no erosions. There are no fractures. Alignment is normal.There is mild basal thumb and polyarticular interphalangeal jointosteoarthritis. There is no dorsal wrist soft tissue swelling. IMPRESSION: 1. No radiographic evidence of inflammatory arthritis. 2. 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 THIS IS AN ELECTRONICALLY VERIFIED FINAL REPORT 05/17/2021 12:37 PM - Electronically signed by Tyler Dumont M.D. T: Report ID: [id number] Reading Location: [id number] us Jennifer Avila MD IMG XR PROCEDURES Final R esult * XR Hand Right 3 or More Views (05/17/2021 9:41 AM CDT) Anatomical Region Laterality Modality Upper Extremities, Hand Right Computed Radiography 05/17/2021 12:3 5 PM CDT Narrative 05/17/2021 12:37 PM CDT EXAM DESCRIPTION: ?? 1. ??XR HAND RIGHT 3 OR MORE VIEWS; 2. ??XR HAND LEFT 3 OR MORE VIEWS REASON FOR STUDY: ??pain ??Numbness and pain both hands severe x 3-4 mths, NKI ?? TECHNIQUE: ??Three views each hand submitted without comparison. FINDINGS: Right hand: There are no erosions. ??Alignment is normal. ??There are no fractures. ??There is mild basal thumb and polyarticular interphalangeal joint osteoarthritis. ?? There is no dorsal wrist soft tissue swelling. Left hand: There are no erosions. ??There are no fractures. ??Alignment is normal. ??There is mild basal thumb and polyarticular interphalangeal joint osteoarthritis. ?? There is no dorsal wrist soft tissue swelling. IMPRESSION: ?? 1. ??No radiographic evidence of inflammatory arthritis. 2. 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 THIS IS AN ELECTRONICALLY VERIFIED FINAL REPORT 05/17/2021 12:37 PM - Electronically signed by Tyler Dumont M.D. D: ??05/17/2021 12:37 PM T: Report ID: [id number] Reading Location: ??[id number] Procedure Note Tyler Dumont MD - 05/17/2021 EXAM DESCRIPTION: 1. XR HAND RIGHT 3 OR MORE VIEWS; 2. XR HAND LEFT 3 OR MORE VIEWS REASON FOR STUDY: pain Numbness and pain both hands severe x 3-4 mths,NKI TECHNIQUE: Three views each hand submitted without comparison. FINDINGS: Right hand: There are no erosions. Alignment is normal. There are no fractures.There is mild basal thumb and polyarticular interphalangeal jointosteoarthritis. There is no dorsal wrist soft tissue swelling. Left hand: There are no erosions. There are no fractures. Alignment is normal.There is mild basal thumb and polyarticular interphalangeal jointosteoarthritis. There is no dorsal wrist soft tissue swelling. IMPRESSION: 1. No radiographic evidence of inflammatory arthritis. 2. 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 THIS IS AN ELECTRONICALLY VERIFIED FINAL REPORT 05/17/2021 12:37 PM - Electronically signed by Tyler Dumont M.D. T: Report ID: [id number] Reading Location: [id number] us Jennifer Avila MD IMG XR PROCEDURES Final R esult documented in this encounter Visit Diagnoses Diagnosis Pain in both hands- Primary Pain in both hands documented in this encounter Care Teams Air Dispatcher Relationship Specialty Start Date End Date Erich Andrew MD [address] [place] [address] PCP - General Family Medicine 01/05/20 01/16/22 documented as of this encounter
--- OUTSIDE RECORDS SUMMARY | 2024-09-19 01:46 | XMS_ITS | Encounter Summary ---
Author Organization [facility] Address [address] [place] [address] Care Team Providers Care Physics Instructor Name Role Phone Erich Andrew MD Primary Care Prov ider Reason for Visit * Diagnostic Imaging (Routine) - Closed Specialty Diagnoses / Procedures Referred By Josephine olivares Referred To Contact Procedures Breast Imaging Screening Outside Reference Amy Vora NP Phone: tel: fax: Referral ID Status Reason Start Date Expiration Date Visits Re quested Visits Authorized [id number] Closed 12/30/2021 01/29/2023 1 1 Encounter Details Date Type Department Care Team (Late st Contact Info) Description 10/23/2020 Hospital Encounter [facility] [address] [place] [phone] Social History Tobacco Use Types Packs/Day Years [...] on file Legal Sex Female 8:33 AM WAREHOUSE UNLOADER Gender Identity Not on file Sexual Orientation Not on file documented as of this encounter Plan of Treatment Not on file documented as of this encounter Procedures Procedure Name Priority Date/Time Associated Diagnosis Comments BREAST IMAGING MG SCREENING OUTSIDE REFERENCE Routine 10/23/2020 12:00 AM WAREHOUSE UNLOADER documented in this encounter Results * Breast Imaging Screening Outside Reference (10/23/2020 12:00 AM WAREHOUSE UNLOADER) Impressions [facility] - 12/30/2021 1:32 PM CDT These images are for Reference purposes only and have not been reviewed by [facility]. ??There will be no report generated by a [facility] Radiologist. Narrative [facility] - 12/30/2021 1:32 PM CDT EXAMINATION: ??Images For Reference Purposes Only us Amy Vora VEHICLE FARE COLLECTOR IMG MAMMO PROCEDURES Fin al Result [facility] documented in this encounter Visit Diagnoses Not on filedocumented in this encounter Care Teams Physics Instructor Relationship Specialty Start Date End Date Erich Andrew MD [address] [place] [address] PCP - General Family Medicine 01/05/20 01/16/22 documented as of this encounter
--- OUTSIDE RECORDS SUMMARY | 2024-09-19 01:46 | XMS_ITS | Encounter Summary ---
Author Organization [facility] Address [address] [place] [address] Care Team Providers Care Freezer Tunnel Operator Name Role Phone Erich Andrew MD Primary Care Prov ider Reason for Referral * Diagnostic Imaging (Routine) - Closed Specialty Diagnoses / Procedures Referred By Contac t Referred To Contact Diagnoses Pain in both hands Procedures XR Hand Left 3 or More Views Jennifer Avila MD Phone: tel: fax: [address] [phone] Referral ID Status Reason Start Date Expiration Date Visits Re quested Visits Authorized [id number] Closed 05/17/2021 06/16/2022 1 1 * Diagnostic Imaging (Routine) - Closed Specialty Diagnoses / Procedures Referred By Contac t Referred To Contact Diagnoses Pain in both hands Procedures XR Hand Right 3 or More Views Jennifer Avila MD Phone: tel: fax: [address] [phone] Referral ID Status Reason Start Date Expiration Date Visits Re quested Visits Authorized [id number] Closed 05/17/2021 06/16/2022 1 1 Reason for Visit * Diagnostic Imaging (Routine) - Closed Specialty Diagnoses / Procedures Referred By Josephine t Referred To Contact Diagnoses Pain in both hands Procedures XR Hand Left 3 or More Views Jennifer Avila MD Phone: tel: fax: [facility] [address] [place] [address] Referral ID Status Reason Start Date Expiration Date Visits Re quested Visits Authorized [id number] Closed 05/17/2021 06/16/2022 1 1 Encounter Details Date Type Department Care Team (Latest Contact Info) Description 05/17/2021 9:30 AM CDT - 05/17/2021 11:59 PM CDT Hospital Encounter [facility] [address] [place] [address] Pain in both hands Discharge Disposition: Discharge to home or self care Social History Tobacco Use Types Packs/Day Years Used Date Smoking Tobacco: Former Cigarettes 0.5 10 Smokeless Tobacco: Former Alcohol Use Standard Drinks/Week Comments Yes 0 (1 standard drink = 0.6 oz pur e alcohol) Comments Unknown Sex and Gender Information Value Date Recorded Sex Assigned at Not on file Legal Sex Female 8:33 AM CHAIN PERSON Gender Identity Not on file Sexual Orientation [...] mg total) by mouth as needed omega 6-bgr-csi-fish oil (Fish Oil) 100-160-1,000 mg capsule Take [...] Name Priority Date/Time Associated Diagnosis Comments XR HAND RIGHT 3 OR MORE VIEWS Schedule Routine, Read Routine (OP Routine) 05/17/2021 9:41 AM CDT Pain in both hands XR HAND LEFT 3 OR MORE VIEWS Schedule Routine, Read Routine (OP Routine) 05/17/2021 9:41 AM CDT Pain in both hands documented in this encounter Results * XR Hand Left [...] D: ??05/17/2021 12:37 PM T: Report ID: [id number] Reading Location: ??[id number] Procedure Note Tyler Dumont MD - 05/17/2021 [...] by Tyler Dumont M.D. T: Report ID: [id number] Reading Location: [id number] us Jennifer Avila MD IMG XR PROCEDURES [...] D: ??05/17/2021 12:37 PM T: Report ID: [id number] Reading Location: ??[id number] Procedure Note Tyler Dumont MD - 05/17/2021 [...] by Tyler Dumont M.D. T: Report ID: [id number] Reading Location: [id number] Jennifer Avila MD IMG XR PROCEDURES Final R esult documented in this encounter Visit Diagnoses Diagnosis Pain in both hands documented in this encounter Care Teams Freezer Tunnel Operator Relationship Specialty Start Date End Date Erich Andrew MD [address] [place] [id number] PCP - General Family Medicine 01/05/20 01/16/22 documented as of this encounter
--- OUTSIDE RECORDS SUMMARY | 2024-09-19 01:47 | XMS_ITS | Encounter Summary ---
Author Organization [facility] Healthcare Address [facility] [place] [address] Care Team Providers Care Department Secretary Name Role Phone Unavailable Primary Care Provider Unavailabl e Reason for Visit * Diagnostic Imaging (Routine) - Closed Specialty Diagnoses / Procedures Referred By Josephine olivares Referred To Contact Procedures Breast Imaging Screening Outside Reference Amy Vora NP Phone: tel: fax: Referral ID Status Reason Start Date Expiration Date Visits Re quested Visits Authorized [id number] Closed 12/30/2021 01/29/2023 1 1 Encounter Details Date Type Department Care Team (Late st Contact Info) Description 08/20/2017 Hospital Encounter [facility] [address] [place] [id number] Social History Tobacco Use Types Packs/Day Years [...] on file Legal Sex Female 8:33 AM LINE LOCATOR Gender Identity Not on file Sexual Orientation Not on file documented as of this encounter Plan of Treatment Not on file documented as of this encounter Procedures Procedure Name Priority Date/Time Associated Diagnosis Comments BREAST IMAGING MG SCREENING OUTSIDE REFERENCE Routine 08/20/2017 12:00 AM LINE LOCATOR documented in this encounter Results * Breast Imaging Screening Outside Reference (08/20/2017 12:00 AM LINE LOCATOR) Impressions RAD_M[facility]MO[facility] - 12/30/2021 1:43 PM CDT These images are for Reference purposes only and have not been reviewed by [facility]. ??There will be no report generated by a [facility] Radiologist. Narrative [facility] - 12/30/2021 1:43 PM CDT EXAMINATION: ??Images For Reference Purposes Only us Amy Vora MEDICATION ASSISTANT IMG MAMMO PROCEDURES Fin al Result [facility] documented in this encounter Visit Diagnoses Not on filedocumented in this encounter
--- OUTSIDE RECORDS SUMMARY | 2024-09-19 01:47 | XMS_ITS | Encounter Summary ---
Author Organization [facility] Address [address] [facility] [address] [place] [address] Care Team Providers Care Centerless Grinder Set Up Operator Name Role Phone Erich Andrew MD Primary Care Prov ider Encounter Details Date Type Department Care Team (Late st Contact Info) Description 07/19/2020 Telephone [facility] Cardiology [address] [facility] [address] [place] [address] All Hernandez MD [facility] [address] Social History Tobacco Use Types Packs/Day Years Used Date Smoking Tobacco: Former Cigarettes 0.5 10 Smokeless Tobacco: Former Alcohol Use Standard Drinks/Week Comments Yes 0 (1 standard drink = 0.6 oz pur e alcohol) Comments Unknown Sex and Gender Information Value Date Recorded Sex Assigned at Not on file Legal Sex Female 8:33 AM CRUSHER AND BLENDER OPERATOR Gender Identity Not on file Sexual Orientation Not on file documented as of this encounter Miscellaneous Notes * Telephone Encounter - All Hernandez MD - 07/23/2020 2:21 PM CST Okay thank you HER AND BLENDER OPERATOR * Telephone Encounter - Peg New RN - 07/20/2020 2:49 PM CST Per Chetna Rossi, this is the place [facility] sends pts to. Order and face sheet faxed to Phil FREEMAN on for pt with contact number. HER AND BLENDER OPERATOR * Telephone Encounter - Peg New RN - 07/19/2020 12:35 PM CST pts insurance will not cover the cost of calcium scoring but she is willing to pay out of pocket. She mentioned another place in [facility]. Should I send her ot [facility] in [place] - $99 ? Or where do you recommend? [facility] [phone] HER AND BLENDER OPERATOR * Telephone Encounter - Jaja Gonzalez - 07/19/2020 10:32 AM CST Pt called to discuss rescheduling her CT heart calcium procedure. Pt is okay with paying for the procedure out of pocket. HER AND BLENDER OPERATOR documented in this encounter Plan of Treatment Not on file documented as of this encounter Visit Diagnoses Not on filedocumented in this encounter Care Teams Centerless Grinder Set Up Operator Relationship Specialty Start Date End Date Erich Andrew MD [address] [place] [address] PCP - General Family Medicine 01/05/20 01/16/22 documented as of this encounter
--- OUTSIDE RECORDS SUMMARY | 2024-09-19 01:47 | XMS_ITS | Encounter Summary ---
Author Organization [facility] Care Team Providers Care Bus Dispatcher Interstate Name Role Phone Unavailable Primary Care Provider Unavailabl e Encounter Details Date Type Department Care Team (Latest Contact Info) Description 06/25/2016 10:07 AM CDT - 06/25/2016 11:59 PM CDT Hospital Encounter [facility] [place] [address] [place] [phone] Other cervical disc degeneration at C6-C7 level; Spondylosis of cervical region without myelopathy or radiculopathy Social History Tobacco Use Types Packs/Day Years Used Date Smoking Tobacco: Never Assessed Comments Unknown Sex and Gender Information Value Date Recorded Sex Assigned at Not on file 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 F BAM NORRIS M.D. FINAL REPORT The radiology attending physician has personally reviewed this study, and has reviewed and/or edited this written report and agrees with it. ACC# ??Date Time ??Exam [id number] Jun 25, 2016 10:22:00 [id number] Spine Cervical 4 or 5 vws EXAMINATION: ?? Cervical spine 4 or 5 views HISTORY: Cervical spondylosis FINDINGS: AP and lateral views of the cervical spine in neutral position, flexion, and extension are performed without comparison. There is minimal C4 on C5 retrolisthesis which does not change with bending. There is no fracture. There is mild C4-C5 and moderate C6-C7 degenerative disc disease, with uncovertebral osteoarthritis at those levels. There is no osseous central canal stenosis. There is no prevertebral soft tissue swelling. IMPRESSION: ?? Mild C4-C5 and moderate C6-C7 degenerative disc disease and uncovertebral osteoarthritis. Requested By: ALBARO ENRIQUEZ M.D. Dictated By: ?? BAM NORRIS M.D. ??on Jun 25 2016 10:40A This document has been electronically signed by: TARA SALDAÑA M.D. F on Jun 25 2016 10:45A [id number] Procedure Note Provider, MD Ananda - 01/06/2017 TARA SALDAÑA M.D. F BAM NORRIS M.D. FINAL REPORT The radiology attending physician has personally reviewed this study, and has reviewed and/or edited this written report and agrees with it. ACC# Date Time Exam [id number] Jun 25, 2016 10:22:00 [id number] Spine Cervical 4 or 5 vws EXAMINATION: Cervical spine 4 or 5 views HISTORY: Cervical spondylosis FINDINGS: AP and lateral views of the cervical spine in neutral position, flexion, and extension are performed without comparison. There is minimal C4 on C5 retrolisthesis which does not change with bending. There is no fracture. There is mild C4-C5 and moderate C6-C7 degenerative disc disease, with uncovertebral osteoarthritis at those levels. There is no osseous central canal stenosis. There is no prevertebral soft tissue swelling. IMPRESSION: Mild C4-C5 and moderate C6-C7 degenerative disc disease and uncovertebral osteoarthritis. Requested By: ALBARO ENRIQUEZ M.D. Dictated By: BAM NORRIS M.D. on Jun 25 2016 10:40A This document has been electronically signed by: TARA SALDAÑA M.D. F on Jun 25 2016 10:45A [id number] us Historical Provider MD ALDANA XR PROCEDURES Final R esult documented in this encounter Visit Diagnoses Diagnosis Other cervical disc degeneration at C6-C7 level Spondylosis of cervical region without myelopathy or radiculopathy documented in this encounter
--- OUTSIDE RECORDS SUMMARY | 2024-09-19 01:47 | XMS_ITS | Encounter Summary ---
Author Organization [facility] Healthcare Address [facility] [place] [address] Care Team Providers Care Baggage Inspector Name Role Phone Unavailable Primary Care Provider Unavailabl e Reason for Visit * Diagnostic Imaging (Routine) - Closed Specialty Diagnoses / Procedures Referred By Josephine olivares Referred To Contact Procedures Breast Imaging Screening Outside Reference Amy Vora NP Phone: tel: fax: Referral ID Status Reason Start Date Expiration Date Visits Re quested Visits Authorized [id number] Closed 12/30/2021 01/29/2023 1 1 Encounter Details Date Type Department Care Team (Late st Contact Info) Description 09/17/2019 Hospital Encounter [facility] [address] [place] [phone] Social History Tobacco Use Types Packs/Day Years [...] file Legal Sex Female 8:33 AM SENIOR LITIGATION PARALEGAL Gender Identity Not on file Sexual Orientation Not on file documented as of this encounter Plan of Treatment Not on file documented as of this encounter Procedures Procedure Name Priority Date/Time Associated Diagnosis Comments BREAST IMAGING MG SCREENING OUTSIDE REFERENCE Routine 09/17/2019 12:00 AM SENIOR LITIGATION PARALEGAL documented in this encounter Results * Breast Imaging Screening Outside Reference (09/17/2019 12:00 AM SENIOR LITIGATION PARALEGAL) Impressions [facility] - 12/30/2021 1:33 PM CDT These images are for Reference purposes only and have not been reviewed by [facility]. ??There will be no report generated by a [facility] Radiologist. Narrative [facility] - 12/30/2021 1:33 PM CDT EXAMINATION: ??Images For Reference Purposes Only us Amy Vora TRACK CAR OPERATOR IMG MAMMO PROCEDURES Fin al Result [facility] documented in this encounter Visit Diagnoses Not on filedocumented in this encounter
--- OUTSIDE RECORDS SUMMARY | 2024-09-19 01:47 | XMS_ITS | Encounter Summary ---
Author Organization [facility] Medical [facility] Address [address] [place] [address] Care Team Providers Care Co Founder And Cto Name Role Phone Erich Andrew MD Primary Care Prov ider Reason for Visit * Reason Comments New Patient Family History of He art Diease Encounter Details Date Type Department Care Team (Late st Contact Info) Description 07/04/2020 11:15 AM FOIL SPINNER Office Visit [facility] Cardiology [address] [place] [address] All Hernandez MD [address] [address] Essential hypertension (Primary Dx); Dyslipidemia; Murmur, heart; Family history of ischemic heart disease Social History Tobacco Use Types Packs/Day Years Used Date Smoking Tobacco: Former Cigarettes 0.5 10 Smokeless Tobacco: Former Alcohol Use Standard Drinks/Week Comments Yes 0 (1 standard drink = 0.6 oz pur e alcohol) Comments Unknown Sex and Gender Information Value Date Recorded Sex Assigned at Not on file Legal Sex Female 8:33 AM FOIL SPINNER Gender Identity Not on file Sexual Orientation Not on file documented as of this encounter Last Filed Vital Signs Vital Sign Reading Time Taken Comments Blood Pressure 132/70 07/04/2020 11:05 AM FOIL SPINNER Pulse 85 07/04/2020 11:05 AM FOIL SPINNER Temperature - - Respiratory Rate 15 07/04/2020 11:05 AM FOIL SPINNER Oxygen Saturation - - Inhaled Oxygen Concentration - - Weight 78.9 kg (174 lb) 07/04/2020 11:05 AM FOIL SPINNER Height 162.6 cm (5' 4 ) 07/04/2020 11:05 AM FOIL SPINNER Body Mass Index 29.87 07/04/2020 11:05 AM FOIL SPINNER documented in this encounter Progress Notes * All Hernandez MD - 07/04/2020 11:15 AM CST [facility] 07/04/2020 CHIEF COMPLAINT Chief Complaint Patient presents with ??? New Patient Family History of Heart Diease HPI Carole Quiles is a 54 y.o. female with hypertension, dyslipidemia, obesity, family history of coronary disease 07/04/2020 initial evaluation-patient is here for cardiovascular evaluation. Patient gives family history of coronary disease in multiple family members including her father and the family from her father's side. She states that her father had fatal RI at age 54. Patient is a portion [...] done in the past as per patient MEDICAL HISTORY she has a past medical history of Heart murmur and Hyperlipidemia. Obesity she has a past surgical history that includes pr dilation/curettage,diagnostic and pr lap,sling operation. she No Known Allergies Current Outpatient Medications Medication Sig Dispense Refill ??? atorvastatin (LIPITOR) 10 mg tablet ??? buPROPion XL (WELLBUTRIN XL) 150 mg 24 hr tablet ??? butalbitaL-acetaminophen 50-325 mg tablet Take by mouth ??? estradioL (ESTRACE) 1 mg tablet ??? hydroCHLOROthiazide (HYDRODIURIL) 25 mg tablet ??? naproxen (Naprosyn) 500 mg tablet ??? progesterone (PROMETRIUM) 100 mg capsule No [...] Drug use questions deferred to the physician. REVIEW OF SYSTEMS General ROS: negative for [...] than 100, triglycerides 68, LDL 61. 07/04/2020 PHYSICAL EXAM Vitals BP 132/70 (BP Location: Left arm, Patient Position: Sitting) Pulse 85 Resp 15 Ht 162.6 cm (5' 4 ) Wt 78.9 kg (174 lb) BMI 29.87 kg/m?? General appearance - alert, no distress, [...] Diagnoses and all orders for this visit: Essential hypertension (Primary) - CT Coronary Calcium Scoring; Future Dyslipidemia - CT Coronary Calcium Scoring; Future Murmur, heart - Transthoracic Echo Complete W Doppler/CF; Future Family history of ischemic heart disease - CT Coronary Calcium Scoring; Future PLAN/RECOMMENDATIONS 54 y.o. hypertension, dyslipidemia, obesity, family history of coronary disease. - patient has family history of CAD in multiple family members. Her coronary risk factors include hypertension, dyslipidemia, obesity, family history. She does not have any major cardiovascular symptoms at present. Will do coronary calcium score for risk stratification. - patient has longstanding history of murmur, which was auscultated on today's examination. Will check echocardiogram with Doppler to rule out any major structural heart disease. - Counseling was done for heart healthy diet, aerobic exercise at least 5 times a week, Medication compliance. More than 50% of the time was spent on counseling. - RTC 3 months or sooner if needed. All Hernandez MD 07/04/20 Voice recognition software was used to complete this document, therefore, molasses preparer variances may occur. SPINNER documented in this encounter Miscellaneous Notes * Addendum Note - Becca Desouza MA - 07/04/2020 11:15 AM CSTAddended by: BECCA DESOUZA on: 07/06/2020 12:06 PM Modules accepted: Orders SPINNER documented in this encounter Plan of Treatment Not on file documented as of this encounter Procedures Procedure Name Priority Date/Time Associated Diagnosis Comments POCT LIPID PANEL Routine 07/06/2020 12:0 1 PM FOIL SPINNER Dyslipidemia ECG 12-LEAD Routine 07/04/2020 Essential hypertension Murmur, heart Family history of ischemic heart disease documented in this encounter Results * POCT lipid panel (07/06/2020 12:01 PM FOIL SPINNER) Cholesterol, POC 175 mg/dL HDL, POC 100 mg/dL Triglycerides, POC 68 mg/dL LDL Cholesterol POC 61 mg/dL Chol/HDL Ratio, POC N/A Non-HDL Cholesterol, POC N/A mg/dL Cholesterol Total, POC 175 mg/dL Capillary blood 07/06/2020 1 2:01 PM FOIL SPINNER us All Hernandez MD POINT OF CARE TEST ORDERABLES Fi nal Result * ECG 12 lead (07/04/2020) us All Hernandez MD ECG ORDERABLES Final Result documented in this encounter Visit Diagnoses Diagnosis Essential hypertension- Primary Unspecified essential hypertension Dyslipidemia Other and unspecified hyperlipidemia Murmur, heart Undiagnosed cardiac murmurs Family history of ischemic heart disease documented in this encounter Discontinued Medications Medication Sig Discontinue Reason Start Date End Da te Clenpiq 10 mg-3.5 gram -12 gram/160 mL solution as directed Therapy completed 10/31/2019 0 metaxalone (Skelaxin) 800 mg tablet Therapy completed 07/04/2020 documented as of this encounter Historical Medications * This list may reflect changes made after this encounter. butalbitaL-acetam inophen 50-325 mg tablet Take 1 tablet by mouth daily added in this encounter Care Teams Co Founder And Cto Relationship Specialty Start Date End Date Erich Andrew MD [address] [place] [address] PCP - General Family Medicine 01/05/20 01/16/22 documented as of this encounter
--- OUTSIDE RECORDS SUMMARY | 2024-09-19 01:47 | XMS_ITS | Encounter Summary ---
Author Organization [facility] Healthcare Address [address] [place] [address] Care Team Providers Care Lithoduplicator Operator Name Role Phone Unavailable Primary Care Provider Unavailabl e Reason for Visit * Diagnostic Imaging (Routine) - Closed Specialty Diagnoses / Procedures Referred By Josephine olivares Referred To Contact Procedures Breast Imaging Diagnostic Outside Reference Amy Vora NP Phone: tel: fax: Referral ID Status Reason Start Date Expiration Date Visits Re quested Visits Authorized [id number] Closed 12/30/2021 01/29/2023 1 1 Encounter Details Date Type Department Care Team (Late st Contact Info) Description 09/03/2018 12:05 AM SINGING TELEGRAM PERFORMER Hospital Encounter [facility] Radiology [facility] [address] [place] [address] Social History Tobacco Use Types Packs/Day Years [...] on file Legal Sex Female 8:33 AM SINGING TELEGRAM PERFORMER Gender Identity Not on file Sexual Orientation Not on file documented as of this encounter Plan of Treatment Not on file documented as of this encounter Procedures Procedure Name Priority Date/Time Associated Diagnosis Comments BREAST IMAGING MG DIAGNOSTIC OUTSIDE REFERENCE Routine 09/03/2018 12:05 AM SINGING TELEGRAM PERFORMER documented in this encounter Results * Breast Imaging Diagnostic Outside Reference (09/03/2018 12:05 AM SINGING TELEGRAM PERFORMER) Impressions [facility] - 12/30/2021 1:43 PM CDT These images are for Reference purposes only and have not been reviewed by [facility] Radiology. ??There will be no report generated by a [facility] Radiologist. Narrative [facility] - 12/30/2021 1:43 PM CDT EXAMINATION: ??Images For Reference Purposes Only us Amy Vora NP IMG MAMMO PROCEDURES Fin al Result [facility] documented in this encounter Visit Diagnoses Not on filedocumented in this encounter
--- OUTSIDE RECORDS SUMMARY | 2024-09-19 01:47 | XMS_ITS | Encounter Summary ---
Author Organization [facility] Address [address] [address] Care Team Providers Care Apparel Trimmings Sales Representative Name Role Phone Erich Andrew MD Primary Care Prov ider Reason for Referral * Injectables (Routine) - Closed Specialty Diagnoses / Procedures Referred By Josephine olivares Referred To Contact Diagnoses Synovitis and tenosynovitis Procedures Hand/UE Tendon Sheath Injection Ab Jacobson MD Phone: tel: fax: [facility] Referral ID Status Reason Start Date Expiration Date Visits Re quested Visits Authorized [id number] Closed 01/17/2020 07/28/2021 1 1 Reason for Visit * Reason Comments Mass Encounter Details Date Type Department Care Team (Late st Contact Info) Description 01/17/2020 10:30 AM CDT Office Visit 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 female. Visit Date: 01/17/2020 Chief Complaint: Chief Complaint Patient presents with ??? Right Hand - Mass HPI: The patient is a 54-year-old [id number] female seen for evaluation of right wrist pain. She has written that she has a large cyst on top of her right hand. She reports onset in November of thisyear. She denies any specific accident or injury. She denies any systemic symptoms or modifying factors. She reports it hurts with activities such as getting up from the floor. ROS: Constitutional: Negative for appetite change. HENT: Negative for drooling and facial swelling. Eyes: Negative for photophobia. Respiratory: Negative for choking and stridor. Gastrointestinal: Negative for abdominal distention. Endocrine: Negative for polydipsia. Genitourinary: Negative for dysuria and genital sores. Neurological: Negative for facial asymmetry and speech difficulty. Hematological: Negative for adenopathy. Physical Exam: The patient is pleasant and alert. They are cooperative and well groomed. Walk with a normal gait. On examination upper extremities skin is warm and dry. There is brisk capillary refill. There are noulcerations or trophic changes. No atrophy is noted no swelling of the epitrochlear lymph nodes. Onexamination of her right hand there is a visible and palpable fullness on the dorsal aspect of her right wrist in the 4th extensor compartment. The enlargement is noted to move proximally with activefinger extension and distally with active finger flexion. She has pain with composite wrist and finger extension over the dorsal aspect of her wrist. X-rays/Imaging: Assessment/Plan Diagnoses and all orders for this visit: Synovitis and tenosynovitis (Primary) - lidocaine (XYLOCAINE) 10 mg/mL (1 %) injection 10 mg - triamcinolone (KENALOG) 40 mg/mL injection 40 mg Treatment / Plan: I advised her of the diagnosis of a 4th extensor compartment tenosynovitis. We also discussed ganglions and I advised her why I felt that her current symptoms were that of a tenosynovitis. I have discussed treatment options including splint wear, activity modification, oral anti-inflammatories, intrathecal injection, and potential role for surgical treatment. After thorough discussion I recommended and she would like to proceed with an injection. I have asked for post car follow-up in a couple weeks reports response to this intervention. Hand/UE Tendon Sheath Injection Date/Time: 01/17/2020 10:37 AM Performed by: Ab Jacobson MD Authorized by: Ab Jacobson MD Procedure Details: Location: 4th Extensor Compartment Site: R extensor compartment 4 Prep: patient was prepped using a clean technique Approach: Dorsal Medication Right Hand/Upper Extremity Tendon Sheath Injection: 1 mL lidocaine 10 mg/mL (1 %); 20 mgtriamcinolone 40 mg/mL documented in this encounter Plan of Treatment Not on file documented as of this encounter Procedures Procedure Name Priority Date/Time Associated Diagnosis Comments CT INJECTION 1 TENDON SHEATH/LIGAMENT APONEUROSIS Routine 01/17/2020 10:30 AM CDT Synovitis and tenosynovitis documented in this encounter Results * CT INJECTION 1 TENDON SHEATH/LIGAMENT APONEUROSIS (01/17/2020 10:30 AM CDT) Narrative Ab Jacobson MD - 01/17/2020 10:30 AM CDT Ab Jacobson MD ? 01/17/2020 10:40 AM Hand/UE Tendon Sheath Injection Date/Time: 01/17/2020 10:37 AM Performed by: Ab Jacobson MD Authorized by: Ab Jacobson MD Procedure Details: ??Location: ??4th Extensor Compartment ??Site: ??R extensor compartment 4 ??Prep: patient was prepped using a clean technique ?Approach: ??Dorsal ??Medication Right Hand/Upper Extremity Tendon Sheath Injection: ??1 mL lidocaine 10 mg/mL (1 %); 20 mg triamcinolone 40 mg/mL us Ab Jacobson MD IN CLINIC/BEDSIDE ORDERABLES Final Result documented in this encounter Visit Diagnoses Diagnosis Synovitis and tenosynovitis- Primary Unspecified synovitis and tenosynovitis documented in this encounter Administered Medications Inactive Administered Medications - up to 3 most recent administrations Medication Order MAR Action Action Date Dose Rate Site lidocaine (XYLOCAINE) 10 mg/mL (1 %) injection 1 mL 1 mL, One-Time Injection, Starting on Thu01/17/20 at 1037, For 1 dose, Indications: Administration of Local AnesthesiaIndications:Administrati on of Local Anesthesia Given 01/17/2020 10:37 AM CDT 1 mL lidocaine (XYLOCAINE) 10 mg/mL (1 %) injection 10 mg 10 mg (1 mL), other, Once, On Thu01/17/20 at 1100, For 1 dose, Indications: Administration of Local AnesthesiaIndications:Administrati on of Local Anesthesia Given 01/17/2020 10:28 AM CDT 10 mg triamcinolone (KENALOG) 40 mg/mL injection 20 mg 20 mg, intra-articular, One-Time Injection, Starting on Thu01/17/20 at 1037, For 1 doseIndications:Synovitis and tenosynovitis Given 01/17/2020 10:37 AM CDT 20 mg triamcinolone (KENALOG) 40 mg/mL injection 40 mg 40 mg, intra-articular, Once, On Thu01/17/20 at 1100, For 1 doseIndications:Synovitis and tenosynovitis Given 01/17/2020 10:29 AM CDT 40 mg documented in this encounter Historical Medications * This list may reflect changes made after this encounter. naproxen (NAPROSYN) 500 mg tablet Take 1 tablet (500 mg total) by mouth as needed hydroCHLOROthiaz siena (HYDRODIURIL) 25 mg tablet Take 1 tablet (25 mg total) by mouth daily Clenpiq 10 mg-3.5 gram -12 gram/160 mL solution as directed 10/31/2019 07/04/2020 progesterone (PROMETRIUM) 100 mg capsule Take 100 mg by mouth nightly 07/06/2024 metaxalone (Skelaxin) 800 mg tablet 07/04/2020 estradioL (ESTRACE) 1 mg tablet Take 1 mg by mouth nightly 07/06/2024 buPROPion XL (WELLBUTRIN XL) 150 mg 24 hr tablet 10/08/2020 atorvastatin (LIPITOR) 10 mg tablet Take 10 mg by mouth daily 03/26/2022 added in this encounter Care Teams Apparel Trimmings Sales Representative Relationship Specialty Start Date End Date Erich Andrew MD [address] [place] [address] PCP - General Family Medicine 01/05/20 01/16/22 documented as of this encounter
--- OUTSIDE RECORDS SUMMARY | 2024-09-19 01:47 | XMS_ITS | Encounter Summary ---
Author Organization [facility] Medical Group Address [address] [facility] [place] [address] Care Team Providers Care Housing Management Representative Name Role Phone Erich Andrew MD Primary Care Prov ider Encounter Details Date Type Department Care Team (Late st Contact Info) Description 07/16/2020 Telephone [facility] Medical Group Cardiology [address] [facility] [address] [place] [address] All Hernandez MD [address] [id number] Social History Tobacco Use Types Packs/Day Years Used Date Smoking Tobacco: Former Cigarettes 0.5 10 Smokeless Tobacco: Former Alcohol Use Standard Drinks/Week Comments Yes 0 (1 standard drink = 0.6 oz pur e alcohol) Comments Unknown Sex and Gender Information Value Date Recorded Sex Assigned at Not on file 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 Also, Rita report pt was not aware the test is self paid. UIT MECHANIC documented in this encounter Plan of Treatment Not on file documented as of this encounter Visit Diagnoses Not on filedocumented in this encounter Care Teams Housing Management Representative Relationship Specialty Start Date End Date Erich Andrew MD [address] [place] [address] PCP - General Family Medicine 01/05/20 01/16/22 documented as of this encounter
--- OUTSIDE RECORDS SUMMARY | 2024-09-19 01:47 | XMS_ITS | Encounter Summary ---
Author Organization [facility] Healthcare Address [facility] [place] [address] Care Team Providers Care Ict Programmer Name Role Phone Unavailable Primary Care Provider Unavailabl e Reason for Visit * Diagnostic Imaging (Routine) - Closed Specialty Diagnoses / Procedures Referred By Josephine olivares Referred To Contact Procedures Breast Imaging Screening Outside Reference Amy Vora NP Phone: tel: fax: Referral ID Status Reason Start Date Expiration Date Visits Re quested Visits Authorized [id number] Closed 12/30/2021 01/29/2023 1 1 Encounter Details Date Type Department Care Team (Late st Contact Info) Description 08/18/2016 Hospital Encounter [facility] Radiology [facility] [address] [place] [id number] Social History Tobacco Use Types Packs/Day [...] on file Legal Sex Female 8:33 AM 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 TESTER POLYPHASE Gender Identity Not on file Sexual Orientation Not on file documented as of this encounter Plan of Treatment Not on file documented as of this encounter Procedures Procedure Name Priority Date/Time Associated Diagnosis Comments BREAST IMAGING MG SCREENING OUTSIDE REFERENCE Routine 08/18/2016 12:00 AM METER TESTER POLYPHASE documented in this encounter Results * Breast Imaging Screening Outside Reference (08/18/2016 12:00 AM METER TESTER POLYPHASE) Impressions [facility] - 12/30/2021 1:43 PM CDT These images are for Reference purposes only and have not been reviewed by [facility] Radiology. ??There will be no report generated by a [facility] Radiologist. Narrative [facility] - 12/30/2021 1:43 PM CDT EXAMINATION: ??Images For Reference Purposes Only us Amy Vora SHUTTLE INSPECTOR IMG MAMMO PROCEDURES Fin al Result [facility] documented in this encounter Visit Diagnoses Not on filedocumented in this encounter
--- OUTSIDE RECORDS SUMMARY | 2024-09-19 01:47 | XMS_ITS | Encounter Summary ---
Author Organization [facility] Medical Group Address [address] [place] [address] Care Team Providers Care Senior Hardware Design Engineer Name Role Phone Erich Andrew MD Primary Care Prov ider Encounter Details Date Type Department Care Team (Late st Contact Info) Description 07/04/2020 Orders Only [facility] Medical [facility] Cardiology [address] [facility] [address] [place] [address] Provider, MD Ananda [address] [place] [address] Social History Tobacco Use Types Packs/Day Years Used Date Smoking Tobacco: Former Cigarettes 0.5 10 Smokeless Tobacco: Former Alcohol Use Standard Drinks/Week Comments Yes 0 (1 standard drink = 0.6 oz pur e alcohol) Comments Unknown Sex and Gender Information Value Date Recorded Sex Assigned at Not on file 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 Gender Identity Not on file Sexual Orientation Not on file documented as of this encounter Plan of Treatment Not on file documented as of this encounter Procedures Procedure Name Priority Date/Time Associated Diagnosis Comments CARDIOLOGY DOCUMENT SCAN Routine 07/04/2020 documented in this encounter Results * SCAN - CARDIOLOGY (07/04/2020) Anatomical Region Laterality Modality Other us Historical Provider [facility] Final Result documented in this encounter Visit Diagnoses Not on filedocumented in this encounter Care Teams Senior Hardware Design Engineer Relationship Specialty Start Date End Date Erich Andrew MD [address] [place] [address] PCP - General Family Medicine 01/05/20 01/16/22 documented as of this encounter
--- OUTSIDE RECORDS SUMMARY | 2024-09-19 01:47 | XMS_ITS | Encounter Summary ---
Author Organization [facility] Medical [facility] Address [address] [place] [address] Care Team Providers Care Merchandising Coordinator Name Role Phone Erich Andrew MD Primary Care Prov ider Encounter Details Date Type Department Care Team (Late st Contact Info) Description 07/05/2020 Telephone [facility] Cardiology [address] [place] [address] All Hernandez MD [address] [phone] Social History Tobacco Use Types Packs/Day Years Used Date Smoking Tobacco: Former Cigarettes 0.5 10 Smokeless Tobacco: Former Alcohol Use Standard Drinks/Week Comments Yes 0 (1 standard drink = 0.6 oz pur e alcohol) Comments Unknown Sex and Gender Information Value Date Recorded Sex Assigned at Not on file 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 Pt verbalized understanding. R FEEDER * Telephone Encounter - Gina Louis - 07/05/2020 11:06 AM CST Pt has requested a return call to discuss her Echo appt [phone] R FEEDER documented in this encounter Plan of Treatment Not on file documented as of this encounter Visit Diagnoses Not on filedocumented in this encounter Care Teams Merchandising Coordinator Relationship Specialty Start Date End Date Erich Andrew MD [address] [place] [address] PCP - General Family Medicine 01/05/20 01/16/22 documented as of this encounter
== END 2024-09-13 10:39 | disposition home or self-care (01) ==
LOC: ANHSURGERY 07:30 → ANHOB2 11:34
PROVIDERS: Obstetrics & Gynecology; PCP Internal Medicine; Visit Provider Urology
PROC: (CPT 57425; principal; 2024-09-12 07:30)
PROC: 0UT94ZZ Resection of Uterus, Percutaneous Endoscopic Approach (ICD-10-PCS; CPT 57425; 2024-09-12 07:30)
DX: N81.4 Uterovaginal prolapse, unspecified (principal); N83.292 Other ovarian cyst, left side; N83.291 Other ovarian cyst, right side; N80.03 Adenomyosis of the uterus; N70.11 Chronic salpingitis; N83.8 Other noninflammatory disorders of ovary, fallopian tube and broad ligament; I10 Essential (primary) hypertension; R73.03 Prediabetes; G47.10 Hypersomnia, unspecified; E78.00 Pure hypercholesterolemia, unspecified; G47.33 Obstructive sleep apnea (adult) (pediatric); Z79.85 Long-term (current) use of injectable non-insulin antidiabetic drugs; Z79.1 Long term (current) use of non-steroidal anti-inflammatories (NSAID); Z98.890 Other specified postprocedural states; Z87.891 Personal history of nicotine dependence; Z80.1 Family history of malignant neoplasm of trachea, bronchus and lung; Z82.49 Family history of ischemic heart disease and other diseases of the circulatory system
CPT/HCPCS: 58542; 57425; S2900 ×2; 88307; 99199; A9270; C1781; J0690; J1100; J1171; J1650; J1836; J1885; J2250; J2405; J2704; J3010; J3480; J7030; J7120

== ENCOUNTER 2024-12-30 11:21 | Outpatient (CLI) | payer OTHER, SELFPAY ==
--- NOTE | ~2024-12-30 | MM_ITS ---
EXAMINATION: MM screening diann BI w [place] HISTORY: Screening TECHNIQUE: Craniocaudal and mediolateral oblique 3-D tomosynthesis images were obtained and synthetic 2-D images were generated. CAD analysis was submitted and interpreted. COMPARISON: Comparison to multiple prior studies sequentially, with oldest reviewed study dated 11/2018. BREAST PARENCHYMAL COMPOSITION: Not dense: There are scattered areas of fibroglandular density. FINDINGS: There is no evidence of suspicious mass, calcification, or architectural distortion to sugg est malignancy in either breast. There has been no suspicious interval change. IMPRESSION: 1. No mammographic evidence of malignancy. 2. Recommend routine screening mammography in one year. BI-RADS Category 1: Negative Reviewed, dictated and finalized at location A.
== END 2024-12-30 11:22 | disposition home or self-care (01) ==
LOC: MICIMG 11:24
PROVIDERS: PCP Obstetrics & Gynecology; Visit Provider Obstetrics & Gynecology
DX: Z12.31 Encounter for screening mammogram for malignant neoplasm of breast (principal)
CPT/HCPCS: 77063; 77067